=== PATIENT | female | born 1960 | race Caucasian/White ===

== ENCOUNTER 2018-04-18 16:29 | Outpatient (CLI) | payer MEDICARE, OTHER ==
[~2018-04-18] VITALS: Ht 165.1 cm; Wt 49.4 kg
[2018-04-18] MEDS ORDERED: NS IV 1000 ML 1,000 ML ONE (16:39)
[2018-04-18] MEDS ORDERED: NS IV 1000 ML 1,000 ML IV ONE (16:45)
[2018-04-18 17:50] VITALS: BP 113/85
== END 2018-04-18 17:50 | disposition home or self-care (01) ==
LOC: SDC 16:29
PROVIDERS: ATTEND Physician Assistant
DX: E86.9 Volume depletion, unspecified (principal)
CPT/HCPCS: 96360

== ENCOUNTER → 2018-08-08 | Outpatient (CLI) | payer MEDICARE, OTHER ==
[~2018-08-08] MED LIST: NS IV 1000 ML 1,000 ML IV ONE; NS IV 1000 ML 1,000 ML IV SCH; NS IV 1000 ML 1,000 ML ONE
--- NOTE | 2018-08-08 17:28 | Diagnostic Imaging Report ---
INDICATION: Chest pain and shortness of breath. TIME OF EXAM: 5:18 PM COMPARISON: No prior studies are available for comparison. FINDINGS: The heart size is normal. The pulmonary vascularity is unremarkable. The lungs are clear. No infiltrate, effusion or pneumothorax is detected. IMPRESSION: No acute cardiopulmonary process is detected. Dictated by: Dictated on workstation # [id number]
[2018-08-08 17:35] LABS: BASOPHILS % (AUTO) 0 % (0-10); EOSINOPHILS # (AUTO) 0.1 10^3/uL (0.0-0.3); EOSINOPHILS % (AUTO) 1 % (0-10); HEMATOCRIT 46 % (35-52); HEMOGLOBIN 15.1 G/DL (11.5-16.0); LYMPHOCYTES # (AUTO) 1.6 X 10^3 (1.0-4.0); LYMPHOCYTES % (AUTO) 19 % (12-44); MEAN CORPUSCULAR HEMOGLOBIN 28 PG (25-34); MEAN CORPUSCULAR HGB CONC 33 G/DL (32-36); MEAN CORPUSCULAR VOLUME 85 FL (80-99); MEAN PLATELET VOLUME 9.2 FL (7.4-10.4); MONOCYTES # (AUTO) 0.5 X 10^3 (0.0-1.0); MONOCYTES % (AUTO) 6 % (0-12); NEUTROPHILS # (AUTO) 6.1 X 10^3 (1.8-7.8); NEUTROPHILS % (AUTO) 73 % (42-75); PLATELET COUNT 340 10^3/uL (130-400); RED CELL DISTRIBUTION WIDTH 13.3 % (10.0-14.5); WHITE BLOOD COUNT 8.4 10^3/uL (4.3-11.0)
[2018-08-08 18:24] LABS: ALBUMIN 4.2 GM/DL (3.2-4.5); BILIRUBIN,TOTAL 0.3 MG/DL (0.1-1.0); CALCIUM 9.6 MG/DL (8.5-10.1); CREATININE SERUM 0.97 MG/DL (0.60-1.30); POTASSIUM 3.9 MMOL/L (3.6-5.0); TOTAL PROTEIN 7.4 GM/DL (6.4-8.2)
--- NOTE | 2018-08-08 21:33 | NUR ---
Infusion complete. VS 97.6 113/62, 105, 97% on room air, 18 resp 0 pain.
== END ==
LOC: 4TH 17:04 → 4THo 17:04 → 4TH 08-09 17:23
PROVIDERS: ATTEND Physician Assistant
DX: E86.0 Dehydration (principal); R11.0 Nausea; R00.0 Tachycardia, unspecified; E78.5 Hyperlipidemia, unspecified
CPT/HCPCS: 36415; 71045; 80053; 80061; 85025; 93005; 96360

== ENCOUNTER → 2018-08-13 | Outpatient (CLI) | payer MEDICARE, OTHER ==
--- NOTE | 2018-08-14 14:00 | Diagnostic Imaging Report ---
INDICATION: Routine screening. COMPARISON: 09/12/2017 and 04/27/2016. TECHNIQUE: 2D and 3D bilateral screening mammography was performed with CAD. FINDINGS: Both breasts are heterogeneously dense, limiting the sensitivity of mammography. Bilateral subpectoral breast implants are noted. The implant contours appear smooth. A biopsy clip in the upper-outer right breast is noted. Scattered benign calcifications are noted. No mass or malignant appearing microcalcifications are seen. The axillae are unremarkable. IMPRESSION: No mammographic features suspicious for malignancy are identified. ACR BI-RADS Category 2: Benign findings. Result letter will be mailed to the patient. Note: At least 10% of breast cancer is not imaged by mammography. Dictated by: Dictated on workstation # [id number]
== END ==
LOC: CARD 09:35
PROVIDERS: ATTEND Physician Assistant
DX: Z12.31 Encounter for screening mammogram for malignant neoplasm of breast (principal)
CPT/HCPCS: 77067

== ENCOUNTER → 2018-10-08 | Outpatient (CLI) | payer MEDICARE, OTHER | LOC: CARD 10:24 | PROVIDERS: ATTEND Internal Medicine Interventional Cardiology | DX: R07.89 Other chest pain (principal); R06.09 Other forms of dyspnea; E78.2 Mixed hyperlipidemia; R00.2 Palpitations | CPT/HCPCS: 93306 ==

== ENCOUNTER → 2018-10-18 | Outpatient (CLI) | payer MEDICARE, OTHER ==
--- NOTE | 2018-10-18 13:27 | Diagnostic Imaging Report ---
INDICATION: Postmenopausal screening for osteoporosis. COMPARISON: None. FINDINGS: AP Spine L1-L4: [BMD (g/cm2): 1.086] [T-Score: -0.9] [Z-Score: 0.7] [BMD Previous: na] [BMD % Change: na] LT Hip Neck: [BMD (g/cm2): 0.736] [T-Score: -2.2] [Z-Score: -0.7] LT Hip Total: [BMD (g/cm2):0.781] [T-Score:-1.8] [Z-Score: -0.6] [BMD Previous: na] [BMD % Change: na] RT Hip Neck: [BMD (g/cm2):0.762] [T-Score:-2.0] [Z-Score:-0.5] RT Hip Total: [BMD (g/cm2):0.821] [T-score:-1.5] [Z-Score:-0.3] [BMD Previous:na] [BMD % Change:na] *Indicates significant change from prior examination based on 95% confidence level. World Health Organization criteria for BMD interpretation classify patients as Normal (T-score at or above -1.0), Osteopenic (T-score between -1.0 and -2.5) or Osteoporotic (T-score at or below -2.5). LIMITATIONS AND MODIFICATION: None. FRACTURE RISK (FRAX SCORE): The ten year probability of (%): Major Osteoporotic Fracture: [8.3] Hip Fracture: [1.3] IMPRESSION: 1. Osteopenia (Low bone mass). 2. Baseline examination. 3. See below National Osteoporosis Foundation guidelines on when to potentially initiate pharmacologic therapy. Based on the National Osteoporosis Foundation Guidelines, pharmacologic treatment should be initiated in any of the following, unless clinical conditions suggest otherwise: * Any patient with prior fragility fracture of the hip or vertebrae. A spine fracture indicates 5X risk for subsequent spine fracture and 2X risk for subsequent hip fracture. * Osteoporosis (T-score <-2.5). * Postmenopausal women and men age 50 and older with low bone mass/osteopenia (T-score between -1.0 and -2.5) by DXA and 10-year major osteoporotic fracture greater than 20% or a 10-year probability of hip fracture greater than 3%. These fracture risks are supplied above in the FRAX score, if applicable. * Clinician judgment and/or patient preferences may indicate treatment for people with 10-year fracture probabilities above or below these levels. Dictated by: Dictated on workstation # [id number]
== END ==
LOC: RAD 09:52
PROVIDERS: ATTEND Physician Assistant
DX: Z13.820 Encounter for screening for osteoporosis (principal); M85.89 Other specified disorders of bone density and structure, multiple sites; Z78.0 Asymptomatic menopausal state
CPT/HCPCS: 77080

== ENCOUNTER → 2018-10-18 | Outpatient (CLI) | payer MEDICARE, OTHER ==
[~2018-10-18] MED LIST changes: +CATHETER FLUSH 10 ML SYR IV PRN; -NS IV 1000 ML 1,000 ML IV ONE; -NS IV 1000 ML 1,000 ML IV SCH; -NS IV 1000 ML 1,000 ML ONE; +REGADENOSON 0.4 MG/5 ML SYR (LEXISCAN) IV ONE
[2018-10-18 09:06] VITALS: BP 138/93
[2018-10-18 09:08] VITALS: BP 124/77
--- NOTE | 2018-10-22 16:43 | Cardiology Stress Test Report ---
Stress Test Report Type of NM Stress Test: Test Type: LEXISCAN 0.4MG/5ML Date of Procedure/Referring: Date of Procedure: Oct 18, 2018 PCP Sue Coleman MD Admitting Physician Porfirio Davis MD Indications: Palpitations Baseline Heart Rate: 94 Baseline Blood Pressure: Blood Pressure Systolic: 124 Blood Pressure Diastolic: 77 Baseline EKG: Baseline EKG: sinus rhythm Summary & Conclusion: Summary: The patient was brought to the stress lab after informed consent was taken. St ress test was performed according to the Lexiscan protocol. 0.4 mg of IV Lexiscan was given. Low-grade exercise was performed. Baseline EKG showed sinus rhythm at 94 BPM. Initial blood pressure was 138/93 mmHg. Maximum heart rate was 113 bpm and blood pressure 126/67 mmHg. Patient did not have any chest pain, arrhythmias or ST segment changes during the stress test. 8.64 mCi of Myoview were given for rest imaging and 23.6 mCi of Myoview given for stress imaging. EF 79 percent. No wall motion abnormalities. Normal myocardial perfusion imaging during rest and stressed. Conclusion: Pharmacological stress test was negative for ischemia. Normal LV function with no wall motion abnormalities. Normal myocardial perfusion imaging during rest and stress. Sue COLEMAN MD Oct 22, 2018 4:43 pm
== END ==
LOC: CARD 07:35
PROVIDERS: ATTEND Internal Medicine Interventional Cardiology
DX: E78.2 Mixed hyperlipidemia (principal); R07.89 Other chest pain; R00.2 Palpitations
CPT/HCPCS: 78452; 93017

== ENCOUNTER 2018-10-29 08:53 | Outpatient (RCR) | payer MEDICARE, OTHER ==
[2018-12-31] MEDS ORDERED: MULT-884 PO (10:41)
[2018-12-31] MEDS ORDERED: CALC-227 PO (10:41)
[2018-12-31] MEDS ORDERED: MAGN400T39 PO (10:41)
[2018-12-31] MEDS ORDERED: METO5TAB2 PO (10:56)
[2018-12-31] MEDS ORDERED: HYDR-4196 PO (10:56)
[2018-12-31] MEDS ORDERED: EZET10TA49 PO (10:56)
[2018-12-31] MEDS ORDERED: CARI350T PO (10:56)
[2018-12-31] MEDS ORDERED: TOPI50TA37 PO (10:56)
[2018-12-31] MEDS ORDERED: TIZA4TAB4 PO (10:56)
[2018-12-31] MEDS ORDERED: CLOR7.5T3 PO (10:56)
[2018-12-31] MEDS ORDERED: IMIP25TA4 PO (10:56)
[2018-12-31] MEDS ORDERED: FAMO-119 PO (10:56)
[2018-12-31] MEDS ORDERED: FLDR.1T PO (10:56)
[2018-12-31] MEDS ORDERED: BUPR300T43 PO (10:56)
[2018-12-31] MEDS ORDERED: HYOS-20 PO (10:56)
[2018-12-31] MEDS ORDERED: LORA1TAB PO (10:56)
[2018-12-31] MEDS ORDERED: SERT100T PO (10:56)
[2018-12-31] MEDS ORDERED: ONDN4T PO (10:56)
[2018-12-31] MEDS ORDERED: POTA-51 PO (10:57)
[2018-12-31] MEDS ORDERED: ATOR80TA76 PO (10:59)
[2018-12-31] MEDS ORDERED: NALO12.5 PO (10:59)
[2018-12-31] MEDS ORDERED: SENN-175 PO (10:59)
[2018-12-31] MEDS ORDERED: FENT1PAT60 TD (11:05)
[2018-12-31] MEDS ORDERED: ONDA8TAB13 PO (11:05)
[2018-12-31] MEDS ORDERED: OXYM15MI4 NS (11:05)
[2018-12-31] MEDS ORDERED: BISA-65 PO (11:05)
[2018-12-31] MEDS ORDERED: METO-370 PO (19:08)
== END 2019-01-27 | disposition home or self-care (01) ==
LOC: CARD 08:53
PROVIDERS: ATTEND Internal Medicine Interventional Cardiology
DX: R00.2 Palpitations (principal)

== ENCOUNTER → 2018-12-14 | Outpatient (CLI) | payer MEDICARE, OTHER ==
[2018-12-14 15:01] LABS: BILIRUBIN,TOTAL 0.2 MG/DL (0.1-1.0); CALCIUM 9.5 MG/DL (8.5-10.1); CREATININE SERUM 1.06 MG/DL (0.60-1.30); POTASSIUM 4.4 MMOL/L (3.6-5.0)
[2018-12-14 15:02] LABS: TOTAL PROTEIN 6.9 GM/DL (6.4-8.2)
[2018-12-14 15:04] LABS: HEMATOCRIT 42 % (35-52); HEMOGLOBIN 13.3 G/DL (11.5-16.0); MEAN CORPUSCULAR HEMOGLOBIN 28 PG (25-34); MEAN CORPUSCULAR HGB CONC 32 G/DL (32-36); MEAN CORPUSCULAR VOLUME 89 FL (80-99); WHITE BLOOD COUNT 5.2 10^3/uL (4.3-11.0)
[2018-12-14 15:05] LABS: BASOPHILS % (AUTO) 1 % (0-10); EOSINOPHILS # (AUTO) 0.2 10^3/uL (0.0-0.3); EOSINOPHILS % (AUTO) 4 % (0-10); LYMPHOCYTES # (AUTO) 1.5 X 10^3 (1.0-4.0); LYMPHOCYTES % (AUTO) 28 % (12-44); MEAN PLATELET VOLUME 9.2 FL (7.4-10.4); MONOCYTES # (AUTO) 0.4 X 10^3 (0.0-1.0); MONOCYTES % (AUTO) 7 % (0-12); NEUTROPHILS # (AUTO) 3.1 X 10^3 (1.8-7.8); NEUTROPHILS % (AUTO) 60 % (42-75); PLATELET COUNT 269 10^3/uL (130-400)
[2018-12-15 14:36] LABS: CHOLESTEROL 204 MG/DL (< 200); HDL CHOLESTEROL 48 MG/DL (40-60); TRIGLYCERIDES 121 MG/DL (<150); VLDL CHOLESTEROL 24 MG/DL (5-40)
== END ==
LOC: LAB FS 13:24
PROVIDERS: ATTEND Internal Medicine
DX: E78.2 Mixed hyperlipidemia (principal); I95.9 Hypotension, unspecified; E16.2 Hypoglycemia, unspecified; M85.88 Other specified disorders of bone density and structure, other site
CPT/HCPCS: 36415; 80053; 80061; 85025

== ENCOUNTER 2018-12-31 09:03 | Day surgery (SDC) | payer MEDICARE, OTHER ==
[~2018-12-31] VITALS: Ht 165 cm; Wt 50.4 kg
[2018-12-31] VITALS (14 sets, daily range): BP systolic 103–118; BP diastolic 77–97
[2018-12-31] MEDS ORDERED: KETAMINE HCL 100 MG/ML 5 ML VIAL IJ ONE (09:04)
[2018-12-31] MEDS ORDERED: HEParin (CATH LAB) 1,000 ML IV ONE (09:14)
[2018-12-31] MEDS ORDERED: LIDOCAINE 1% INJ 20 ML 20 ML VIAL ONE (09:14)
[2018-12-31] MEDS ORDERED: NS IV 1000 ML 1,000 ML ONE ×2 (09:14→13:57)
[2018-12-31] MEDS ORDERED: NS IV 1000 ML 1,000 ML IV SCH ×2 (09:20→14:57)
[2018-12-31] MEDS ORDERED: ISOPROTERENOL 0.2 MG/D5W 50 ML IV ONE (09:30)
[2018-12-31 10:20] LABS: HEMOGLOBIN 13.9 G/DL (11.5-16.0); MEAN PLATELET VOLUME 9.2 FL (7.4-10.4); RED CELL DISTRIBUTION WIDTH 13.1 % (10.0-14.5); WHITE BLOOD COUNT 5.4 10^3/uL (4.3-11.0)
[2018-12-31 10:36] LABS: INR 0.9 (0.8-1.4); PROTHROMBIN TIME PATIENT 12.6 SEC (12.2-14.7)
[2018-12-31] MEDS ORDERED: MAGN400T39 PO (10:41)
[2018-12-31] MEDS ORDERED: CALC-227 PO (10:41)
[2018-12-31] MEDS ORDERED: MULT-884 PO (10:41)
[2018-12-31 10:42] LABS: ALBUMIN 4.5 GM/DL (3.2-4.5); BILIRUBIN,TOTAL 0.3 MG/DL (0.1-1.0); CALCIUM 9.5 MG/DL (8.5-10.1); CREATININE SERUM 1.17 MG/DL (0.60-1.30); POTASSIUM 3.6 MMOL/L (3.6-5.0); TOTAL PROTEIN 7.7 GM/DL (6.4-8.2)
[2018-12-31] MEDS ORDERED: LORA1TAB PO (10:56)
[2018-12-31] MEDS ORDERED: TOPI50TA37 PO (10:56)
[2018-12-31] MEDS ORDERED: CLOR7.5T3 PO (10:56)
[2018-12-31] MEDS ORDERED: HYOS-20 PO (10:56)
[2018-12-31] MEDS ORDERED: FLDR.1T PO (10:56)
[2018-12-31] MEDS ORDERED: TIZA4TAB4 PO (10:56)
[2018-12-31] MEDS ORDERED: CARI350T PO (10:56)
[2018-12-31] MEDS ORDERED: ONDN4T PO (10:56)
[2018-12-31] MEDS ORDERED: BUPR300T43 PO (10:56)
[2018-12-31] MEDS ORDERED: METO5TAB2 PO (10:56)
[2018-12-31] MEDS ORDERED: IMIP25TA4 PO (10:56)
[2018-12-31] MEDS ORDERED: FAMO-119 PO (10:56)
[2018-12-31] MEDS ORDERED: EZET10TA49 PO (10:56)
[2018-12-31] MEDS ORDERED: HYDR-4196 PO (10:56)
[2018-12-31] MEDS ORDERED: SERT100T PO (10:56)
[2018-12-31] MEDS ORDERED: POTA-51 PO (10:57)
[2018-12-31] MEDS ORDERED: ATOR80TA76 PO (10:59)
[2018-12-31] MEDS ORDERED: SENN-175 PO (10:59)
[2018-12-31] MEDS ORDERED: NALO12.5 PO (10:59)
[2018-12-31] MEDS ORDERED: DEXTROSE 50% 50 ML (IMS) SYR IV ONE (11:00)
[2018-12-31] MEDS ORDERED: FENT1PAT60 TD (11:05)
[2018-12-31] MEDS ORDERED: BISA-65 PO (11:05)
[2018-12-31] MEDS ORDERED: OXYM15MI4 NS (11:05)
[2018-12-31] MEDS ORDERED: ONDA8TAB13 PO (11:05)
--- NOTE | 2018-12-31 11:18 | NUR ---
SPOKE WITH PT (SHE BROUGHT IN HER HOME MEDS) TO COMPLETE THE MED REC. FENTANYL 100MCG: PT INDICATED SHE CHANGES THE PATCH EVERY 48 HOURS, I CALLED THE PHARMACY TO VERIFY THAT WAS ON FILE AND THEY AGREED IT WAS. ALL MEDS THE PT WAS ABLE TO TELL ME HOW SHE TAKES THEM. OTC MEDS: CALCIUM W/ VIT D: 1 DAILY MAGNESIUM 400M DAILY WOMENS 1 A DAY: 1 DAILY AFRIN: 1 SPRAY EACH NOSTRIL BID BISACODYL 5M TO 2 TS BID SENNA S: 1 TO 2 TS BID
[2018-12-31] MEDS ORDERED: PROPOFOL DRIP (ICU) 100 ML IV ONE (12:16)
[2018-12-31] MEDS ORDERED: fentaNYL INJECTION 100 MCG/2 ML AMP ONE (12:17)
[2018-12-31] MEDS ORDERED: MIDAZOLAM 2 MG/2 ML (VERSED) VIAL ONE (12:17)
[2018-12-31] MEDS ORDERED: GLYCOPYRROLATE 0.2 MG/ML (ROBINUL) 2 ML VIAL ONE (12:17)
--- NOTE | 2018-12-31 14:57 | Cardiac Procedure Note-CS/ASA ---
Pre-Procedure Note Pre-Op Procedure Note H&P Reviewed The H&P was reviewed, patient examined and no changes noted. Date H&P Reviewed: Dec 31, 2018 Time H&P Reviewed: 11:00 Conscious Sedation Pre-Proced Time 11:00 ASA Score 3 For ASA 3 and 4: Consider anesthesia and medical clearance. Also, for patients with a history of failed moderate sedation consider anesthesia. Airway Lungs Heart ASA score ASA 1: a normal healthy patient ASA 2: a patient with a mild systemic disease (mid diabetes, controlled hypertension, obesity ASA 3: a patient with a severe systemic disease that limits activity (angina, COPD, prior Myocardial infarction) ASA 4: a patient with an incapacitating disease that is a constant threat to life (CHF, renal failure) ASA 5: a moribund patient not expected to survive 24 hrs. (ruptured aneurysm) ASA 6: a declared brain- patient whose organs are being harvested. For emergent operations, add the letter E after the classification Mallampati Classification Grade 1 Sedation Plan Analgesia, Amnesia, Plan communicated to team members, Discussed options with patient/fam, Discussed risks with patient/fam The patient is an appropriate candidate to undergo the planned procedure, sedation, and anesthesia. The patient immediately re-assessed prior to indication. Sue BEGUM MD Dec 31, 2018 14:57
[2018-12-31] MEDS ORDERED: PATIENT MAY USE OWN MEDS, ALL PO SCH (15:00)
--- NOTE | 2018-12-31 15:03 | Electrophysiology Procedure ---
EP Procedure DATE OF SERVICE:12/31/18 REFERRING PHYSICIAN: CARDIAC STAKEHOLDER MANAGER: Lobito Coleman MD, CHETAN, NADIAS. INDICATION: Possible narrow complex tachycardia. PREOPERATIVE DIAGNOSIS: Possible narrow complex tachycardia. POSTOPERATIVE DIAGNOSES: Noninducible tachycardia. HISTORY: This is a 58-year-old lady with frequent palpitations. Possible narrow complex tachycardia. The patient is planned for comprehensive EP study and ablation. PROCEDURE PERFORMED: 1. Comprehensive EP study with induction. 2. Fluoroscopy. 3. Drug infusion. COMPLICATION: None. ESTIMATED BLOOD LOSS: 10 mL. CONTRAST USED: None. FLUOROSCOPY TIME: 11.9 min. FLUOROSCOPY DOSE: 41 mgy. SPECIMENS: None. ANESTHESIA: Done by our anesthesia colleagues. ANTICOAGULATION: None. PROCEDURE IN DETAIL: After informed consent was taken, the patient was brought to the EP lab. Anesthesia was provided by our anesthesia colleagues. The patient was draped and prepped in the usual sterile fashion. The patient presented to the EP lab in sinus rhythm. Access was gained in the right femoral vein with a 6-Latvian and an 8-Latvian sheath. Left access in left femoral vein was gained with 5-Latvian and 6-Latvian sheath respectively. High right atrial catheter was [employer] catheter, right ventricular catheter was placed, his catheter and the CS catheter were also placed. A comprehensive EP study was done. Dual AV laura physiology was not demonstrated. Tachycardia was not induced with or without Isuprel and even during washout. Sinus tachycardia. Rapid atrial pacing also did not induce tachycardia. The patienttolerated the procedurewell and did not have any complication. The patientleft the lab in sinus rhythm. MEASUREMENTS/EP STUDY: AA interval 644 ms, AH interval 71 ms, HV interval 52 ms, ND interval 184 ms, neck and QRS duration 47 ms, QT interval 349 ms, R-R interval 651 ms, AV Wenckebach at pacing 360 ms, Retrograde Wenckebach when pacing at 480 ms, Retrograde Wenckebach when pacing at 510 ms, Atrial ERP 500/240 ms, Atrial ERP 450/240 ms, Retrograde ERP 550/380 ms, During Isuprel; Atrial ERP 400/190 ms, Atrial ERP 400/220 ms during Isuprel washout. PLAN: The patient will be observed for 4 hours and will be discharged later today with precise followup instructions. Lobito Coleman MD, FHRS, CCDS Cardiac Electrophysiology Sue COLEMAN MD Dec 31, 2018 15:03
--- NOTE | 2018-12-31 15:07 | Discharge Inst-Post CATH ---
Discharge Inst-CATH/EP Problems Reviewed?: Yes Final Diagnosis Noninducible tachycardia Post Cardiac Cath/EP D/C Inst Follow Up/Plan The patient will be discharged today to follow-up in the office in 4 weeks. <b>CARDIAC CATH/EP PROCEDURE DISCHARGE INSTRUCTIONS</b> ACTIVITY * Go Home directly and rest. * Limit activity of the leg (or wrist if it was used) for 7 days including aerobics, swimming, jogging, bicycling, etc. * Restrict stair-climbing for 7 days if possible, if not, climb up with your non-cath leg, then bring together on the same step. * Avoid lifting, pushing, pulling or excessive movement of the affected extremity for 7 days. * Customary sexual activity may be resumed after 2 days-use caution not to use a position that strains or causes pain to the affected extremity. * No driving for 24 hours. * NO SMOKING. * Avoid straining for bowel movements for 7 days. * Gentle walking on level ground is allowed. * Returning to work will depend on the type of procedure and the results. Your doctor will discuss this with you. CALL YOUR DOCTOR FOR ANY OF THE FOLLOWING: *If bleeding from the puncture site occurs- Apply gentle pressure to site with clean cloth and call your doctor or EMS. * If a knot or lump forms under the skin, increases in size, or causes pain. * If bruising appears to be worsening or moving further down your leg instead of disappearing. * Temperature above 101 F. CARE OF YOUR GROIN INCISION; * Bruising or purple discoloration of the skin near the puncture site is common. * You may shower only, no bathtub bathing for 5 days. Be careful to avoid slipping as your leg may feel stiff. * If a closure device was used on your femoral artery, please see the attached guide regarding care of the device and your leg. * Leave dressing on FOR 24 hours. CARE OF YOUR WRIST INCISION; * Bruising or purple discoloration of the skin near the puncture site is common. * You may shower. * DO NOT submerge wrist. * Leave dressing on FOR 24 hours. Sue BEGUM MD Dec 31, 2018 15:07
--- NOTE | 2018-12-31 15:10 | Cardiology Discharge Summary ---
Diagnosis/Chief Complaint Date of Admission 12/31/2018 Date of Discharge 12/31/2018 Admission Diagnosis Palpitations, Possible narrow complex tachycardia Final/Discharge Diagnosis Noninducible tachycardia Chief Complaint/HPI Chief Complaint/HPI 58-year-old with palpitations and possible narrow complex tachycardia. Discharge Summary Procedures No dual AV laura physiology. Noninducible tachycardia. Discharge Physical Examination Unremarkable. Hospital Course Was the Problem List Reviewed?: Yes Stable. Pending Labs Laboratory Tests 12/31/18 10:12: White Blood Count 5.4, Red Blood Count 4.94, Hemoglobin 13.9, Hematocrit 42, Mean Corpuscular Volume 85, Mean Corpuscular Hemoglobin 28, Mean Corpuscular Hemoglobin Concent 33, Red Cell Distribution Width 13.1, Platelet Count 278, Mean Platelet Volume 9.2, Prothrombin Time 12.6, INR Comment 0.9, Activated Partial Thromboplast Time 30, Sodium Level 143, Potassium Level 3.6, Chloride Level 111, Carbon Dioxide Level 23, Anion Gap 9, Blood Urea Nitrogen 10, Creatinine 1.17, Estimat Glomerular Filtration Rate 47, BUN/Creatinine Ratio 9, Glucose Level 69, Calcium Level 9.5, Corrected Calcium 9.1, Total Bilirubin 0.3, Aspartate Amino Transf (AST/SGOT) 27, Alanine Aminotransferase (ALT/SGPT) 27, Alkaline Phosphatase 84, Total Protein 7.7, Albumin 4.5 12/31/18 11:19: Glucometer 142 Discussion & Recommendations Discussion Discussed with the family. Follow up appt.: Dr. Coleman in 4 weeks. Dicharge Diet: Regular Diet Activity as Tolerated: Yes Home Medications Reviewed patient Home Medication Reconciliation performed by pharmacy medication reconciliations ecg technician and/or nursing. Patients Allergies have been reviewed. Discharge Home Medications: Reviewed and agree with Discharge Medication list on patient's Discharge Instruction sheet Condition at discharge Stable. Instructions to patient/family The patient will be discharged today to follow-up in the office in 4 weeks. Sue COLEMAN MD Dec 31, 2018 15:09
[2018-12-31] MEDS ORDERED: ONDANSETRON 4 MG/2 ML (SDV) Z0FRAN IVP ONE (15:30)
--- NOTE | 2018-12-31 16:19 | Anesthesia-General Post-Op ---
MAC Patient Condition Mental Status/LOC: Same as Preop Cardiovascular: Satisfactory Nausea/Vomiting: Absent Respiratory: Satisfactory Pain: Controlled Complications: Absent Post Op Complications Complications None Follow Up Care/Instructions Patient Instructions None needed. Anesthesiology Discharge Order Discharge Order Patient is doing well, no complaints, stable vital signs, no apparent adverse anesthesia problems. No complications reported per nursing. RENARD DAILEY CRNA Dec 31, 2018 16:19
[2018-12-31] MEDS ORDERED: METO-370 PO (19:08)
== END 2018-12-31 19:30 | disposition home or self-care (01) ==
LOC: CATH 09:03 → ICU 15:58 → CATH 19:30
PROVIDERS: ATTEND Internal Medicine Interventional Cardiology
DX: I47.1 Supraventricular tachycardia (principal); G43.709 Chronic migraine without aura, not intractable, without status migrainosus; E78.2 Mixed hyperlipidemia; I95.1 Orthostatic hypotension; I10 Essential (primary) hypertension; I48.91 Unspecified atrial fibrillation; Z82.49 Family history of ischemic heart disease and other diseases of the circulatory system; Z83.3 Family history of diabetes mellitus; Z88.8 Allergy status to other drugs, medicaments and biological substances; Z79.52 Long term (current) use of systemic steroids; Z79.899 Other long term (current) drug therapy; Z90.710 Acquired absence of both cervix and uterus
CPT/HCPCS: 36415; 80053; 82962; 85027; 85610; 85730; 87081; 93621; 93623

== ENCOUNTER → 2019-04-24 | Outpatient (CLI) | payer MEDICARE, OTHER ==
[~2019-04-24] MED LIST changes: +ATOR80TA76 PO; +BISA-65 PO; +BUPR300T43 PO; +CALC-227 PO; +CARI350T PO; -CATHETER FLUSH 10 ML SYR IV PRN; +CLOR7.5T3 PO; +EZET10TA49 PO; +FAMO-119 PO; +FENT1PAT60 TD; +FLDR.1T PO; +HYDR-4196 PO; +HYOS-20 PO; +IMIP25TA4 PO; +LORA1TAB PO; +MAGN400T39 PO; +METO50TA7 PO; +METO5TAB2 PO; +MULT-884 PO; +NALO12.5 PO; +ONDA8TAB13 PO; +ONDN4T PO; +OXYM15MI4 NS; +POTA-51 PO; -REGADENOSON 0.4 MG/5 ML SYR (LEXISCAN) IV ONE; +SENN-175 PO; +SERT100T PO; +TIZA4TAB4 PO; +TOPI50TA37 PO
--- NOTE | 2019-04-24 18:38 | Diagnostic Imaging Report ---
INDICATION: Knee pain. TECHNIQUE: AP and lateral views of both knees are obtained. FINDINGS: No fracture or acute bony abnormality is seen. There is mild patellofemoral joint space narrowing and spurring on both sides with mild medial joint space narrowing and osteophyte formation. The lateral compartments appear preserved. There is no lytic or blastic lesion or joint effusion. IMPRESSION: Relatively mild degenerative changes of both knees, as described above. No acute abnormality. Dictated by: Dictated on workstation # [id number]
== END ==
LOC: RAD FS 13:36
PROVIDERS: ATTEND Internal Medicine Rheumatology
DX: M17.0 Bilateral primary osteoarthritis of knee (principal)

== ENCOUNTER 2019-05-20 17:56 | Emergency (ER) | payer MEDICARE, OTHER ==
[~2019-05-20] VITALS: Ht 165 cm; Wt 85.6 kg
--- NOTE | 2019-05-20 18:07 | ED General ---
General Stated Complaint: BLOOD PRESSURE LOW,DEHYDRATED Source of Information: Patient, Family Exam Limitations: No Limitations History of Present Illness Date Seen by Provider: May 20, 2019 Time Seen by Provider: 18:07 Initial Comments 58-year-old female who is brought in with concerns for dehydration. Patient has not been eating or drinking much because she just hasn't "felt good" for a couple days. Patient is very vague and how she hasn't felt good. Patient reports that she's been having problems with her "fibromyalgia". Patient denies any fevers chills cough and shortness of breath chest pain nausea vomiting or any other systemic complaints. Allergies and Home Medications Allergies Coded Allergies: prochlorperazine (Verified Allergy, Mild, TREMORS, 04/18/18) Home Medications Atorvastatin Calcium 80 Mg Tablet, 80 MG PO DAILY, (Reported) Bisacodyl 5 Mg Tablet.dr, 5-10 MG PO BID, (Reported) Bupropion HCl 300 Mg Tab.er.24h, 300 MG PO DAILY, (Reported) Calcium Carbonate/Vitamin D3 1 Each Tablet, 1 EACH PO HS, (Reported) Carisoprodol 350 Mg Tablet, 350 MG PO TID, (Reported) Clorazepate Dipotassium 7.5 Mg Tablet, 22.5 MG PO HS, (Reported) Ezetimibe 10 Mg Tablet, 10 MG PO DAILY, (Reported) Famotidine 20 Mg Tablet, 20 MG PO BID PRN for NAUSEA/VOMITING, (Reported) Fentanyl 1 Each Patch.td72, 100 MCG TD Q48H, (Reported) Fludrocortisone Acetate 0.1 Mg Tab, 0.2 MG PO DAILY, (Reported) Hydrocodone/Acetaminophen 1 Each Tablet, 1 TAB PO Q6H PRN for PAIN-MODERATE, (Re ported) Hyoscyamine Sulfate 0.125 Mg Tablet, 0.125 MG PO HS, (Reported) Imipramine HCl 25 Mg Tablet, 25-75 MG PO HS, (Reported) Lorazepam 1 Mg Tablet, 0.5-1 MG PO Q6H PRN for ANXIETY, (Reported) Magnesium Oxide 400 Mg Tablet, 400 MG PO DAILY, (Reported) Metoclopramide HCl 5 Mg Tablet, 5 MG PO QIDACHS, (Reported) Metoprolol Succinate 50 Mg Tab.er.24h, 50 MG PO DAILY Prescribed by: ANGELA PEGUERO on 12/31/181907 Multivits,Ca,Minerals/Iron/FA 1 Each Tablet, 1 EACH PO DAILY, (Reported) Naloxegol Oxalate 12.5 Mg Tablet, 12.5 MG PO DAILY, (Reported) Ondansetron 8 Mg Tab.rapdis, 8 MG PO Q8H PRN for NAUSEA/VOMITING-1ST LINE, (Reported) Ondansetron HCl 4 Mg Tab, 4 MG PO Q8H PRN for NAUSEA/VOMITING-1ST LINE, (Reported) Oxymetazoline HCl 15 Ml Mist, 1 SPRAYS NS BID PRN for CONGESTION, (Reported) Potassium Chloride 20 Meq Tablet.er, 20 MEQ PO BID, (Reported) Sennosides/Docusate Sodium 1 Each Tablet, 1-2 EACH PO BID, (Reported) Sertraline HCl 100 Mg Tablet, 100 MG PO DAILY, (Reported) Tizanidine HCl 4 Mg Tablet, 2-4 MG PO BID, (Reported) Topiramate 50 Mg Tablet, 100 MG PO BID, (Reported) Patient Home Medication List Home Medication List Reviewed: Yes Review of Systems Review of Systems Constitutional: malaise EENTM: no symptoms reported Respiratory: no symptoms reported Cardiovascular: no symptoms reported Gastrointestinal: no symptoms reported Genitourinary: no symptoms reported Musculoskeletal: no symptoms reported Skin: no symptoms reported Psychiatric/Neurological: No Symptoms Reported Hematologic/Lymphatic: No Symptoms Reported Past Nbcihew-Tmfiws-Cyjfzm Hx Past Med/Social Hx: Reviewed Nursing Past Med/Soc Hx Patient Social History Recent Foreign Travel: No Contact w/Someone Who Travel: No Recent Hopitalizations: No Past Medical History Breast, Hysterectomy, Tonsillectomy Respiratory: No Cardiac: Yes High Cholesterol Neurological: No Genitourinary: Yes (INTERSTITIAL CYSTISIS) Gastrointestinal: Yes Hiatal Hernia, Irritable Bowel Cancer: No Blood Disorders: No Physical Exam Vital Signs Vital Signs - First Documented 05/20/19 05/20/19 18:05 19:36 Temp 36.2 Pulse 72 Resp 12 B/P (MAP) 103/72 (82) Pulse Ox 99 O2 Delivery Room Air Capillary Refill : Height, Weight, BMI Height: 5'5.00" Weight: 109lbs. 0.0oz. 49.486297kp; 18.51 BMI Method: General Appearance: No Apparent Distress, WD/WN Respiratory: Chest Non Tender, Lungs Clear Gastrointestinal: Non Tender, Soft Extremity: Normal Capillary Refill Neurologic/Psychiatric: Alert, Oriented x3, No Motor/Sensory Deficits, Depressed Affect Skin: Normal Color, Warm/Dry Progress/Results/Core Measures Suspected Sepsis SIRS Temperature: Pulse: Respiratory Rate: Laboratory Tests 05/20/19 18:19: White Blood Count 6.5 Blood Pressure / Mean: Laboratory Tests 05/20/19 18:19: Creatinine 0.92, Platelet Count 256, Total Bilirubin < 0.2 Results/Orders Lab Results Laboratory Tests Test 05/20/19 18:17 05/20/19 18:19 Range/Units Glucometer 82 70-110 MG/DL White Blood Count 6.5 4.3-11.0 10^3/uL Red Blood Count 4.39 4.35-5.85 10^6/uL Hemoglobin 12.6 11.5-16.0 G/DL Hematocrit 39 35-52 % Mean Corpuscular Volume 88 80-99 FL Mean Corpuscular Hemoglobin 29 25-34 PG Mean Corpuscular Hemoglobin Concent 33 32-36 G/DL Red Cell Distribution Width 13.1 10.0-14.5 % Platelet Count 256 130-400 10^3/uL Mean Platelet Volume 9.3 7.4-10.4 FL Sodium Level 136 135-145 MMOL/L Potassium Level 5.0 3.6-5.0 MMOL/L Chloride Level 104 98-107 MMOL/L Carbon Dioxide Level 22 21-32 MMOL/L Anion Gap 10 5-14 MMOL/L Blood Urea Nitrogen 8 7-18 MG/DL Creatinine 0.92 0.60-1.30 MG/DL Estimat Glomerular Filtration Rate > 60 BUN/Creatinine Ratio 9 Glucose Level 89 70-105 MG/DL Calcium Level 9.0 8.5-10.1 MG/DL Corrected Calcium 9.2 8.5-10.1 MG/DL Total Bilirubin < 0.2 0.1-1.0 MG/DL Aspartate Amino Transf (AST/SGOT) 33 5-34 U/L Alanine Aminotransferase (ALT/SGPT) 20 0-55 U/L Alkaline Phosphatase 91 40-136 U/L Troponin I < 0.30 <0.30 NG/ML Total Protein 6.4 6.4-8.2 GM/DL Albumin 3.7 3.2-4.5 GM/DL Micro Results Microbiology 05/20/19 Influenza Types A,B Antigen ([place]) - Final, Complete My Orders Orders - ALYCE GÓMEZ DO Cbc No Diff (05/20/19 18:12) Comprehensive Metabolic Panel (05/20/19 18:12) Ua Culture If Indicated (05/20/19 18:12) Influenza A And B Antigens (05/20/19 18:12) Ed Iv/Invasive Line Start (05/20/19 18:12) Ekg Tracing (05/20/19 18:12) Troponin I Fs (05/20/19 18:12) Ed Iv/Invasive Line Start (05/20/19 18:12) Ns Iv 1000 Ml (Sodium Chloride 0.9%) (05/20/19 18:12) Vital Signs/I&O 05/20/19 05/20/19 18:05 19:36 Temp 36.2 36.2 Pulse 72 72 Resp 12 12 B/P (MAP) 103/72 (82) 103/72 (82) Pulse Ox 99 99 O2 Delivery Room Air Capillary Refill : Progress Note : Time: 19:16 Progress Note Patient with normal labs, no acute findings on physical exam. Her blood sugar was slightly low so is a possibility she had a hypoglycemic episode that has resolved since she has some Gatorade just prior to arrival. Patient otherwise stable and will be discharged home in stable condition. Patient should follow-up with her primary care provider in the next couple days for continuation of care and recheck of symptoms. ECG Initial ECG Impression Date: May 20, 2019 Initial ECG Impression Time: 18:25 Initial ECG Rhythm: Normal Sinus Initial ECG Impression: Nonspecific Changes Comment no acute changes Departure Impression Primary Impression: General medical exam Additional Impression: Fatigue Qualified Codes: R53.83 - Other fatigue Disposition: 01 HOME, SELF-CARE Condition: Stable Departure-Patient Inst. Referrals: OSKAR PEARCE MD (PCP/Family) Primary Care Physician Patient Instructions: Dehydration, Adult (DC), HYPOGLYCEMIA Add. Discharge Instructions: The emergency department focuses on treating and ruling out life-threatening diseases. Whenever possible, a diagnosis is given. However, most patients are given an impression based on their history, physical exam, and workup during your brief time in the ER. Information about probable diagnosis and other educational material has been provided. Please take the time to read and understand this information. It is very important that you follow up with a physician as discussed during the visit today. Failure to adhere to your follow-up instructions may lead to severe disability, injury, or so please make sure to keep your appointments or obtain one as requested. Please keep in mind the emergency department is not designed to your primary care or "family doctor" and nonurgent issues are best evaluated by an outpatient physician ALYCE GÓMEZ DO May 20, 2019 18:07
[2019-05-20] MEDS ORDERED: NS IV 1000 ML 1,000 ML IV SCH (18:12)
[2019-05-20 18:32] LABS: HEMOGLOBIN 12.6 G/DL (11.5-16.0); MEAN PLATELET VOLUME 9.3 FL (7.4-10.4); RED CELL DISTRIBUTION WIDTH 13.1 % (10.0-14.5); WHITE BLOOD COUNT 6.5 10^3/uL (4.3-11.0)
[2019-05-20 18:41] LABS: CARBON DIOXIDE 22 MMOL/L (21-32); CHLORIDE 104 MMOL/L (98-107); SODIUM 136 MMOL/L (135-145)
[2019-05-20 18:42] LABS: ALANINE AMINOTRANSFERASE 20 U/L (0-55); ALBUMIN 3.7 GM/DL (3.2-4.5); ALKALINE PHOSPHATASE 91 U/L (40-136); BILIRUBIN,TOTAL < 0.2 MG/DL (0.1-1.0); BUN/CREATININE RATIO 9; CREATININE SERUM 0.92 MG/DL (0.60-1.30); GFR ESTIMATED > 60; GLUCOSE 89 MG/DL (70-105); TOTAL PROTEIN 6.4 GM/DL (6.4-8.2)
[2019-05-20 19:36] VITALS: BP 103/72
--- OUTSIDE RECORDS SUMMARY | 2019-05-29 19:03 | XMS REPORT | Continuity of Care Document ---
Author Organization Unknown Address Unknown Phone Unavailable Allergies Active Description Code Type Severity Reaction Onset Reported/Identified Relationship to Patient Clinical Status Yes prochlorperazine [id number] Drug Allergy Mild TREMORS 04/18/2018 Medications There is no data. Problems Date Dx Coded Attending Type Code Diagnosis Diagnosed By 04/18/2018 LENORE IVAN Ot E86.9 VOLUME DEPLETION, UNSPECIFIED 04/20/2018 LENORE IVAN Ot E86.9 VOLUME DEPLETION, UNSPECIFIED 08/08/2018 LENORE IVAN Ot E78.5 HYPERLIPIDEMIA, UNSPECIFIED 08/08/2018 LENORE IVAN Ot E86.0 DEHYDRATION 08/08/2018 LENORE IVAN Ot R00.0 TACHYCARDIA, UNSPECIFIED 08/08/2018 LENORE IVAN Ot R11.0 NAUSEA 08/13/2018 LENORE IVAN Ot E78.5 HYPERLIPIDEMIA, UNSPECIFIED 08/13/2018 LENORE IVAN Ot E86.0 DEHYDRATION 08/13/2018 LENORE IVAN Ot R00.0 TACHYCARDIA, UNSPECIFIED 08/13/2018 LENORE IVAN Ot R11.0 NAUSEA 08/13/2018 LENORE IVAN Ot Z12.31 ENCNTR SCREEN MAMMOGRAM FOR MALIGNANT NE 08/13/2018 LENORE IVAN Ot M81.8 OTHER OSTEOPOROSIS WITHOUT CURRENT PATHO 08/14/2018 LENORE IVAN Ot E78.5 HYPERLIPIDEMIA, UNSPECIFIED 08/14/2018 LENORE IVAN Ot E86.0 DEHYDRATION 08/14/2018 LENORE IVAN Ot R00.0 TACHYCARDIA, UNSPECIFIED 08/14/2018 LENORE IVAN Ot R11.0 NAUSEA 08/15/2018 LENORE IVAN Ot Z12.31 ENCNTR SCREEN MAMMOGRAM FOR MALIGNANT NE 08/27/2018 LENORE IVAN Ot Z12.31 ENCNTR SCREEN MAMMOGRAM FOR MALIGNANT NE 09/07/2018 LENORE IVAN Ot M81.8 OTHER OSTEOPOROSIS WITHOUT CURRENT PATHO 10/12/2018 Sue BEGUM MD Ot E78 .2 MIXED HYPERLIPIDEMIA 10/12/2018 Sue BEGUM MD Ot R00 .2 PALPITATIONS 10/12/2018 Sue BEGUM MD Ot R06.09 OTHER FORMS OF DYSPNEA 10/12/2018 Sue BEGUM MD Ot R07.89 OTHER CHEST PAIN 10/18/2018 LENORE IVAN Ot M81.0 AGE-RELATED OSTEOPOROSIS W/O CURRENT PAT 10/18/2018 LENORE IVAN Ot M81.0 AGE-RELATED OSTEOPOROSIS W/O CURRENT PAT 10/23/2018 LENORE IVAN Ot M85.89 OTH DISRD OF BONE DENSITY AND STRUCTURE, 10/23/2018 LENORE IVAN Ot Z13.820 ENCOUNTER FOR SCREENING FOR OSTEOPOROSIS 10/23/2018 LENORE IVAN Ot Z78.0 ASYMPTOMATIC MENOPAUSAL STATE 11/01/2018 Sue BEGUM MD Ot E78 .2 MIXED HYPERLIPIDEMIA 11/01/2018 Sue BEGUM MD Ot R00 .2 PALPITATIONS 11/01/2018 Sue BEGUM MD Ot R07.89 OTHER CHEST PAIN 11/01/2018 Sue BEGUM MD Ot E78 .2 MIXED HYPERLIPIDEMIA 11/01/2018 Sue BEGUM MD Ot R00 .2 PALPITATIONS 11/01/2018 Sue BEGUM MD Ot R06.09 OTHER FORMS OF DYSPNEA 11/01/2018 Sue BEGUM MD Ot R07.89 OTHER CHEST PAIN 11/09/2018 LENORE IVAN Ot M85.89 OTH DISRD OF BONE DENSITY AND STRUCTURE, 11/09/2018 LENORE IVAN Ot Z13.820 ENCOUNTER FOR SCREENING FOR OSTEOPOROSIS 11/09/2018 LENORE IVAN Ot Z78.0 ASYMPTOMATIC MENOPAUSAL STATE 12/11/2018 Sue BEGUM MD Ot E78 .2 MIXED HYPERLIPIDEMIA 12/11/2018 Sue BEGUM MD Ot M85.89 OTH DISRD OF BONE DENSITY AND STRUCTURE, 12/11/2018 Sue BEGUM MD Ot R00 .2 PALPITATIONS 12/11/2018 Sue BEGUM MD Ot R07.89 OTHER CHEST PAIN 12/11/2018 Sue BEGUM MD Ot Z13.820 ENCOUNTER FOR SCREENING FOR OSTEOPOROSIS 12/11/2018 Sue BEGUM MD Ot Z78 .0 ASYMPTOMATIC MENOPAUSAL STATE 12/20/2018 OSKAR PEARCE MD Ot E16.2 HYPOGLYCEMIA, UNSPECIFIED 12/20/2018 OSKAR PEARCE MD Ot E78.2 MIXED HYPERLIPIDEMIA 12/20/2018 OSKAR PEARCE MD Ot I95.9 HYPOTENSION, UNSPECIFIED 12/20/2018 OSKAR PEARCE MD Ot M85.8 8 OTH DISRD OF BONE DENSITY AND STRUCTURE, 12/31/2018 Sue BEGUM MD Ot E78 .2 MIXED HYPERLIPIDEMIA 12/31/2018 Sue BEGUM MD Ot G43.709 CHRONIC MIGRAINE W/O AURA, NOT INTRACTAB 12/31/2018 Sue BEGUM MD Ot I10 ESSENTIAL (PRIMARY) HYPERTENSION 12/31/2018 Sue BEGUM MD Ot I47 .1 SUPRAVENTRICULAR TACHYCARDIA 12/31/2018 Sue BEGUM MD Ot I48.91 UNSPECIFIED ATRIAL FIBRILLATION 12/31/2018 Sue BEGUM MD Ot I95 .1 ORTHOSTATIC HYPOTENSION 12/31/2018 Sue BEGUM MD Ot 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 12/31/2018 Sue BEGUM MD Ot Z79.899 OTHER REFRIGERATED CARGO CLERK (CURRENT) DRUG THERAPY 12/31/2018 Sue BEGUM MD, Ot Z82.49 FAMILY HX OF ISCHEM HEART DIS AND OTH DI 12/31/2018 Sue BEGUM MD Ot Z83 .3 FAMILY HISTORY OF DIABETES MELLITUS 12/31/2018 Sue BEGUM MD, Ot Z88 .8 ALLERGY STATUS TO OTH DRUG/MEDS/BIOL SUB 12/31/2018 Sue BEGUM MD Ot Z90.710 ACQUIRED ABSENCE OF BOTH CERVIX AND UTER 01/04/2019 Sue BEGUM MD Ot E78 .2 MIXED HYPERLIPIDEMIA 01/04/2019 Sue BEGUM MD, Ot G43.709 CHRONIC MIGRAINE W/O AURA, NOT INTRACTAB 01/04/2019 Sue BEGUM MD Ot I10 ESSENTIAL (PRIMARY) HYPERTENSION 01/04/2019 Sue BEGUM MD Ot I47 .1 SUPRAVENTRICULAR TACHYCARDIA 01/04/2019 Sue BEGUM MD Ot I48.91 UNSPECIFIED ATRIAL FIBRILLATION 01/04/2019 Sue BEGUM MD Ot I95 .1 ORTHOSTATIC HYPOTENSION 01/04/2019 Sue BEGUM MD Ot 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 01/04/2019 Sue BEGUM MD Ot Z79.899 OTHER FDC (CURRENT) DRUG THERAPY 01/04/2019 Sue BEGUM MD Ot Z82.49 FAMILY HX OF ISCHEM HEART DIS AND OTH DI 01/04/2019 Sue BEGUM MD, Ot Z83 .3 FAMILY HISTORY OF DIABETES MELLITUS 01/04/2019 Sue BEGUM MD, Ot Z88 .8 ALLERGY STATUS TO OT DRUG/MEDS/BIOL SUB 01/04/2019 Sue BEGUM MD Ot Z90.710 ACQUIRED ABSENCE OF BOTH CERVIX AND UTER 01/04/2019 OSKAR PEARCE MD Ot E16.2 HYPOGLYCEMIA, UNSPECIFIED 01/04/2019 OSKAR PEARCE MD Ot E78.2 MIXED HYPERLIPIDEMIA 01/04/2019 OSKAR PEARCE MD Ot I95.9 HYPOTENSION, UNSPECIFIED 01/04/2019 OSKAR PEARCE MD Ot M85.8 8 OTH DISRD OF BONE DENSITY AND STRUCTURE, 01/08/2019 Sue BEGUM MD Ot E78 .2 MIXED HYPERLIPIDEMIA 01/08/2019 Sue BEGUM MD, Ot G43.709 CHRONIC MIGRAINE W/O AURA, NOT INTRACTAB 01/08/2019 Sue BEGUM MD Ot I10 ESSENTIAL (PRIMARY) HYPERTENSION 01/08/2019 Sue BEGUM MD Ot I47 .1 SUPRAVENTRICULAR TACHYCARDIA 01/08/2019 Sue BEGUM MD, Ot I48.91 UNSPECIFIED ATRIAL FIBRILLATION 01/08/2019 Sue BEGUM MD, Ot I95 .1 ORTHOSTATIC HYPOTENSION 01/08/2019 Sue BEGUM MD, Ot 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 01/08/2019 Sue BEGUM MD, Ot Z79.899 OTHER REFRIGERATED CARGO CLERK (CURRENT) DRUG THERAPY 01/08/2019 Sue BEGUM MD, Ot Z82.49 FAMILY HX OF ISCHEM HEART DIS AND OTH DI 01/08/2019 Sue BEGUM MD, Ot Z83 .3 FAMILY HISTORY OF DIABETES MELLITUS 01/08/2019 Sue BEGUM MD, Ot Z88 .8 ALLERGY STATUS TO OT DRUG/MEDS/BIOL SUB 01/08/2019 Sue BEGUM MD, Ot Z90.710 ACQUIRED ABSENCE OF BOTH CERVIX AND UTER 01/27/2019 Sue BEGUM MD Ot R00 .2 PALPITATIONS 01/28/2019 Sue BEGUM MD, Ot R00 .2 PALPITATIONS 04/26/2019 JAYLIN PALACIOS MD Ot M17.0 BILATERAL PRIMARY OSTEOARTHRITIS OF KNEE 05/08/2019 AJYLIN PALACIOS MD, Ot M17.0 BILATERAL PRIMARY OSTEOARTHRITIS OF KNEE Procedures There is no data. Results Test Result Range Complete blood count (CBC) with automate d white blood cell (WBC) differential - 08/08/18 17:28 Blood leukocytes automated count (number/volume) 8.4 10*3/uL 4.3-11.0 Blood erythrocytes automated count (number/volume) 5.43 10*6/uL 4.35-5.85 Venous blood hemoglobin measurement (mass/volume) 15.1 g/dL 11.5-16.0 Blood hematocrit (volume fraction) 46 % 35-52 Automated erythrocyte mean corpuscular volume 85 [ foz_us] 80-99 Automated erythrocyte mean corpuscular h emoglobin (mass per erythrocyte) 28 pg 25-34 Automated erythrocyte mean corpuscular h emoglobin concentration measurement (mass/volume) 33 g/dL 32-36 Automated erythrocyte distribution width ratio 13. 3 % 10.0- 14.5 Automated blood platelet count (count/volume) 340 10*3/uL 130-400 Automated blood platelet mean volume measurement 9.2 [foz_us] 7.4-10.4 Automated blood neutrophils/100 leukocytes 73 % 42-75 Automated blood lymphocytes/100 leukocytes 19 % 12-44 Blood monocytes/100 leukocytes 6 % 0-12 Automated blood eosinophils/100 leukocytes 1 % 0-10 Automated blood basophils/100 leukocytes 0 % 0-10 Blood neutrophils automated count (number/volume) 6.1 10*3 1.8-7.8 Blood lymphocytes automated count (number/volume) 1.6 10*3 1.0-4.0 Blood monocytes automated count (number/volume) 0. 5 10*3 0.0-1.0 Automated eosinophil count 0.1 10*3/uL 0 .0-0.3 Automated blood basophil count (count/volume) 0.0 10*3/uL 0.0-0.1 Comprehensive metabolic panel - 08/08/18 17:28 Serum or plasma sodium measurement (moles/volume) 137 mmol/L 135-145 Serum or plasma potassium measurement (moles/volume) 3.9 mmol/L 3.6-5.0 Serum or plasma chloride measurement (moles/volume) 103 mmol/L 98-107 Carbon dioxide 20 mmol/L 21-32 Serum or plasma anion gap determination (moles/volume) 14 mmol/L 5-14 Serum or plasma urea nitrogen measurement (mass/volume ) 14 mg/dL 7-18 Serum or plasma creatinine measurement (mass/volume) 0.97 mg/dL 0.60-1.30 Serum or plasma urea nitrogen/creatinine mass ratio 14 NRG Serum or plasma creatinine measurement w ith calculation of estimated glomerular filtration rate 59 NRG Serum or plasma glucose measurement (mass/volume) 98 mg/dL 70-105 Serum or plasma calcium measurement (mass/volume) 9.6 mg/dL 8.5-10.1 Serum or plasma total bilirubin measurement (mass/volu me) 0.3 mg/dL 0.1-1.0 Serum or plasma alkaline phosphatase melvina surement (enzymatic activity/volume) 94 U/L 40-136 Serum or plasma aspartate aminotransfera se measurement (enzymatic activity/volume) 18 U/L 5-34 Serum or plasma alanine aminotransferase measurement (enzymatic activity/volume) 9 U/L 0-55 Serum or plasma protein measurement (mass/volume) 7.4 g/dL 6.4-8.2 Serum or plasma albumin measurement (mass/volume) 4.2 g/dL 3.2-4.5 CALCIUM CORRECTED 9.4 mg/dL 8.5-10.1 Lipid 1996 panel - 08/08/18 17:28 Serum or plasma triglyceride measurement (mass/volume) 184 mg/dL <150 Serum or plasma cholesterol measurement (mass/volume) 330 mg/dL < 200 Serum or plasma cholesterol in HDL measurement (mass/v olume) 54 mg/dL 40-60 Cholesterol in LDL [mass/volume] in serum or plasma by direct assay 255 mg/dL 1-129 Serum or plasma cholesterol in VLDL measurement (mass/ volume) 37 mg/dL 5-40 Comprehensive metabolic panel - 12/14/18 13:55 Serum or plasma sodium measurement (moles/volume) 142 mmol/L 135-145 Serum or plasma potassium measurement (moles/volume) 4.4 mmol/L 3.6-5.0 Serum or plasma chloride measurement (moles/volume) 106 mmol/L 98-107 Carbon dioxide 24 mmol/L 21-32 Serum or plasma anion gap determination (moles/volume) 12 mmol/L 5-14 Serum or plasma urea nitrogen measurement (mass/volume ) 9 mg/dL 7-18 Serum or plasma creatinine measurement (mass/volume) 1.06 mg/dL 0.60-1.30 Serum or plasma urea nitrogen/creatinine mass ratio 8 NRG Serum or plasma creatinine measurement w ith calculation of estimated glomerular filtration rate 53 NRG Serum or plasma glucose measurement (mass/volume) 82 mg/dL 70-105 Serum or plasma calcium measurement (mass/volume) 9.5 mg/dL 8.5-10.1 Serum or plasma total bilirubin measurement (mass/volu me) 0.2 mg/dL 0.1-1.0 Serum or plasma alkaline phosphatase melvina surement (enzymatic activity/volume) 73 U/L 40-136 Serum or plasma aspartate aminotransfera se measurement (enzymatic activity/volume) 23 U/L 5-34 Serum or plasma alanine aminotransferase measurement (enzymatic activity/volume) 17 U/L 0-55 Serum or plasma protein measurement (mass/volume) 6.9 g/dL 6.4-8.2 Serum or plasma albumin measurement (mass/volume) 4.0 g/dL 3.2-4.5 CALCIUM CORRECTED 9.5 mg/dL 8.5-10.1 Complete blood count (CBC) with automate d white blood cell (WBC) differential - 12/14/18 13:55 Blood leukocytes automated count (number/volume) 5.2 10*3/uL 4.3-11.0 Blood erythrocytes automated count (number/volume) 4.70 10*6/uL 4.35-5.85 Venous blood hemoglobin measurement (mass/volume) 13.3 g/dL 11.5-16.0 Blood hematocrit (volume fraction) 42 % 35-52 Automated erythrocyte mean corpuscular volume 89 [ foz_us] 80-99 Automated erythrocyte mean corpuscular h emoglobin (mass per erythrocyte) 28 pg 25-34 Automated erythrocyte mean corpuscular h emoglobin concentration measurement (mass/volume) 32 g/dL 32-36 Automated erythrocyte distribution width ratio 13. 0 % 10.0- 14.5 Automated blood platelet count (count/volume) 269 10*3/uL 130-400 Automated blood platelet mean volume measurement 9.2 [foz_us] 7.4-10.4 Automated blood neutrophils/100 leukocytes 60 % 42-75 Automated blood lymphocytes/100 leukocytes 28 % 12-44 Blood monocytes/100 leukocytes 7 % 0-12 Automated blood eosinophils/100 leukocytes 4 % 0-10 Automated blood basophils/100 leukocytes 1 % 0-10 Blood neutrophils automated count (number/volume) 3.1 10*3 1.8-7.8 Blood lymphocytes automated count (number/volume) 1.5 10*3 1.0-4.0 Blood monocytes automated count (number/volume) 0. 4 10*3 0.0-1.0 Automated eosinophil count 0.2 10*3/uL 0 .0-0.3 Automated blood basophil count (count/volume) 0.0 10*3/uL 0.0-0.1 Lipid 1996 panel - 12/14/18 13:55 Serum or plasma triglyceride measurement (mass/volume) 121 mg/dL <150 Serum or plasma cholesterol measurement (mass/volume) 204 mg/dL < 200 Serum or plasma cholesterol in HDL measurement (mass/v olume) 48 mg/dL 40-60 Cholesterol in LDL [mass/volume] in serum or plasma by direct assay 139 mg/dL 1-129 Serum or plasma cholesterol in VLDL measurement (mass/ volume) 24 mg/dL 5-40 Automated blood complete blood count (he mogram) panel - 12/31/18 10:12 Blood leukocytes automated count (number/volume) 5.4 10*3/uL 4.3-11.0 Blood erythrocytes automated count (number/volume) 4.94 10*6/uL 4.35-5.85 Venous blood hemoglobin measurement (mass/volume) 13.9 g/dL 11.5-16.0 Blood hematocrit (volume fraction) 42 % 35-52 Automated erythrocyte mean corpuscular volume 85 [ foz_us] 80-99 Automated erythrocyte mean corpuscular h emoglobin (mass per erythrocyte) 28 pg 25-34 Automated erythrocyte mean corpuscular h emoglobin concentration measurement (mass/volume) 33 g/dL 32-36 Automated erythrocyte distribution width ratio 13. 1 % 10.0- 14.5 Automated blood platelet count (count/volume) 278 10*3/uL 130-400 Automated blood platelet mean volume measurement 9.2 [foz_us] 7.4-10.4 PT panel in platelet poor plasma by coag ulation assay - 12/31/18 10:12 Prothrombin time (PT) in platelet poor plasma by coagu lation assay 12.6 s 12.2-14.7 INR in platelet poor plasma or blood by coagulation as say 0.9 0.8-1.4 Activated partial thromboplastin time (a PTT) in platelet poor plasma bycoagulation assay - 12/31/18 10:12 Activated partial thromboplastin time (a PTT) in platelet poor plasma bycoagulation assay 30 s 24-35 Comprehensive metabolic panel - 12/31/18 10:12 Serum or plasma sodium measurement (moles/volume) 143 mmol/L 135-145 Serum or plasma potassium measurement (moles/volume) 3.6 mmol/L 3.6-5.0 Serum or plasma chloride measurement (moles/volume) 111 mmol/L 98-107 Carbon dioxide 23 mmol/L 21-32 Serum or plasma anion gap determination (moles/volume) 9 mmol/L 5-14 Serum or plasma urea nitrogen measurement (mass/volume ) 10 mg/dL 7-18 Serum or plasma creatinine measurement (mass/volume) 1.17 mg/dL 0.60-1.30 Serum or plasma urea nitrogen/creatinine mass ratio 9 NRG Serum or plasma creatinine measurement w ith calculation of estimated glomerular filtration rate 47 NRG Serum or plasma glucose measurement (mass/volume) 69 mg/dL 70-105 Serum or plasma calcium measurement (mass/volume) 9.5 mg/dL 8.5-10.1 Serum or plasma total bilirubin measurement (mass/volu me) 0.3 mg/dL 0.1-1.0 Serum or plasma alkaline phosphatase melvina surement (enzymatic activity/volume) 84 U/L 40-136 Serum or plasma aspartate aminotransfera se measurement (enzymatic activity/volume) 27 U/L 5-34 Serum or plasma alanine aminotransferase measurement (enzymatic activity/volume) 27 U/L 0-55 Serum or plasma protein measurement (mass/volume) 7.7 g/dL 6.4-8.2 Serum or plasma albumin measurement (mass/volume) 4.5 g/dL 3.2-4.5 CALCIUM CORRECTED 9.1 mg/dL 8.5-10.1 Methicillin resistant Staphylococcus aur eus (MRSA) screening culture - 12/31/18 10:12 Methicillin resistant Staphylococcus aureus (MRSA) scr eening culture NEG NRG Capillary blood glucose measurement by g lucometer (mass/volume) - 12/31/18 11:19 Capillary blood glucose measurement by glucometer (mas s/volume) 142 mg/dL 70-110 Capillary blood glucose measurement by g lucometer (mass/volume) - 12/31/18 15:25 Capillary blood glucose measurement by glucometer (mas s/volume) 80 mg/dL 70-110 Capillary blood glucose measurement by g lucometer (mass/volume) - 05/20/19 18:17 Capillary blood glucose measurement by glucometer (mas s/volume) 82 mg/dL 70-110 Automated blood complete blood count (he mogram) panel - 05/20/19 18:19 Blood leukocytes automated count (number/volume) 6.5 10*3/uL 4.3-11.0 Blood erythrocytes automated count (number/volume) 4.39 10*6/uL 4.35-5.85 Venous blood hemoglobin measurement (mass/volume) 12.6 g/dL 11.5-16.0 Blood hematocrit (volume fraction) 39 % 35-52 Automated erythrocyte mean corpuscular volume 88 [ foz_us] 80-99 Automated erythrocyte mean corpuscular h emoglobin (mass per erythrocyte) 29 pg 25-34 Automated erythrocyte mean corpuscular h emoglobin concentration measurement (mass/volume) 33 g/dL 32-36 Automated erythrocyte distribution width ratio 13. 1 % 10.0- 14.5 Automated blood platelet count (count/volume) 256 10*3/uL 130-400 Automated blood platelet mean volume measurement 9.3 [foz_us] 7.4-10.4 Comprehensive metabolic panel - 05/20/19 18:19 Serum or plasma sodium measurement (moles/volume) 136 mmol/L 135-145 Serum or plasma potassium measurement (moles/volume) 5.0 mmol/L 3.6-5.0 Serum or plasma chloride measurement (moles/volume) 104 mmol/L 98-107 Carbon dioxide 22 mmol/L 21-32 Serum or plasma anion gap determination (moles/volume) 10 mmol/L 5-14 Serum or plasma urea nitrogen measurement (mass/volume ) 8 mg/dL 7-18 Serum or plasma creatinine measurement (mass/volume) 0.92 mg/dL 0.60-1.30 Serum or plasma urea nitrogen/creatinine mass ratio 9 NRG Serum or plasma creatinine measurement w ith calculation of estimated glomerular filtration rate > NRG Serum or plasma glucose measurement (mass/volume) 89 mg/dL 70-105 Serum or plasma calcium measurement (mass/volume) 9.0 mg/dL 8.5-10.1 Serum or plasma total bilirubin measurement (mass/volu me) < mg/dL 0.1-1.0 Serum or plasma alkaline phosphatase melvina surement (enzymatic activity/volume) 91 U/L 40-136 Serum or plasma aspartate aminotransfera se measurement (enzymatic activity/volume) 33 U/L 5-34 Serum or plasma alanine aminotransferase measurement (enzymatic activity/volume) 20 U/L 0-55 Serum or plasma protein measurement (mass/volume) 6.4 g/dL 6.4-8.2 Serum or plasma albumin measurement (mass/volume) 3.7 g/dL 3.2-4.5 CALCIUM CORRECTED 9.2 mg/dL 8.5-10.1 TROPONIN I FS - 05/20/19 18:19 TROPONIN I FS < 0.30 <0.30 Influenza virus A and B antigen detectio n - 05/20/19 18:25 FLU RESULT NEGATIVE FOR INFLUENZA A AND B ANTIGENS BY IA NRG Encounters ACCT No. Visit Date/Time Discharge Status Pt. Type Provider Facility Loc./Unit Complaint [id number] 05/20/2019 17:57:00 19:24:00 DIS Emergency GÓMEZ DO, ALYCE L [facility] ER FS BLOOD PRESSURE LOW,DEHY DRATED [id number] 04/24/2019 13:36:00 23:59:59 CLS Outpatient JAYLIN PALACIOS MD [facility] RAD FS M17.0 [id number] 01/28/2019 00:11:00 23:59:59 CLS Preadmit Sue BEGUM MD [facility] CARD PALPITATIONS [id number] 10/29/2018 08:53:00 00:01:00 DIS Outpatient Sue BEGUM MD [facility] CARD PALPITATIONS [id number] 12/31/2018 09:03:00 19:30:00 DIS Outpatient Sue BEGUM MD [facility] CATH PSVT [id number] 12/14/2018 13:24:00 23:59:59 CLS Outpatient OSKAR PEARCE MD [facility] LAB FS E78.2 [id number] 10/18/2018 09:52:00 23:59:59 CLS Outpatient LENORE IVAN [facility] RAD HIGH RISK OSTEO POROSIS [id number] 10/18/2018 07:35:00 23:59:59 CLS Outpatient Sue BEGUM MD [facility] CARD HYPERLIPIDEMIA,PALPITAT IONS [id number] 10/08/2018 10:24:00 23:59:59 CLS Outpatient Sue BEGUM MD [facility] CARD PALPITATIONS,OTHER FORM S OF DYSPNEA [id number] 08/13/2018 09:35:00 23:59:59 CLS Outpatient LENORE IVAN [facility] CARD SCREENING [id number] 08/08/2018 17:04:00 21:35:00 DIS Outpatient LENORE IVAN [facility] 4THo DEHYDRATION,DAYNE SEA [id number] 04/19/2018 11:26:00 23:59:59 CLS Preadmit LENORE IVAN [facility] RAD SCREENING [id number] 04/18/2018 16:29:00 17:50:00 DIS Outpatient LENORE IVAN [facility]
== END 2019-05-20 19:24 | disposition home or self-care (01) ==
LOC: EDUNIT# 17:56 → ER FS 17:57
DX: R53.83 Other fatigue (principal); E78.00 Pure hypercholesterolemia, unspecified; K58.9 Irritable bowel syndrome, unspecified; M79.7 Fibromyalgia; Z88.8 Allergy status to other drugs, medicaments and biological substances
CPT/HCPCS: 36415; 80053; 82962; 84484; 85027; 87804; 93005; 96360

== ENCOUNTER 2021-11-01 19:11 | Emergency (ER) | payer MEDICARE, OTHER ==
[~2021-11-01] VITALS: Ht 160 cm; Wt 46.7 kg
[~2021-11-01 19:11] MED LIST changes: -NALO12.5 PO; +NALO12.52 PO; -SENN-175 PO; +SENN1TAB76 PO; +TIZA-186 PO; -TIZA4TAB4 PO
--- NOTE | 2021-11-01 19:24 | ED Headache ---
General Chief Complaint: Head/Cervical Problems Stated Complaint: MIGRAINE Nursing Triage Note: Pt c/o headache since yesterday with n/v. Hx of migaines. Source: patient Exam Limitations: no limitations History of Present Illness Date Seen by Provider: Nov 01, 2021 Time Seen by Provider: 19:00 Initial Comments Patient is a 61 yo female with h/o fm and chronic migraine zhong who presents with intermittent typical migraine starting 4 days ago treated with sumatriptan. Patient reports persistent nausea and dull frontal headache. Reports vomiting. No fever, headache, vomiting, or abdominal pain. Timing/Duration: 1-3 hours Severity/Quality: moderate Location: other Prior Headaches/Recent Trauma: other Modifying Factors: improves with other Associated Symptoms: other Allergies and Home Medications Allergies Coded Allergies: prochlorperazine (Verified Allergy, Mild, TREMORS, 04/18/18) Patient Home Medication List Home Medication List Reviewed: Yes Atorvastatin Calcium (Atorvastatin Calcium) 80 Mg Tablet, 80 MG PO DAILY, (Reported) Entered as Reported by: JASMEET FLORES on 12/31/18 1059 Bisacodyl (Dulcolax) 5 Mg Tablet.dr, 5-10 MG PO BID, (Reported) Entered as Reported by: JASMEET FLORES on 12/31/18 1105 Bupropion HCl (Wellbutrin Xl) 300 Mg Tab.er.24h, 300 MG PO DAILY, (Reported) Entered as Reported by: JASMEET FLORES on 12/31/18 1056 Calcium Carbonate/Vitamin D3 (Calcium 250+D Tablet) 1 Each Tablet, 1 EACH PO HS, (Reported) Entered as Reported by: JASMEET FLORES on 12/31/18 1041 Carisoprodol (Soma) 350 Mg Tablet, 350 MG PO TID, (Reported) Entered as Reported by: JASMEET FLORES on 12/31/18 1056 Clorazepate Dipotassium (Clorazepate Dipotassium) 7.5 Mg Tablet, 22.5 MG PO HS, (Reported) Entered as Reported by: JASMEET FLORES on 12/31/18 1056 Ezetimibe (Ezetimibe) 10 Mg Tablet, 10 MG PO DAILY, (Reported) Entered as Reported by: JASMEET FLORES on 12/31/18 1056 Famotidine (Pepcid) 20 Mg Tablet, 20 MG PO BID PRN for NAUSEA/VOMITING, (Reported) Entered as Reported by: JASMEET FLORES on 12/31/18 1056 Fentanyl (Duragesic Patch 100MCG) 1 Each Patch.td72, 100 MCG TD Q48H, (Reported) Entered as Reported by: JASMEET FLORES on 12/31/18 1105 Fludrocortisone Acetate (Fludrocortisone Acetate) 0.1 Mg Tab, 0.2 MG PO DAILY, (Reported) Entered as Reported by: JASMEET FLORES on 12/31/18 1056 Hydrocodone/Acetaminophen (Cable 10-325 Tablet) 1 Each Tablet, 1 TAB PO Q6H PRN for PAIN-MODERATE, (Reported) Entered as Reported by: JASMEET FLORES on 12/31/18 1056 Hyoscyamine Sulfate (Hyoscyamine Sulfate) 0.125 Mg Tablet, 0.125 MG PO HS, (Reported) Entered as Reported by: JASMEET FLORES on 12/31/18 1056 Imipramine HCl (Imipramine HCl) 25 Mg Tablet, 25-75 MG PO HS, (Reported) Entered as Reported by: JASMEET FLORES on 12/31/18 1056 Lorazepam (Lorazepam) 1 Mg Tablet, 0.5-1 MG PO Q6H PRN for ANXIETY, (Reported) Entered as Reported by: JASMEET FLORES on 12/31/18 1056 Magnesium Oxide (Magnesium) 400 Mg Tablet, 400 MG PO DAILY, (Reported) Entered as Reported by: JASMEET FLORES on 12/31/18 1041 Metoclopramide HCl (Metoclopramide HCl) 5 Mg Tablet, 5 MG PO QIDACHS, (Reported) Entered as Reported by: JASMEET FLORES on 12/31/18 1056 Metoprolol Succinate (Metoprolol Succinate) 50 Mg Tab.er.24h, 50 MG PO DAILY Prescribed by: ANGELA PEGUERO on 12/31/18 190 Multivits,Ca,Minerals/Iron/FA (Women's Daily Caplet) 1 Each Tablet, 1 EACH PO DAILY, (Reported) Entered as Reported by: JASMEET FLORES on 12/31/18 1041 Naloxegol Oxalate (Movantik) 12.5 Mg Tablet, 12.5 MG PO DAILY, (Reported) Entered as Reported by: JASMEET FLORES on 12/31/18 1059 Ondansetron (Ondansetron Odt) 8 Mg Tab.rapdis, 8 MG PO Q8H PRN for NAUSEA/VOMITING-1ST LINE, (Reported) Entered as Reported by: JASMEET FLORES on 12/31/18 1105 Ondansetron HCl (Zofran) 4 Mg Tab, 4 MG PO Q8H PRN for NAUSEA/VOMITING-1ST LINE, (Reported) Entered as Reported by: JASMEET FLORES on 12/31/18 1056 Oxymetazoline HCl (Afrin) 15 Ml Mist, 1 SPRAYS NS BID PRN for CONGESTION, (Reported) Entered as Reported by: JASMEET FLORES on 12/31/18 1105 Potassium Chloride (Potassium Chloride) 20 Meq Tablet.er, 20 MEQ PO BID, (Report ed) Entered as Reported by: JASMEET FLORES on 12/31/18 1057 Sennosides/Docusate Sodium (Stool Softener-Laxative Tablet) 1 Each Tablet, 1-2 EACH PO BID, (Reported) Entered as Reported by: JASMEET FLORES on 12/31/18 1059 Sertraline HCl (Zoloft) 100 Mg Tablet, 100 MG PO DAILY, (Reported) Entered as Reported by: JASMEET FLORES on 12/31/18 1056 Tizanidine HCl (Tizanidine HCl) 4 Mg Tablet, 2-4 MG PO BID, (Reported) Entered as Reported by: JASMEET FLORES on 12/31/18 105 Topiramate (Topamax) 50 Mg Tablet, 100 MG PO BID, (Reported) Entered as Reported by: JASMEET FLORES on 12/31/18 1056 Review of Systems Review of Systems Constitutional: see HPI Eyes: See HPI Ears, Nose, Mouth, Throat: see HPI Respiratory: see HPI Cardiovascular: see HPI Gastrointestinal: see HPI Genitourinary: see HPI Musculoskeletal: see HPI Skin: see HPI Psychiatric/Neurological: See HPI All Other Systems Reviewed Negative Unless Noted: Yes Past Csagtyr-Tdtbhw-Tiaqpb Hx Patient Social History Tobacco Use?: No Use of E-Cig and/or Vaping dev: No Substance use?: No Alcohol Use?: No Pt feels they are or have been: No Immunizations Up To Date First/Initial COVID19 Vaccinat: Moderna Past Medical History Surgeries: Yes Adenoidectomy, Breast, Hysterectomy, Tonsillectomy Respiratory: No Cardiac: Yes High Cholesterol Neurological: No Genitourinary: Yes (INTERSTITIAL CYSTISIS) Gastrointestinal: Yes Hiatal Hernia, Irritable Bowel Musculoskeletal: Yes Fibromyalgia Endocrine: No (hypoglycemia) HEENT: No Cancer: No Psychosocial: Yes Depression Integumentary: No Blood Disorders: No Physical Exam Vital Signs Vital Signs - First Documented 11/01/21 11/01/21 19:13 20:14 Temp 36.2 Pulse 108 Resp 15 B/P (MAP) 146/92 (110) Pulse Ox 100 O2 Delivery Room Air Capillary Refill : Less Than 3 Seconds Height, Weight, BMI Height: 5'5.00" Weight: 109lbs. 0.0oz. [id number]; 18.00 BMI Method: General Appearance: WD/WN, no apparent distress HEENT: PERRL/EOMI, TMs normal Neck: non-tender, full range of motion Cardiovascular: regular rate, rhythm Respiratory: chest non-tender, lungs clear Gastrointestinal: non tender, soft Psychiatric: alert, oriented x 3 Motor/Sensory: no motor deficit, no sensory deficit Progress/Results/Core Measures Results/Orders My Orders Orders - HAL BACA DO Metoclopramide Injection (Reglan Injecti (11/01/21 19:30) Ketorolac Injection (Toradol Injection) (11/01/21 19:30) Diphenhydramine Injection (Benadryl Inje (11/01/21 19:30) Ns Iv 1000 Ml (Sodium Chloride 0.9%) (11/01/21 19:30) Medications Given in ED Current Medications Medications Dose Ordered Sig/Zurdo Route Start Time Stop Time Status Last Admin Dose Admin Diphenhydramine HCl 50 mg ONCE ONCE IVP 11/01/21 19:30 11/01/21 19:31 DC 11/01/21 19:37 50 MG Ketorolac Tromethamine 30 mg ONCE ONCE IVP 11/01/21 19:30 11/01/21 19:31 DC 11/01/21 19:39 30 MG Metoclopramide HCl 10 mg ONCE ONCE IVP 11/01/21 19:30 11/01/21 19:31 DC 11/01/21 19:40 10 MG Vital Signs/I&O 11/01/21 11/01/21 19:13 20:14 Temp 36.2 Pulse 108 88 Resp 15 15 B/P (MAP) 146/92 (110) 133/74 Pulse Ox 100 O2 Delivery Room Air Room Air Blood Pressure Mean: 110 Departure Communication (Admissions) Typical migraine headache. No neurologic deficits on exam. Symptoms fully resolved with migraine cocktail. Recommendations are supportive care watchful waiting and PCP/neurology follow-up. Return precautions reviewed. Patient verbalizes understanding agreement with discharge instructions prior to departure. Impression Primary Impression: Migraine Disposition: HOME, SELF-CARE Condition: Stable Departure-Patient Inst. Decision time for Depature: 20:48 Referrals: OSKAR PEARCE MD (PCP/Family) Primary Care Physician Patient Instructions: Migraines (DC) Add. Discharge Instructions: You were evaluated in the emergency department for migraine headache. Please go home and rest, continue home medications and take Zofran as needed for nausea. Follow-up with your PCP and/or neurologist for further management. Return to the ED if new or worsening symptoms. All discharge instructions reviewed with patient and/or family. Voiced understanding. Scripts Ondansetron (Ondansetron Odt) 4 Mg Tab.rapdis 4 MG PO Q6H, #10 TAB Prov: HAL BACA DO 11/01/21 HAL BACA DO Nov 01, 2021 19:24
[2021-11-01] MEDS ORDERED: METOCLOPRAMIDE INJ 10 MG/2 ML (REGLAN) IVP ONE (19:30)
[2021-11-01] MEDS ORDERED: NS IV 1000 ML 1,000 ML IV SCH (19:30)
[2021-11-01] MEDS ORDERED: diphenhydrAMINE 50 MG/ML INJ (BENADRYL) IVP ONE (19:30)
[2021-11-01] MEDS ORDERED: KETOROLAC 30 MG/ML VIAL IVP ONE (19:30)
[2021-11-01] MEDS ORDERED: ONDA4TAB11 PO (20:49)
[2021-11-01] MEDS ORDERED: fentaNYL INJ 100 MCG/2 ML AMP IVP PRN (21:00)
[2021-11-01 21:59] VITALS: BP 128/63
== END 2021-11-01 21:59 | disposition home or self-care (01) ==
LOC: EDUNIT# 19:11 → ER FS 19:12
DX: G43.109 Migraine with aura, not intractable, without status migrainosus (principal); Z79.899 Other long term (current) drug therapy

== ENCOUNTER 2021-11-09 10:19 | Emergency (ER) | payer MEDICARE, OTHER ==
[~2021-11-09 10:19] MED LIST changes: +ONDA4TAB11 PO
[2021-11-09 10:22] VITALS: BP 147/91
--- NOTE | 2021-11-09 10:31 | ED Headache ---
General Chief Complaint: Head/Cervical Problems Stated Complaint: HEADACHE History of Present Illness Date Seen by Provider: Nov 09, 2021 Time Seen by Provider: 10:30 Initial Comments 61-year-old female with PMH of fibromyalgia and migraine, interstitial cystitis, is here with complaints of intermittent migraines with aura for the past 2 weeks. Patient takes hydrocodone at home for fibromyalgia and she feels that when she took it yesterday that it triggered of rebound headache. Patient has not had anything to eat since yesterday dinnertime, and has not been able to drink anything due to severe nausea from the headache. Patient was in the ER last week for the same complaints. Patient has associated nausea and photophobia and light sensitivity. Patient is supposed to have her migraine medications adjusted by her PCP, and states that she needs to make another appointment for that. Pt states that she has been stressed over the of a close friend, her sleep has not been good, and she has not been drinking enough water. Denies neurological deficits, dizziness, falls, seizures, injuries. Allergies and Home Medications Allergies Coded Allergies: prochlorperazine (Verified Allergy, Mild, TREMORS, 04/18/18) Patient Home Medication List Home Medication List Reviewed: Yes Atorvastatin Calcium (Atorvastatin Calcium) 80 Mg Tablet, 80 MG PO DAILY, (Reported) Entered as Reported by: JASMEET FLORES on 12/31/18 1059 Bisacodyl (Dulcolax) 5 Mg Tablet.dr, 5-10 MG PO BID, (Reported) Entered as Reported by: JASMEET FLORES on 12/31/18 1105 Bupropion HCl (Wellbutrin Xl) 300 Mg Tab.er.24h, 300 MG PO DAILY, (Reported) Entered as Reported by: JASMEET FLORES on 12/31/18 1056 Calcium Carbonate/Vitamin D3 (Calcium 250+D Tablet) 1 Each Tablet, 1 EACH PO HS, (Reported) Entered as Reported by: JASMEET FLORES on 12/31/18 1041 Carisoprodol (Soma) 350 Mg Tablet, 350 MG PO TID, (Reported) Entered as Reported by: JASMEET FLORES on 12/31/18 1056 Clorazepate Dipotassium (Clorazepate Dipotassium) 7.5 Mg Tablet, 22.5 MG PO HS, (Reported) Entered as Reported by: JASMEET FLORES on 12/31/18 1056 Ezetimibe (Ezetimibe) 10 Mg Tablet, 10 MG PO DAILY, (Reported) Entered as Reported by: JASMEET FLORES on 12/31/18 1056 Famotidine (Pepcid) 20 Mg Tablet, 20 MG PO BID PRN for NAUSEA/VOMITING, (Reported) Entered as Reported by: JASMEET FLORES on 12/31/18 1056 Fentanyl (Duragesic Patch 100MCG) 1 Each Patch.td72, 100 MCG TD Q48H, (Reported) Entered as Reported by: JASMEET FLORES on 12/31/18 1105 Fludrocortisone Acetate (Fludrocortisone Acetate) 0.1 Mg Tab, 0.2 MG PO DAILY, (Reported) Entered as Reported by: JASMEET FLORES on 12/31/18 1056 Hydrocodone/Acetaminophen (Garretson 10-325 Tablet) 1 Each Tablet, 1 TAB PO Q6H PRN for PAIN-MODERATE, (Reported) Entered as Reported by: JASMEET FLORES on 12/31/18 1056 Hyoscyamine Sulfate (Hyoscyamine Sulfate) 0.125 Mg Tablet, 0.125 MG PO HS, (Reported) Entered as Reported by: JASMEET FLORES on 12/31/18 105 Imipramine HCl (Imipramine HCl) 25 Mg Tablet, 25-75 MG PO HS, (Reported) Entered as Reported by: JASMEET FLORES on 12/31/18 1056 Lorazepam (Lorazepam) 1 Mg Tablet, 0.5-1 MG PO Q6H PRN for ANXIETY, (Reported) Entered as Reported by: JASMEET FLORES on 12/31/18 105 Magnesium Oxide (Magnesium) 400 Mg Tablet, 400 MG PO DAILY, (Reported) Entered as Reported by: JASMEET FLORES on 12/31/18 1041 Metoclopramide HCl (Metoclopramide HCl) 5 Mg Tablet, 5 MG PO QIDACHS, (Reported) Entered as Reported by: JASMEET FLORES on 12/31/18 1056 Metoprolol Succinate (Metoprolol Succinate) 50 Mg Tab.er.24h, 50 MG PO DAILY Prescribed by: ANGELA PEGUERO on 12/31/18 190 Multivits,Ca,Minerals/Iron/FA (Women's Daily Caplet) 1 Each Tablet, 1 EACH PO DA MIRNA, (Reported) Entered as Reported by: JASMEET FLORES on 12/31/18 1041 Naloxegol Oxalate (Movantik) 12.5 Mg Tablet, 12.5 MG PO DAILY, (Reported) Entered as Reported by: JASMEET FLORES on 12/31/18 1059 Ondansetron (Ondansetron Odt) 8 Mg Tab.rapdis, 8 MG PO Q8H PRN for NAUSEA/VOMITING-1ST LINE, (Reported) Entered as Reported by: JASMEET FLORES on 12/31/18 1105 Ondansetron (Ondansetron Odt) 4 Mg Tab.rapdis, 4 MG PO Q6H Prescribed by: HAL BACA on 11/01/212048 Ondansetron HCl (Zofran) 4 Mg Tab, 4 MG PO Q8H PRN for NAUSEA/VOMITING-1ST LINE, (Reported) Entered as Reported by: JASMEET FLORES on 12/31/18 1056 Oxymetazoline HCl (Afrin) 15 Ml Mist, 1 SPRAYS NS BID PRN for CONGESTION, (Reported) Entered as Reported by: JASMEET FLORES on 12/31/18 1105 Potassium Chloride (Potassium Chloride) 20 Meq Tablet.er, 20 MEQ PO BID, (Reported) Entered as Reported by: JASMEET FLORES on 12/31/18 1057 Sennosides/Docusate Sodium (Stool Softener-Laxative Tablet) 1 Each Tablet, 1-2 EACH PO BID, (Reported) Entered as Reported by: JASMEET FLORES on 12/31/18 1059 Sertraline HCl (Zoloft) 100 Mg Tablet, 100 MG PO DAILY, (Reported) Entered as Reported by: JASMEET FLORES on 12/31/18 1056 Tizanidine HCl (Tizanidine HCl) 4 Mg Tablet, 2-4 MG PO BID, (Reported) Entered as Reported by: JASMEET FLORES on 12/31/18 1056 Topiramate (Topamax) 50 Mg Tablet, 100 MG PO BID, (Reported) Entered as Reported by: JASMEET FLORES on 12/31/18 1056 Review of Systems Review of Systems Constitutional: no symptoms reported Eyes: Photophobia Ears, Nose, Mouth, Throat: no symptoms reported Respiratory: no symptoms reported Cardiovascular: no symptoms reported Gastrointestinal: no symptoms reported Genitourinary: no symptoms reported Musculoskeletal: no symptoms reported Skin: no symptoms reported Psychiatric/Neurological: Anxiety, Emotional Problems, Headache Past Bmawsnh-Bpysdv-Szhbjv Hx Immunizations Up To Date First/Initial COVID19 Vaccinat: Moderna Past Medical History Surgeries: Yes Adenoidectomy, Breast, Hysterectomy, Tonsillectomy Respiratory: No Cardiac: Yes High Cholesterol Neurological: No Genitourinary: Yes (INTERSTITIAL CYSTISIS) Gastrointestinal: Yes Hiatal Hernia, Irritable Bowel Musculoskeletal: Yes Fibromyalgia Endocrine: No (hypoglycemia) HEENT: No Cancer: No Psychosocial: Yes Depression Integumentary: No Blood Disorders: No Physical Exam Vital Signs Vital Signs - First Documented 11/09/21 10:22 Temp 36.3 Pulse 138 Resp 16 B/P (MAP) 147/91 (109) Pulse Ox 100 O2 Delivery Room Air Capillary Refill : Height, Weight, BMI Height: 5'5.00" Weight: 109lbs. 0.0oz. 49.264091iw; 18.00 BMI Method: General Appearance: moderate distress HEENT: PERRL/EOMI, normal ENT inspection Neck: non-tender, full range of motion, supple, normal inspection Cardiovascular: normal peripheral pulses, tachycardia Respiratory: chest non-tender, lungs clear Gastrointestinal: non tender, soft Back: normal inspection, no vertebral tenderness Extremities: normal range of motion Psychiatric: alert, oriented x 3, other (anxious) Crainal Nerves: normal hearing, normal speech Coordination/Gait: normal gait Motor/Sensory: no motor deficit, no sensory deficit Skin: normal color Progress/Results/Core Measures Results/Orders My Orders Orders - ASHVIN BAH MD Ct Head/Cervical Spine Wo (11/09/21 10:40) Ketorolac Injection (Toradol Injection) (11/09/21 10:45) Diphenhydramine Injection (Benadryl Inje (11/09/21 10:45) Ed Iv/Invasive Line Start (11/09/21 10:43) Ns Iv 1000 Ml (Sodium Chloride 0.9%) (11/09/21 10:45) Metoclopramide Injection (Reglan Injecti (11/09/21 10:43) Lorazepam Tablet (Ativan Tablet) (11/09/21 10:43) Gabapentin Capsule/Tablet (Neurontin Cap (11/09/21 10:45) Medications Given in ED Current Medications Medications Dose Ordered Sig/Zurdo Route Start Time Stop Time Status Last Admin Dose Admin Diphenhydramine HCl 25 mg ONCE ONCE IV 11/09/21 10:45 11/09/21 10:48 DC 11/09/21 10:53 25 MG Gabapentin 100 mg ONCE ONCE PO 11/09/21 10:45 11/09/21 10:48 DC 11/09/21 10:53 100 MG Ketorolac Tromethamine 15 mg ONCE ONCE IV 11/09/21 10:45 11/09/21 10:48 DC 11/09/21 10:53 15 MG Vital Signs/I&O 11/09/21 10:22 Temp 36.3 Pulse 138 Resp 16 B/P (MAP) 147/91 (109) Pulse Ox 100 O2 Delivery Room Air Progress Progress Note : Progress Note 1. HEADACHE: - CT HEAD/ C-SPINE: - Migraine cocktail: Toradol 15mg iv/ Benadryl 25mg iv/ Reglan 10mg iv STAT - Ativan 0.5mg tab STAT & Gabapentin 100mg STAT - NS IVF bolus - Percocet one tab in ER - Pt's symptom is much improved with this, and tachycardia caused by the pain and anxiety has resolved - Pt has Zofran at home, use as needed prn nausea - Prescription for Gabapentin for 7 days, and will need to follow up with PCP for re-assessment of medications for longer term use/ prescription. -The patient was seen in the ED, and treated appropriately to presentation at a specific point in time. Patient is informed that there is a possibility that disease and illness can evolve and change in acuity rapidly or slowly after patient is discharged from the ER. Precautionary advice given to the patient for immediate return to ER if symptoms worsen or do not resolve, and to seek emergency care sooner rather than later. Pt also advised on the importance of PCP follow up and compliance with management and follow up plan with PCP and/or specialist, as this is part of the management plan. Pt verbally expressed understanding. Diagnostic Imaging Diagonstic Imaging: CT Plain Films/CT/US/NM/MRI: c-spine, head Comments [facility] [place], [place] NAME: KENA SCHMITT [facility] REC#: [id number] PT STATUS: REG ER : 1960 PHYSICIAN: ASHVIN BAH MD ADMIT DATE: 11/09/21/ER FS Draft Date of Exam:11/09/21 CT HEAD/CERVICAL SPINE WO EXAMINATION: CT head and CT cervical spine without contrast. TECHNIQUE: Multiple contiguous axial images were obtained through the brain and cervical spine without the use of intravenous contrast. Sagittal and coronal reformations through the cervical spine were then performed. All CT scans use one or more of the following dose optimizing techniques: automated exposure control, MA and/or KvP adjustment based on patient size and exam type or iterative reconstruction. HISTORY: Head and neck injury COMPARISON: None available. FINDINGS: The coles-white matter differentiation is normal. No mass effect or midline shift. The ventricles are normal in size and configuration. Basilar cisterns are patent. There are no intra- or extra-axial fluid collections. There is no intracranial hemorrhage. The orbits are normal. Paranasal sinuses are normal. Mastoid air cells are clear. No soft tissue abnormality is seen. No osseus lesions or fractures are seen. The alignment of the cervical spine is normal. No fracture is seen. Vertebral body heights are normal. The craniocervical junction is normal. There is no degenerative disease in the cervical spine. There is no spinal canal stenosis. No soft tissue abnormality is seen in the neck. Limited views of the superior thorax are normal. IMPRESSION: 1. No acute intracranial abnormality. 2. No cervical spine fracture. Dictated on workstation # [id number] Dict: 11/09/21 1122 Trans: 11/09/21 1127 [facility] [id number] Interpreted by: OSKAR PATEL MD Electronically signed by: Departure Impression Primary Impression: Migraine headache with aura Qualified Codes: G43.119 - Migraine with aura, intractable, without status migrainosus Additional Impression: Fibromyalgia Disposition: 01 HOME, SELF-CARE Condition: Improved Departure-Patient Inst. Referrals: CARLOS VERA APRN (PCP) Primary Care Physician [facility] (Family) Primary Care Physician Patient Instructions: Migraines (DC), Fibromyalgia (DC), Home Headache Remedies Add. Discharge Instructions: - Prescription for Gabapentin for 7 days, and will need to follow up with PCP for re-assessment of medications for longer term use/ prescription. - Use Zofran as needed prn nausea. Pt has this at home All discharge instructions reviewed with patient and/or family. Voiced understanding. Scripts Gabapentin (Gabapentin) 100 Mg Capsule 100 MG PO Q8H for Neuropathic pain for 7 Days, #21 CAP Prov: ASVHIN BAH MD 11/09/21 ASHVIN BAH MD Nov 09, 2021 10:31
[2021-11-09] MEDS ORDERED: METOCLOPRAMIDE INJ 10 MG/2 ML (REGLAN) IVP STA (10:43)
[2021-11-09] MEDS ORDERED: LORazepam 0.5 MG (ATIVAN) TABLET PO STA (10:43)
[2021-11-09] MEDS ORDERED: NS IV 1000 ML 1,000 ML IV SCH (10:45)
[2021-11-09] MEDS ORDERED: KETOROLAC 30 MG/ML VIAL IV ONE (10:45)
[2021-11-09] MEDS ORDERED: GABAPENTIN 100 MG (NEURONTIN) CAP PO ONE (10:45)
[2021-11-09] MEDS ORDERED: diphenhydrAMINE 50 MG/ML INJ (BENADRYL) IV ONE (10:45)
--- NOTE | 2021-11-09 11:27 | Diagnostic Imaging Report ---
EXAMINATION: CT head and CT cervical spine without contrast. TECHNIQUE: Multiple contiguous axial images were obtained through the brain and cervical spine without the use of intravenous contrast. Sagittal and coronal reformations through the cervical spine were then performed. All CT scans use one or more of the following dose optimizing techniques: automated exposure control, MA and/or KvP adjustment based on patient size and exam type or iterative reconstruction. HISTORY: Head and neck injury COMPARISON: None available. FINDINGS: The coles-white matter differentiation is normal. No mass effect or midline shift. The ventricles are normal in size and configuration. Basilar cisterns are patent. There are no intra- or extra-axial fluid collections. There is no intracranial hemorrhage. The orbits are normal. Paranasal sinuses are normal. Mastoid air cells are clear. No soft tissue abnormality is seen. No osseus lesions or fractures are seen. The alignment of the cervical spine is normal. No fracture is seen. Vertebral body heights are normal. The craniocervical junction is normal. There is no degenerative disease in the cervical spine. There is no spinal canal stenosis. No soft tissue abnormality is seen in the neck. Limited views of the superior thorax are normal. IMPRESSION: 1. No acute intracranial abnormality. 2. No cervical spine fracture. Dictated by: Dictated on workstation # [id number]
[2021-11-09] MEDS ORDERED: GABA-486 PO (11:42)
[2021-11-09] MEDS ORDERED: oxyCODONE/APAP 5/325MG (PERCOCET 5) TABLET PO ONE (11:45)
== END 2021-11-09 11:50 | disposition home or self-care (01) ==
LOC: EDUNIT# 10:19 → ER FS 10:20
DX: G43.119 Migraine with aura, intractable, without status migrainosus (principal); M79.7 Fibromyalgia; Z79.891 Long term (current) use of opiate analgesic
CPT/HCPCS: 70450; 72125

== ENCOUNTER 2021-11-16 16:37 | Emergency (ER) | payer MEDICARE, OTHER ==
[~2021-11-16] VITALS: Ht 165.1 cm; Wt 47.6 kg
[~2021-11-16 16:37] MED LIST changes: +GABA-486 PO
[2021-11-16 16:47] VITALS: BP 129/72
--- NOTE | 2021-11-16 16:56 | ED Headache ---
General Chief Complaint: Head/Cervical Problems Stated Complaint: MIGRAINE Source: patient Exam Limitations: no limitations History of Present Illness Date Seen by Provider: Nov 16, 2021 Time Seen by Provider: 16:40 Initial Comments 61-year-old female with past medical history of fibromyalgia, interstitial cystitis, irritable bowel syndrome, and migraines coming in due to a headache. It is in the front of her head, started yesterday, constant, throbbing, moderate to severe. She attributes this to having an eye exam yesterday in the light setting it off. She says it feels similar to prior headaches that she has been getting in the past several months. She has had normal neuroimaging in the past. Has follow-up with a neurologist soon that she is waiting on. She tried her hydrocodone and Soma which have not helped for the pain as of yet. Denies any fever, neck stiffness, vision changes, chest pain, shortness of breath, weakness, numbness, vomiting, diarrhea, rash, or any other concerns Allergies and Home Medications Allergies Coded Allergies: prochlorperazine (Verified Allergy, Mild, TREMORS, 04/18/18) Patient Home Medication List Home Medication List Reviewed: Yes Atorvastatin Calcium (Atorvastatin Calcium) 80 Mg Tablet, 80 MG PO DAILY, (Reported) Entered as Reported by: JASMEET FLORES on 12/31/18 1059 Bisacodyl (Dulcolax) 5 Mg Tablet.dr, 5-10 MG PO BID, (Reported) Entered as Reported by: JASMEET FLORES on 12/31/18 1105 Bupropion HCl (Wellbutrin Xl) 300 Mg Tab.er.24h, 300 MG PO DAILY, (Reported) Entered as Reported by: JASMEET FLORES on 12/31/18 1056 Calcium Carbonate/Vitamin D3 (Calcium 250+D Tablet) 1 Each Tablet, 1 EACH PO HS, (Reported) Entered as Reported by: JASMEET FLORES on 12/31/18 1041 Carisoprodol (Soma) 350 Mg Tablet, 350 MG PO TID, (Reported) Entered as Reported by: JASMEET FLORES on 12/31/18 1056 Clorazepate Dipotassium (Clorazepate Dipotassium) 7.5 Mg Tablet, 22.5 MG PO HS, (Reported) Entered as Reported by: JASMEET FLORES on 12/31/18 1056 Ezetimibe (Ezetimibe) 10 Mg Tablet, 10 MG PO DAILY, (Reported) Entered as Reported by: JASMEET FLORES on 12/31/18 1056 Famotidine (Pepcid) 20 Mg Tablet, 20 MG PO BID PRN for NAUSEA/VOMITING, (Reported) Entered as Reported by: JASMEET FLORES on 12/31/18 1056 Fentanyl (Duragesic Patch 100MCG) 1 Each Patch.td72, 100 MCG TD Q48H, (Reported) Entered as Reported by: JASMEET FLORES on 12/31/18 1105 Fludrocortisone Acetate (Fludrocortisone Acetate) 0.1 Mg Tab, 0.2 MG PO DAILY, (Reported) Entered as Reported by: JASMEET FLORES on 12/31/18 1056 Gabapentin (Gabapentin) 100 Mg Capsule, 100 MG PO Q8H Prescribed by: ASHVIN BAH MD on 11/09/21 1142 Hydrocodone/Acetaminophen ([place] 10-325 Tablet) 1 Each Tablet, 1 TAB PO Q6H PRN for PAIN-MODERATE, (Reported) Entered as Reported by: JASMEET FLORES on 12/31/18 1056 Hyoscyamine Sulfate (Hyoscyamine Sulfate) 0.125 Mg Tablet, 0.125 MG PO HS, (Reported) Entered as Reported by: JASMEET FLORES on 12/31/18 1056 Imipramine HCl (Imipramine HCl) 25 Mg Tablet, 25-75 MG PO HS, (Reported) Entered as Reported by: JASMEET FLORES on 12/31/18 1056 Lorazepam (Lorazepam) 1 Mg Tablet, 0.5-1 MG PO Q6H PRN for ANXIETY, (Reported) Entered as Reported by: JASMEET FLORES on 12/31/18 1056 Magnesium Oxide (Magnesium) 400 Mg Tablet, 400 MG PO DAILY, (Reported) Entered as Reported by: JASMEET FLORES on 12/31/18 1041 Metoclopramide HCl (Metoclopramide HCl) 5 Mg Tablet, 5 MG PO QIDACHS, (Reported) Entered as Reported by: JASMEET FLORES on 12/31/18 1056 Metoprolol Succinate (Metoprolol Succinate) 50 Mg Tab.er.24h, 50 MG PO DAILY Prescribed by: ANGELA PEGUERO on 12/31/18 190 Multivits,Ca,Minerals/Iron/FA (Women's Daily Caplet) 1 Each Tablet, 1 EACH PO DAILY, (Reported) Entered as Reported by: JASMEET FLORES on 12/31/18 1041 Naloxegol Oxalate (Movantik) 12.5 Mg Tablet, 12.5 MG PO DAILY, (Reported) Entered as Reported by: JASMEET FLORES on 12/31/18 1059 Ondansetron (Ondansetron Odt) 8 Mg Tab.rapdis, 8 MG PO Q8H PRN for NAUSEA/VOMITING-1ST LINE, (Reported) Entered as Reported by: JASMEET FLORES on 12/31/18 1105 Ondansetron (Ondansetron Odt) 4 Mg Tab.rapdis, 4 MG PO Q6H Prescribed by: HAL BACA on 11/01/212048 Ondansetron HCl (Zofran) 4 Mg Tab, 4 MG PO Q8H PRN for NAUSEA/VOMITING-1ST LINE, (Reported) Entered as Reported by: JASMEET FLORES on 12/31/18 1056 Oxymetazoline HCl (Afrin) 15 Ml Mist, 1 SPRAYS NS BID PRN for CONGESTION, (Reported) Entered as Reported by: JASMEET FLORES on 12/31/18 1105 Potassium Chloride (Potassium Chloride) 20 Meq Tablet.er, 20 MEQ PO BID, (Reported) Entered as Reported by: JASMEET FLORES on 12/31/18 1057 Sennosides/Docusate Sodium (Stool Softener-Laxative Tablet) 1 Each Tablet, 1-2 EACH PO BID, (Reported) Entered as Reported by: JASMEET FLORES on 12/31/18 1059 Sertraline HCl (Zoloft) 100 Mg Tablet, 100 MG PO DAILY, (Reported) Entered as Reported by: JASMEET FLORES on 12/31/18 1056 Tizanidine HCl (Tizanidine HCl) 4 Mg Tablet, 2-4 MG PO BID, (Reported) Entered as Reported by: JASMEET FLORES on 12/31/18 1056 Topiramate (Topamax) 50 Mg Tablet, 100 MG PO BID, (Reported) Entered as Reported by: JASMEET FLORES on 12/31/18 1056 Review of Systems Review of Systems Constitutional: No fever Eyes: Denies Blurred Vision Ears, Nose, Mouth, Throat: denies ear pain Respiratory: no symptoms reported Cardiovascular: no symptoms reported Gastrointestinal: no symptoms reported Genitourinary: no symptoms reported Musculoskeletal: no symptoms reported Skin: no symptoms reported Psychiatric/Neurological: Headache All Other Systems Reviewed Negative Unless Noted: Yes Past Sqohzse-Dodurr-Wvrggd Hx Patient Social History Substance use?: No Immunizations Up To Date First/Initial COVID19 Vaccinat: Moderna Second COVID19 Vaccination Faraz: Moderna Third COVID19 Vaccination Date: Past Medical History Surgery/Hospitalization HX: Migraines, Fibromyalgia Surgeries: Yes Adenoidectomy, Breast, Hysterectomy, Tonsillectomy Respiratory: No Cardiac: Yes High Cholesterol Neurological: No Genitourinary: Yes (INTERSTITIAL CYSTISIS) Gastrointestinal: Yes Hiatal Hernia, Irritable Bowel Musculoskeletal: Yes Fibromyalgia Endocrine: No (hypoglycemia) HEENT: No Cancer: No Psychosocial: Yes Depression Integumentary: No Blood Disorders: No Physical Exam Vital Signs Capillary Refill : Height, Weight, BMI Height: 5'5.00" Weight: 109lbs. 0.0oz. 49.776817ks; 18.00 BMI Method: General Appearance: WD/WN, no apparent distress, other (Has her mask over her eyes) HEENT: PERRL/EOMI, normal ENT inspection, pharynx normal Neck: non-tender, full range of motion, supple, normal inspection Cardiovascular: regular rate, rhythm, no edema, no murmur Respiratory: chest non-tender, lungs clear, normal breath sounds, no respiratory distress, no accessory muscle use Gastrointestinal: normal bowel sounds, non tender, soft; No distended, No guarding, No rebound Back: normal inspection Extremities: normal range of motion, non-tender, normal inspection, no pedal edema, no calf tenderness, normal capillary refill Psychiatric: alert, oriented x 3 Crainal Nerves: normal hearing, normal speech, PERRL Coordination/Gait: normal gait Motor/Sensory: no motor deficit, no sensory deficit Skin: normal color, warm/dry Lymphatic: no adenopathy Progress/Results/Core Measures Results/Orders My Orders Orders - HU HOWARD MD Metoclopramide Injection (Reglan Injecti (11/16/21 17:00) Diphenhydramine Injection (Benadryl Inje (11/16/21 17:00) Ketorolac Injection (Toradol Injection) (11/16/21 17:00) Dexamethasone Oral Soln (Ed) (Decadron I (11/16/21 16:50) Acetaminophen Tablet (Tylenol Tablet) (11/16/21 17:00) Progress Progress Note : Progress Note 61-year-old female with above history coming in due to headache. ABCs were intact and vitals were stable on presentation. Physical exam reassuring including she is afebrile, has no meningismus, normal neuro exam. This is similar to prior episodes. We will give her IM injections of medicines to try to help with her headache and then allow her to go home to try to sleep. She already has follow-up with neurology which is reassuring. I believe she is stable for discharge with outpatient follow-up. She was sent home with strict return precautions. Departure Impression Primary Impression: Headache Qualified Codes: G44.209 - Tension-type headache, unspecified, not intractable Disposition: 01 HOME, SELF-CARE Condition: Stable Departure-Patient Inst. Decision time for Depature: 17:15 Referrals: CARLOS VERA APRN (PCP) Primary Care Physician [facility] (Family) Primary Care Physician Patient Instructions: Headache, Adult ED Add. Discharge Instructions: Please continue to attempt to have follow-up with the neurologist. Drink plenty of fluids. Take Tylenol and/or ibuprofen as needed for the headache. Work/School Note: Work Release Form Date Seen in the Emergency Department: Nov 16, 2021 Return to Work: Nov 18, 2021 Restrictions: No Restrictions HU HOWARD MD Nov 16, 2021 16:56
[2021-11-16] MEDS ORDERED: METOCLOPRAMIDE INJ 10 MG/2 ML (REGLAN) IM ONE (17:00)
[2021-11-16] MEDS ORDERED: diphenhydrAMINE 50 MG/ML INJ (BENADRYL) IM ONE (17:00)
[2021-11-16] MEDS ORDERED: ACETAMINOPHEN 500 MG TAB (TYLENOL) PO ONE (17:00)
[2021-11-16] MEDS ORDERED: KETOROLAC 30 MG/ML VIAL IM ONE (17:00)
== END 2021-11-16 17:05 | disposition home or self-care (01) ==
LOC: EDUNIT# 16:37 → ER FS 16:38
DX: R51.9 Headache, unspecified (principal); Z86.69 Personal history of other diseases of the nervous system and sense organs
CPT/HCPCS: 99284

== ENCOUNTER 2021-12-09 21:42 | Emergency (ER) | payer MEDICARE, OTHER ==
[~2021-12-09] VITALS: Ht 165 cm; Wt 46.7 kg
[2021-12-09] MEDS ORDERED: diphenhydrAMINE 50 MG/ML INJ (BENADRYL) IM STA (21:54)
[2021-12-09] MEDS ORDERED: KETOROLAC 30 MG/ML VIAL IM STA (21:54)
[2021-12-09] MEDS ORDERED: METOCLOPRAMIDE INJ 10 MG/2 ML (REGLAN) IM STA (21:54)
--- NOTE | 2021-12-09 21:58 | ED Headache ---
General Chief Complaint: Head/Cervical Problems Stated Complaint: MIGRAINE Source: patient, family History of Present Illness Date Seen by Provider: Dec 09, 2021 Time Seen by Provider: 21:45 Initial Comments 61-year-old female presenting with complaints of recurrent migraine headache. She states this feels like her typical migraine headache. This episode has been lasting since Monday. She was seen through the clinic and they gave her Toradol shot which helped a little bit. She states usually she requires the "cocktail" of medicines to treat her migraines. She has been taking all of her home medicines without any improvement in her pain. She does have Zofran that is helped keep her stomach settled. She denies any recent head injury, fever, chills, neck pain, vomiting. Timing/Duration: constant (The last 4 days) Severity/Quality: severe, throbbing Location: other (Generalized) Prior Headaches/Recent Trauma: frequent headaches, chronic headaches Modifying Factors: worse with movement Associated Symptoms: No confusion; fatigue; No facial pain, No fever/chills, No flushing, No loss of consciousness, No nasal congestion, No nasal drainage, No numbness in legs/feet, No rash, No seizures, No sinus infection, No stiff neck, No vision changes, No weakness Allergies and Home Medications Allergies Coded Allergies: prochlorperazine (Verified Allergy, Mild, TREMORS, 04/18/18) Patient Home Medication List Home Medication List Reviewed: Yes Atorvastatin Calcium (Atorvastatin Calcium) 80 Mg Tablet, 80 MG PO DAILY, (Reported) Entered as Reported by: JASMEET FLORES on 12/31/18 1059 Bisacodyl (Dulcolax) 5 Mg Tablet.dr, 5-10 MG PO BID, (Reported) Entered as Reported by: JASMEET FLORES on 12/31/18 1105 Bupropion HCl (Wellbutrin Xl) 300 Mg Tab.er.24h, 300 MG PO DAILY, (Reported) Entered as Reported by: JASMEET FLORES on 12/31/18 1056 Calcium Carbonate/Vitamin D3 (Calcium 250+D Tablet) 1 Each Tablet, 1 EACH PO HS, (Reported) Entered as Reported by: JASMEET FLORES on 12/31/18 1041 Carisoprodol (Soma) 350 Mg Tablet, 350 MG PO TID, (Reported) Entered as Reported by: JASMEET FLORES on 12/31/18 1056 Clorazepate Dipotassium (Clorazepate Dipotassium) 7.5 Mg Tablet, 22.5 MG PO HS, (Reported) Entered as Reported by: JASMEET FLORES on 12/31/18 1056 Ezetimibe (Ezetimibe) 10 Mg Tablet, 10 MG PO DAILY, (Reported) Entered as Reported by: JASMEET FLORES on 12/31/18 1056 Famotidine (Pepcid) 20 Mg Tablet, 20 MG PO BID PRN for NAUSEA/VOMITING, (Reported) Entered as Reported by: JASMEET FLORES on 12/31/18 1056 Fentanyl (Duragesic Patch 100MCG) 1 Each Patch.td72, 100 MCG TD Q48H, (Reported) Entered as Reported by: JASMEET FLORES on 12/31/18 1105 Fludrocortisone Acetate (Fludrocortisone Acetate) 0.1 Mg Tab, 0.2 MG PO DAILY, (Reported) Entered as Reported by: JASMEET FLORES on 12/31/18 1056 Gabapentin (Gabapentin) 100 Mg Capsule, 100 MG PO Q8H Prescribed by: ASHVIN BAH MD on 11/09/21 1142 Hydrocodone/Acetaminophen ([place] 10-325 Tablet) 1 Each Tablet, 1 TAB PO Q6H PRN for PAIN-MODERATE, (Reported) Entered as Reported by: JASMEET FLORES on 12/31/18 1056 Hyoscyamine Sulfate (Hyoscyamine Sulfate) 0.125 Mg Tablet, 0.125 MG PO HS, (Reported) Entered as Reported by: JASMEET FLORES on 12/31/18 1056 Imipramine HCl (Imipramine HCl) 25 Mg Tablet, 25-75 MG PO HS, (Reported) Entered as Reported by: JASMEET FLORES on 12/31/18 1056 Lorazepam (Lorazepam) 1 Mg Tablet, 0.5-1 MG PO Q6H PRN for ANXIETY, (Reported) Entered as Reported by: JASMEET FLORES on 12/31/18 1056 Magnesium Oxide (Magnesium) 400 Mg Tablet, 400 MG PO DAILY, (Reported) Entered as Reported by: JASMEET FLORES on 12/31/18 1041 Metoclopramide HCl (Metoclopramide HCl) 5 Mg Tablet, 5 MG PO QIDACHS, (Reported) Entered as Reported by: JASMEET FLORES on 12/31/18 1056 Metoprolol Succinate (Metoprolol Succinate) 50 Mg Tab.er.24h, 50 MG PO DAILY Prescribed by: ANGELA PEGUERO on 12/31/181907 Multivits,Ca,Minerals/Iron/FA (Women's Daily Caplet) 1 Each Tablet, 1 EACH PO DAILY, (Reported) Entered as Reported by: JASMEET FLORES on 12/31/18 1041 Naloxegol Oxalate (Movantik) 12.5 Mg Tablet, 12.5 MG PO DAILY, (Reported) Entered as Reported by: JASMEET FLORES on 12/31/18 1059 Ondansetron (Ondansetron Odt) 8 Mg Tab.rapdis, 8 MG PO Q8H PRN for NAUSEA/VOMITING-1ST LINE, (Reported) Entered as Reported by: JASMEET FLORES on 12/31/18 1105 Ondansetron (Ondansetron Odt) 4 Mg Tab.rapdis, 4 MG PO Q6H Prescribed by: HAL BACA on 11/01/212048 Ondansetron HCl (Zofran) 4 Mg Tab, 4 MG PO Q8H PRN for NAUSEA/VOMITING-1ST LINE, (Reported) Entered as Reported by: JASMEET FLORES on 12/31/18 1056 Oxymetazoline HCl (Afrin) 15 Ml Mist, 1 SPRAYS NS BID PRN for CONGESTION, (Reported) Entered as Reported by: JASMEET FLORES on 12/31/18 1105 Potassium Chloride (Potassium Chloride) 20 Meq Tablet.er, 20 MEQ PO BID, (Reported) Entered as Reported by: JASMEET FLORES on 12/31/18 1057 Sennosides/Docusate Sodium (Stool Softener-Laxative Tablet) 1 Each Tablet, 1-2 EACH PO BID, (Reported) Entered as Reported by: JASMEET FLORES on 12/31/18 1059 Sertraline HCl (Zoloft) 100 Mg Tablet, 100 MG PO DAILY, (Reported) Entered as Reported by: JASMEET FLORES on 12/31/18 1056 Tizanidine HCl (Tizanidine HCl) 4 Mg Tablet, 2-4 MG PO BID, (Reported) Entered as Reported by: JASMEET FLORES on 12/31/18 1056 Topiramate (Topamax) 50 Mg Tablet, 100 MG PO BID, (Reported) Entered as Reported by: JASMEET FLORES on 12/31/18 1056 Review of Systems Review of Systems Constitutional: No chills, No fever Eyes: Photophobia Ears, Nose, Mouth, Throat: denies ear pain, denies ear discharge, denies nose pain, denies nose discharge, denies epistaxis Respiratory: No cough, No short of breath Cardiovascular: No chest pain Gastrointestinal: see HPI Genitourinary: no symptoms reported Musculoskeletal: no symptoms reported Skin: No rash Psychiatric/Neurological: Headache Past Ubiaolq-Appbcv-Azzrap Hx Immunizations Up To Date First/Initial COVID19 Vaccinat: Moderna Second COVID19 Vaccination Faraz: Third COVID19 Vaccination Date: Past Medical History Surgery/Hospitalization HX: Migraines, Fibromyalgia Surgeries: Yes Adenoidectomy, Breast, Hysterectomy, Tonsillectomy Respiratory: No Cardiac: Yes High Cholesterol Neurological: No Genitourinary: Yes (INTERSTITIAL CYSTISIS) Gastrointestinal: Yes Hiatal Hernia, Irritable Bowel Musculoskeletal: Yes Fibromyalgia Endocrine: No (hypoglycemia) HEENT: No Cancer: No Psychosocial: Yes Depression Integumentary: No Blood Disorders: No Physical Exam Vital Signs Vital Signs - First Documented 12/09/21 21:45 Temp 36.4 Pulse 107 Resp 17 B/P (MAP) 126/94 (105) Pulse Ox 100 O2 Delivery Room Air Capillary Refill : Height, Weight, BMI Height: 5'5.00" Weight: 109lbs. 0.0oz. 49.253517gw; 17.00 BMI Method: General Appearance: moderate distress, thin, other (Appears chronically ill) HEENT: PERRL/EOMI, normal ENT inspection, TMs normal, pharynx normal Neck: non-tender, full range of motion, supple, normal inspection Cardiovascular: normal peripheral pulses, regular rate, rhythm Respiratory: chest non-tender, lungs clear, normal breath sounds, no respiratory distress, no accessory muscle use Gastrointestinal: normal bowel sounds, non tender, soft, no pulsatile mass Psychiatric: alert, oriented x 3 Crainal Nerves: normal hearing, normal speech, PERRL Motor/Sensory: no motor deficit, no sensory deficit Skin: normal color, warm/dry Progress/Results/Core Measures Results/Orders My Orders Orders - JACKIE ACKERMAN MD Ketorolac Injection (Toradol Injection) (12/09/21 21:54) Diphenhydramine Injection (Benadryl Inje (12/09/21 21:54) Metoclopramide Injection (Reglan Injecti (12/09/21 21:54) Vital Signs/I&O 12/09/21 12/09/21 21:45 22:18 Temp 36.4 36.4 Pulse 107 107 Resp 17 17 B/P (MAP) 126/94 (105) 126/94 Pulse Ox 100 100 O2 Delivery Room Air Room Air Progress Progress Note : Progress Note With patient stating that this feels like her typical migraine headache well try treating with the cocktail of Toradol 30 mg IM, Benadryl 25 mg IM, Reglan 10 mg IM. Encouraged to rest in a cool dark room. Continue with her home medicines. Check back through the clinic for continued concerns Departure Impression Primary Impression: Migraine headache without aura Qualified Codes: G43.019 - Migraine without aura, intractable, without status migrainosus Disposition: HOME, SELF-CARE Condition: Stable Departure-Patient Inst. Decision time for Depature: 21:57 Referrals: CARLOS VERA APRN (PCP) Primary Care Physician [facility] (Family) Primary Care Physician Patient Instructions: How to Keep Track of Your Headaches, Home Headache Remedies, Migraines in Adults Add. Discharge Instructions: Rest in a cool dark room. Continue with your home medicines. Follow up with clinic for continued problems/concerns All discharge instructions reviewed with patient and/or family. Voiced understanding. JACKIE ACKERMAN MD Dec 09, 2021 21:58
[2021-12-09 22:18] VITALS: BP 126/94
== END 2021-12-09 22:18 | disposition home or self-care (01) ==
LOC: EDUNIT# 21:42 → ER FS 21:43
DX: G43.009 Migraine without aura, not intractable, without status migrainosus (principal)
CPT/HCPCS: 99284

== ENCOUNTER 2021-12-10 16:32 | Emergency (ER) | payer MEDICARE, OTHER ==
[~2021-12-10] VITALS: Ht 165.1 cm; Wt 46.7 kg
[2021-12-10 16:39] VITALS: BP 107/71
--- NOTE | 2021-12-10 16:44 | ED Headache ---
General Chief Complaint: Head/Cervical Problems Stated Complaint: MIGRIANE History of Present Illness Date Seen by Provider: Dec 10, 2021 Time Seen by Provider: 16:44 Initial Comments 61-year-old female presents with migraine. Patient has a history of migraines and rebound headaches and has numerous visits for the migraine. Patient was seen yesterday for a migraine that has been going on for couple days. She reports that the medication was given work just a little bit but about 10-15 minutes or she got home they seem to wear off. She was able to get some sleep but reports that it feels little bit worse today. Patient does report that they have an appointment with a neurologist in [place] on a 21 December for an evaluation. He also spoke with the pain specialist this week to talk about options. Patient has some photophobia, nausea no reports of vomiting fever chills or other systemic complaints. Patient recently had imaging that was negative approximately 1 month ago with no acute changes since then. Allergies and Home Medications Allergies Coded Allergies: prochlorperazine (Verified Allergy, Mild, TREMORS, 04/18/18) Patient Home Medication List Home Medication List Reviewed: Yes Atorvastatin Calcium (Atorvastatin Calcium) 80 Mg Tablet, 80 MG PO DAILY, (Repor lizandro) Entered as Reported by: JASMEET FLORES on 12/31/18 1059 Bisacodyl (Dulcolax) 5 Mg Tablet.dr, 5-10 MG PO BID, (Reported) Entered as Reported by: JASMEET FLORES on 12/31/18 1105 Bupropion HCl (Wellbutrin Xl) 300 Mg Tab.er.24h, 300 MG PO DAILY, (Reported) Entered as Reported by: JASMEET FLORES on 12/31/18 1056 Calcium Carbonate/Vitamin D3 (Calcium 250+D Tablet) 1 Each Tablet, 1 EACH PO HS, (Reported) Entered as Reported by: JASMEET FLORES on 12/31/18 1041 Carisoprodol (Soma) 350 Mg Tablet, 350 MG PO TID, (Reported) Entered as Reported by: JASMEET FLORES on 12/31/18 1056 Clorazepate Dipotassium (Clorazepate Dipotassium) 7.5 Mg Tablet, 22.5 MG PO HS, (Reported) Entered as Reported by: JASMEET FLORES on 12/31/18 1056 Ezetimibe (Ezetimibe) 10 Mg Tablet, 10 MG PO DAILY, (Reported) Entered as Reported by: JASMEET FLORES on 12/31/18 1056 Famotidine (Pepcid) 20 Mg Tablet, 20 MG PO BID PRN for NAUSEA/VOMITING, (Rep orted) Entered as Reported by: JASMEET FLORES on 12/31/18 1056 Fentanyl (Duragesic Patch 100MCG) 1 Each Patch.td72, 100 MCG TD Q48H, (Reported) Entered as Reported by: JASMEET FLORES on 12/31/18 1105 Fludrocortisone Acetate (Fludrocortisone Acetate) 0.1 Mg Tab, 0.2 MG PO DAILY, (Reported) Entered as Reported by: JASMEET FLORES on 12/31/18 1056 Gabapentin (Gabapentin) 100 Mg Capsule, 100 MG PO Q8H Prescribed by: ASHVIN BAH MD on 11/09/21 1142 Hydrocodone/Acetaminophen ([place] 10-325 Tablet) 1 Each Tablet, 1 TAB PO Q6H PRN for PAIN-MODERATE, (Reported) Entered as Reported by: JASMEET FLORES on 12/31/18 1056 Hyoscyamine Sulfate (Hyoscyamine Sulfate) 0.125 Mg Tablet, 0.125 MG PO HS, (Reported) Entered as Reported by: JASMEET FLORES on 12/31/18 1056 Imipramine HCl (Imipramine HCl) 25 Mg Tablet, 25-75 MG PO HS, (Reported) Entered as Reported by: JASMEET FLORES on 12/31/18 1056 Lorazepam (Lorazepam) 1 Mg Tablet, 0.5-1 MG PO Q6H PRN for ANXIETY, (Reported) Entered as Reported by: JASMEET FLORES on 12/31/18 1056 Magnesium Oxide (Magnesium) 400 Mg Tablet, 400 MG PO DAILY, (Reported) Entered as Reported by: JASMEET FLORES on 12/31/18 1041 Metoclopramide HCl (Metoclopramide HCl) 5 Mg Tablet, 5 MG PO QIDACHS, (Reported) Entered as Reported by: JASMEET FLORES on 12/31/18 1056 Metoprolol Succinate (Metoprolol Succinate) 50 Mg Tab.er.24h, 50 MG PO DAILY Prescribed by: ANGELA PEGUERO on 12/31/18 190 Multivits,Ca,Minerals/Iron/FA (Women's Daily Caplet) 1 Each Tablet, 1 EACH PO DAILY, (Reported) Entered as Reported by: JASMEET FLORES on 12/31/18 1041 Naloxegol Oxalate (Movantik) 12.5 Mg Tablet, 12.5 MG PO DAILY, (Reported) Entered as Reported by: JASMEET FLORES on 12/31/18 1059 Ondansetron (Ondansetron Odt) 8 Mg Tab.rapdis, 8 MG PO Q8H PRN for NAUSEA/VOMITING-1ST LINE, (Reported) Entered as Reported by: JASMEET FLORES on 12/31/18 1105 Ondansetron (Ondansetron Odt) 4 Mg Tab.rapdis, 4 MG PO Q6H Prescribed by: HAL BACA on 11/01/212048 Ondansetron HCl (Zofran) 4 Mg Tab, 4 MG PO Q8H PRN for NAUSEA/VOMITING-1ST LINE, (Reported) Entered as Reported by: JASMEET LFORES on 12/31/18 1056 Oxymetazoline HCl (Afrin) 15 Ml Mist, 1 SPRAYS NS BID PRN for CONGESTION, (Reported) Entered as Reported by: JASMEET FLORES on 12/31/18 1105 Potassium Chloride (Potassium Chloride) 20 Meq Tablet.er, 20 MEQ PO BID, (Reported) Entered as Reported by: JASMEET FLORES on 12/31/18 1057 Sennosides/Docusate Sodium (Stool Softener-Laxative Tablet) 1 Each Tablet, 1-2 EACH PO BID, (Reported) Entered as Reported by: JASMEET FLORES on 12/31/18 1059 Sertraline HCl (Zoloft) 100 Mg Tablet, 100 MG PO DAILY, (Reported) Entered as Reported by: JASMEET FLORES on 12/31/18 1056 Tizanidine HCl (Tizanidine HCl) 4 Mg Tablet, 2-4 MG PO BID, (Reported) Entered as Reported by: JASMEET FLORES on 12/31/18 1056 Topiramate (Topamax) 50 Mg Tablet, 100 MG PO BID, (Reported) Entered as Reported by: JASMEET FLORES on 12/31/18 1056 Review of Systems Review of Systems Constitutional: see HPI; No chills, No fever Eyes: Photophobia Ears, Nose, Mouth, Throat: no symptoms reported Respiratory: no symptoms reported Cardiovascular: no symptoms reported Gastrointestinal: No abdominal pain; nausea; No vomiting Genitourinary: no symptoms reported Musculoskeletal: no symptoms reported Skin: no symptoms reported Past Cdmoduf-Vlgaik-Pmyeoj Hx Immunizations Up To Date First/Initial COVID19 Vaccinat: Second COVID19 Vaccination Faraz: Third COVID19 Vaccination Date: Past Medical History Surgery/Hospitalization HX: Migraines, Fibromyalgia Surgeries: Yes Adenoidectomy, Breast, Hysterectomy, Tonsillectomy Respiratory: No Cardiac: Yes High Cholesterol Neurological: No Genitourinary: Yes (INTERSTITIAL CYSTISIS) Gastrointestinal: Yes Hiatal Hernia, Irritable Bowel Musculoskeletal: Yes Fibromyalgia Endocrine: No (hypoglycemia) HEENT: No Cancer: No Psychosocial: Yes Depression Integumentary: No Blood Disorders: No Physical Exam Vital Signs Capillary Refill : Height, Weight, BMI Height: 5'5.00" Weight: 109lbs. 0.0oz. [id number]; 17.00 BMI Method: General Appearance: mild distress HEENT: PERRL/EOMI Neck: full range of motion, supple Cardiovascular: normal peripheral pulses, regular rate, rhythm Respiratory: lungs clear, normal breath sounds Gastrointestinal: non tender, soft Psychiatric: alert, oriented x 3 Crainal Nerves: normal hearing, normal speech; No facial droop, No facial paresthesias, No facial weakness Motor/Sensory: no motor deficit, no sensory deficit Skin: normal color, warm/dry Progress/Results/Core Measures Results/Orders My Orders Orders - ALYCE GÓMEZ DO Ketorolac Injection (Toradol Injection) (12/10/21 16:50) Norflex 60 Mg Im (12/10/21 16:50) Benadryl 50 Mg Iv (12/10/21 16:50) Metoclopramide Injection (Reglan Injecti (12/10/21 16:50) Progress Progress Note : Progress Note Patient's symptoms consistent with migraine/rebound headache. Give her a cocktail of Toradol, Phenergan, Benadryl. I will also give her some Norflex to help with any tension type headache. Patient discharged home recommend she go home and sleep. Patient stable upon discharge Departure Impression Primary Impression: Recurrent headache Disposition: HOME, SELF-CARE Condition: Stable Departure-Patient Inst. Referrals: CARLOS VERA APRN (PCP) Primary Care Physician [facility] (Family) Primary Care Physician Patient Instructions: Migraines (DC), How to Keep Track of Your Headaches, Home Headache Remedies Add. Discharge Instructions: Please get plenty of rest, drink plenty of fluids Follow-up with your primary care next week if symptoms continue All discharge instructions reviewed with patient and/or family. Voiced und erstanding. ALYCE GÓMEZ DO Dec 10, 2021 16:44
[2021-12-10] MEDS ORDERED: METOCLOPRAMIDE INJ 10 MG/2 ML (REGLAN) IM STA (16:50)
[2021-12-10] MEDS ORDERED: diphenhydrAMINE 50 MG/ML INJ (BENADRYL) IV STA (16:50)
[2021-12-10] MEDS ORDERED: ORPHENADRINE 60 MG/2 ML (NORFLEX) AMP (ED ONLY) IM STA (16:50)
[2021-12-10] MEDS ORDERED: KETOROLAC 30 MG/ML VIAL IM STA (16:50)
== END 2021-12-10 17:07 | disposition home or self-care (01) ==
LOC: EDUNIT# 16:32 → ER FS 16:33
DX: R51.9 Headache, unspecified (principal); Z86.69 Personal history of other diseases of the nervous system and sense organs
CPT/HCPCS: 82947; 99284

== ENCOUNTER 2021-12-20 08:38 | Emergency (ER) | payer MEDICARE, OTHER ==
[2021-12-20] MEDS ORDERED: diphenhydrAMINE 50 MG/ML INJ (BENADRYL) IM STA (09:00)
[2021-12-20] MEDS ORDERED: KETOROLAC 60 MG/2 ML VIAL IM STA (09:00)
[2021-12-20] MEDS ORDERED: METOCLOPRAMIDE INJ 10 MG/2 ML (REGLAN) IVP STA (09:00)
[2021-12-20] MEDS ORDERED: METOCLOPRAMIDE INJ 10 MG/2 ML (REGLAN) IM STA (09:04)
--- NOTE | 2021-12-20 09:23 | ED Headache ---
General Chief Complaint: Head/Cervical Problems Stated Complaint: HEADACHE Nursing Triage Note: Patient presents to the ED with c/o migraine x3 days. Reports nausea, sinus pressure, and light sensitivity with migraine. Has take home migraine medications without relief. Source: patient History of Present Illness Date Seen by Provider: Dec 20, 2021 Time Seen by Provider: 08:50 Initial Comments 61-year-old female presenting with complaints of recurrent headache, nausea, sinus pressure, light sensitivity. She has had her symptoms for the last 3 days. She reports that she is taking her home migraine medicines without any improvement. She has concerns for possible sinus infection to since she is having some sinus pressure. She is scheduled to see a pain management doctor tomorrow. She has chronic recurrent migraine headaches that are difficult to treat. Severity/Quality: severe, throbbing Prior Headaches/Recent Trauma: frequent headaches, chronic headaches Modifying Factors: worse with exposure to light Associated Symptoms: No confusion; fatigue; No facial pain, No fever/chills, No flushing, No loss of consciousness, No nausea/vomiting; nasal congestion; No nasal drainage, No numbness in legs/feet, No rash, No seizures; sinus infection; No stiff neck, No vision changes, No weakness Allergies and Home Medications Allergies Coded Allergies: prochlorperazine (Verified Allergy, Mild, TREMORS, 04/18/18) Patient Home Medication List Home Medication List Reviewed: Yes Atorvastatin Calcium (Atorvastatin Calcium) 80 Mg Tablet, 80 MG PO DAILY, (Reported) Entered as Reported by: JASMEET FLORES on 12/31/18 1059 Bisacodyl (Dulcolax) 5 Mg Tablet.dr, 5-10 MG PO BID, (Reported) Entered as Reported by: JASMEET FLORES on 12/31/18 1105 Bupropion HCl (Wellbutrin Xl) 300 Mg Tab.er.24h, 300 MG PO DAILY, (Reported) Entered as Reported by: JASMEET FLORES on 12/31/18 1056 Calcium Carbonate/Vitamin D3 (Calcium 250+D Tablet) 1 Each Tablet, 1 EACH PO HS, (Reported) Entered as Reported by: JASMEET FLORES on 12/31/18 1041 Carisoprodol (Soma) 350 Mg Tablet, 350 MG PO TID, (Reported) Entered as Reported by: JASMEET FLORES on 12/31/18 1056 Clorazepate Dipotassium (Clorazepate Dipotassium) 7.5 Mg Tablet, 22.5 MG PO HS, (Reported) Entered as Reported by: JASMEET FLORES on 12/31/18 1056 Ezetimibe (Ezetimibe) 10 Mg Tablet, 10 MG PO DAILY, (Reported) Entered as Reported by: JASMEET FLORES on 12/31/18 1056 Famotidine (Pepcid) 20 Mg Tablet, 20 MG PO BID PRN for NAUSEA/VOMITING, (Reported) Entered as Reported by: JASMEET FLORES on 12/31/18 1056 Fentanyl (Duragesic Patch 100MCG) 1 Each Patch.td72, 100 MCG TD Q48H, (Reported) Entered as Reported by: JASMEET FLORES on 12/31/18 1105 Fludrocortisone Acetate (Fludrocortisone Acetate) 0.1 Mg Tab, 0.2 MG PO DAILY, (Reported) Entered as Reported by: JASMEET FLORES on 12/31/18 1056 Gabapentin (Gabapentin) 100 Mg Capsule, 100 MG PO Q8H Prescribed by: ASHVIN BAH MD on 11/09/21 1142 Hydrocodone/Acetaminophen ([place] 10-325 Tablet) 1 Each Tablet, 1 TAB PO Q6H PRN for PAIN-MODERATE, (Reported) Entered as Reported by: JASMEET FLORES on 12/31/18 1056 Hyoscyamine Sulfate (Hyoscyamine Sulfate) 0.125 Mg Tablet, 0.125 MG PO HS, (Reported) Entered as Reported by: JASMEET FLORES on 12/31/18 1056 Imipramine HCl (Imipramine HCl) 25 Mg Tablet, 25-75 MG PO HS, (Reported) Entered as Reported by: JASMEET FLORES on 12/31/18 1056 Lorazepam (Lorazepam) 1 Mg Tablet, 0.5-1 MG PO Q6H PRN for ANXIETY, (Reported) Entered as Reported by: JASMEET FLORES on 12/31/18 1056 Magnesium Oxide (Magnesium) 400 Mg Tablet, 400 MG PO DAILY, (Reported) Entered as Reported by: JASMEET FLORES on 12/31/18 1041 Metoclopramide HCl (Metoclopramide HCl) 5 Mg Tablet, 5 MG PO QIDACHS, (Reported) Entered as Reported by: JASMEET FLORES on 12/31/18 1056 Metoprolol Succinate (Metoprolol Succinate) 50 Mg Tab.er.24h, 50 MG PO DAILY Prescribed by: ANGELA PEGUERO on 12/31/18 190 Multivits,Ca,Minerals/Iron/FA (Women's Daily Caplet) 1 Each Tablet, 1 EACH PO DAILY, (Reported) Entered as Reported by: JASMEET FLORES on 12/31/18 1041 Naloxegol Oxalate (Movantik) 12.5 Mg Tablet, 12.5 MG PO DAILY, (Reported) Entered as Reported by: JASMEET FLORES on 12/31/18 1059 Ondansetron (Ondansetron Odt) 8 Mg Tab.rapdis, 8 MG PO Q8H PRN for NAUSEA/VOMITING-1ST LINE, (Reported) Entered as Reported by: JASMEET FLORES on 12/31/18 1105 Ondansetron (Ondansetron Odt) 4 Mg Tab.rapdis, 4 MG PO Q6H Prescribed by: HAL BACA on 11/01/212048 Ondansetron HCl (Zofran) 4 Mg Tab, 4 MG PO Q8H PRN for NAUSEA/VOMITING-1ST LINE, (Reported) Entered as Reported by: JASMEET FLORES on 12/31/18 1056 Oxymetazoline HCl (Afrin) 15 Ml Mist, 1 SPRAYS NS BID PRN for CONGESTION, (Reported) Entered as Reported by: JASMEET FLORES on 12/31/18 1105 Potassium Chloride (Potassium Chloride) 20 Meq Tablet.er, 20 MEQ PO BID, (Reported) Entered as Reported by: JASMEET FLORES on 12/31/18 1057 Sennosides/Docusate Sodium (Stool Softener-Laxative Tablet) 1 Each Tablet, 1-2 EACH PO BID, (Reported) Entered as Reported by: JASMEET FLORES on 12/31/18 1059 Sertraline HCl (Zoloft) 100 Mg Tablet, 100 MG PO DAILY, (Reported) Entered as Reported by: JASMEET FLORES on 12/31/18 1056 Tizanidine HCl (Tizanidine HCl) 4 Mg Tablet, 2-4 MG PO BID, (Reported) Entered as Reported by: JASMEET FLORES on 12/31/18 1056 Topiramate (Topamax) 50 Mg Tablet, 100 MG PO BID, (Reported) Entered as Reported by: JASMEET FLORES on 12/31/18 1056 Review of Systems Review of Systems Constitutional: No chills, No fever Eyes: Photophobia Ears, Nose, Mouth, Throat: denies ear pain, denies ear discharge, denies nose pain, denies epistaxis Respiratory: No cough, No short of breath Cardiovascular: No chest pain Gastrointestinal: nausea, vomiting Genitourinary: No dysuria Musculoskeletal: no symptoms reported Skin: No rash Psychiatric/Neurological: See HPI Past Lzelfym-Vplpqw-Wxmmjb Hx Patient Social History Tobacco Use?: No Use of E-Cig and/or Vaping dev: No Substance use?: No Alcohol Use?: No Pt feels they are or have been: No Immunizations Up To Date First/Initial COVID19 Vaccinat: Moderna Second COVID19 Vaccination Faraz: Third COVID19 Vaccination Date: Past Medical History Surgery/Hospitalization HX: Migraines, Fibromyalgia Surgeries: Yes Adenoidectomy, Breast, Hysterectomy, Tonsillectomy Respiratory: No Cardiac: Yes High Cholesterol Neurological: No Genitourinary: Yes (INTERSTITIAL CYSTISIS) Gastrointestinal: Yes Hiatal Hernia, Irritable Bowel Musculoskeletal: Yes Fibromyalgia Endocrine: No (hypoglycemia) HEENT: No Cancer: No Psychosocial: Yes Depression Integumentary: No Blood Disorders: No Physical Exam Vital Signs Vital Signs - First Documented 12/20/21 08:43 Temp 35.7 Pulse 118 Resp 16 B/P (MAP) 121/84 (96) Pulse Ox 99 O2 Delivery Room Air Capillary Refill : Less Than 3 Seconds Height, Weight, BMI Height: 5'5.00" Weight: 109lbs. 0.0oz. [id number]; 17.00 BMI Method: General Appearance: other (appears chronically ill) HEENT: PERRL/EOMI, pharynx normal Neck: non-tender, full range of motion, supple, normal inspection Cardiovascular: normal peripheral pulses, regular rate, rhythm Respiratory: chest non-tender, lungs clear, normal breath sounds Gastrointestinal: normal bowel sounds, non tender, soft, no pulsatile mass Extremities: normal range of motion, non-tender, normal capillary refill Psychiatric: alert, oriented x 3 Crainal Nerves: normal hearing, normal speech, PERRL Motor/Sensory: no motor deficit, no sensory deficit Skin: normal color, warm/dry; No rash Progress/Results/Core Measures Results/Orders My Orders Orders - JACKIE ACKERMAN MD Ct Head/Sinuses Wo (12/20/21 08:59) Ketorolac Injection (Toradol Injection) (12/20/21 09:00) Diphenhydramine Injection (Benadryl Inje (12/20/21 09:00) Dexamethasone Injection (Decadron Inje (12/20/21 09:00) Metoclopramide Injection (Reglan Injecti (12/20/21 09:04) Vital Signs/I&O 12/20/21 12/20/21 08:43 09:52 Temp 35.7 35.7 Pulse 118 105 Resp 16 16 B/P (MAP) 121/84 (96) 123/79 Pulse Ox 99 99 O2 Delivery Room Air Room Air Blood Pressure Mean: 96 Progress Progress Note #1: Progress Note Since she reports that this feels similar to her regular chronic migraine headache and has not responded to home medicines will try a dose of Toradol 60 mg IM, Benadryl 50 mg IM, Reglan 10 mg IM. We will add on a dose of dexametha sone 10 mg IM x1 to hopefully help with her complaint of sinus pressure and maybe prevent rebound headache. CT scan of the head and sinuses to look for any acute abnormality to account for her chronic recurrent migraines and sinus pressure. Progress Note #2: Progress Note CT scan of the head and sinuses does not indicate any acute sinusitis. The CT head was also without acute abnormality. Will reassure patient and spouse and encouraged them to follow-up with neurology for chronic migraine headaches. Pt does report her pressure and headache was easing up at the time of discharge Diagnostic Imaging Diagonstic Imaging: CT Plain Films/CT/US/NM/MRI: head (And sinuses) Comments [facility]. [place], [place] NAME: [facility] REC#: [id number] PT STATUS: REG ER : 1960 PHYSICIAN: JACKIE ACKERMAN MD ADMIT DATE: 12/20/21/ER FS Draft Date of Exam:12/20/21 CT HEAD/SINUSES WO CLINICAL INDICATION: Patient with migraines and sinus pressure x 3 days. EXAM: Axial CT scan of the brain and maxillofacial structures performed without IV contrast. Sagittal and coronal reformatted images were created. COMPARISON: CT scan of the head and cervical spine dated 11/09/2021. FINDINGS: HEAD CT: There is no evidence of acute cerebral infarct, intracranial hemorrhage, or gross mass effect. The brain parenchymal volume appears appropriate for patient's age. There is normal coles-white matter distinction. There is no significant midline shift or herniation. There is no evidence of hydrocephalus. The basal cisterns are unremarkable. MAXILLOFACIAL STRUCTURES: The skull, extracranial soft tissue, and orbits are unremarkable. The paranasal sinuses are unremarkable. The nasal septum is midline. Temporal bones show no significant abnormality. Torus palatinus is noted. IMPRESSION: 1: Unremarkable CT scan of the head and maxillofacial structures. 2: Torus palatinus is noted. Dictated on workstation # [id number] Dict: 12/20/21927 Trans: 12/20/2138 [id number] Interpreted by: CIRILO GAO MD Electronically signed by: Reviewed: Reviewed by Me Departure Impression Primary Impression: Chronic migraine without aura, intractable, without status migrainosus Disposition: 01 HOME, SELF-CARE Condition: Stable Departure-Patient Inst. Decision time for Depature: 09:50 Referrals: CARLOS VERA APRN (PCP) Primary Care Physician [facility] (Family) Primary Care Physician Patient Instructions: Home Headache Remedies, Migraines in Adults Add. Discharge Instructions: Rest in a cool dark room. Follow up with Neurologist or Migraine Specialist about your chronic, recurrent Migraine headaches. All discharge instructions reviewed with patient and/or family. Voiced understanding. JACKIE ACKERMAN MD Dec 20, 2021 09:23
--- NOTE | 2021-12-20 09:38 | Diagnostic Imaging Report ---
CLINICAL INDICATION: Patient with migraines and sinus pressure x 3 days. EXAM: Axial CT scan of the brain and maxillofacial structures performed without IV contrast. Sagittal and coronal reformatted images were created. COMPARISON: CT scan of the head and cervical spine dated 11/09/2021. FINDINGS: HEAD CT: There is no evidence of acute cerebral infarct, intracranial hemorrhage, or gross mass effect. The brain parenchymal volume appears appropriate for patient's age. There is normal coles-white matter distinction. There is no significant midline shift or herniation. There is no evidence of hydrocephalus. The basal cisterns are unremarkable. MAXILLOFACIAL STRUCTURES: The skull, extracranial soft tissue, and orbits are unremarkable. The paranasal sinuses are unremarkable. The nasal septum is midline. Temporal bones show no significant abnormality. Torus palatinus is noted. IMPRESSION: 1: Unremarkable CT scan of the head and maxillofacial structures. 2: Torus palatinus is noted. Dictated by: Dictated on workstation # [id number]
[2021-12-20 09:52] VITALS: BP 123/79
== END 2021-12-20 09:52 | disposition home or self-care (01) ==
LOC: EDUNIT# 08:38 → ER FS 08:39
DX: G43.719 Chronic migraine without aura, intractable, without status migrainosus (principal)
CPT/HCPCS: 70450; 70486

== ENCOUNTER 2021-12-29 11:11 | Emergency (ER) | payer MEDICARE, OTHER ==
[~2021-12-29] VITALS: Ht 165 cm; Wt 45.5 kg
[2021-12-29] MEDS ORDERED: METOCLOPRAMIDE INJ 10 MG/2 ML (REGLAN) IM STA (11:24)
[2021-12-29] MEDS ORDERED: diphenhydrAMINE 50 MG/ML INJ (BENADRYL) IM STA (11:24)
[2021-12-29] MEDS ORDERED: KETOROLAC 60 MG/2 ML VIAL IM STA (11:24)
--- NOTE | 2021-12-29 12:06 | ED Headache ---
General Stated Complaint: HEADACHE Source: patient, spouse History of Present Illness Date Seen by Provider: Dec 29, 2021 Time Seen by Provider: 11:58 Initial Comments 61-year-old female presenting with complaints of recurrent migraine headache. She states this feels like her typical migraine headaches but is not responding to her home medication. This episode started 2 days ago. She has taken her home medicines without improvement. She has light sensitivity and sound sensitivity. The headache is more frontal in location. She denies any recent head trauma, fever, chills, neck pain. She presents requesting "cocktail of katharina ts" to help with her migraine. Timing/Duration: constant (Over the last 2 days) Severity/Quality: severe, constant Location: frontal Prior Headaches/Recent Trauma: frequent headaches, chronic headaches Modifying Factors: worse with exposure to light Associated Symptoms: No confusion; fatigue; No facial pain, No fever/chills, No flushing, No loss of consciousness; nausea/vomiting; No nasal congestion, No nasal drainage, No numbness in legs/feet, No seizures, No sinus infection, No stiff neck, No vision changes, No weakness Allergies and Home Medications Allergies Coded Allergies: prochlorperazine (Verified Allergy, Mild, TREMORS, 04/18/18) Patient Home Medication List Home Medication List Reviewed: Yes Atorvastatin Calcium (Atorvastatin Calcium) 80 Mg Tablet, 80 MG PO DAILY, (Reported) Entered as Reported by: JASMEET FLORES on 12/31/18 1059 Bisacodyl (Dulcolax) 5 Mg Tablet.dr, 5-10 MG PO BID, (Reported) Entered as Reported by: JASMEET FLORES on 12/31/18 1105 Bupropion HCl (Wellbutrin Xl) 300 Mg Tab.er.24h, 300 MG PO DAILY, (Reported) Entered as Reported by: JASMEET FLORES on 12/31/18 1056 Calcium Carbonate/Vitamin D3 (Calcium 250+D Tablet) 1 Each Tablet, 1 EACH PO HS, (Reported) Entered as Reported by: JASMEET FLORES on 12/31/18 1041 Carisoprodol (Soma) 350 Mg Tablet, 350 MG PO TID, (Reported) Entered as Reported by: JASMEET FLOERS on 12/31/18 1056 Clorazepate Dipotassium (Clorazepate Dipotassium) 7.5 Mg Tablet, 22.5 MG PO HS, (Reported) Entered as Reported by: JASMEET FLORES on 12/31/18 1056 Ezetimibe (Ezetimibe) 10 Mg Tablet, 10 MG PO DAILY, (Reported) Entered as Reported by: JASMEET FLORES on 12/31/18 1056 Famotidine (Pepcid) 20 Mg Tablet, 20 MG PO BID PRN for NAUSEA/VOMITING, (Reported) Entered as Reported by: JASMEET FLORES on 12/31/18 1056 Fentanyl (Duragesic Patch 100MCG) 1 Each Patch.td72, 100 MCG TD Q48H, (Reported) Entered as Reported by: JASMEET FLORES on 12/31/18 1105 Fludrocortisone Acetate (Fludrocortisone Acetate) 0.1 Mg Tab, 0.2 MG PO DAILY, (Reported) Entered as Reported by: JASMEET FLORES on 12/31/18 1056 Gabapentin (Gabapentin) 100 Mg Capsule, 100 MG PO Q8H Prescribed by: ASHVIN BAH MD on 11/09/21 1142 Hydrocodone/Acetaminophen ([place] 10-325 Tablet) 1 Each Tablet, 1 TAB PO Q6H PRN for PAIN-MODERATE, (Reported) Entered as Reported by: JASMEET FLORES on 12/31/18 1056 Hyoscyamine Sulfate (Hyoscyamine Sulfate) 0.125 Mg Tablet, 0.125 MG PO HS, (Reported) Entered as Reported by: JASMEET FLORES on 12/31/18 1056 Imipramine HCl (Imipramine HCl) 25 Mg Tablet, 25-75 MG PO HS, (Reported) Entered as Reported by: JASMEET FLORES on 12/31/18 105 Lorazepam (Lorazepam) 1 Mg Tablet, 0.5-1 MG PO Q6H PRN for ANXIETY, (Reported) Entered as Reported by: JASMEET FLORES on 12/31/18 1056 Magnesium Oxide (Magnesium) 400 Mg Tablet, 400 MG PO DAILY, (Reported) Entered as Reported by: JASMEET FLORES on 12/31/18 1041 Metoclopramide HCl (Metoclopramide HCl) 5 Mg Tablet, 5 MG PO QIDACHS, (Reported) Entered as Reported by: JASMEET FLORES on 12/31/18 1056 Metoprolol Succinate (Metoprolol Succinate) 50 Mg Tab.er.24h, 50 MG PO DAILY Prescribed by: ANGELA PEGUERO on 12/31/18 190 Multivits,Ca,Minerals/Iron/FA (Women's Daily Caplet) 1 Each Tablet, 1 EACH PO DAILY, (Reported) Entered as Reported by: JASMEET FLORES on 12/31/18 1041 Naloxegol Oxalate (Movantik) 12.5 Mg Tablet, 12.5 MG PO DAILY, (Reported) Entered as Reported by: JASMEET FLORES on 12/31/18 1059 Ondansetron (Ondansetron Odt) 8 Mg Tab.rapdis, 8 MG PO Q8H PRN for NAUSEA/VOMITING-1ST LINE, (Reported) Entered as Reported by: JASMEET FLORES on 12/31/18 1105 Ondansetron (Ondansetron Odt) 4 Mg Tab.rapdis, 4 MG PO Q6H Prescribed by: HAL BACA on 11/01/212048 Ondansetron HCl (Zofran) 4 Mg Tab, 4 MG PO Q8H PRN for NAUSEA/VOMITING-1ST LINE, (Reported) Entered as Reported by: JASMEET FLORES on 12/31/18 1056 Oxymetazoline HCl (Afrin) 15 Ml Mist, 1 SPRAYS NS BID PRN for CONGESTION, (Reported) Entered as Reported by: JASMEET FLORES on 12/31/18 1105 Potassium Chloride (Potassium Chloride) 20 Meq Tablet.er, 20 MEQ PO BID, (Reported) Entered as Reported by: JASMEET FLORES on 12/31/18 1057 Sennosides/Docusate Sodium (Stool Softener-Laxative Tablet) 1 Each Tablet, 1-2 EACH PO BID, (Reported) Entered as Reported by: JASMEET FLORES on 12/31/18 1059 Sertraline HCl (Zoloft) 100 Mg Tablet, 100 MG PO DAILY, (Reported) Entered as Reported by: JASMEET FLORES on 12/31/18 1056 Tizanidine HCl (Tizanidine HCl) 4 Mg Tablet, 2-4 MG PO BID, (Reported) Entered as Reported by: JASMEET FLORES on 12/31/18 1056 Topiramate (Topamax) 50 Mg Tablet, 100 MG PO BID, (Reported) Entered as Reported by: JASMEET FLORES on 12/31/18 1056 Review of Systems Review of Systems Constitutional: No chills, No fever Eyes: Photophobia Ears, Nose, Mouth, Throat: denies ear pain, denies ear discharge, denies nose pain, denies nose discharge Respiratory: no symptoms reported Cardiovascular: no symptoms reported Gastrointestinal: see HPI Genitourinary: no symptoms reported Musculoskeletal: no symptoms reported Skin: No rash Psychiatric/Neurological: See HPI Past Hqmhazi-Kblreu-Pidfwz Hx Immunizations Up To Date First/Initial COVID19 Vaccinat: Moderna Second COVID19 Vaccination Faraz: Moderna Third COVID19 Vaccination Date: Past Medical History Surgery/Hospitalization HX: Migraines, Fibromyalgia Surgeries: Yes Adenoidectomy, Breast, Hysterectomy, Tonsillectomy Respiratory: No Cardiac: Yes High Cholesterol Neurological: No Genitourinary: Yes (INTERSTITIAL CYSTISIS) Gastrointestinal: Yes Hiatal Hernia, Irritable Bowel Musculoskeletal: Yes Fibromyalgia Endocrine: No (hypoglycemia) HEENT: No Cancer: No Psychosocial: Yes Depression Integumentary: No Blood Disorders: No Physical Exam Vital Signs Vital Signs - First Documented 12/29/21 11:12 Temp 36.7 Pulse 114 Resp 16 B/P (MAP) 110/72 (85) Pulse Ox 100 O2 Delivery Room Air Capillary Refill : Height, Weight, BMI Height: 5'5.00" Weight: 109lbs. 0.0oz. 49.977255mo; 17.00 BMI Method: General Appearance: WD/WN, no apparent distress HEENT: PERRL/EOMI, pharynx normal Neck: non-tender, full range of motion, supple, normal inspection Cardiovascular: normal peripheral pulses, regular rate, rhythm Respiratory: chest non-tender, lungs clear, normal breath sounds Psychiatric: alert, oriented x 3 Crainal Nerves: normal hearing, normal speech, PERRL Motor/Sensory: no motor deficit, no sensory deficit Skin: warm/dry; No rash Progress/Results/Core Measures Results/Orders My Orders Orders - JACKIE CAKERMAN MD Ketorolac Injection (Toradol Injection) (12/29/21 11:24) Diphenhydramine Injection (Benadryl Inje (12/29/21 11:24) Metoclopramide Injection (Reglan Injecti (12/29/21 11:24) Dexamethasone Injection (Decadron Inje (12/29/21 11:24) Ns Iv 1000 Ml (Sodium Chloride 0.9%) (12/29/21 12:59) Vital Signs/I&O 12/29/21 12/29/21 11:12 13:00 Temp 36.7 36.7 Pulse 114 73 Resp 16 18 B/P (MAP) 110/72 (85) 110/72 Pulse Ox 100 98 O2 Delivery Room Air Room Air Progress Progress Note : Progress Note Reassured patient that her exam and vitals appeared stable. Given medications that had helped with her previous ER visit. She was given Toradol 60 mg IM, Benadryl 50 mg IM, Reglan 10 mg IM, dexamethasone 10 mg IM. Patient was starting to have improvement in her symptoms prior to discharge. Counseled to follow-up with neurology and/or primary care about her chronic recurrent migrain e headaches Departure Impression Primary Impression: Chronic migraine without aura, intractable, without status migrainosus Disposition: 01 HOME, SELF-CARE Condition: Stable Departure-Patient Inst. Decision time for Depature: 12:49 Referrals: CARLOS VERA APRN (PCP) Primary Care Physician [facility] (Family) Primary Care Physician Patient Instructions: Migraines in Adults Add. Discharge Instructions: Continue on your regular medications. Follow-up with your primary care and/or neurology for migraine treatment JACKIE ACKERMAN MD Dec 29, 2021 12:06
[2021-12-29] MEDS ORDERED: NS IV 1000 ML 1,000 ML IV STA (12:59)
[2021-12-29 13:00] VITALS: BP 110/72
== END 2021-12-29 13:02 | disposition home or self-care (01) ==
LOC: EDUNIT# 11:11 → ER FS 11:13
DX: G43.719 Chronic migraine without aura, intractable, without status migrainosus (principal)
CPT/HCPCS: 99284

== ENCOUNTER 2022-02-07 17:06 | Emergency (ER) | payer MEDICARE, OTHER ==
[~2022-02-07] VITALS: Ht 165.1 cm; Wt 45.4 kg
[2022-02-07] MEDS ORDERED: METOCLOPRAMIDE INJ 10 MG/2 ML (REGLAN) IM STA (17:14)
[2022-02-07] MEDS ORDERED: KETOROLAC 60 MG/2 ML VIAL IM STA (17:14)
[2022-02-07] MEDS ORDERED: diphenhydrAMINE 50 MG/ML INJ (BENADRYL) IM STA (17:14)
--- NOTE | 2022-02-07 17:21 | ED Headache ---
General Stated Complaint: HEADACHE Source: patient, spouse Exam Limitations: clinical condition History of Present Illness Date Seen by Provider: Feb 07, 2022 Time Seen by Provider: 17:12 Initial Comments 61-year-old female presenting with complaints of headache that feels like her typical migraine headache. This is been present for almost a week now. She has gone to the chiropractor for adjustments of her neck which is helped some. However she continues to have headache not responding to her home medications. She felt like today was her breaking point where she not been resting at home and was continuing to have symptoms despite the medications. Previously through the clinic and nurse practitioner Asher she had not received Norflex 60 mg with Toradol 60 mg with Benadryl 50 mg with Phenergan 25 mg all IM. She states that the clinic states that they no longer can do IM shots like that and she has come to the emergency department. When she was seen previously on December 29 she had received a similar cocktail of Toradol with Benadryl and Reglan and dexamethasone. Timing/Duration: 1 week, constant Severity/Quality: severe, throbbing Location: global Prior Headaches/Recent Trauma: frequent headaches, chronic headaches Modifying Factors: worse with exposure to light Associated Symptoms: No confusion; fatigue; No facial pain, No fever/chills, No flushing, No loss of consciousness; nausea/vomiting; No nasal congestion, No nasal drainage, No numbness in legs/feet, No rash, No seizures, No sinus infection; stiff neck (muscle stiffness and seeing chiropractor for chronic issues with neck); No vision changes, No weakness Allergies and Home Medications Allergies Coded Allergies: prochlorperazine (Verified Allergy, Mild, TREMORS, 04/18/18) Patient Home Medication List Home Medication List Reviewed: Yes Atorvastatin Calcium (Atorvastatin Calcium) 80 Mg Tablet, 80 MG PO DAILY, (Reported) Entered as Reported by: JASMEET FLORES on 12/31/18 1059 Bisacodyl (Dulcolax) 5 Mg Tablet.dr, 5-10 MG PO BID, (Reported) Entered as Reported by: JASMEET FLORES on 12/31/18 1105 Bupropion HCl (Wellbutrin Xl) 300 Mg Tab.er.24h, 300 MG PO DAILY, (Reported) Entered as Reported by: JASMEET FLORES on 12/31/18 1056 Calcium Carbonate/Vitamin D3 (Calcium 250+D Tablet) 1 Each Tablet, 1 EACH PO HS, (Reported) Entered as Reported by: JASMEET FLORES on 12/31/18 1041 Carisoprodol (Soma) 350 Mg Tablet, 350 MG PO TID, (Reported) Entered as Reported by: JASMEET FLORES on 12/31/18 1056 Clorazepate Dipotassium (Clorazepate Dipotassium) 7.5 Mg Tablet, 22.5 MG PO HS, (Reported) Entered as Reported by: JASMEET FLORES on 12/31/18 1056 Ezetimibe (Ezetimibe) 10 Mg Tablet, 10 MG PO DAILY, (Reported) Entered as Reported by: JASMEET FLORES on 12/31/18 1056 Famotidine (Pepcid) 20 Mg Tablet, 20 MG PO BID PRN for NAUSEA/VOMITING, (Reported) Entered as Reported by: JASMEET FLORES on 12/31/18 1056 Fentanyl (Duragesic Patch 100MCG) 1 Each Patch.td72, 100 MCG TD Q48H, (Reported) Entered as Reported by: JASMEET FLORES on 12/31/18 1105 Fludrocortisone Acetate (Fludrocortisone Acetate) 0.1 Mg Tab, 0.2 MG PO DAILY, (Reported) Entered as Reported by: JASMEET FLORES on 12/31/18 1056 Gabapentin (Gabapentin) 100 Mg Capsule, 100 MG PO Q8H Prescribed by: ASHVIN BAH MD on 11/09/21 1142 Hydrocodone/Acetaminophen ([place] 10-325 Tablet) 1 Each Tablet, 1 TAB PO Q6H PRN for PAIN-MODERATE, (Reported) Entered as Reported by: JAMSEET FLORES on 12/31/18 1056 Hyoscyamine Sulfate (Hyoscyamine Sulfate) 0.125 Mg Tablet, 0.125 MG PO HS, (Reported) Entered as Reported by: JASMEET FLORES on 12/31/18 1056 Imipramine HCl (Imipramine HCl) 25 Mg Tablet, 25-75 MG PO HS, (Reported) Entered as Reported by: JASMEET FLORES on 12/31/18 1056 Lorazepam (Lorazepam) 1 Mg Tablet, 0.5-1 MG PO Q6H PRN for ANXIETY, (Reported) Entered as Reported by: JASMEET FLORES on 12/31/18 1056 Magnesium Oxide (Magnesium) 400 Mg Tablet, 400 MG PO DAILY, (Reported) Entered as Reported by: JASMEET FLORES on 12/31/18 1041 Metoclopramide HCl (Metoclopramide HCl) 5 Mg Tablet, 5 MG PO QIDACHS, (Reported) Entered as Reported by: JASMEET FLORES on 12/31/18 1056 Metoprolol Succinate (Metoprolol Succinate) 50 Mg Tab.er.24h, 50 MG PO DAILY Prescribed by: ANGELA PEGUERO on 12/31/18 190 Multivits,Ca,Minerals/Iron/FA (Women's Daily Caplet) 1 Each Tablet, 1 EACH PO DAILY, (Reported) Entered as Reported by: JASMEET FLORES on 12/31/18 1041 Naloxegol Oxalate (Movantik) 12.5 Mg Tablet, 12.5 MG PO DAILY, (Reported) Entered as Reported by: JASMEET FLORES on 12/31/18 1059 Ondansetron (Ondansetron Odt) 8 Mg Tab.rapdis, 8 MG PO Q8H PRN for NAUSEA/VOMITING-1ST LINE, (Reported) Entered as Reported by: JASMEET FLORES on 12/31/18 1105 Ondansetron (Ondansetron Odt) 4 Mg Tab.rapdis, 4 MG PO Q6H Prescribed by: HAL BACA on 11/01/212048 Ondansetron HCl (Zofran) 4 Mg Tab, 4 MG PO Q8H PRN for NAUSEA/VOMITING-1ST LINE, (Reported) Entered as Reported by: JASMEET FLORES on 12/31/18 1056 Oxymetazoline HCl (Afrin) 15 Ml Mist, 1 SPRAYS NS BID PRN for CONGESTION, (Reported) Entered as Reported by: JASMEET FLORES on 12/31/18 1105 Potassium Chloride (Potassium Chloride) 20 Meq Tablet.er, 20 MEQ PO BID, (Reported) Entered as Reported by: JASMEET FLORES on 12/31/18 1057 Sennosides/Docusate Sodium (Stool Softener-Laxative Tablet) 1 Each Tablet, 1-2 EACH PO BID, (Reported) Entered as Reported by: JASMEET FLORES on 12/31/18 1059 Sertraline HCl (Zoloft) 100 Mg Tablet, 100 MG PO DAILY, (Reported) Entered as Reported by: JASMEET FLORSE on 12/31/18 1056 Tizanidine HCl (Tizanidine HCl) 4 Mg Tablet, 2-4 MG PO BID, (Reported) Entered as Reported by: JASMEET FLORES on 12/31/18 1056 Topiramate (Topamax) 50 Mg Tablet, 100 MG PO BID, (Reported) Entered as Reported by: JASMEET FLORES on 12/31/18 1056 Review of Systems Review of Systems Constitutional: No chills, No diaphoresis, No dizziness, No fever Eyes: Denies Blindness, Denies Blurred Vision; Photophobia Ears, Nose, Mouth, Throat: denies ear pain, denies ear discharge, denies nose pain, denies nose discharge, denies epistaxis Respiratory: No cough, No short of breath Cardiovascular: No chest pain Gastrointestinal: nausea; No vomiting Genitourinary: No dysuria Musculoskeletal: neck pain Skin: No rash Psychiatric/Neurological: See HPI, Anxiety, Headache Past Bjkwkmd-Yotqni-Btidii Hx Immunizations Up To Date First/Initial COVID19 Vaccinat: Second COVID19 Vaccination Faraz: Third COVID19 Vaccination Date: Past Medical History Surgery/Hospitalization HX: Migraines, Fibromyalgia Surgeries: Yes Adenoidectomy, Breast, Hysterectomy, Tonsillectomy Respiratory: No Cardiac: Yes High Cholesterol Neurological: No Genitourinary: Yes (INTERSTITIAL CYSTISIS) Gastrointestinal: Yes Hiatal Hernia, Irritable Bowel Musculoskeletal: Yes Fibromyalgia Endocrine: No (hypoglycemia) HEENT: No Cancer: No Psychosocial: Yes Depression Integumentary: No Blood Disorders: No Physical Exam Vital Signs Capillary Refill : Height, Weight, BMI Height: 5'5.00" Weight: 109lbs. 0.0oz. 49.613204kw; 16.00 BMI Method: General Appearance: other (chronically ill appearing) HEENT: PERRL/EOMI, pharynx normal Neck: full range of motion, supple, normal inspection, tender lateral (muscles in neck are tight and stiff) Cardiovascular: normal peripheral pulses, regular rate, rhythm Respiratory: chest non-tender, lungs clear, normal breath sounds Gastrointestinal: normal bowel sounds, soft, no pulsatile mass Extremities: normal range of motion, non-tender, normal capillary refill Psychiatric: alert, oriented x 3 Crainal Nerves: normal hearing, normal speech, PERRL Coordination/Gait: normal gait Motor/Sensory: no motor deficit, no sensory deficit Skin: normal color, warm/dry Progress/Results/Core Measures Results/Orders My Orders Orders - JACKIE ACKERMAN MD Ketorolac Injection (Toradol Injection) (02/07/22 17:14) Dexamethasone Injection (Decadron Inje (02/07/22 17:14) Diphenhydramine Injection (Benadryl Inje (02/07/22 17:14) Orphenadrine Inj (Ed Only) (Norflex Inje (02/07/22 17:37) Promethazine Injection (Phenergan Injec (02/07/22 17:37) Progress Progress Note : Progress Note Since her migraine feels similar to prior migraine headaches and has had no acute trauma, fever, different or new symptoms will order medications as before and will substitute Phenergan for the Reglan and add in the Norflex as a muscle relaxer. Otherwise the migraine cocktail she was getting from the clinic is the same as what she had been getting from the emergency department. Encouraged to go home and rest in a cool dark room. Continue with home medications. Check back through the clinic for continued concerns. Continue to work with her chiropractor for the neck stiffness. Departure Impression Primary Impression: Chronic migraine without aura, intractable, without status migrainosus Disposition: 01 HOME, SELF-CARE Condition: Stable Departure-Patient Inst. Decision time for Depature: 17:44 Referrals: CARLOS VERA APRN (PCP) Primary Care Physician [facility] (Family) Primary Care Physician Patient Instructions: Chronic Neck Pain (DC), Migraines in Adults Add. Discharge Instructions: Rest in a cool dark room Continue your regular medicines at home Follow up with clinic and chiropractor for continued concerns JACKIE ACKERMAN MD Feb 07, 2022 17:21
[2022-02-07] MEDS ORDERED: ORPHENADRINE 60 MG/2 ML (NORFLEX) AMP (ED ONLY) IM STA (17:37)
[2022-02-07] MEDS ORDERED: PROMETHAZINE INJ 25 MG/ML (PHENERGAN) AMP IM STA (17:37)
[2022-02-07 17:58] VITALS: BP 109/67
== END 2022-02-07 17:58 | disposition home or self-care (01) ==
LOC: EDUNIT# 17:06 → ER FS 17:07
DX: G43.719 Chronic migraine without aura, intractable, without status migrainosus (principal)
CPT/HCPCS: 99284

== ENCOUNTER 2022-02-24 17:41 | Emergency (ER) | payer MEDICARE, OTHER ==
--- NOTE | 2022-02-24 17:55 | ED Neck-Back Pain/Injury ---
General Chief Complaint: Head/Cervical Problems Stated Complaint: MIGRAINE/LOW BLOOD SUGAR History of Present Illness Date Seen by Provider: Feb 24, 2022 Time Seen by Provider: 17:46 Initial Comments 61-year-old female with DM/fibromyalgia/migraine/chronic fatigue syndrome, is here with complaints of a migraine headache which began yesterday. Patient has multiple pain medications at home and she has tried all of them, which include hydrocodone, fentanyl patch, Excedrin, etc. patient states that she had an aura of flashing lights and then the migraine hit, with it mainly being in the frontal area. It is associated with photophobia, nausea and vomiting. Patient has not been able to eat or drink anything all day due to the nausea, which has triggered her blood sugar to be low. Patient checked her blood sugar at home and it was not readable so she has come to the ER to make sure her blood sugar is not dropping too low. Patient is given 4 glucose tablets and her blood sugar is 99 in the ER. Denies blurry vision, fever, URI symptoms, dizziness, neck stiffness. Allergies and Home Medications Allergies Coded Allergies: prochlorperazine (Verified Allergy, Mild, TREMORS, 04/18/18) Patient Home Medication List Home Medication List Reviewed: Yes Atorvastatin Calcium (Atorvastatin Calcium) 80 Mg Tablet, 80 MG PO DAILY, (Reported) Entered as Reported by: JASMEET FLOERS on 12/31/18 1059 Bisacodyl (Dulcolax) 5 Mg Tablet.dr, 5-10 MG PO BID, (Reported) Entered as Reported by: JASMEET FLORES on 12/31/18 1105 Bupropion HCl (Wellbutrin Xl) 300 Mg Tab.er.24h, 300 MG PO DAILY, (Reported) Entered as Reported by: JASMEET FLORES on 12/31/18 1056 Calcium Carbonate/Vitamin D3 (Calcium 250+D Tablet) 1 Each Tablet, 1 EACH PO HS, (Reported) Entered as Reported by: JASMEET FLORES on 12/31/18 1041 Carisoprodol (Soma) 350 Mg Tablet, 350 MG PO TID, (Reported) Entered as Reported by: JASMEET FLORES on 12/31/18 1056 Clorazepate Dipotassium (Clorazepate Dipotassium) 7.5 Mg Tablet, 22.5 MG PO HS, (Reported) Entered as Reported by: JASMEET FLORES on 12/31/18 1056 Ezetimibe (Ezetimibe) 10 Mg Tablet, 10 MG PO DAILY, (Reported) Entered as Reported by: JASMEET FLORES on 12/31/18 1056 Famotidine (Pepcid) 20 Mg Tablet, 20 MG PO BID PRN for NAUSEA/VOMITING, (Reported) Entered as Reported by: JASMEET FLORES on 12/31/18 1056 Fentanyl (Duragesic Patch 100MCG) 1 Each Patch.td72, 100 MCG TD Q48H, (Reported) Entered as Reported by: JASMEET FLORES on 12/31/18 1105 Fludrocortisone Acetate (Fludrocortisone Acetate) 0.1 Mg Tab, 0.2 MG PO DAILY, (Reported) Entered as Reported by: JASMEET FLORES on 12/31/18 1056 Gabapentin (Gabapentin) 100 Mg Capsule, 100 MG PO Q8H Prescribed by: ASHVIN BAH MD on 11/09/21 1142 Hydrocodone/Acetaminophen ([place] 10-325 Tablet) 1 Each Tablet, 1 TAB PO Q6H PRN for PAIN-MODERATE, (Reported) Entered as Reported by: JASMEET FLORES on 12/31/18 1056 Hyoscyamine Sulfate (Hyoscyamine Sulfate) 0.125 Mg Tablet, 0.125 MG PO HS, (Reported) Entered as Reported by: JASMEET FLORES on 12/31/18 1056 Imipramine HCl (Imipramine HCl) 25 Mg Tablet, 25-75 MG PO HS, (Reported) Entered as Reported by: JASMEET FLORES on 12/31/18 1056 Lorazepam (Lorazepam) 1 Mg Tablet, 0.5-1 MG PO Q6H PRN for ANXIETY, (Reported) Entered as Reported by: JASMEET FLORES on 12/31/18 1056 Magnesium Oxide (Magnesium) 400 Mg Tablet, 400 MG PO DAILY, (Reported) Entered as Reported by: JASMEET FLORES on 12/31/18 1041 Metoclopramide HCl (Metoclopramide HCl) 5 Mg Tablet, 5 MG PO QIDACHS, (Reported) Entered as Reported by: JASMEET FLORES on 12/31/18 1056 Metoprolol Succinate (Metoprolol Succinate) 50 Mg Tab.er.24h, 50 MG PO DAILY Prescribed by: ANGELA PEGUERO on 12/31/18 190 Multivits,Ca,Minerals/Iron/FA (Women's Daily Caplet) 1 Each Tablet, 1 EACH PO DAILY, (Reported) Entered as Reported by: JASMEET FLORES on 12/31/18 1041 Naloxegol Oxalate (Movantik) 12.5 Mg Tablet, 12.5 MG PO DAILY, (Reported) Entered as Reported by: JASMEET FLORES on 12/31/18 1059 Ondansetron (Ondansetron Odt) 8 Mg Tab.rapdis, 8 MG PO Q8H PRN for NAUSEA/VOMITING-1ST LINE, (Reported) Entered as Reported by: JASMEET FLORES on 12/31/18 1105 Ondansetron (Ondansetron Odt) 4 Mg Tab.rapdis, 4 MG PO Q6H Prescribed by: HAL BACA on 11/01/212048 Ondansetron HCl (Zofran) 4 Mg Tab, 4 MG PO Q8H PRN for NAUSEA/VOMITING-1ST LINE, (Reported) Entered as Reported by: JASMEET FLORES on 12/31/18 1056 Oxymetazoline HCl (Afrin) 15 Ml Mist, 1 SPRAYS NS BID PRN for CONGESTION, (Reported) Entered as Reported by: JASMEET FLORES on 12/31/18 1105 Potassium Chloride (Potassium Chloride) 20 Meq Tablet.er, 20 MEQ PO BID, (Reported) Entered as Reported by: JASMEET FLORES on 12/31/18 1057 Sennosides/Docusate Sodium (Stool Softener-Laxative Tablet) 1 Each Tablet, 1-2 EACH PO BID, (Reported) Entered as Reported by: JASMEET FLORES on 12/31/18 1059 Sertraline HCl (Zoloft) 100 Mg Tablet, 100 MG PO DAILY, (Reported) Entered as Reported by: JASMEET FLORES on 12/31/18 1056 Tizanidine HCl (Tizanidine HCl) 4 Mg Tablet, 2-4 MG PO BID, (Reported) Entered as Reported by: JASMEET FLORES on 12/31/18 1056 Topiramate (Topamax) 50 Mg Tablet, 100 MG PO BID, (Reported) Entered as Reported by: JASMEET FLORES on 12/31/18 1056 Review of Systems Constitutional: no symptoms reported EENTM: no symptoms reported Respiratory: no symptoms reported Cardiovascular: no symptoms reported Gastrointestinal: no symptoms reported Genitourinary: no symptoms reported Musculoskeletal: no symptoms reported Skin: no symptoms reported Psychiatric/Neurological: Headache Past B[place]-Txvftg-Beojbq Hx Immunizations Up To Date First/Initial COVID19 Vaccinat: Moderna Second COVID19 Vaccination Faraz: Moderna Third COVID19 Vaccination Date: Past Medical History Surgery/Hospitalization HX: Migraines, Fibromyalgia Surgeries: Yes Adenoidectomy, Breast, Hysterectomy, Tonsillectomy Respiratory: No Cardiac: Yes High Cholesterol Neurological: No Genitourinary: Yes (INTERSTITIAL CYSTISIS) Gastrointestinal: Yes Hiatal Hernia, Irritable Bowel Musculoskeletal: Yes Fibromyalgia Endocrine: No (hypoglycemia) HEENT: No Cancer: No Psychosocial: Yes Depression Integumentary: No Blood Disorders: No Physical Exam Vital Signs Vital Signs - First Documented 02/24/22 17:45 Temp 36.5 Pulse 95 Resp 16 B/P (MAP) 114/68 (83) Pulse Ox 99 O2 Delivery Room Air Capillary Refill : Height, Weight, BMI Height: 5'5.00" Weight: 109lbs. 0.0oz. [id number]; 16.00 BMI Method: General Appearance: Anxious, Mild Distress HEENT: PERRL/EOMI Neck: Full Range of Motion, Normal Inspection, Non Tender, Supple Cardiovascular: Regular Rate, Rhythm Respiratory: Chest Non Tender, Lungs Clear Back: Normal Inspection, No Vertebral Tenderness Extremity: Normal Range of Motion Neurologic/Psychiatric: Alert, Oriented x3, No Motor/Sensory Deficits, Normal Mood/Affect, [employer] consultant II-XII Norm as Tested Skin: Normal Color Progress/Results/Core Measures Results/Orders Lab Results Laboratory Tests Test 02/24/22 17:53 Range/Units Glucometer 92 70-110 MG/DL My Orders Orders - ASHVIN BAH MD Ed Iv/Invasive Line Start (02/24/22 18:12) Ns Iv 1000 Ml (Sodium Chloride 0.9%) (02/24/22 18:15) Ketorolac Injection (Toradol Injection) (02/24/22 18:15) Metoclopramide Injection (Reglan Injecti (02/24/22 18:15) Diphenhydramine Injection (Benadryl Inje (02/24/22 18:15) Medications Given in ED Current Medications Medications Dose Ordered Sig/Zurdo Route Start Time Stop Time Status Last Admin Dose Admin Diphenhydramine HCl 25 mg ONCE ONCE IVP 02/24/22 18:15 02/24/22 18:16 DC 02/24/22 18:21 25 MG Ketorolac Tromethamine 15 mg ONCE ONCE IVP 02/24/22 18:15 02/24/22 18:16 DC 02/24/22 18:22 15 MG Metoclopramide HCl 10 mg ONCE ONCE IVP 02/24/22 18:15 02/24/22 18:16 DC 02/24/22 18:21 10 MG Vital Signs/I&O 02/24/22 02/24/22 17:45 19:09 Temp 36.5 Pulse 95 88 Resp 16 16 B/P (MAP) 114/68 (83) 92/55 Pulse Ox 99 99 O2 Delivery Room Air Room Air Progress Progress Note : Progress Note 1. MIGRAINE HEADACHE: - Toradol iv/ Reglan iv/ Benadryl iv/ NS IVF bolus STAT - Pt's symptoms improved and resolved with medication and fluids - No red flags - [place] screening negative for SAH 2. HYPOGLYCEMIA: - 4 glucose tablets given - Blood sugar is 99 in ER - Advised mini meals - Follow up with PCP in 3 to 7 days -The patient was seen in the ED, and treated appropriately to presentation at a specific point in time. Patient is informed that there is a possibility that dis ease and illness can evolve and change in acuity rapidly or slowly after patient is discharged from the ER. Precautionary advice given to the patient for immediate return to ER if symptoms worsen or do not resolve, and to seek emergency care sooner rather than later. Pt also advised on the importance of PCP follow up and compliance with management and follow up plan with PCP and/or specialist, as this is part of the management plan. Pt verbally expressed understanding. Departure Impression Primary Impression: Migraine Qualified Codes: G43.119 - Migraine with aura, intractable, without status migrainosus Additional Impression: Hypoglycemia Disposition: 01 HOME, SELF-CARE Condition: Improved Departure-Patient Inst. Referrals: CARLOS VERA APRN (PCP) Primary Care Physician [facility] (Family) Primary Care Physician Patient Instructions: Migraines (DC), Home Headache Remedies, How to Keep Track of Your Headaches, Low Blood Sugar, Adult ED Add. Discharge Instructions: - Follow up with PCP in 3 to 7 days -Advised many meals and adequate hydration, good sleep habits -Follow-up with neurology and make appointment -Return to ER if symptoms worsen All discharge instructions reviewed with patient and/or family. Voiced understanding. ASHVIN BAH MD Feb 24, 2022 17:55
[2022-02-24] MEDS ORDERED: diphenhydrAMINE 50 MG/ML INJ (BENADRYL) IVP ONE (18:15)
[2022-02-24] MEDS ORDERED: METOCLOPRAMIDE INJ 10 MG/2 ML (REGLAN) IVP ONE (18:15)
[2022-02-24] MEDS ORDERED: NS IV 1000 ML 1,000 ML IV SCH (18:15)
[2022-02-24] MEDS ORDERED: KETOROLAC 15 MG/ML VIAL IVP ONE (18:15)
[2022-02-24 19:09] VITALS: BP 92/55
== END 2022-02-24 19:23 | disposition home or self-care (01) ==
LOC: EDUNIT# 17:41 → ER FS 17:43
DX: G43.909 Migraine, unspecified, not intractable, without status migrainosus (principal); E11.649 Type 2 diabetes mellitus with hypoglycemia without coma
CPT/HCPCS: 82947

== ENCOUNTER 2022-03-18 18:10 | Emergency (ER) | payer MEDICARE, OTHER ==
[2022-03-18] MEDS ORDERED: diphenhydrAMINE 50 MG/ML INJ (BENADRYL) IM ONE (18:15)
[2022-03-18] MEDS ORDERED: KETOROLAC 15 MG/ML VIAL IM ONE (18:15)
[2022-03-18] MEDS ORDERED: METOCLOPRAMIDE INJ 10 MG/2 ML (REGLAN) IM ONE (18:15)
[2022-03-18 18:23] VITALS: BP 101/70
--- NOTE | 2022-03-18 18:23 | ED Headache ---
General Chief Complaint: Head/Cervical Problems Stated Complaint: MIGRAINE Source: patient Exam Limitations: no limitations History of Present Illness Date Seen by Provider: Mar 18, 2022 Time Seen by Provider: 18:11 Initial Comments 61yoF with PMH of DM, fibromyalgia, migraines, chronic fatigue coming in due to to what she states is a migraine headache. Started on Monday, from top of her head onto the back of her head. Severity moderate to severe, throbbing, and she is tried her home medications for headaches which have not been helpful. Last took any medicine last night. [employer] is trying to refer her to a neurologist for the headaches. Denies any fever, neck stiffness, vision changes, weakness, numbness, or any other concerns. She states this feels like her typical migraines which she gets very often. Denies any trauma. Allergies and Home Medications Allergies Coded Allergies: prochlorperazine (Verified Allergy, Mild, TREMORS, 04/18/18) Patient Home Medication List Home Medication List Reviewed: Yes Atorvastatin Calcium (Atorvastatin Calcium) 80 Mg Tablet, 80 MG PO DAILY, (Reported) Entered as Reported by: JASMEET FLORES on 12/31/18 1059 Bisacodyl (Dulcolax) 5 Mg Tablet.dr, 5-10 MG PO BID, (Reported) Entered as Reported by: JASMEET FLORES on 12/31/18 1105 Bupropion HCl (Wellbutrin Xl) 300 Mg Tab.er.24h, 300 MG PO DAILY, (Reported) Entered as Reported by: JASMEET FLORES on 12/31/18 1056 Calcium Carbonate/Vitamin D3 (Calcium 250+D Tablet) 1 Each Tablet, 1 EACH PO HS, (Reported) Entered as Reported by: JASMEET FLORES on 12/31/18 1041 Carisoprodol (Soma) 350 Mg Tablet, 350 MG PO TID, (Reported) Entered as Reported by: JASMEET FLORES on 12/31/18 1056 Clorazepate Dipotassium (Clorazepate Dipotassium) 7.5 Mg Tablet, 22.5 MG PO HS, (Reported) Entered as Reported by: JASMEET FLORES on 12/31/18 1056 Ezetimibe (Ezetimibe) 10 Mg Tablet, 10 MG PO DAILY, (Reported) Entered as Reported by: JASMEET FLORES on 12/31/18 1056 Famotidine (Pepcid) 20 Mg Tablet, 20 MG PO BID PRN for NAUSEA/VOMITING, (Reported) Entered as Reported by: JASMEET FLORES on 12/31/18 1056 Fentanyl (Duragesic Patch 100MCG) 1 Each Patch.td72, 100 MCG TD Q48H, (Reported) Entered as Reported by: JASMEET FLORES on 12/31/18 1105 Fludrocortisone Acetate (Fludrocortisone Acetate) 0.1 Mg Tab, 0.2 MG PO DAILY, (Reported) Entered as Reported by: JASMEET FLORES on 12/31/18 1056 Gabapentin (Gabapentin) 100 Mg Capsule, 100 MG PO Q8H Prescribed by: ASHVIN BAH MD on 11/09/21 1142 Hydrocodone/Acetaminophen ([place] 10-325 Tablet) 1 Each Tablet, 1 TAB PO Q6H PRN for PAIN-MODERATE, (Reported) Entered as Reported by: JASMEET FLORES on 12/31/18 1056 Hyoscyamine Sulfate (Hyoscyamine Sulfate) 0.125 Mg Tablet, 0.125 MG PO HS, (Reported) Entered as Reported by: JASMEET FLORES on 12/31/18 1056 Imipramine HCl (Imipramine HCl) 25 Mg Tablet, 25-75 MG PO HS, (Reported) Entered as Reported by: JASMEET FLORES on 12/31/18 1056 Lorazepam (Lorazepam) 1 Mg Tablet, 0.5-1 MG PO Q6H PRN for ANXIETY, (Reported) Entered as Reported by: JASMEET FLORES on 12/31/18 1056 Magnesium Oxide (Magnesium) 400 Mg Tablet, 400 MG PO DAILY, (Reported) Entered as Reported by: JASMEET FLORES on 12/31/18 1041 Metoclopramide HCl (Metoclopramide HCl) 5 Mg Tablet, 5 MG PO QIDACHS, (Reported) Entered as Reported by: JASMEET FLORES on 12/31/18 1056 Metoprolol Succinate (Metoprolol Succinate) 50 Mg Tab.er.24h, 50 MG PO DAILY Prescribed by: ANGELA PEGUERO on 12/31/18 190 Multivits,Ca,Minerals/Iron/FA (Women's Daily Caplet) 1 Each Tablet, 1 EACH PO DAILY, (Reported) Entered as Reported by: JASMEET FLORES on 12/31/18 1041 Naloxegol Oxalate (Movantik) 12.5 Mg Tablet, 12.5 MG PO DAILY, (Reported) Entered as Reported by: JASMEET FLORES on 12/31/18 1059 Ondansetron (Ondansetron Odt) 8 Mg Tab.rapdis, 8 MG PO Q8H PRN for NAUSEA/VOMITING-1ST LINE, (Reported) Entered as Reported by: JASMEET FLORES on 12/31/18 1105 Ondansetron (Ondansetron Odt) 4 Mg Tab.rapdis, 4 MG PO Q6H Prescribed by: HAL BACA on 11/01/212048 Ondansetron HCl (Zofran) 4 Mg Tab, 4 MG PO Q8H PRN for NAUSEA/VOMITING-1ST LINE, (Reported) Entered as Reported by: JASMEET FLORES on 12/31/18 1056 Oxymetazoline HCl (Afrin) 15 Ml Mist, 1 SPRAYS NS BID PRN for CONGESTION, (Reported) Entered as Reported by: JASMEET FLORES on 12/31/18 1105 Potassium Chloride (Potassium Chloride) 20 Meq Tablet.er, 20 MEQ PO BID, (Reported) Entered as Reported by: JASMEET FLORES on 12/31/18 1057 Sennosides/Docusate Sodium (Stool Softener-Laxative Tablet) 1 Each Tablet, 1-2 EACH PO BID, (Reported) Entered as Reported by: JASMEET FLORES on 12/31/18 1059 Sertraline HCl (Zoloft) 100 Mg Tablet, 100 MG PO DAILY, (Reported) Entered as Reported by: JASMEET FLORES on 12/31/18 1056 Tizanidine HCl (Tizanidine HCl) 4 Mg Tablet, 2-4 MG PO BID, (Reported) Entered as Reported by: JASMEET FLORES on 12/31/18 1056 Topiramate (Topamax) 50 Mg Tablet, 100 MG PO BID, (Reported) Entered as Reported by: JASMEET FLORES on 12/31/18 1056 Review of Systems Review of Systems Constitutional: No fever Eyes: No Symptoms Reported Ears, Nose, Mouth, Throat: no symptoms reported Respiratory: no symptoms reported Cardiovascular: no symptoms reported Gastrointestinal: no symptoms reported Genitourinary: no symptoms reported Musculoskeletal: no symptoms reported Skin: no symptoms reported Psychiatric/Neurological: See HPI All Other Systems Reviewed Negative Unless Noted: Yes Past Cwjtukj-Twdduu-Ulfcrf Hx Patient Social History Tobacco Use?: No Immunizations Up To Date First/Initial COVID19 Vaccinat: Moderna Second COVID19 Vaccination Faraz: Moderna Third COVID19 Vaccination Date: Past Medical History Surgery/Hospitalization HX: Migraines, Fibromyalgia Surgeries: Yes Adenoidectomy, Breast, Hysterectomy, Tonsillectomy Respiratory: No Cardiac: Yes High Cholesterol Neurological: No Genitourinary: Yes (INTERSTITIAL CYSTISIS) Gastrointestinal: Yes Hiatal Hernia, Irritable Bowel Musculoskeletal: Yes Fibromyalgia Endocrine: No (hypoglycemia) HEENT: No Cancer: No Psychosocial: Yes Depression Integumentary: No Blood Disorders: No Physical Exam Vital Signs Capillary Refill : Height, Weight, BMI Height: 5'5.00" Weight: 109lbs. 0.0oz. [id number]; 16.00 BMI Method: General Appearance: WD/WN, no apparent distress HEENT: PERRL/EOMI, normal ENT inspection, pharynx normal Neck: non-tender, full range of motion, supple, normal inspection Cardiovascular: regular rate, rhythm, no edema, no murmur Respiratory: chest non-tender, lungs clear, normal breath sounds, no respiratory distress, no accessory muscle use Gastrointestinal: normal bowel sounds, non tender, soft; No distended, No guarding, No rebound Back: normal inspection, no CVA tenderness Extremities: normal range of motion, non-tender, normal inspection, no pedal edema, no calf tenderness, normal capillary refill Psychiatric: alert, oriented x 3 Crainal Nerves: normal hearing, normal speech, PERRL Coordination/Gait: normal finger to nose, normal gait Motor/Sensory: no motor deficit, no sensory deficit, no pronator drift Skin: normal color, warm/dry Lymphatic: no adenopathy Progress/Results/Core Measures Results/Orders My Orders Orders - HU HOWARD MD Metoclopramide Injection (Reglan Injecti (03/18/22 18:15) Diphenhydramine Injection (Benadryl Inje (03/18/22 18:15) Ketorolac Injection (Toradol Injection) (03/18/22 18:15) Progress Progress Note : Progress Note 61-year-old female above history coming in for what she states is her typical migraine. ABCs were intact, vital stable, neuro exam normal on exam. Patient is well-appearing. Given some IM shots which she typically would receive for her headache. Discharged home in stable condition with strict return precautions. Departure Impression Primary Impression: Migraine Qualified Codes: G43.011 - Migraine without aura, intractable, with status migrainosus Disposition: HOME, SELF-CARE Condition: Stable Departure-Patient Inst. Decision time for Depature: 18:23 Referrals: CARLOS VERA APRN (PCP) Primary Care Physician [facility] (Family) Primary Care Physician Patient Instructions: Migraines (DC) Add. Discharge Instructions: Please follow-up with your nurse sane and be sure to get that referral to the neurologist. Drink plenty of fluids and continue to take Tylenol or ibuprofen as needed for the headaches. Work/School Note: Work Release Form Date Seen in the Emergency Department: Mar 18, 2022 Return to Work: Mar 20, 2022 Restrictions: No Restrictions HU HOWARD MD Mar 18, 2022 18:23
== END 2022-03-18 18:30 | disposition home or self-care (01) ==
LOC: EDUNIT# 18:10 → ER FS 18:11
DX: G43.909 Migraine, unspecified, not intractable, without status migrainosus (principal)
CPT/HCPCS: 99284

== ENCOUNTER 2022-03-20 00:43 | Emergency (ER) | payer MEDICARE, OTHER ==
[2022-03-20] MEDS ORDERED: ORPHENADRINE 60 MG/2 ML (NORFLEX) AMP (ED ONLY) IM STA (01:00)
[2022-03-20] MEDS ORDERED: PROMETHAZINE INJ 25 MG/ML (PHENERGAN) AMP IM STA (01:00)
[2022-03-20] MEDS ORDERED: diphenhydrAMINE 50 MG/ML INJ (BENADRYL) IM STA (01:00)
[2022-03-20] MEDS ORDERED: KETOROLAC 60 MG/2 ML VIAL IM STA (01:00)
--- NOTE | 2022-03-20 01:08 | ED Headache ---
General Chief Complaint: Head/Cervical Problems Stated Complaint: HEADACHE Source: patient, spouse Exam Limitations: no limitations History of Present Illness Date Seen by Provider: Mar 20, 2022 Time Seen by Provider: 00:46 Initial Comments 61 yo female presenting with complaint of recurrent migraine headache since Monday. She was here in the ED last night for same complaint and given Toradol, Reglan and Benadryl IM. Patient reports it did not help her headache and she was not able to rest. She feels this is like her typical migraine headache and has no new symptoms. No new fall, head injury, fever, chills, nausea, vomiting, sinus drainage, vision change, numbness or weakness in extremities. She does have photosensitivity. She has tried all her home medicines without any significant relief of her migraine headache symptoms. Timing/Duration: 1 week, waxing and waning Severity/Quality: severe, constant Location: global Prior Headaches/Recent Trauma: frequent headaches, chronic headaches Modifying Factors: worse with exposure to light Associated Symptoms: No confusion; fatigue; No facial pain, No fever/chills, No flushing, No loss of consciousness, No nausea/vomiting, No nasal congestion, No nasal drainage, No numbness in legs/feet, No rash, No seizures, No sinus infection, No stiff neck, No vision changes, No weakness Allergies and Home Medications Allergies Coded Allergies: prochlorperazine (Verified Allergy, Mild, TREMORS, 04/18/18) Patient Home Medication List Home Medication List Reviewed: Yes Atorvastatin Calcium (Atorvastatin Calcium) 80 Mg Tablet, 80 MG PO DAILY, (Reported) Entered as Reported by: JASMEET FLORES on 12/31/18 1059 Bisacodyl (Dulcolax) 5 Mg Tablet.dr, 5-10 MG PO BID, (Reported) Entered as Reported by: JASMEET FLORES on 12/31/18 1105 Bupropion HCl (Wellbutrin Xl) 300 Mg Tab.er.24h, 300 MG PO DAILY, (Reported) Entered as Reported by: JASMEET FLORES on 12/31/18 1056 Calcium Carbonate/Vitamin D3 (Calcium 250+D Tablet) 1 Each Tablet, 1 EACH PO HS, (Reported) Entered as Reported by: JASMEET FLORES on 12/31/18 1041 Carisoprodol (Soma) 350 Mg Tablet, 350 MG PO TID, (Reported) Entered as Reported by: JASMEET FLORES on 12/31/18 1056 Clorazepate Dipotassium (Clorazepate Dipotassium) 7.5 Mg Tablet, 22.5 MG PO HS, (Reported) Entered as Reported by: JASMEET FLORES on 12/31/18 1056 Ezetimibe (Ezetimibe) 10 Mg Tablet, 10 MG PO DAILY, (Reported) Entered as Reported by: JASMEET FLORES on 12/31/18 1056 Famotidine (Pepcid) 20 Mg Tablet, 20 MG PO BID PRN for NAUSEA/VOMITING, (Reported) Entered as Reported by: JASMEET FLORES on 12/31/18 105 Fentanyl (Duragesic Patch 100MCG) 1 Each Patch.td72, 100 MCG TD Q48H, (Reported) Entered as Reported by: JASMEET FLORES on 12/31/18 1105 Fludrocortisone Acetate (Fludrocortisone Acetate) 0.1 Mg Tab, 0.2 MG PO DAILY, (Reported) Entered as Reported by: JASMEET FLORES on 12/31/18 105 Gabapentin (Gabapentin) 100 Mg Capsule, 100 MG PO Q8H Prescribed by: ASHVIN BAH MD on 11/09/21 1142 Hydrocodone/Acetaminophen ([place] 10-325 Tablet) 1 Each Tablet, 1 TAB PO Q6H PRN for PAIN-MODERATE, (Reported) Entered as Reported by: JASMEET FLORES on 12/31/18 1056 Hyoscyamine Sulfate (Hyoscyamine Sulfate) 0.125 Mg Tablet, 0.125 MG PO HS, (Reported) Entered as Reported by: JASMEET FLORES on 12/31/18 1056 Imipramine HCl (Imipramine HCl) 25 Mg Tablet, 25-75 MG PO HS, (Reported) Entered as Reported by: JASMEET FLORES on 12/31/18 1056 Lorazepam (Lorazepam) 1 Mg Tablet, 0.5-1 MG PO Q6H PRN for ANXIETY, (Reported) Entered as Reported by: JASMEET FLORES on 12/31/18 1056 Magnesium Oxide (Magnesium) 400 Mg Tablet, 400 MG PO DAILY, (Reported) Entered as Reported by: JASMEET FLORES on 12/31/18 1041 Metoclopramide HCl (Metoclopramide HCl) 5 Mg Tablet, 5 MG PO QIDACHS, (Reported) Entered as Reported by: JASMEET FLORES on 12/31/18 1056 Metoprolol Succinate (Metoprolol Succinate) 50 Mg Tab.er.24h, 50 MG PO DAILY Prescribed by: ANGELA PEGUERO on 12/31/18 190 Multivits,Ca,Minerals/Iron/FA (Women's Daily Caplet) 1 Each Tablet, 1 EACH PO DAILY, (Reported) Entered as Reported by: JASMEET FLORES on 12/31/18 1041 Naloxegol Oxalate (Movantik) 12.5 Mg Tablet, 12.5 MG PO DAILY, (Reported) Entered as Reported by: JASMEET FLORES on 12/31/18 1059 Ondansetron (Ondansetron Odt) 8 Mg Tab.rapdis, 8 MG PO Q8H PRN for NAUSEA/VOMITING-1ST LINE, (Reported) Entered as Reported by: JASMEET FLORES on 12/31/18 1105 Ondansetron (Ondansetron Odt) 4 Mg Tab.rapdis, 4 MG PO Q6H Prescribed by: HAL BACA on 11/01/212048 Ondansetron HCl (Zofran) 4 Mg Tab, 4 MG PO Q8H PRN for NAUSEA/VOMITING-1ST LINE, (Reported) Entered as Reported by: JASMEET FLORES on 12/31/18 1056 Oxymetazoline HCl (Afrin) 15 Ml Mist, 1 SPRAYS NS BID PRN for CONGESTION, (R eported) Entered as Reported by: JASMEET FLORES on 12/31/18 1105 Potassium Chloride (Potassium Chloride) 20 Meq Tablet.er, 20 MEQ PO BID, (Reported) Entered as Reported by: JASMEET FLORES on 12/31/18 1057 Sennosides/Docusate Sodium (Stool Softener-Laxative Tablet) 1 Each Tablet, 1-2 EACH PO BID, (Reported) Entered as Reported by: JASMEET FLORES on 12/31/18 1059 Sertraline HCl (Zoloft) 100 Mg Tablet, 100 MG PO DAILY, (Reported) Entered as Reported by: JASMEET FLORES on 12/31/18 1056 Tizanidine HCl (Tizanidine HCl) 4 Mg Tablet, 2-4 MG PO BID, (Reported) Entered as Reported by: JASMEET FLORES on 12/31/18 1056 Topiramate (Topamax) 50 Mg Tablet, 100 MG PO BID, (Reported) Entered as Reported by: JASMEET FLORES on 12/31/18 1056 Review of Systems Review of Systems Constitutional: No chills, No dizziness, No fever Eyes: Photophobia; Denies Vision Changes Ears, Nose, Mouth, Throat: denies ear pain, denies ear discharge, denies nose pain, denies nose discharge, denies epistaxis Respiratory: No cough, No short of breath Cardiovascular: No chest pain Gastrointestinal: No nausea, No vomiting Genitourinary: No dysuria Musculoskeletal: no symptoms reported Skin: No rash Psychiatric/Neurological: See HPI Past Sdgoazi-Feeprg-Etjboc Hx Patient Social History Tobacco Use?: No Use of E-Cig and/or Vaping dev: No Substance use?: No Alcohol Use?: No Immunizations Up To Date First/Initial COVID19 Vaccinat: Moderna Second COVID19 Vaccination Faraz: Moderna Third COVID19 Vaccination Date: Past Medical History Surgery/Hospitalization HX: Migraines, Fibromyalgia Surgeries: Yes Adenoidectomy, Breast, Hysterectomy, Tonsillectomy Respiratory: No Cardiac: Yes High Cholesterol Neurological: No Genitourinary: Yes (INTERSTITIAL CYSTISIS) Gastrointestinal: Yes Hiatal Hernia, Irritable Bowel Musculoskeletal: Yes Fibromyalgia Endocrine: No (hypoglycemia) HEENT: No Cancer: No Psychosocial: Yes Depression Integumentary: No Blood Disorders: No Physical Exam Vital Signs Vital Signs - First Documented 03/20/22 00:48 Temp 36.2 Pulse 102 Resp 18 B/P (MAP) 105/74 (84) Pulse Ox 100 O2 Delivery Room Air Capillary Refill : Height, Weight, BMI Height: 5'5.00" Weight: 109lbs. 0.0oz. [id number]; 16.00 BMI Method: General Appearance: no apparent distress, thin HEENT: PERRL/EOMI, pharynx normal Neck: non-tender, full range of motion, supple, normal inspection Cardiovascular: normal peripheral pulses, regular rate, rhythm Respiratory: chest non-tender, lungs clear, normal breath sounds Psychiatric: alert, oriented x 3 Crainal Nerves: normal speech, PERRL Coordination/Gait: normal gait Motor/Sensory: no motor deficit, no sensory deficit Skin: normal color, warm/dry Progress/Results/Core Measures Results/Orders My Orders Orders - JACKIE ACKERMAN MD Ketorolac Injection (Toradol Injection) (03/20/22 01:00) Diphenhydramine Injection (Benadryl Inje (03/20/22 01:00) Orphenadrine Inj (Ed Only) (Norflex Inje (03/20/22 01:00) Promethazine Injection (Phenergan Injec (03/20/22 01:00) Dexamethasone Injection (Decadron Inje (03/20/22 01:00) Vital Signs/I&O 03/20/22 00:48 Temp 36.2 Pulse 102 Resp 18 B/P (MAP) 105/74 (84) Pulse Ox 100 O2 Delivery Room Air Progress Progress Note : Progress Note She used to get shots from [facility] for her migraine headaches but this fall she reports they told her they could no longer give the shots to her. She was getting Toradol 60 mg IM, Norflex 60 mg IM, Benadryl 50 mg IM, Phenergan 25 mg IM from the clinic. She has had similar cocktail of medicines in the ED with addition at times of Dexamethasone as a steroid to try and help prevent rebound headache. As she feels this is like her typical migraine headache and no new infectious or neurologic symptoms will Treat with Im shots of Toradol 60 mg, Norflex 60 mg, Benadryl 50 mg, Phenergan 25 mg, Dexamethasone 10 mg. Encouraged to go home and rest in cool dark room and continue using her home medicines as prescribed. Keep follow up with Neurology through [place] as set up by pcp Departure Impression Primary Impression: Chronic migraine without aura, intractable, without status migrainosus Disposition: HOME, SELF-CARE Condition: Stable Departure-Patient Inst. Decision time for Depature: 01:07 Referrals: CARLOS VERA APRN (PCP) Primary Care Physician [facility] (Family) Primary Care Physician Patient Instructions: Migraines (DC) Add. Discharge Instructions: Rest in a cool dark room. Continue taking your regular medicines as prescribed All discharge instructions reviewed with patient and/or family. Voiced understanding. JACKIE ACKERMAN MD Mar 20, 2022 01:08
[2022-03-20 01:30] VITALS: BP 105/74
== END 2022-03-20 01:30 | disposition home or self-care (01) ==
LOC: EDUNIT# 00:43 → ER FS 00:46
DX: G43.719 Chronic migraine without aura, intractable, without status migrainosus (principal)
CPT/HCPCS: 99284

== ENCOUNTER 2022-04-25 19:59 | Emergency (ER) | payer MEDICARE, OTHER ==
--- NOTE | 2022-04-25 20:14 | ED Headache ---
General Chief Complaint: Head/Cervical Problems Stated Complaint: MIGRAINE History of Present Illness Date Seen by Provider: Apr 25, 2022 Time Seen by Provider: 20:09 Initial Comments 62-year-old female presents with recurrent headache/migraine. Is been going on for couple days. She has some photophobia. She is tried her home meds without relief. They report that they were trying to get seen by headache specialist and as they were going to appointment they called to verify and found out that it was actually a lower digital content specialist and not a headache specialist that their consultation got set up with. Their physician is now trying to find a different headache specialist. Patient is nauseated and is symptoms are typical of what she has been experienced over the last couple months. Allergies and Home Medications Allergies Coded Allergies: prochlorperazine (Verified Allergy, Mild, TREMORS, 04/18/18) Patient Home Medication List Home Medication List Reviewed: Yes Atorvastatin Calcium (Atorvastatin Calcium) 80 Mg Tablet, 80 MG PO DAILY, (Reported) Entered as Reported by: JASMEET FLORES on 12/31/18 1059 Bisacodyl (Dulcolax) 5 Mg Tablet.dr, 5-10 MG PO BID, (Reported) Entered as Reported by: JASMEET FLORES on 12/31/18 1105 Bupropion HCl (Wellbutrin Xl) 300 Mg Tab.er.24h, 300 MG PO DAILY, (Reported) Entered as Reported by: JASMEET FLORES on 12/31/18 1056 Calcium Carbonate/Vitamin D3 (Calcium 250+D Tablet) 1 Each Tablet, 1 EACH PO HS, (Reported) Entered as Reported by: JASMEET FLORES on 12/31/18 1041 Carisoprodol (Soma) 350 Mg Tablet, 350 MG PO TID, (Reported) Entered as Reported by: JASMEET FLORES on 12/31/18 1056 Clorazepate Dipotassium (Clorazepate Dipotassium) 7.5 Mg Tablet, 22.5 MG PO HS, (Reported) Entered as Reported by: JASMEET FLORES on 12/31/18 1056 Ezetimibe (Ezetimibe) 10 Mg Tablet, 10 MG PO DAILY, (Reported) Entered as Reported by: JASMEET FLORES on 12/31/18 1056 Famotidine (Pepcid) 20 Mg Tablet, 20 MG PO BID PRN for NAUSEA/VOMITING, (Reported) Entered as Reported by: JASMEET FLORES on 12/31/18 1056 Fentanyl (Duragesic Patch 100MCG) 1 Each Patch.td72, 100 MCG TD Q48H, (Reported) Entered as Reported by: JASMEET FLORES on 12/31/18 1105 Fludrocortisone Acetate (Fludrocortisone Acetate) 0.1 Mg Tab, 0.2 MG PO DAILY, (Reported) Entered as Reported by: JASMEET FLORES on 12/31/18 1056 Gabapentin (Gabapentin) 100 Mg Capsule, 100 MG PO Q8H Prescribed by: ASHVIN BAH MD on 11/09/21 1142 Hydrocodone/Acetaminophen ([place] 10-325 Tablet) 1 Each Tablet, 1 TAB PO Q6H PRN for PAIN-MODERATE, (Reported) Entered as Reported by: JASMEET FLORES on 12/31/18 1056 Hyoscyamine Sulfate (Hyoscyamine Sulfate) 0.125 Mg Tablet, 0.125 MG PO HS, (Reported) Entered as Reported by: JASMEET FLORES on 12/31/18 1056 Imipramine HCl (Imipramine HCl) 25 Mg Tablet, 25-75 MG PO HS, (Reported) Entered as Reported by: JASMEET FLORES on 12/31/18 1056 Lorazepam (Lorazepam) 1 Mg Tablet, 0.5-1 MG PO Q6H PRN for ANXIETY, (Reported) Entered as Reported by: JASMEET FLORES on 12/31/18 1056 Magnesium Oxide (Magnesium) 400 Mg Tablet, 400 MG PO DAILY, (Reported) Entered as Reported by: JASMEET FLORES on 12/31/18 1041 Metoclopramide HCl (Metoclopramide HCl) 5 Mg Tablet, 5 MG PO QIDACHS, (Reported) Entered as Reported by: JASMEET FLORES on 12/31/18 1056 Metoprolol Succinate (Metoprolol Succinate) 50 Mg Tab.er.24h, 50 MG PO DAILY Prescribed by: ANGELA PEGUERO on 12/31/18 1908 Multivits,Ca,Minerals/Iron/FA (Women's Daily Caplet) 1 Each Tablet, 1 EACH PO DAILY, (Reported) Entered as Reported by: JASMEET FLORES on 12/31/18 1041 Naloxegol Oxalate (Movantik) 12.5 Mg Tablet, 12.5 MG PO DAILY, (Reported) Entered as Reported by: JASMEET FLORES on 12/31/18 1059 Ondansetron (Ondansetron Odt) 8 Mg Tab.rapdis, 8 MG PO Q8H PRN for NAUSEA/VOMITING-1ST LINE, (Reported) Entered as Reported by: JASMEET FLORES on 12/31/18 1105 Ondansetron (Ondansetron Odt) 4 Mg Tab.rapdis, 4 MG PO Q6H Prescribed by: HAL BACA on 11/01/212048 Ondansetron HCl (Zofran) 4 Mg Tab, 4 MG PO Q8H PRN for NAUSEA/VOMITING-1ST LINE, (Reported) Entered as Reported by: JASMEET FLORES on 12/31/18 1056 Oxymetazoline HCl (Afrin) 15 Ml Mist, 1 SPRAYS NS BID PRN for CONGESTION, (Reported) Entered as Reported by: JASMEET FLORES on 12/31/18 1105 Potassium Chloride (Potassium Chloride) 20 Meq Tablet.er, 20 MEQ PO BID, (Reported) Entered as Reported by: JASMEET FLORES on 12/31/18 1057 Sennosides/Docusate Sodium (Stool Softener-Laxative Tablet) 1 Each Tablet, 1-2 EACH PO BID, (Reported) Entered as Reported by: JASMEET FLORES on 12/31/18 1059 Sertraline HCl (Zoloft) 100 Mg Tablet, 100 MG PO DAILY, (Reported) Entered as Reported by: JASMEET FLORES on 12/31/18 1056 Tizanidine HCl (Tizanidine HCl) 4 Mg Tablet, 2-4 MG PO BID, (Reported) Entered as Reported by: JASMEET FLORES on 12/31/18 1056 Topiramate (Topamax) 50 Mg Tablet, 100 MG PO BID, (Reported) Entered as Reported by: JASMEET FLORES on 12/31/18 105 Review of Systems Review of Systems Constitutional: No chills, No fever Eyes: Photophobia Respiratory: No cough, No short of breath Cardiovascular: No chest pain, No palpitations Gastrointestinal: No abdominal pain; nausea Musculoskeletal: no symptoms reported Skin: no symptoms reported Psychiatric/Neurological: Headache Past Zrqfekx-Nevomr-Ewbzwe Hx Immunizations Up To Date First/Initial COVID19 Vaccinat: Date? Second COVID19 Vaccination Faraz: Date? Third COVID19 Vaccination Date: Moderna Past Medical History Surgery/Hospitalization HX: Migraines, Fibromyalgia Surgeries: Yes Adenoidectomy, Breast, Hysterectomy, Tonsillectomy Respiratory: No Cardiac: Yes High Cholesterol Neurological: No Genitourinary: Yes (INTERSTITIAL CYSTISIS) Gastrointestinal: Yes Hiatal Hernia, Irritable Bowel Musculoskeletal: Yes Fibromyalgia Endocrine: No (hypoglycemia) HEENT: No Cancer: No Psychosocial: Yes Depression Integumentary: No Blood Disorders: No Physical Exam Vital Signs Vital Signs - First Documented 04/25/22 20:05 Temp 36.7 Pulse 103 Resp 18 B/P (MAP) 108/92 (97) Pulse Ox 100 O2 Delivery Room Air Capillary Refill : Height, Weight, BMI Height: 5'5.00" Weight: 109lbs. 0.0oz. [id number]; 16.00 BMI Method: General Appearance: mild distress HEENT: photophobia Neck: full range of motion, supple Cardiovascular: normal peripheral pulses, regular rate, rhythm Respiratory: normal breath sounds Gastrointestinal: non tender, soft Psychiatric: alert, oriented x 3 Crainal Nerves: normal hearing, normal speech Motor/Sensory: no motor deficit, no sensory deficit Skin: normal color, warm/dry Progress/Results/Core Measures Results/Orders My Orders Orders - ALYCE GÓMEZ DO Ketorolac Injection (Toradol Injection) (04/25/22 20:15) Orphenadrine Inj (Ed Only) (Norflex Inje (04/25/22 20:15) Metoclopramide Injection (Reglan Injecti (04/25/22 20:15) Diphenhydramine Injection (Benadryl Inje (04/25/22 20:15) Vital Signs/I&O 04/25/22 04/25/22 20:05 20:30 Temp 36.7 36.7 Pulse 103 103 Resp 18 18 B/P (MAP) 108/92 (97) 108/92 Pulse Ox 100 100 O2 Delivery Room Air Room Air Progress Progress Note : Progress Note I reviewed patient's previous notes. This is typical of her headaches. Patient is to be given Toradol, Reglan, Norflex and Benadryl. 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 Patient stable and discharged home Departure Impression Primary Impression: Chronic migraine without aura, intractable, without status migrainosus Disposition: 01 HOME, SELF-CARE Condition: Stable Departure-Patient Inst. Referrals: CARLOS VERA APRN (PCP) Primary Care Physician [facility] (Family) Primary Care Physician Patient Instructions: Headache, Child (DC), Migraines (DC), Tension Headache (DC) Add. Discharge Instructions: Please get plenty of rest, please start a headache journal to see if we can help you determine what your triggers are causing your headaches. Follow-up with your primary care provider to continue outpatient manage All discharge instructions reviewed with patient and/or family. Voiced understanding. ALYCE GÓMEZ DO Apr 25, 2022 20:14
[2022-04-25] MEDS ORDERED: ORPHENADRINE 60 MG/2 ML (NORFLEX) AMP (ED ONLY) IM STA (20:15)
[2022-04-25] MEDS ORDERED: diphenhydrAMINE 50 MG/ML INJ (BENADRYL) IM STA (20:15)
[2022-04-25] MEDS ORDERED: METOCLOPRAMIDE INJ 10 MG/2 ML (REGLAN) IM STA (20:15)
[2022-04-25] MEDS ORDERED: KETOROLAC 30 MG/ML VIAL IM STA (20:15)
[2022-04-25 20:30] VITALS: BP 108/92
== END 2022-04-25 20:30 | disposition home or self-care (01) ==
LOC: EDUNIT# 19:59 → ER FS 20:01
DX: G43.719 Chronic migraine without aura, intractable, without status migrainosus (principal); Z28.310 Unvaccinated for COVID-19
CPT/HCPCS: 99284

== ENCOUNTER 2022-04-27 16:03 | Emergency (ER) | payer MEDICARE, OTHER ==
[2022-04-27] MEDS ORDERED: METOCLOPRAMIDE INJ 10 MG/2 ML (REGLAN) IM ONE (16:15)
[2022-04-27] MEDS ORDERED: diphenhydrAMINE 50 MG/ML INJ (BENADRYL) IM ONE (16:15)
[2022-04-27] MEDS ORDERED: ORPHENADRINE 60 MG/2 ML (NORFLEX) AMP (ED ONLY) IM ONE (16:15)
[2022-04-27] MEDS ORDERED: KETOROLAC 30 MG/ML VIAL IM ONE (16:15)
[2022-04-27] MEDS ORDERED: PROMETHAZINE INJ 25 MG/ML (PHENERGAN) AMP IVP ONE (16:30)
[2022-04-27] MEDS ORDERED: KETOROLAC 30 MG/ML VIAL IVP ONE (16:30)
[2022-04-27] MEDS ORDERED: LACTATED RINGERS 1,000 ML IV ONE (16:30)
[2022-04-27] MEDS ORDERED: diphenhydrAMINE 50 MG/ML INJ (BENADRYL) IVP ONE (16:30)
[2022-04-27] MEDS ORDERED: ORPHENADRINE 60 MG/2 ML (NORFLEX) AMP (ED ONLY) IV ONE (16:30)
--- NOTE | 2022-04-27 17:27 | ED Headache ---
General Chief Complaint: Head/Cervical Problems Stated Complaint: MIGRAINE, NAUSEA Nursing Triage Note: PT EPORTS A MIGRAINE SINCE MONDAY. MONDAY SHE CAME AND REPORTS SHE DID NOT GET THE RIGHT SHOTS AND IT DID NOT TAKE HER HEADACHE AWAY. Source: patient Exam Limitations: no limitations History of Present Illness Date Seen by Provider: Apr 27, 2022 Time Seen by Provider: 16:10 Initial Comments This 61-year-old woman with history of recurrent migraines presents to the emergency room with typical migraine syndrome which includes headache, light sensitivity, decreased balance. She has a pending referral to a neurologist. She states today's headache is similar to her typical migraines. It has been present for several days. She was in the emergency room a few days ago and received treatment but states this treatment was not her usual and was not effective. She states the migraine cocktail that is most effective for her includes dexamethasone, Phenergan, Norflex, Benadryl, and Toradol. Chart from prior visits was reviewed. Allergies and Home Medications Allergies Coded Allergies: prochlorperazine (Verified Allergy, Mild, TREMORS, 04/18/18) Patient Home Medication List Home Medication List Reviewed: Yes Atorvastatin Calcium (Atorvastatin Calcium) 80 Mg Tablet, 80 MG PO DAILY, (Reported) Entered as Reported by: JASMEET FLORES on 12/31/18 1059 Bisacodyl (Dulcolax) 5 Mg Tablet.dr, 5-10 MG PO BID, (Reported) Entered as Reported by: JASMEET FLORES on 12/31/18 1105 Bupropion HCl (Wellbutrin Xl) 300 Mg Tab.er.24h, 300 MG PO DAILY, (Reported) Entered as Reported by: JASMEET FLORES on 12/31/18 1056 Calcium Carbonate/Vitamin D3 (Calcium 250+D Tablet) 1 Each Tablet, 1 EACH PO HS, (Reported) Entered as Reported by: JASMEET FLORES on 12/31/18 1041 Carisoprodol (Soma) 350 Mg Tablet, 350 MG PO TID, (Reported) Entered as Reported by: JASMEET FLORES on 12/31/18 1056 Clorazepate Dipotassium (Clorazepate Dipotassium) 7.5 Mg Tablet, 22.5 MG PO HS, (Reported) Entered as Reported by: JASMEET FLORES on 12/31/18 1056 Ezetimibe (Ezetimibe) 10 Mg Tablet, 10 MG PO DAILY, (Reported) Entered as Reported by: JASMEET FLORES on 12/31/18 1056 Famotidine (Pepcid) 20 Mg Tablet, 20 MG PO BID PRN for NAUSEA/VOMITING, (Reported) Entered as Reported by: JASMEET FLORES on 12/31/18 1056 Fentanyl (Duragesic Patch 100MCG) 1 Each Patch.td72, 100 MCG TD Q48H, (Reported) Entered as Reported by: JASMEET FLORES on 12/31/18 1105 Fludrocortisone Acetate (Fludrocortisone Acetate) 0.1 Mg Tab, 0.2 MG PO DAILY, (Reported) Entered as Reported by: JASMEET FLORES on 12/31/18 1056 Gabapentin (Gabapentin) 100 Mg Capsule, 100 MG PO Q8H Prescribed by: ASHVIN BAH MD on 11/09/21 1142 Hydrocodone/Acetaminophen ([place] 10-325 Tablet) 1 Each Tablet, 1 TAB PO Q6H PRN for PAIN-MODERATE, (Reported) Entered as Reported by: JASMEET FLORES on 12/31/18 1056 Hyoscyamine Sulfate (Hyoscyamine Sulfate) 0.125 Mg Tablet, 0.125 MG PO HS, (Reported) Entered as Reported by: JASMEET FLORES on 12/31/18 1056 Imipramine HCl (Imipramine HCl) 25 Mg Tablet, 25-75 MG PO HS, (Reported) Entered as Reported by: JASMEET FLORES on 12/31/18 1056 Lorazepam (Lorazepam) 1 Mg Tablet, 0.5-1 MG PO Q6H PRN for ANXIETY, (Reported) Entered as Reported by: JASMEET FLORES on 12/31/18 1056 Magnesium Oxide (Magnesium) 400 Mg Tablet, 400 MG PO DAILY, (Reported) Entered as Reported by: JASMEET FLORES on 12/31/18 1041 Metoclopramide HCl (Metoclopramide HCl) 5 Mg Tablet, 5 MG PO QIDACHS, (Reported) Entered as Reported by: JASMEET FLORES on 12/31/18 1056 Metoprolol Succinate (Metoprolol Succinate) 50 Mg Tab.er.24h, 50 MG PO DAILY Prescribed by: ANGELA PEGUERO on 12/31/18 190 Multivits,Ca,Minerals/Iron/FA (Women's Daily Caplet) 1 Each Tablet, 1 EACH PO DAILY, (Reported) Entered as Reported by: JASMEET FLORES on 12/31/18 1041 Naloxegol Oxalate (Movantik) 12.5 Mg Tablet, 12.5 MG PO DAILY, (Reported) Entered as Reported by: JASMEET FLORES on 12/31/18 1059 Ondansetron (Ondansetron Odt) 8 Mg Tab.rapdis, 8 MG PO Q8H PRN for NAUSEA/VOMITING-1ST LINE, (Reported) Entered as Reported by: JASMEET FLORES on 12/31/18 1105 Ondansetron (Ondansetron Odt) 4 Mg Tab.rapdis, 4 MG PO Q6H Prescribed by: HAL BACA on 11/01/212048 Ondansetron HCl (Zofran) 4 Mg Tab, 4 MG PO Q8H PRN for NAUSEA/VOMITING-1ST LINE, (Reported) Entered as Reported by: JASMEET FLORES on 12/31/18 1056 Oxymetazoline HCl (Afrin) 15 Ml Mist, 1 SPRAYS NS BID PRN for CONGESTION, (Reported) Entered as Reported by: JASMEET FLORES on 12/31/18 1105 Potassium Chloride (Potassium Chloride) 20 Meq Tablet.er, 20 MEQ PO BID, (Reported) Entered as Reported by: JASMEET FLORES on 12/31/18 1057 Sennosides/Docusate Sodium (Stool Softener-Laxative Tablet) 1 Each Tablet, 1-2 EACH PO BID, (Reported) Entered as Reported by: JASMEET FLORES on 12/31/18 1059 Sertraline HCl (Zoloft) 100 Mg Tablet, 100 MG PO DAILY, (Reported) Entered as Reported by: JASMEET FLORES on 12/31/18 1056 Tizanidine HCl (Tizanidine HCl) 4 Mg Tablet, 2-4 MG PO BID, (Reported) Entered as Reported by: JASMEET FLORES on 12/31/18 1056 Topiramate (Topamax) 50 Mg Tablet, 100 MG PO BID, (Reported) Entered as Reported by: JASMEET FLORES on 12/31/18 1056 Review of Systems Review of Systems Constitutional: no symptoms reported Eyes: See HPI Ears, Nose, Mouth, Throat: no symptoms reported Respiratory: no symptoms reported Cardiovascular: no symptoms reported Gastrointestinal: no symptoms reported Genitourinary: no symptoms reported : No Musculoskeletal: no symptoms reported Skin: no symptoms reported Psychiatric/Neurological: See HPI Past Jwvjokx-Iticit-Wpxqpj Hx Patient Social History Tobacco Use?: No Use of E-Cig and/or Vaping dev: No Substance use?: No Alcohol Use?: No Pt feels they are or have been: No Immunizations Up To Date First/Initial COVID19 Vaccinat: Date? Second COVID19 Vaccination Faraz: Date? Third COVID19 Vaccination Date: Date? Past Medical History Surgery/Hospitalization HX: Migraines, Fibromyalgia Surgeries: Yes Adenoidectomy, Breast, Hysterectomy, Tonsillectomy Respiratory: No Cardiac: Yes High Cholesterol Neurological: No Genitourinary: Yes (INTERSTITIAL CYSTISIS) Gastrointestinal: Yes Hiatal Hernia, Irritable Bowel Musculoskeletal: Yes Fibromyalgia Endocrine: No (hypoglycemia) HEENT: No Cancer: No Psychosocial: Yes Depression Integumentary: No Blood Disorders: No Physical Exam Vital Signs Vital Signs - First Documented 04/27/22 16:07 Temp 36.0 Pulse 93 Resp 18 B/P (MAP) 112/80 (91) Pulse Ox 99 O2 Delivery Room Air Capillary Refill : Less Than 3 Seconds Height, Weight, BMI Height: 5'5.00" Weight: 109lbs. 0.0oz. 49.996147dv; 16.00 BMI Method: General Appearance: WD/WN, no apparent distress, thin HEENT: PERRL/EOMI, normal ENT inspection, other (Oropharynx dry) Neck: normal inspection Cardiovascular: regular rate, rhythm, no edema, no murmur Respiratory: lungs clear, normal breath sounds, no respiratory distress Gastrointestinal: normal bowel sounds, non tender, soft Extremities: normal inspection, no pedal edema Cra[place] Nerves: normal hearing, normal speech, PERRL Motor/Sensory: no motor deficit Skin: normal color, warm/dry Progress/Results/Core Measures Results/Orders My Orders Orders - GAYATRI MARTIN MD Ed Iv/Invasive Line Start (04/27/22 16:24) Lactated Ringers (Lr 1000 Ml Iv Solution (04/27/22 16:30) Dexamethasone Injection (Decadron Inje (04/27/22 16:30) Promethazine Injection (Phenergan Injec (04/27/22 16:30) Orphenadrine Inj (Ed Only) (Norflex Inje (04/27/22 16:30) Diphenhydramine Injection (Benadryl Inje (04/27/22 16:30) Ketorolac Injection (Toradol Injection) (04/27/22 16:30) Medications Given in ED Vital Signs/I&O 04/27/22 04/27/22 16:07 17:29 Temp 36.0 36.0 Pulse 93 93 Resp 18 18 B/P (MAP) 112/80 (91) 112/80 Pulse Ox 99 99 O2 Delivery Room Air Room Air 04/28/22 00:00 Intake Total 1000 ml Balance 1000 ml Blood Pressure Mean: 91 Progress Progress Note : Progress Note Patient was given IV therapy with IV fluids and the migraine cocktail as outlined above. She had satisfactory improvement in her symptoms and was discharged home. Departure Impression Primary Impression: Migraine Qualified Codes: G43.909 - Migraine, unspecified, not intractable, without status migrainosus Disposition: 01 HOME, SELF-CARE Condition: Improved Departure-Patient Inst. Decision time for Depature: 17:26 Referrals: CARLOS VERA APRN (PCP) Primary Care Physician [facility] (Family) Primary Care Physician Patient Instructions: Migraines in Adults Add. Discharge Instructions: Return home and rest in a quiet, calm environment for the remainder of the evening. Follow-up with your primary care provider and/or neurologist regarding further migraine prevention and treatment. Consider further testing for triggers such as allergies, vitamin D deficiency, thyroid labs, etc. If headache returns, you may try taking ibuprofen up to 400 mg and Tylenol (acetaminophen) up to 650 mg every 6 hours as needed. Return to care if you have worsening symptoms despite following these instructions. All discharge instructions reviewed with patient and/or family. Voiced understanding. Copy Copies To 1: [facility]/GAYATRI ALEJANDRO MD Apr 27, 2022 17:27
[2022-04-27 17:29] VITALS: BP 112/80
== END 2022-04-27 17:30 | disposition home or self-care (01) ==
LOC: EDUNIT# 16:03 → ER FS 16:07
DX: G43.909 Migraine, unspecified, not intractable, without status migrainosus (principal)
CPT/HCPCS: 99281

== ENCOUNTER 2022-09-04 16:59 | Observation (INO) | payer MEDICARE, OTHER ==
[~2022-09-04] VITALS: Ht 165.1 cm; Wt 47.1 kg
[~2022-09-04 16:59] MED LIST changes: +SENN-271 PO; -SENN1TAB76 PO
[2022-09-04 17:25] LABS: BASOPHILS % (AUTO) 1 % (0-10); EOSINOPHILS # (AUTO) 0.3 10^3/uL (0.0-0.3); EOSINOPHILS % (AUTO) 5 % (0-10); HEMATOCRIT 36 % (35-52); LYMPHOCYTES # (AUTO) 0.9 10^3/uL (1.0-4.0); LYMPHOCYTES % (AUTO) 17 % (12-44); MEAN CORPUSCULAR HEMOGLOBIN 29 pg (25-34); MEAN CORPUSCULAR HGB CONC 34 g/dL (32-36); MEAN CORPUSCULAR VOLUME 85 fL (80-99); MEAN PLATELET VOLUME 8.8 fL (9.0-12.2); MONOCYTES # (AUTO) 0.4 10^3/uL (0.0-1.0); MONOCYTES % (AUTO) 7 % (0-12); NEUTROPHILS % (AUTO) 70 % (42-75); PLATELET COUNT 383 10^3/uL (130-400); WHITE BLOOD COUNT 5.6 10^3/uL (4.3-11.0)
[2022-09-04] MEDS ORDERED: NS IV 500 ML 500 ML IV STA (17:25)
--- NOTE | 2022-09-04 17:25 | ED General ---
General Chief Complaint: Altered Mental Status Stated Complaint: AMS; GEN WEAKNESS Source of Information: Patient, Family () Exam Limitations: No Limitations History of Present Illness Date Seen by Provider: September 04, 2022 Time Seen by Provider: 17:17 Initial Comments 61-year-old female presents with her for altered mentation. He states she was normal when she woke up this morning at 8 AM. He left to go run some errands. He came back at noon and she was acting strangely, speaking gibberish. He states that she has not eaten or drank anything today either. Symptoms prog ressed so he brought her to the emergency department. History of severe fibromyalgia migraine headaches, depression. No documented fevers or chills. He thought she might be hypoglycemic but her sugar was 72. All other systems reviewed and negative except documented per HPI. Voice recognition software was used to help create this chart Allergies and Home Medications Allergies Coded Allergies: prochlorperazine (Verified Allergy, Mild, TREMORS, 04/18/18) Patient Home Medication List Home Medication List Reviewed: Yes Atorvastatin Calcium (Atorvastatin Calcium) 80 Mg Tablet, 80 MG PO DAILY, (Reported) Entered as Reported by: JASMEET FLORES on 12/31/18 1059 Bisacodyl (Dulcolax) 5 Mg Tablet.dr, 5-10 MG PO BID, (Reported) Entered as Reported by: JASMEET FLORES on 12/31/18 1105 Bupropion HCl (Wellbutrin Xl) 300 Mg Tab.er.24h, 300 MG PO DAILY, (Reported) Entered as Reported by: JASMEET FLORES on 12/31/18 1056 Calcium Carbonate/Vitamin D3 (Calcium 250+D Tablet) 1 Each Tablet, 1 EACH PO HS, (Reported) Entered as Reported by: JASMEET FLORES on 12/31/18 1041 Carisoprodol (Soma) 350 Mg Tablet, 350 MG PO TID, (Reported) Entered as Reported by: JASMEET FLORES on 12/31/18 1056 Clorazepate Dipotassium (Clorazepate Dipotassium) 7.5 Mg Tablet, 22.5 MG PO HS, (Reported) Entered as Reported by: JASMEET FLORES on 12/31/18 1056 Ezetimibe (Ezetimibe) 10 Mg Tablet, 10 MG PO DAILY, (Reported) Entered as Reported by: JASMEET FLORES on 12/31/18 1056 Famotidine (Pepcid) 20 Mg Tablet, 20 MG PO BID PRN for NAUSEA/VOMITING, (Reported) Entered as Reported by: JASMEET FLORES on 12/31/18 1056 Fentanyl (Duragesic Patch 100MCG) 1 Each Patch.td72, 100 MCG TD Q48H, (Reported) Entered as Reported by: JASMEET FLORES on 12/31/18 1105 Fludrocortisone Acetate (Fludrocortisone Acetate) 0.1 Mg Tab, 0.2 MG PO DAILY, (Reported) Entered as Reported by: JASMEET FLORES on 12/31/18 1056 Gabapentin (Gabapentin) 100 Mg Capsule, 100 MG PO Q8H Prescribed by: ASHVIN BAH MD on 11/09/21 1142 Hydrocodone/Acetaminophen ([place] 10-325 Tablet) 1 Each Tablet, 1 TAB PO Q6H PRN for PAIN-MODERATE, (Reported) Entered as Reported by: JASMEET FLORES on 12/31/18 1056 Hyoscyamine Sulfate (Hyoscyamine Sulfate) 0.125 Mg Tablet, 0.125 MG PO HS, (Reported) Entered as Reported by: JASMEET FLORES on 12/31/18 1056 Imipramine HCl (Imipramine HCl) 25 Mg Tablet, 25-75 MG PO HS, (Reported) Entered as Reported by: JASMEET FLORES on 12/31/18 1056 Lorazepam (Lorazepam) 1 Mg Tablet, 0.5-1 MG PO Q6H PRN for ANXIETY, (Reported) Entered as Reported by: JASMEET FLORES on 12/31/18 1056 Magnesium Oxide (Magnesium) 400 Mg Tablet, 400 MG PO DAILY, (Reported) Entered as Reported by: JASMEET FLORES on 12/31/18 1041 Metoclopramide HCl (Metoclopramide HCl) 5 Mg Tablet, 5 MG PO QIDACHS, (Reported) Entered as Reported by: JASMEET FLORES on 12/31/18 1056 Metoprolol Succinate (Metoprolol Succinate) 50 Mg Tab.er.24h, 50 MG PO DAILY Prescribed by: ANGELA PEGUERO on 12/31/18 190 Multivits,Ca,Minerals/Iron/FA (Women's Daily Caplet) 1 Each Tablet, 1 EACH PO DAILY, (Reported) Entered as Reported by: JASMEET FLORES on 12/31/18 1041 Naloxegol Oxalate (Movantik) 12.5 Mg Tablet, 12.5 MG PO DAILY, (Reported) Entered as Reported by: JASMEET FLORES on 12/31/18 1059 Ondansetron (Ondansetron Odt) 8 Mg Tab.rapdis, 8 MG PO Q8H PRN for NAUSEA/VOMITING-1ST LINE, (Reported) Entered as Reported by: JASMEET FLORES on 12/31/18 1105 Ondansetron (Ondansetron Odt) 4 Mg Tab.rapdis, 4 MG PO Q6H Prescribed by: HAL BACA on 11/01/212048 Ondansetron HCl (Zofran) 4 Mg Tab, 4 MG PO Q8H PRN for NAUSEA/VOMITING-1ST LINE, (Reported) Entered as Reported by: JASMEET FLORES on 12/31/18 1056 Oxymetazoline HCl (Afrin) 15 Ml Mist, 1 SPRAYS NS BID PRN for CONGESTION, (Reported) Entered as Reported by: JASMEET FLORES on 12/31/18 1105 Potassium Chloride (Potassium Chloride) 20 Meq Tablet.er, 20 MEQ PO BID, (Reported) Entered as Reported by: JASMEET FLORES on 12/31/18 1057 Sennosides/Docusate Sodium (Stool Softener-Laxative Tablet) 1 Each Tablet, 1-2 EACH PO BID, (Reported) Entered as Reported by: JASMEET FLORES on 12/31/18 1059 Sertraline HCl (Zoloft) 100 Mg Tablet, 100 MG PO DAILY, (Reported) Entered as Reported by: JASMEET FLORES on 12/31/18 1056 Tizanidine HCl (Tizanidine HCl) 4 Mg Tablet, 2-4 MG PO BID, (Reported) Entered as Reported by: JASMEET FLORES on 12/31/18 1056 Topiramate (Topamax) 50 Mg Tablet, 100 MG PO BID, (Reported) Entered as Reported by: JASMEET FLORES on 12/31/18 1056 Review of Systems Review of Systems Constitutional: see HPI Past Kfeadqy-Flcgjx-Gdvkdf Hx Patient Social History Tobacco Use?: No Use of E-Cig and/or Vaping dev: No Substance use?: No Alcohol Use?: No Immunizations Up To Date First/Initial COVID19 Vaccinat: Date? Second COVID19 Vaccination Faraz: Date? Third COVID19 Vaccination Date: Date? Past Medical History Surgery/Hospitalization HX: Migraines, Fibromyalgia Surgeries: Yes Adenoidectomy, Breast, Hysterectomy, Tonsillectomy Respiratory: No Cardiac: Yes High Cholesterol Neurological: No Genitourinary: Yes (INTERSTITIAL CYSTISIS) Gastrointestinal: Yes Hiatal Hernia, Irritable Bowel Musculoskeletal: Yes Fibromyalgia Endocrine: No (hypoglycemia) HEENT: No Cancer: No Psychosocial: Yes Depression Integumentary: No Blood Disorders: No Physical Exam Vital Signs Vital Signs - First Documented 09/04/22 17:05 Temp 37.5 Pulse 116 Resp 18 B/P (MAP) 134/86 (102) Pulse Ox 98 O2 Delivery Room Air Capillary Refill : Height, Weight, BMI Height: 5'5.00" Weight: 109lbs. 0.0oz. 49.578106qn; 16.00 BMI Method: General Appearance: No Apparent Distress, WD/WN, Other (febrile) Eyes: Bilateral Eye Normal Inspection, Bilateral Eye PERRL, Bilateral Eye EOMI HEENT: PERRL/EOMI, TMs Normal, Normal ENT Inspection, Pharynx Normal Neck: Full Range of Motion, Non Tender, Supple Respiratory: Chest Non Tender, Lungs Clear, Normal Breath Sounds, No Accessory Muscle Use, No Respiratory Distress Cardiovascular: Normal Peripheral Pulses, Tachycardia Gastrointestinal: Normal Bowel Sounds, No Organomegaly, No Pulsatile Mass, Non Tender, Soft Back: Normal Inspection, No CVA Tenderness, No Vertebral Tenderness Extremity: Normal Capillary Refill, Normal Inspection, Normal Range of Motion, Non Tender Neurologic/Psychiatric: Alert, No Motor/Sensory Deficits, Normal Mood/Affect, dock attendant II-XII Norm as Tested, Other (oriented to person, place, frequently has tangential thoughts and speaks nonsensically.) Skin: Normal Color, Warm/Dry Focused Exam Lactate Level 09/04/22 17:10: Lactic Acid Level 1.06 Lactic Acid Level Laboratory Tests Test 09/04/22 17:10 Lactic Acid Level 1.06 MMOL/L (0.50-2.00) Progress/Results/Core Measures Suspected Sepsis SIRS Temperature: Pulse: Respiratory Rate: Laboratory Tests 09/04/22 17:10: White Blood Count 5.6 Blood Pressure / Mean: 09/04/22 17:10: Lactic Acid Level 1.06 Laboratory Tests 09/04/22 17:10: Creatinine 0.68, Platelet Count 383, Total Bilirubin 0.3 Results/Orders Lab Results Laboratory Tests Test 09/04/22 17:10 09/04/22 17:58 09/04/22 18:25 Range/Units White Blood Count 5.6 4.3-11.0 10^3/uL Red Blood Count 4.19 3.80-5.11 10^6/uL Hemoglobin 12.0 11.5-16.0 g/dL Hematocrit 36 35-52 % Mean Corpuscular Volume 85 80-99 fL Mean Corpuscular Hemoglobin 29 25-34 pg Mean Corpuscular Hemoglobin Concent 34 32-36 g/dL Red Cell Distribution Width 13.0 10.0-14.5 % Platelet Count 383 130-400 10^3/uL Mean Platelet Volume 8.8 L 9.0-12.2 fL Immature Granulocyte % (Auto) 0 % Neutrophils (%) (Auto) 70 42-75 % Lymphocytes (%) (Auto) 17 12-44 % Monocytes (%) (Auto) 7 0-12 % Eosinophils (%) (Auto) 5 0-10 % Basophils (%) (Auto) 1 0-10 % Neutrophils # (Auto) 4.0 1.8-7.8 10^3/uL Lymphocytes # (Auto) 0.9 L 1.0-4.0 10^3/uL Monocytes # (Auto) 0.4 0.0-1.0 10^3/uL Eosinophils # (Auto) 0.3 0.0-0.3 10^3/uL Basophils # (Auto) 0.0 0.0-0.1 10^3/uL Immature Granulocyte # (Auto) 0.0 0.0-0.1 10^3/uL Sodium Level 135 135-145 MMOL/L Potassium Level 3.0 L 3.6-5.0 MMOL/L Chloride Level 102 98-107 MMOL/L Carbon Dioxide Level 20 L 21-32 MMOL/L Anion Gap 13 5-14 MMOL/L Blood Urea Nitrogen 5 L 7-18 MG/DL Creatinine 0.68 0.60-1.30 MG/DL Estimat Glomerular Filtration Rate 98 BUN/Creatinine Ratio 7 Glucose Level 73 70-105 MG/DL Lactic Acid Level 1.06 0.50-2.00 MMOL/L Calcium Level 8.6 8.5-10.1 MG/DL Corrected Calcium 9.0 8.5-10.1 MG/DL Total Bilirubin 0.3 0.1-1.0 MG/DL Aspartate Amino Transf (AST/SGOT) 56 H 5-34 U/L Alanine Aminotransferase (ALT/SGPT) 31 0-55 U/L Alkaline Phosphatase 118 40-136 U/L Total Protein 6.3 L 6.4-8.2 GM/DL Albumin 3.5 3.2-4.5 GM/DL SARS-CoV-2 RNA (RT-PCR) Not Detected Not Detecte Urine Color YELLOW Urine Clarity SLIGHTLY CLOUDY Urine pH 7.5 5-9 Urine Specific [place] 1.010 L 1.016-1.022 Urine Protein NEGATIVE NEGATIVE Urine Glucose (UA) NEGATIVE NEGATIVE Urine Ketones TRACE H NEGATIVE Urine Nitrite NEGATIVE NEGATIVE Urine Bilirubin NEGATIVE NEGATIVE Urine Urobilinogen 1.0 < = 1.0 MG/DL Urine Leukocyte Esterase NEGATIVE NEGATIVE Urine RBC (Auto) NEGATIVE NEGATIVE Urine RBC 2-5 H /HPF Urine WBC NONE /HPF Urine Squamous Epithelial Cells 10-25 H /HPF Urine Crystals NONE /LPF Urine Bacteria LARGE H /HPF Urine Casts NONE /LPF Urine Mucus NEGATIVE /LPF Urine Yeast MODERATE H /HPF Urine Culture Indicated NO Urine Opiates Screen POSITIVE H NEGATIVE Urine Oxycodone Screen NEGATIVE NEGATIVE Urine Methadone Screen NEGATIVE NEGATIVE Urine Propoxyphene Screen NEGATIVE NEGATIVE Urine Barbiturates Screen NEGATIVE NEGATIVE Ur Tricyclic Antidepressants Screen POSITIVE H NEGATIVE Urine Phencyclidine Screen NEGATIVE NEGATIVE Urine Amphetamines Screen NEGATIVE NEGATIVE Urine Methamphetamines Screen NEGATIVE NEGATIVE Urine Benzodiazepines Screen POSITIVE H NEGATIVE Urine Cocaine Screen NEGATIVE NEGATIVE Urine Cannabinoids Screen NEGATIVE NEGATIVE My Orders Orders - DARRIUS MCCARTY DO Cbc With Automated Diff (09/04/22 17:21) Comprehensive Metabolic Panel (09/04/22 17:21) Blood Culture (09/04/22 17:21) Urinalysis (09/04/22 17:21) Urine Culture (09/04/22 17:21) Chest 1 View Ap/Pa Only (09/04/22 17:21) Ed Iv/Invasive Line Start (09/04/22 17:21) Vital Signs Adult Sepsis Patie Q15M (09/04/22 17:21) Lactic Acid Analyzer (09/04/22 17:21) Covid 19 Inhouse Test (09/04/22 17:21) Ct Head Wo (09/04/22 17:21) Ns Iv 500 Ml (Sodium Chloride 0.9%) (09/04/22 17:25) Drug Screen Stat (Urine) (09/04/22 18:44) Ed Admission (Communication) (09/04/22 18:45) Vital Signs/I&O 09/04/22 17:05 Temp 37.5 Pulse 116 Resp 18 B/P (MAP) 134/86 (102) Pulse Ox 98 O2 Delivery Room Air Capillary Refill : Departure Communication (Admissions) Patient continues to be altered but she is slightly more clear than when she got here. CT scan is negative. She is afebrile with no leukocytosis. Heart rate improved with IV fluids. I think her symptoms are likely related to polypharmacy and narcotic use. I advised they take off the fentanyl patch that she currently has on and they declined as her states they tried to decrease her to 75 mcg and she had severe withdrawal symptoms and pain. They are unwilling to remove it at this time patient's urine has some bacteria but no white blood cells, no leuk esterase or nitrites and has significant amounts of squamous cells. I do not really think this is an infection at this time. Chest x-ray is clear. I spoke with Dr. Schneider at 1700. She accepts the patient in transfer. Impression Primary Impression: Altered mental status Qualified Codes: R41.82 - Altered mental status, unspecified Disposition: 30 STILL A PATIENT Condition: Stable Admissions Decision to Admit Reason: Admit from ER (General) Departure-Patient Inst. Referrals: JANELLE PETERSON APRN (PCP) Primary Care Physician [facility] (Family) Primary Care Physician DARRIUS MCCARTY DO September 04, 2022 17:25
[2022-09-04 17:41] LABS: ALBUMIN 3.5 GM/DL (3.2-4.5); BILIRUBIN,TOTAL 0.3 MG/DL (0.1-1.0); CALCIUM 8.6 MG/DL (8.5-10.1); CREATININE SERUM 0.68 MG/DL (0.60-1.30); TOTAL PROTEIN 6.3 GM/DL (6.4-8.2)
--- NOTE | 2022-09-04 18:17 | Diagnostic Imaging Report ---
PROCEDURE: CT head without contrast. TECHNIQUE: Multiple contiguous axial images were obtained through the brain without the use of intravenous contrast. Auto Exposure Controls were utilized during the CT exam to meet ALARA standards for radiation dose reduction. INDICATION: Altered mental status and fever. COMPARISON: 12/20/2021. FINDINGS: CT HEAD: CT images of the head were obtained. Ventricles and sulci are within normal limits for size. There is no intracranial hemorrhage identified. There is no abnormal mass effect or shift of midline structures. IMPRESSION: Unremarkable CT of the head. Dictated by: Dictated on workstation # [id number]
[2022-09-04 18:29] LABS: BILIRUBIN,URINE NEGATIVE (NEGATIVE); COLOR,URINE YELLOW; GLUCOSE, URINE (UA) NEGATIVE (NEGATIVE); KETONES,URINE TRACE (NEGATIVE); LEUKOCYTE ESTERASE ,URINE NEGATIVE (NEGATIVE); NITRITE,URINE NEGATIVE (NEGATIVE); PH,URINE 7.5 (5-9); PROTEIN,URINE NEGATIVE (NEGATIVE)
[2022-09-04 18:31] LABS: BACTERIA,URINE LARGE /HPF; CLARITY,URINE SLIGHTLY CLOUDY
[2022-09-04 18:32] LABS: YEAST,URINE MODERATE /HPF
--- NOTE | 2022-09-04 18:42 | Diagnostic Imaging Report ---
INDICATION: Altered mental status and fever. EXAMINATION: AP upright view of the chest was obtained. COMPARISON: Study of 08/08/2018. FINDINGS: Heart size and pulmonary vascularity are within normal limits and the lungs are clear, bilaterally. IMPRESSION: Unremarkable chest. Dictated by: Dictated on workstation # [id number]
[2022-09-04 18:59] LABS: OPIATE SCREEN URINE POSITIVE (NEGATIVE)
[2022-09-04 19:00] LABS: AMPHETAMINE SCREEN, URINE NEGATIVE (NEGATIVE); BARBITURATE SCREEN URINE NEGATIVE (NEGATIVE); BENZODIAZEPINES SCREEN URINE POSITIVE (NEGATIVE); CANNABINOID SCREEN, URINE NEGATIVE (NEGATIVE); COCAINE SCREEN URINE NEGATIVE (NEGATIVE); METHADONE STAT NEGATIVE (NEGATIVE); OXYCODONE STAT NEGATIVE (NEGATIVE); PROPOXYPHENE STAT NEGATIVE (NEGATIVE); TRICYCLIC ANTIDEPRESSANTS SCRE POSITIVE (NEGATIVE)
[2022-09-04] MEDS ORDERED: diphenhydrAMINE 25 MG TAB (BENADRYL) PO PRN (19:45)
[2022-09-04] MEDS ORDERED: ANTACID SUSP 30 ML UDC (MYLANTA) PO PRN (19:45)
[2022-09-04] MEDS ORDERED: MELATONIN 3 MG TABLET PO PRN (19:45)
[2022-09-04] MEDS ORDERED: LORazepam 0.5 MG (ATIVAN) TABLET PO PRN (19:45)
[2022-09-04] MEDS ORDERED: ONDANSETRON 4 MG (ZOFRAN) ORAL DISSOLVE TAB PO PRN (19:45)
[2022-09-04] MEDS ORDERED: ACETAMINOPHEN 325 MG TABLET PO PRN (19:45)
[2022-09-04] MEDS ORDERED: BISACODYL 10 MG SUPP (DULCOLAX) PR PRN (19:45)
[2022-09-04] MEDS ORDERED: diphenhydrAMINE 50 MG/ML INJ (BENADRYL) IVP PRN (19:45)
[2022-09-04] MEDS ORDERED: LORazepam INJ 2 MG/ML (ATIVAN) VIAL IVP PRN (19:45)
[2022-09-04] MEDS ORDERED: polyethylene glycoL POWDER 17 GM (MIRALAX) PACK PO PRN (19:45)
[2022-09-04] MEDS ORDERED: ONDANSETRON 4 MG/2 ML (SDV) Z0FRAN IV PRN (19:45)
[2022-09-04] MEDS ORDERED: HYDROmorphone 2 MG/ML VIAL (DILAUDID) IV PRN (19:45)
[2022-09-04 20:40] VITALS: BP 117/79
[2022-09-04] MEDS ORDERED: NS IV 1000 ML 1,000 ML ONE (20:48)
[2022-09-04] MEDS: NS IV 1000 ML 1,000 ML IV SCH (20:50)
[2022-09-04 21:03] VITALS: BP 117/79
[2022-09-04] MEDS ORDERED: OMEP40CA6 PO (21:49)
[2022-09-04] MEDS ORDERED: LINA72CA PO (21:49)
[2022-09-04] MEDS ORDERED: ESTR10TA9 PO (21:55)
[2022-09-04] MEDS: DOCUSATE SODIUM 100 MG (COLACE) CAP PO SCH (22:27)
[2022-09-04] MEDS: KCL 10 MEQ TAB (MICRO K) PO SCH (22:27)
[2022-09-04 23:00] VITALS: BP 134/86
[2022-09-04 23:11] VITALS: BP 111/64
[2022-09-05 03:27] VITALS: BP 111/70
[2022-09-05 05:30] LABS: BASOPHILS % (AUTO) 1 % (0-10); EOSINOPHILS # (AUTO) 0.2 10^3/uL (0.0-0.3); EOSINOPHILS % (AUTO) 4 % (0-10); HEMATOCRIT 30 % (35-52); LYMPHOCYTES # (AUTO) 1.4 10^3/uL (1.0-4.0); LYMPHOCYTES % (AUTO) 31 % (12-44); MEAN CORPUSCULAR HEMOGLOBIN 29 pg (25-34); MEAN CORPUSCULAR HGB CONC 34 g/dL (32-36); MEAN CORPUSCULAR VOLUME 86 fL (80-99); MONOCYTES # (AUTO) 0.5 10^3/uL (0.0-1.0); MONOCYTES % (AUTO) 11 % (0-12); NEUTROPHILS # (AUTO) 2.5 10^3/uL (1.8-7.8); NEUTROPHILS % (AUTO) 54 % (42-75); PLATELET COUNT 321 10^3/uL (130-400); WHITE BLOOD COUNT 4.7 10^3/uL (4.3-11.0)
[2022-09-05 05:46] LABS: ALBUMIN 2.8 GM/DL (3.2-4.5); POTASSIUM 3.1 MMOL/L (3.6-5.0)
[2022-09-05 05:48] LABS: CALCIUM 8.1 MG/DL (8.5-10.1)
[2022-09-05 05:49] LABS: TOTAL PROTEIN 5.2 GM/DL (6.4-8.2)
[2022-09-05 05:51] LABS: BILIRUBIN,TOTAL 0.2 MG/DL (0.1-1.0)
[2022-09-05 05:52] LABS: CREATININE SERUM 0.64 MG/DL (0.60-1.30)
--- NOTE | 2022-09-05 06:02 | History & Physical ---
History of Present Illness HPI/Chief Complaint Chief complaint: Altered mental status with severe weakness HPI: This is a 61-year-old white female clinic patient of [facility] in rheumatology in [place] who has a past medical history of severe and debilitating fibromy algia requiring fentanyl patch of 100 mcg. She is on a multitude of medication including benzodiazepines and other anxiolytics along with muscle relaxants and continues to decline at home. She was very confused and the only abnormality the ER doctor evaluated her to have was hypokalemia but could not go home. She is much improved from encephalopathy status but potassium remains low at 3.1 so we will give IV supplementation and magnesium supplementation. We will restart all of her home medication. Her and daughter and son-in-law are at the bedside. Inpatient rehab candidate assessed. Source: patient, family Exam Limitations: clinical condition Date Seen 09/05/22 Time Seen by a Provider: 11:00 Attending Physician Dulce Hayes Aprn PCP Admitting Physician: Lexii Rico DO Attending Physician: Lexii Rico DO Referring Physician Date of Admission September 04, 2022 at 20:40 Home Medications & Allergies Home Medications Reviewed patient Home Medication Reconciliation performed by pharmacy medication reconciliations master sonar technician and/or nursing. Patients Allergies have been reviewed. Allergies Allergies Coded Allergies prochlorperazine (Verified Allergy, Mild, TREMORS, 04/18/18) Past Nuhtddv-Dddvre-Csotgc Hx Past Med/Social Hx: Reviewed Nursing Past Med/Soc Hx, Reviewed and Corrections made Patient Social History Marrital Status: Employed/Student: retired Alcohol Use: Denies Use Smoking Status: Never a Smoker 2nd Hand Smoke Exposure: No Recent Foreign Travel: No Contact w/other who traveled: No Recent Hopitalizations: No Recent Infectious Disease Expo: No Past Medical History Surgeries: Adenoidectomy, Breast, Hysterectomy, Tonsillectomy Cardiac: High Cholesterol Gastrointestinal: Hiatal Hernia, Irritable Bowel Musculoskeletal: Fibromyalgia Psychosocial: Depression History of Blood Disorders: No Review of Systems Constitutional: see HPI, dizziness, malaise, weakness EENTM: no symptoms reported Respiratory: no symptoms reported Cardiovascular: no symptoms reported Gastrointestinal: nausea Genitourinary: no symptoms reported Musculoskeletal: back pain, joint pain Skin: no symptoms reported Psychiatric/Neurological: Depressed All Other Systems Reviewed Negative Unless Noted: Yes Physical Exam Physical Exam Vital Signs Vital Signs - First Documented 09/04/22 09/04/22 17:05 23:00 Temp 37.5 Pulse 116 Resp 18 B/P (MAP) 134/86 (102) Pulse Ox 98 O2 Delivery Room Air FiO2 21 Capillary Refill : Less Than 3 Seconds Height, Weight, BMI Height: 5'5.00" Weight: 109lbs. 0.0oz. [id number]; 17.27 BMI Method: General Appearance: No Apparent Distress, WD/WN, Chronically ill, Other (febrile) Eyes: Bilateral Eye Normal Inspection, Bilateral Eye PERRL, Bilateral Eye EOMI HEENT: PERRL/EOMI, Normal ENT Inspection, Pharynx Normal Neck: Full Range of Motion, Non Tender, Supple Respiratory: Chest Non Tender, Lungs Clear, Normal Breath Sounds, No Accessory Muscle Use, No Respiratory Distress Cardiovascular: Normal Peripheral Pulses, Tachycardia Gastrointestinal: Normal Bowel Sounds, No Organomegaly, No Pulsatile Mass, Non Tender, Soft Back: Normal Inspection, No CVA Tenderness, No Vertebral Tenderness Extremity: Normal Capillary Refill, Normal Inspection, Normal Range of Motion, Non Tender Neurologic/Psychiatric: Alert, No Motor/Sensory Deficits, Normal Mood/Affect, landscape painter II-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 Assessment/Plan Admission Diagnosis Assessment: Encephalopathy Severe hypokalemia Severe fibromyalgia dependent on fentanyl anxiolytics and muscle relaxants Severe weakness with fall risk Hypercholesterolemia Plan: Home meds PT and OT Inpatient rehab Monitor confusion Replace potassium Admission Status: Observation LEXII RICO DO September 05, 2022 06:02
[2022-09-05] MEDS: NS IV 1000 ML 1,000 ML IV SCH ×2 (07:40→21:21)
[2022-09-05] MEDS: KCL 10 MEQ TAB (MICRO K) PO SCH ×3 (07:41→17:08)
[2022-09-05] MEDS: ENOXAPARIN INJECTION 30 MG/0.3 ML SYR SC SCH (07:41)
[2022-09-05] MEDS: DOCUSATE SODIUM 100 MG (COLACE) CAP PO SCH ×2 (07:41→21:21)
[2022-09-05 08:20] VITALS: BP 118/75
--- NOTE | 2022-09-05 10:00 | Occ Therapy Progress Note ---
Therapy Progress Note OT order received, chart reviewed. Pt. came transferred last night from [facility] due to altered mental state. Family at bedside and states that pt. is still very confused. They state that a diagnosis is still being sought. At this time, they would like for pt. to be able to rest. Request that therapy not see her this date. They request this for both OT and PT. Will attempt back in a.m. [id number] 1, visit x 5minutes Hold therapy this date. GWEN GAMEZ OT September 05, 2022 10:00
[2022-09-05] MEDS ORDERED: FAMOTIDINE 20 MG (PEPCID) TABLET PO PRN (11:30)
[2022-09-05] MEDS ORDERED: LORazepam 1 MG (ATIVAN) TAB PO PRN (11:30)
[2022-09-05] MEDS ORDERED: MAGNESIUM 1 GM/100 ML IVPB 100 ML IV ONE (11:30)
[2022-09-05] MEDS: POTASSIUM CL 10MEQ/50ML IVPB 50 ML IV SCH ×6 (11:56→17:08)
[2022-09-05] MEDS ORDERED: ONDANSETRON 4 MG (ZOFRAN) ORAL DISSOLVE TAB PO PRN (12:00)
--- NOTE | 2022-09-05 12:02 | Physical Therapy Evaluation ---
PT Evaluation-General Medical Diagnosis Admission Date September 04, 2022 at 20:40 Medical Diagnosis: AMS Onset Date: September 04, 2022 Therapy Diagnosis Therapy Diagnosis: Gait deficit, Strength deficit Height/Weight Height (Feet): 5 Height (Inches): 5.00 Weight (Pounds): 109 Weight (Ounces): 0.0 Precautions Precautions/Isolations: Fall Prevention, Standard Precautions Weight Bear Status Right Lower Extremity: Right Weight Bearing/Tolerated Left Lower Extremity: Left Weight Bearing/Tolerated Referral Physician: Dr. Rico Reason for Referral: Evaluation/Treatment Medical History Reviewed History: Yes Social History Home: [facility] Current Living Status: Spouse Entry Into Home: Stairs With Railing PT Steps Into Home: 5 PT Steps Inside Home: 15 Prior Prior Level of Function SCALE: Activities may be completed with or without assistive devices. 7-Mkssxbzsij-vkluuov completes the activity by him/herself with no assistance from a helper. 5-Set-up or Clean-up Assistance-helper sets up or cleans up; patient completes activity. [place] assists only prior to or following the activity. 4-Supervision or Touching Assistance-helper provides verbal cues and/or touching/steadying and/or contact guard assistance as patient completes activity. Assistance may be provided throughout the activity or intermittently. 3-Partial/Moderate Assistance-helper does LESS THAN HALF the effort. [place] lifts, holds or supports trunk or limbs, but provides less than half the effort. 2-Substantial/Maximal Assistance-helper does MORE THAN HALF the effort. [place] lifts or holds trunk or limbs and provides more than half the effort. 5-Lpxtabiuj-qtpfyo does ALL the effort. Patient does none of the effort to complete the activity. Or, the assistance of 2 or more helpers is required for the patient to complete the activity. If activity was not attempted, code reason: 7-Patient Refused. 9-Not Applicable-not attempted and the patient did not perform the activity before the current illness, exacerbation or injury. 10-Not Attempted due to Environmental Limitations-(lack of equipment, weather restraints, etc.). 88-Not Attempted due to Medical Conditions or Safety Concerns. Bed Mobility: 6 Transfers (B,C,W/C): 6 Gait: 6 Stairs: 3 Indoor Mobility (Ambulation): Independent Stairs: Needed Some Help Prior Devices Use: None Has a 4WW at home they just purchased, however patient has not used yet. PT Evaluation-Current Subjective Patient lying supine in bed, family and physician in the room upon PT arrival, agreeable to treatment. Patient rates pain at 4/10 currently in back, bilateral flank, bilateral wrists. Objective Patient Orientation: Person Attachments: Torres Catheter, IV ROM/Strength ROM Lower Extremities WFLs BLEs all planes Strength Lower Extremities 3-/5 BLEs all planes Sensory Vision: Functional Hearing: Functional Sensation Right Lower Extremit: Intact Sensation Left Lower Extremity: Intact Transfers Roll Left to Right (QC): 3 Sit to Lying (QC): 3 Lying to Sitting/Side of Bed(Q: 3 Sit to Stand (QC): 2 Chair/Uyg-di-Jgxas Xfer(QC): 2 Gait Does the Patient Walk?: No and Walking Goal IS indicated Mode of Locomotion: Walk Anticipated Mode of Locomotion: Walk Gait Assistive Device: None Balance Sitting Static: Fair Sitting Dynamic: Fair Standing Static: Poor Standing Dynamic: Poor Assessment/Needs Patient required mod A for all bed mobility and max A for all transfers. Patient retropulsive in sitting, increased with MMT of LEs. Patient requires mod verbal cues to perform activities. Patient performs sit to stand and bed to chair with max A. Did not use FWW due to patient report of bilateral wrist pain, however will attempt FWW use in future sessions. Patient in chair post treatment with all needs met, nursing notified, call light in hand, family in the room and chair alarm activated. Rehab Potential: Fair Equipment Needs FWW PT Correction Goals Correction Goals PT Learning And Development Assistant Goals Time Frame: Oct 01, 2022 Roll Left & Right (QC): 6 Sit to Lying (QC): 6 Lying-Sitting on Side/Bed(QC): 6 Sit to Stand (QC): 4 Chair/Ufy-dx-Qrphh Xfer(QC): 4 Toilet Transfer (QC): 4 Car Transfer (QC): 4 Does the Patient Walk: Yes Walk 10 feet (QC): 4 Walk 50ft with 2 Turns (QC): 3 Walk 150 ft (QC): 3 1 Step (curb) (QC): 3 4 Steps (QC): 3 12 Steps (QC): 3 PT Plan Problem List Problem List: Activity Tolerance, Functional Strength, Safety, Balance, Gait, Transfer, Bed Mobility, ROM Treatment/Plan Treatment Plan: Continue Plan of Care Treatment Plan: Bed Mobility, Education, Functional Activity Marcelino, Functional Strength, Group Therapy, Gait, Safety, Therapeutic Exercise, Transfers Treatment Duration: Oct 07, 2022 Frequency: 6 times per week Estimated Hrs Per Day: .25 hour per day Patient and/or Family Agrees t: Yes Safety Risks/Education Patient Education: Gait Training, Transfer Techniques Teaching Recipient: Patient, Family Teaching Methods: Demonstration, Discussion Response to Teaching: Verbalize Understanding, Return Demonstration Discharge Recommendations Target Placement Post acute placement recommended. Time Time In: 1126 Time Out: 1151 DATE: September 05, 2022 Total Billed Treatment Time: 25 Total Billed Treatment Visit, CLEMENTINE NEWELL JOHN A PT September 05, 2022 12:02
[2022-09-05 12:15] VITALS: BP 109/64
[2022-09-05] MEDS ORDERED: PATCH REMOVAL TP SCH (13:00)
[2022-09-05] MEDS ORDERED: fentaNYL PATCH 100 MCG (DURAGESIC) TD SCH (13:00)
[2022-09-05 15:59] VITALS: BP 112/69
[2022-09-05 19:51] VITALS: BP 108/74
[2022-09-05] MEDS: buPROPion SR 150 MG (WELLBUTRIN SR) TAB PO SCH (20:02)
[2022-09-05] MEDS: toPIRamate 100 MG (TOPAMAX) TAB PO SCH (20:02)
[2022-09-05] MEDS ORDERED: CLORAZEPATE 7.5 MG (TRANXENE) TAB PO SCH (21:00)
[2022-09-05] MEDS ORDERED: HYOSCYAMINE 0.125 MG (LEVSIN) TAB PO SCH (21:00)
[2022-09-05] MEDS ORDERED: IMIPRAMINE 25 MG (TOFRANIL) TAB PO SCH (21:00)
[2022-09-05 23:23] VITALS: BP 111/65
[2022-09-06 03:20] VITALS: BP 101/56
[2022-09-06 05:46] LABS: BASOPHILS % (AUTO) 1 % (0-10); EOSINOPHILS # (AUTO) 0.3 10^3/uL (0.0-0.3); EOSINOPHILS % (AUTO) 4 % (0-10); HEMATOCRIT 32 % (35-52); HEMOGLOBIN 10.4 g/dL (11.5-16.0); LYMPHOCYTES # (AUTO) 1.6 10^3/uL (1.0-4.0); LYMPHOCYTES % (AUTO) 24 % (12-44); MEAN CORPUSCULAR HEMOGLOBIN 29 pg (25-34); MEAN CORPUSCULAR HGB CONC 33 g/dL (32-36); MEAN CORPUSCULAR VOLUME 88 fL (80-99); MEAN PLATELET VOLUME 9.2 fL (9.0-12.2); MONOCYTES # (AUTO) 0.5 10^3/uL (0.0-1.0); MONOCYTES % (AUTO) 8 % (0-12); NEUTROPHILS # (AUTO) 4.1 10^3/uL (1.8-7.8); NEUTROPHILS % (AUTO) 63 % (42-75); PLATELET COUNT 345 10^3/uL (130-400); WHITE BLOOD COUNT 6.4 10^3/uL (4.3-11.0)
[2022-09-06 06:19] LABS: ALBUMIN 2.9 GM/DL (3.2-4.5); BILIRUBIN,TOTAL 0.2 MG/DL (0.1-1.0); CALCIUM 8.3 MG/DL (8.5-10.1); CREATININE SERUM 0.61 MG/DL (0.60-1.30); POTASSIUM 3.4 MMOL/L (3.6-5.0); TOTAL PROTEIN 5.4 GM/DL (6.4-8.2)
[2022-09-06] MEDS ORDERED: MULTIVIT W/MINERALS TAB (THERAGRAN M) PO SCH (07:00)
[2022-09-06 07:39] VITALS: BP 95/64
[2022-09-06] MEDS: buPROPion SR 150 MG (WELLBUTRIN SR) TAB PO SCH (08:43)
[2022-09-06] MEDS: KCL 10 MEQ TAB (MICRO K) PO SCH (08:44)
[2022-09-06] MEDS: ENOXAPARIN INJECTION 30 MG/0.3 ML SYR SC SCH (08:44)
[2022-09-06] MEDS: toPIRamate 100 MG (TOPAMAX) TAB PO SCH (08:44)
[2022-09-06] MEDS: DOCUSATE SODIUM 100 MG (COLACE) CAP PO SCH (08:44)
[2022-09-06] MEDS: NS IV 1000 ML 1,000 ML IV SCH (08:55)
[2022-09-06] MEDS ORDERED: NON-FORMULARY MEDICATION 1 EA EA (Bupropion HCl (Wellbutrin Xl) 300 MG) PO SCH (09:00)
[2022-09-06] MEDS ORDERED: SERTRALINE 100 MG (ZOLOFT) TAB PO SCH (09:00)
[2022-09-06] MEDS ORDERED: PANTOPRAZOLE 40 MG (PROTONIX) TAB PO SCH (09:00)
[2022-09-06] MEDS ORDERED: NON-FORMULARY MEDICATION 1 EA EA (Linaclotide (Linzess) 72 MCG) PO SCH (09:00)
[2022-09-06] MEDS ORDERED: MAGNESIUM OXIDE (MAG-OX)400 MG TAB PO SCH (09:00)
--- NOTE | 2022-09-06 09:59 | Discharge Summary ---
Diagnosis/Chief Complaint Date of Admission September 04, 2022 at 20:40 Date of Discharge Discharge Date: September 06, 2022 Discharge Diagnosis Assessment: Encephalopathy Severe hypokalemia Severe fibromyalgia dependent on fentanyl anxiolytics and muscle relaxants Severe weakness with fall risk Hypercholesterolemia Plan: Home meds PT and OT Inpatient rehab Monitor confusion Replace potassium Discharge Summary Discharge Physical Examination Allergies: Coded Allergies: prochlorperazine (Verified Allergy, Mild, TREMORS, 04/18/18) Vitals & I&Os Vital Signs Date Time Temp Pulse Resp B/P (MAP) Pulse Ox O2 Delivery O2 Flow Rate FiO2 09/06/22 09:02 96 09/06/22 08:00 97 Room Air 09/06/22 07:39 36.5 18 95/64 (74) 09/04/22 23:00 21 General Appearance: Alert, Oriented X3, Cooperative Respiratory: Clear to Auscultation Cardiovascular: Regular Rate Psych/Mental Status: Other (Subtle delay) Hospital Course Was the Problem List Reviewed?: Yes Short hospital course after she was admitted for confusion and severe hypokalemia with weakness. Potassium replaced with good results. Confusion nearly resolved back to baseline. Severe weakness from fibromyalgia required inpatient rehab so she was transferred there. Labs (last 24 hrs) Laboratory Tests 09/04/22 17:10: White Blood Count 5.6, Red Blood Count 4.19, Hemoglobin 12.0, Hematocrit 36, Mean Corpuscular Volume 85, Mean Corpuscular Hemoglobin 29, Mean Corpuscular Hemoglobin Concent 34, Red Cell Distribution Width 13.0, Platelet Count 383, Mean Platelet Volume 8.8L, Immature Granulocyte % (Auto) 0, Neutrophils (%) (Auto) 70, Lymphocytes (%) (Auto) 17, Monocytes (%) (Auto) 7, Eosinophils (%) (Auto) 5, Basophils (%) (Auto) 1, Neutrophils # (Auto) 4.0, Lymphocytes # (Auto) 0.9L, Monocytes # (Auto) 0.4, Eosinophils # (Auto) 0.3, Basophils # (Auto) 0.0, Immature Granulocyte # (Auto) 0.0, Sodium Level 135, Potassium Level 3.0L, Chlo ride Level 102, Carbon Dioxide Level 20L, Anion Gap 13, Blood Urea Nitrogen 5L, Creatinine 0.68, Estimat Glomerular Filtration Rate 98, BUN/Creatinine Ratio 7, Glucose Level 73, Lactic Acid Level 1.06, Calcium Level 8.6, Corrected Calcium 9.0, Total Bilirubin 0.3, Aspartate Amino Transf (AST/SGOT) 56H, Alanine Aminotransferase (ALT/SGPT) 31, Alkaline Phosphatase 118, Total Protein 6.3L, Albumin 3.5 09/04/22 17:58: SARS-CoV-2 RNA (RT-PCR) Not Detected 09/04/22 18:25: Urine Color YELLOW, Urine Clarity SLIGHTLY CLOUDY, Urine pH 7.5, Urine Specific [place] 1.010L, Urine Protein NEGATIVE, Urine Glucose (UA) NEGATIVE, Urine Ketones TRACEH, Urine Nitrite NEGATIVE, Urine Bilirubin NEGATIVE, Urine Urobilinogen 1.0, Urine Leukocyte Esterase NEGATIVE, Urine RBC (Auto) NEGATIVE, Urine RBC 2-5H, Urine WBC NONE, Urine Squamous Epithelial Cells 10-25H, Urine Crystals NONE, Urine Bacteria LARGEH, Urine Casts NONE, Urine Mucus NEGATIVE, Urine Yeast MODERATEH, Urine Culture Indicated NO, Urine Opiates Screen POSITIVEH, Urine Oxycodone Screen NEGATIVE, Urine Methadone Screen NEGATIVE, Urine Propoxyphene Screen NEGATIVE, Urine Barbiturates Screen NEGATIVE, Ur Tricyclic Antidepressants Screen POSITIVEH, Urine Phencyclidine Screen NEGATIVE, Urine Amphetamines Screen NEGATIVE, Urine Methamphetamines Screen NEGATIVE, Urine Benzodiazepines Screen POSITIVEH, Urine Cocaine Screen NEGATIVE, Urine Cannabinoids Screen NEGATIVE 09/05/22 05:19: White Blood Count 4.7, Red Blood Count 3.47L, Hemoglobin 10.0L, Hematocrit 30L, Mean Corpuscular Volume 86, Mean Corpuscular Hemoglobin 29, Mean Corpuscular Hemoglobin Concent 34, Red Cell Distribution Width 13.2, Platelet Count 321, Mean Platelet Volume 9.0, Immature Granulocyte % (Auto) 0, Neutrophils (%) (Auto) 54, Lymphocytes (%) (Auto) 31, Monocytes (%) (Auto) 11, Eosinophils (%) (Auto) 4, Basophils (%) (Auto) 1, Neutrophils # (Auto) 2.5, Lymphocytes # (Auto) 1.4, Monocytes # (Auto) 0.5, Eosinophils # (Auto) 0.2, Basophils # (Auto) 0.0, Immature Granulocyte # (Auto) 0.0, Sodium Level 139, Potassium Level 3.1L, Chloride Level 111H, Carbon Dioxide Level 17L, Anion Gap 11, Blood Urea Nitrogen 5L, Creatinine 0.64, Estimat Glomerular Filtration Rate 100, BUN/Creatinine Ratio 8, Glucose Level 80, Calcium Level 8.1L, Corrected Calcium 9.1, Total Bilirubin 0.2, Aspartate Amino Transf (AST/SGOT) 59H, Alanine Aminotransferase (ALT/SGPT) 35, Alkaline Phosphatase 86, Total Protein 5.2L, Albumin 2.8L, Magnesium Level 1.7 09/06/22 05:00: White Blood Count 6.4, Red Blood Count 3.61L, Hemoglobin 10.4L, Hematocrit 32L, Mean Corpuscular Volume 88, Mean Corpuscular Hemoglobin 29, Mean Corpuscular Hemoglobin Concent 33, Red Cell Distribution Width 13.4, Platelet Count 345, Mean Platelet Volume 9.2, Immature Granulocyte % (Auto) 0, Neutrophils (%) (Auto) 63, Lymphocytes (%) (Auto) 24, Monocytes (%) (Auto) 8, Eosinophils (%) (Auto) 4, Basophils (%) (Auto) 1, Neutrophils # (Auto) 4.1, Lymphocytes # (Auto) 1.6, Monocytes # (Auto) 0.5, Eosinophils # (Auto) 0.3, Basophils # (Auto) 0.0, Immature Granulocyte # (Auto) 0.0, Sodium Level 139, Potassium Level 3.4L, Chloride Level 114H, Carbon Dioxide Level 18L, Anion Gap 7, Blood Urea Nitrogen 3L, Creatinine 0.61, Estimat Glomerular Filtration Rate 101, BUN/Creatinine Ratio 5, Glucose Level 76, Calcium Level 8.3L, Corrected Calcium 9.2, Total Bilirubin 0.2, Aspartate Amino Transf (AST/SGOT) 51H, Alanine Aminotransferase (ALT/SGPT) 30, Alkaline Phosphatase 98, Total Protein 5.4L, Albumin 2.9L Microbiology 09/04/22 Urine Culture - Final, Complete See Comments 09/04/22 Blood Culture - Preliminary, Resulted No growth Pending Labs Microbiology Date/Time Source Procedure Growth Status 09/04/22 18:25 Urine U Cath,Nos Urine Culture - Final See Comments Complete 09/04/22 17:10 Peripheral Lt Ac Blood Culture - Preliminary No growth Resulted 09/04/22 17:10 Peripheral Arm, Left Blood Culture - Preliminary No growth Resulted Laboratory Tests 09/04/22 17:10: White Blood Count 5.6, Red Blood Count 4.19, Hemoglobin 12.0, Hematocrit 36, Mean Corpuscular Volume 85, Mean Corpuscular Hemoglobin 29, Mean Corpuscular Hemoglobin Concent 34, Red Cell Distribution Width 13.0, Platelet Count 383, Mean Platelet Volume 8.8, Immature Granulocyte % (Auto) 0, Neutrophils (%) (Auto) 70, Lymphocytes (%) (Auto) 17, Monocytes (%) (Auto) 7, Eosinophils (%) (Auto) 5, Basophils (%) (Auto) 1, Neutrophils # (Auto) 4.0, Lymphocytes # (Auto) 0.9, Monocytes # (Auto) 0.4, Eosinophils # (Auto) 0.3, Basophils # (Auto) 0.0, Immature Granulocyte # (Auto) 0.0, Sodium Level 135, Potassium Level 3.0, Ch loride Level 102, Carbon Dioxide Level 20, Anion Gap 13, Blood Urea Nitrogen 5, Creatinine 0.68, Estimat Glomerular Filtration Rate 98, BUN/Creatinine Ratio 7, Glucose Level 73, Lactic Acid Level 1.06, Calcium Level 8.6, Corrected Calcium 9.0, Total Bilirubin 0.3, Aspartate Amino Transf (AST/SGOT) 56, Alanine Aminotransferase (ALT/SGPT) 31, Alkaline Phosphatase 118, Total Protein 6.3, Albumin 3.5 09/04/22 17:58: SARS-CoV-2 RNA (RT-PCR) Not Detected 09/04/22 18:25: Urine Color YELLOW, Urine Clarity SLIGHTLY CLOUDY, Urine pH 7.5, Urine Specific [place] 1.010, Urine Protein NEGATIVE, Urine Glucose (UA) NEGATIVE, Urine Ketones TRACE, Urine Nitrite NEGATIVE, Urine Bilirubin NEGATIVE, Urine Urobilinogen 1.0, Urine Leukocyte Esterase NEGATIVE, Urine RBC (Auto) NEGATIVE, Urine RBC 2-5, Urine WBC NONE, Urine Squamous Epithelial Cells 10-25, Urine Crystals NONE, Urine Bacteria LARGE, Urine Casts NONE, Urine Mucus NEGATIVE, Urine Yeast MODERATE, Urine Culture Indicated NO, Urine Opiates Screen POSITIVE, Urine Oxycodone Screen NEGATIVE, Urine Methadone Screen NEGATIVE, Urine Propoxyphene Screen NEGATIVE, Urine Barbiturates Screen NEGATIVE, Ur Tricyclic Antidepressants Screen POSITIVE, Urine Phencyclidine Screen NEGATIVE, Urine Amph etamines Screen NEGATIVE, Urine Methamphetamines Screen NEGATIVE, Urine Benzodiazepines Screen POSITIVE, Urine Cocaine Screen NEGATIVE, Urine Cannabinoids Screen NEGATIVE 09/05/22 05:19: White Blood Count 4.7, Red Blood Count 3.47, Hemoglobin 10.0, Hematocrit 30, Mean Corpuscular Volume 86, Mean Corpuscular Hemoglobin 29, Mean Corpuscular Hemoglobin Concent 34, Red Cell Distribution Width 13.2, Platelet Count 321, Mean Platelet Volume 9.0, Immature Granulocyte % (Auto) 0, Neutrophils (%) (Auto) 54, Lymphocytes (%) (Auto) 31, Monocytes (%) (Auto) 11, Eosinophils (%) (Auto) 4, Basophils (%) (Auto) 1, Neutrophils # (Auto) 2.5, Lymphocytes # (Auto) 1.4, Monocytes # (Auto) 0.5, Eosinophils # (Auto) 0.2, Basophils # (Auto) 0.0, Immature Granulocyte # (Auto) 0.0, Sodium Level 139, Potassium Level 3.1, Chloride Level 111, Carbon Dioxide Level 17, Anion Gap 11, Blood Urea Nitrogen 5, Creatinine 0.64, Estimat Glomerular Filtration Rate 100, BUN/Creatinine Ratio 8, Glucose Level 80, Calcium Level 8.1, Corrected Calcium 9.1, Total Bilirubin 0.2, Aspartate Amino Transf (AST/SGOT) 59, Alanine Aminotransferase (ALT/SGPT) 35, Alkaline Phosphatase 86, Total Protein 5.2, Albumin 2.8, Magnesium Level 1.7 09/06/22 05:00: White Blood Count 6.4, Red Blood Count 3.61, Hemoglobin 10.4, Hematocrit 32, Mean Corpuscular Volume 88, Mean Corpuscular Hemoglobin 29, Mean Corpuscular Hemoglobin Concent 33, Red Cell Distribution Width 13.4, Platelet Count 345, Mean Platelet Volume 9.2, Immature Granulocyte % (Auto) 0, Neutrophils (%) (Auto) 63, Lymphocytes (%) (Auto) 24, Monocytes (%) (Auto) 8, Eosinophils (%) (Auto) 4, Basophils (%) (Auto) 1, Neutrophils # (Auto) 4.1, Lymphocytes # (Auto) 1.6, Monocytes # (Auto) 0.5, Eosinophils # (Auto) 0.3, Basophils # (Auto) 0.0, Immature Granulocyte # (Auto) 0.0, Sodium Level 139, Potassium Level 3.4, Chloride Level 114, Carbon Dioxide Level 18, Anion Gap 7, Blood Urea Nitrogen 3, Creatinine 0.61, Estimat Glomerular Filtration Rate 101, BUN/Creatinine Ratio 5, Glucose Level 76, Calcium Level 8.3, Corrected Calcium 9.2, Total Bilirubin 0.2, Aspartate Amino Transf (AST/SGOT) 51, Alanine Aminotransferase (ALT/SGPT) 30, Alkaline Phosphatase 98, Total Protein 5.4, Albumin 2.9 Discharge Home Medications: Active Scripts Active Reported Vitamin D3 (Cholecalciferol (Vitamin D3)) 50 Mcg (2000 Unit) Capsule 50 Mcg PO DAILY Preservision Areds 2 Softgel (Vit C/E/Zn/Coppr/Lutein/Zeaxan) 250MG-90MG Capsule 2 Each PO DAILY One Tablet (Mv-Mn/Iron/FA/Herbal/Digestive) 27 Mg Iron-360 Mcg-125 Mg- 32 Mg Tablet 1 Each PO DAILY Excedrin Migraine Caplet (Aspirin/Acetaminophen/Caffeine) 250 Mg-250 Mg-65 Mg Tablet 2 Each PO Q6-8HR PRN Ativan (Lorazepam) 1 Mg Tablet 0.5-1 Mg PO Q6H PRN Estradiol Tablet (Estradiol) 0.5 Mg Tablet 0.5 Mg PO DAILY Sertraline HCl 100 Mg Tablet 100 Mg PO DAILY Topiramate 50 Mg Tablet 100 Mg PO BID TAKES 2 (50MG) TABS Hydrocodone-Acetamin 10-325 mg (Hydrocodone/Acetaminophen) 10 Mg-325 Mg Tablet 1 Ea PO QID PRN Fentanyl Patch 100 MCG (Fentanyl) 100 Mcg/Hour Patch.td72 100 Mcg TD Q48H Clorazepate Dipotassium 7.5 Mg Tablet 7.5 Mg PO HS PRN ONLY TAKES IF THE 15MG DOSE IS INEFFECTIVE Ondansetron Odt (Ondansetron) 4 Mg Tab.rapdis 4 Mg SL Q8H PRN Bupropion Xl (Bupropion HCl) 300 Mg Tab.er.24h 300 Mg PO DAILY Fluoxetine HCl 60 Mg Tablet 60 Mg PO DAILY Linzess (Linaclotide) 72 Mcg Capsule 72 Mcg PO DAILY Omeprazole 40 Mg Capsule.dr 40 Mg PO DAILY Dulcolax (Bisacodyl) 5 Mg Tablet.dr 10-15 Mg PO BID TAKES 2 TO 3 (5MG) TABS Pepcid (Famotidine) 20 Mg Tablet 20 Mg PO BID PRN Clorazepate Dipotassium 7.5 Mg Tablet 15 Mg PO HS TAKES 2 (7.5MG) TABS Imipramine HCl 25 Mg Tablet 25 Mg PO BID Instructions to patient/family Please see electronic discharge instructions given to patient. CA GOETZ DO September 06, 2022 09:59
[2022-09-06] MEDS ORDERED: HYDR-3820 PO (10:45)
[2022-09-06] MEDS ORDERED: MV-M1TAB66 PO (10:45)
[2022-09-06] MEDS ORDERED: CHOL20003 PO (10:45)
[2022-09-06] MEDS ORDERED: ONDA4TAB11 SL (10:45)
[2022-09-06] MEDS ORDERED: ESTR0.5T PO (10:45)
[2022-09-06] MEDS ORDERED: FLUO60TA PO (10:45)
[2022-09-06] MEDS ORDERED: VIT1CAPS44 PO (10:45)
[2022-09-06] MEDS ORDERED: BUPR300T98 PO (10:45)
[2022-09-06] MEDS ORDERED: LORA-405 PO (10:45)
[2022-09-06] MEDS ORDERED: ASPI1TAB23 PO (10:45)
[2022-09-06] MEDS ORDERED: FENT1PAT11 TD (10:45)
[2022-09-06] MEDS ORDERED: SERT-414 PO (10:45)
[2022-09-06] MEDS ORDERED: CLOR7.5T3 PO (10:45)
[2022-09-06] MEDS ORDERED: TOPI-241 PO (10:45)
== END 2022-09-06 09:40 ==
LOC: EDUNIT# 16:59 → ER FS 17:01 → 4TH 20:40
PROVIDERS: ADMIT Internal Medicine; ATTEND Internal Medicine
DX: G93.40 Encephalopathy, unspecified (principal); E87.6 Hypokalemia; M79.7 Fibromyalgia; E78.00 Pure hypercholesterolemia, unspecified; Z79.899 Other long term (current) drug therapy
CPT/HCPCS: 36415; 51702; 70450; 71045; 80053 ×3; 80306; 81000; 83605; 83735; 85025 ×3; 87040; 87088; 87636; 97162; 97530; 99284; G0378; 96372; 96375; 96376

== ENCOUNTER 2022-09-06 09:44 | Inpatient (IN) | payer MEDICARE, OTHER ==
[~2022-09-06] VITALS: Ht 165.1 cm; Wt 50.5 kg
[~2022-09-06 09:44] MED LIST changes: +ESTR10TA9 PO; +LINA72CA PO; +OMEP40CA6 PO; +POTA-330 PO; -POTA-51 PO
--- OUTSIDE RECORDS SUMMARY | 2022-09-06 10:40 | XMS REPORT | Clinical Summary ---
Author Author [facility] Organization [facility] Address Unknown Phone Unavailable Care Team Providers Care Stucco Laborer Name Role Phone Josie Gray DO Unavailable Unavailable Abhi Oquendo MBBS Unavailable Estela Vaz APRN PCP Source Comments Some departments are not documenting in the electronic medical record. If you d o not see the information that you expected, contact Release of Information in [facility] [employer] Information Management department at [phone] for further assistan ce in locating additional records.[facility] Allergies Comments Active Allergy Reactions Criticality Noted Date Prochlorperazine ITCHING Low 06/06/2022 Medications End Date Status Medication Sig Dispensed Refills Start Date Active atorvastatin (LIPITOR) 20 Take one 0 05/12 mg tablet tablet by 3 mouth at bedtime daily. Active buPROPion XL (WELLBUTRIN Take one 0 05/20 XL) 300 mg tablet tablet by 3 mouth daily. Active clorazepate dipotassium Take three 0 (TRANXENE) 7.5 mg tablet tablets by 3 mouth at bedtime daily. Active estradioL (ESTRACE) 0.5 Take one 0 mg tablet tablet by 3 mouth daily. Active fentaNYL (DURAGESIC) 100 APPLY 1 PATCH 0 05/07 mcg/hr patch TOPICALLY TO 3 THE SKIN EVERY OTHER DAY Active FLUoxetine (PROZAC) 40 mg Take one 0 / capsule capsule by 3 mouth daily. Active HYDROcodone/acetaminophen TAKE 1 TABLET 0 /2 (NORCO) 10/325 mg tablet BY MOUTH UP 3 TO FOUR TIMES DAILY NEEDED Active ibuprofen (MOTRIN) 600 mg TAKE 1 TABLET 0 05/12 tablet BY MOUTH 3 EVERY 8 HOURS WITH FOOD OR MILK NEEDED Active LORazepam (ATIVAN) 1 mg TAKE 1/2 TO 1 0 tablet TABLET BY 3 MOUTH EVERY 6 HOURS NEEDED FOR ANXIETY Active imipramine hcl (TOFRANIL) TAKE 1 TO 3 0 02/0 25 mg tablet TABLETS BY 3 MOUTH AT BEDTIME Active omeprazole DR (PRILOSEC) Take one 0 05/26 40 mg capsule capsule by 3 mouth daily. Active ondansetron (ZOFRAN ODT) DISSOLVE 1 0 04/22 4 mg rapid dissolve TABLET ON THE 3 tablet TONGUE EVERY 8 HOURS FOR 10 DAYS NEEDED Active topiramate (TOPAMAX) 50 Take two 0 mg tablet tablets by 3 mouth twice daily. 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 Sex Assigned at Female 06/06/2022 8:15 AM HAND METHOD LASTING MACHINE OPERATOR Gender Identity Female Sexual Orientation Not on file Obstetrics History Last Filed Vital Signs Reading Time Taken Comments Vital Sign 115/56 06/06/2022 1:12 PM HAND METHOD LASTING MACHINE OPERATOR Blood Pressure 100 06/06/2022 1:12 PM HAND METHOD LASTING MACHINE OPERATOR Pulse 36.9 C (98.4 F) 06/06/2022 1:12 PM HAND METHOD LASTING MACHINE OPERATOR Temperature - - Respiratory Rate 99% 06/06/2022 1:12 PM HAND METHOD LASTING MACHINE OPERATOR Oxygen Saturation - - Inhaled Oxygen Concentration 49.9 kg (110 lb) 06/06/2022 1:12 PM HAND METHOD LASTING MACHINE OPERATOR per pt Weight 165.1 cm (5' 5") 06/06/2022 1:12 PM HAND METHOD LASTING MACHINE OPERATOR per pt Height 18.3 06/06/2022 1:12 PM HAND METHOD LASTING MACHINE OPERATOR Body Mass Index Plan of Treatment Health Maintenance Due Date Last Done Comments MEDICARE ANNUAL WELLNESS 1960 VISIT COVID-19 VACCINE (#1) 03/29/1960 HIV SCREENING 09/27/1974 DTAP/TDAP VACCINES (1 - 09/27/1977 Tdap) HEPATITIS C SCREENING 09/27/1977 PHYSICAL (COMPREHENSIVE) 09/27/1977 EXAM CERVICAL CANCER SCREENING 09/27/1980 BREAST CANCER SCREENING 1999 COLORECTAL CANCER 09/27/2004 SCREENING SHINGLES RECOMBINANT 09/27/2009 VACCINE (1 of 2) DEPRESSION SCREENING 04/10/2022 INFLUENZA VACCINE (Season 01/08/2023 Ended) PNEUMOCOCCAL VACCINE 0-64 Aged Out No longer el igible based on patient's age to YRS complete this topic Results Not on filefrom Last 3 Months Insurance Type Payer Benefit Subscriber ID Effective Phone Address Plan / Dates Group Medicare MEDICARE MEDICARE [id number] 2016- [phone] AND Present [address] [place] [address] Medicare CIGNA CIGNA [id number] 2016-P [phone] [address] MEDICARE resent [address] [place] [id number] Care Teams Start Date End Date Stucco Laborer Relationship Specialty 06/06/22 Estela Vaz, EMERGENCY ROOM CLINICIAN PCP - General Nurse Practitioner [address] [place] [id number] 08/29/11 Josie Gray, Family Medicine Forwarding Address Unknown Retired 05/10/14 01/02/13 Abhi Oquendo MBBS Psychiatry [address] [place] [address]
[2022-09-06] MEDS ORDERED: MV-M1TAB66 PO (10:45)
[2022-09-06] MEDS ORDERED: BUPR300T98 PO (10:45)
[2022-09-06] MEDS ORDERED: ESTR0.5T PO (10:45)
[2022-09-06] MEDS ORDERED: LORA-405 PO (10:45)
[2022-09-06] MEDS ORDERED: FLUO60TA PO (10:45)
[2022-09-06] MEDS ORDERED: CHOL20003 PO (10:45)
[2022-09-06] MEDS ORDERED: FENT1PAT11 TD (10:45)
[2022-09-06] MEDS ORDERED: TOPI-241 PO (10:45)
[2022-09-06] MEDS ORDERED: SERT-414 PO (10:45)
[2022-09-06] MEDS ORDERED: ASPI1TAB23 PO (10:45)
[2022-09-06] MEDS ORDERED: VIT1CAPS44 PO (10:45)
[2022-09-06] MEDS ORDERED: CLOR7.5T3 PO (10:45)
[2022-09-06] MEDS ORDERED: ONDA4TAB11 SL (10:45)
[2022-09-06] MEDS ORDERED: HYDR-3820 PO (10:45)
--- NOTE | 2022-09-06 10:50 | PM&R Post Admission Assessment ---
PM&R Date of Visit: September 06, 2022 Time of Visit: 11:00 History of Present Illness Chief complaint: Debility from fibromyalgia with encephalopathy HPI: This is a 61-year-old female with chronic debility from fibromyalgia requiring increase use of assistive devices to ambulate including a recent four-wheel walker who presents from fourth floor after she was admitted for altered mental status confusion and severe hypokalemia. Her potassium is much improved after aggressive supplementation. Meds have been restarted. Torres catheter will be discontinued along with discontinuation of IV fluids and telemetry. Prior level of functioning was withheld for some ADLs from family graduated to using a four-wheel walker. Past Kpjuxbs-Hgvfsr-Deriux Hx Past Med/Social Hx: Reviewed Nursing Past Med/Soc Hx, Reviewed and Corrections made Patient Social History Marrital Status: Employed/Student: unemployed Alcohol Use: Denies Use Smoking Status: Never a Smoker 2nd Hand Smoke Exposure: No Recent Hopitalizations: No Past Medical History Surgeries: Adenoidectomy, Breast, Hysterectomy, Tonsillectomy Cardiac: High Cholesterol Gastrointestinal: Hiatal Hernia, Irritable Bowel Musculoskeletal: Fibromyalgia Psychosocial: Depression History of Blood Disorders: No PM&R Allergy/Meds/Data Review Allergies Coded Allergies: prochlorperazine (Verified Allergy, Mild, TREMORS, 04/18/18) Home Medications Scheduled Bisacodyl (Dulcolax), 10-15 MG PO BID, (Reported) Bupropion HCl (Bupropion Xl), 300 MG PO DAILY, (Reported) Cholecalciferol (Vitamin D3) (Vitamin D3), 50 MCG PO DAILY, (Reported) Clorazepate Dipotassium (Clorazepate Dipotassium), 15 MG PO HS, (Reported) Estradiol (Estradiol Tablet), 0.5 MG PO DAILY, (Reported) Fentanyl (Fentanyl Patch 100 MCG), 100 MCG TD Q48H, (Reported) Fluoxetine HCl (Fluoxetine HCl), 60 MG PO DAILY, (Reported) Imipramine HCl (Imipramine HCl), 25 MG PO BID, (Reported) Linaclotide (Linzess), 72 MCG PO DAILY, (Reported) Mv-Mn/Iron/FA/Herbal/Digestive ( One Tablet), 1 EACH PO DAILY, (Reported) Omeprazole (Omeprazole), 40 MG PO DAILY, (Reported) Sertraline HCl (Sertraline HCl), 100 MG PO DAILY, (Reported) Topiramate (Topiramate), 100 MG PO BID, (Reported) Vit C/E/Zn/Coppr/Lutein/Zeaxan (Preservision Areds 2 Softgel), 2 EACH PO DAILY, (Reported) Scheduled PRN Aspirin/Acetaminophen/Caffeine (Excedrin Migraine Caplet), 2 EACH PO Q6-8HR PRN for Headache, (Reported) Clorazepate Dipotassium (Clorazepate Dipotassium), 7.5 MG PO HS PRN for SLEEP, (Reported) Famotidine (Pepcid), 20 MG PO BID PRN for NAUSEA/VOMITING, (Reported) Hydrocodone/Acetaminophen (Hydrocodone-Acetamin 10-325 mg), 1 EA PO QID PRN for PAIN-MODERATE (5-7), (Reported) Lorazepam (Ativan), 0.5-1 MG PO Q6H PRN for ANXIETY, (Reported) Ondansetron (Ondansetron Odt), 4 MG SL Q8H PRN for NAUSEA/VOMITING-1ST LINE, (Reported) Discontinued Medications Atorvastatin Calcium (Atorvastatin Calcium), 80 MG PO DAILY, (Reported) Discontinued Reason: No Longer Taking Bupropion HCl (Wellbutrin Xl), 300 MG PO DAILY, (Reported) Discontinued Reason: No Longer Taking Calcium Carbonate/Vitamin D3 (Calcium 250+D Tablet), 1 EACH PO HS, (Reported) Discontinued Reason: No Longer Taking Carisoprodol (Soma), 350 MG PO TID, (Reported) Discontinued Reason: No Longer Taking Estradiol (Estradiol), 0.5 MG PO DAILY, (Reported) Discontinued Reason: No Longer Taking Ezetimibe (Ezetimibe), 10 MG PO DAILY, (Reported) Discontinued Reason: No Longer Taking Fentanyl (Duragesic Patch 100MCG), 100 MCG TD Q48H, (Reported) Discontinued Reason: No Longer Taking Fludrocortisone Acetate (Fludrocortisone Acetate), 0.2 MG PO DAILY, (Reported) Discontinued Reason: No Longer Taking Gabapentin (Gabapentin), 100 MG PO Q8H Discontinued Reason: No Longer Taking Hydrocodone/Acetaminophen ([place] 10-325 Tablet), 1 TAB PO Q6H PRN for PAIN- MODERATE, (Reported) Discontinued Reason: No Longer Taking Hyoscyamine Sulfate (Hyoscyamine Sulfate), 0.125 MG PO HS, (Reported) Discontinued Reason: No Longer Taking Lorazepam (Lorazepam), 0.5-1 MG PO Q6H PRN for ANXIETY, (Reported) Discontinued Reason: No Longer Taking Magnesium Oxide (Magnesium), 400 MG PO DAILY, (Reported) Discontinued Reason: No Longer Taking Metoclopramide HCl (Metoclopramide HCl), 5 MG PO QIDACHS, (Reported) Discontinued Reason: No Longer Taking Metoprolol Succinate (Metoprolol Succinate), 50 MG PO DAILY Discontinued Reason: No Longer Taking Multivits,Ca,Minerals/Iron/FA (Women's Daily Caplet), 1 EACH PO DAILY, (Reported) Discontinued Reason: No Longer Taking Naloxegol Oxalate (Movantik), 12.5 MG PO DAILY, (Reported) Discontinued Reason: No Longer Taking Ondansetron (Ondansetron Odt), 8 MG PO Q8H PRN for NAUSEA/VOMITING-1ST LINE, (Reported) Discontinued Reason: No Longer Taking Ondansetron (Ondansetron Odt), 4 MG PO Q6H Discontinued Reason: No Longer Taking Ondansetron HCl (Zofran), 4 MG PO Q8H PRN for NAUSEA/VOMITING-1ST LINE, (Reported) Discontinued Reason: Duplicate Order Oxymetazoline HCl (Afrin), 1 SPRAYS NS BID PRN for CONGESTION, (Reported) Discontinued Reason: No Longer Taking Potassium Chloride (Potassium Chloride), 20 MEQ PO BID, (Reported) Discontinued Reason: No Longer Taking Sennosides/Docusate Sodium (Stool Softener-Laxative Tablet), 1-2 EACH PO BID, (Reported) Discontinued Reason: No Longer Taking Sertraline HCl (Zoloft), 100 MG PO DAILY, (Reported) Discontinued Reason: No Longer Taking Tizanidine HCl (Tizanidine HCl), 2-4 MG PO BID, (Reported) Discontinued Reason: No Longer Taking Topiramate (Topamax), 100 MG PO BID, (Reported) Discontinued Reason: No Longer Taking Current Medications Current Medications Reviewed Review of Systems Constitutional: see HPI, malaise, weakness EENTM: no symptoms reported Respiratory: no symptoms reported Cardiovascular: no symptoms reported Gastrointestinal: constipation Genitourinary: no symptoms reported Musculoskeletal: back pain, joint pain, muscle pain, muscle stiffness, muscle cramps Skin: no symptoms reported Psychiatric/Neurological: Anxiety, Depressed, Weakness All Other Systems Reviewed Negative Unless Noted: Yes Physical Exam Physical Exam Vital Signs Capillary Refill : Height, Weight, BMI Height: 5'5.00" Weight: 109lbs. 0.0oz. [id number]; 17.27 BMI Method: General Appearance: No Apparent Distress, WD/WN, Chronically ill, Thin Eyes: Bilateral Eye Normal Inspection, Bilateral Eye PERRL HEENT: PERRL/EOMI, Normal ENT Inspection, Pharynx Normal Neck: Full Range of Motion, Normal Inspection, Non Tender, Supple, Carotid Bruit Respiratory: Chest Non Tender, Lungs Clear, Normal Breath Sounds, No Accessory Muscle Use, No Respiratory Distress Cardiovascular: Regular Rate, Rhythm, No Edema, No Gallop, No JVD, No Murmur, Normal Peripheral Pulses Gastrointestinal: Normal Bowel Sounds, No Organomegaly, No Pulsatile Mass, Non Tender, Soft Back: Normal Inspection, No CVA Tenderness, No Vertebral Tenderness Extremity: Normal Capillary Refill, Normal Inspection, Normal Range of Motion, Non Tender, No Calf Tenderness, No Pedal Edema Neurologic/Psychiatric: Alert, Oriented x3, director of market analysis II-XII Norm as Tested, Abnormal Gait, Depressed Affect, Motor Weakness (Generalized) Skin: Normal Color, Warm/Dry Lymphatic: No Adenopathy PM&R Medical Assessment & Plan REHAB/MEDICAL ASSESSMENT AND PLAN: REHAB IMPAIRMENT GROUP: Debility from encephalopathy and severe fibromyalgia ETIOLOGIC DIAGNOSIS: Debility from encephalopathy and severe fibromyalgia The comorbidities that impact the patients function and/or functional outcome by: Severe fibromyalgia subsequent debility and encephalopathy at the and recent hypokalemia REHAB PLAN: The patient is being admitted to our comprehensive inpatient rehabilitation [facility] and can tolerate the intensity of service consisting of at least: 180 minutes of therapy a day, 5 out of 7 days a week Rehab treatment will consist of: PT and OT will focus on regaining function with ADLs with use of assistive devices in order to recover stamina with ambulation and ADLs to return back home The patient/family has a good understanding of our discharge process and will benefit from an interdisciplinary inpatient rehabilitation program. The patient has potential to make improvement and is in need of at least two of the following multidisciplinary therapies including but not limited to physical, occupational, speech, and prosthetics and orthotics. Additionally the patient will need services from respiratory, nutritional services, wound care, psychology, etc. (Customize this to each patient). Given the patients complex condition and risk of further medical complications, rehabilitation services cannot be safely or effectively provided at a lower level of care such as a jail facility. BARRIERS TO DISCHARGE: Severe debility with confusion ESTIMATED LOS: 7 days DISPOSITION: Home with family RELEVANT CHANGES SINCE PREADMISSION SCREENING: I have compared the patients medical and functional status at the time of the preadmission screening and there are: no changes PROGNOSIS: Fair REHABILITATION GOALS: 1. PT and OT will focus on regaining function with ADLs with use of assistive devices in order to recover stamina with ambulation and ADLs to return back home All the above goals were reviewed with the patient and he/she is in agreement. By signing this document, I acknowledge that I have personally performed a full physical examination on this patient within 24 hours of admission to this inpatient rehabilitation facility and have determined the patient to be able to tolerate the above course of treatment at an intensive level for a reasonable period of time. I will be completing a detailed individualized Plan of Care for this patient by day #4 of the patients stay based upon the Preadmission Screen, the Post-Admission Evaluation, and the therapy evaluations. Admission Dx/Comorbidities: (1) Fibromyalgia Status: Acute ICD Codes: M79.7 - Fibromyalgia (2) Hypokalemia ICD Codes: E87.6 - Hypokalemia (3) Encephalopathy ICD Codes: G93.40 - Encephalopathy, unspecified Assessment/Plan Assessment and Plan Assess & Plan/Chief Complaint Assessment: Encephalopathy Severe hypokalemia Severe fibromyalgia with severe debility Depression Hypercholesterolemia Plan: Meds Aggressive PT and OT Monitor confusion Replace potassium CA GOETZ DO September 06, 2022 10:50
[2022-09-06 10:52] VITALS: BP 101/61
[2022-09-06] MEDS ORDERED: diphenhydrAMINE 25 MG TAB (BENADRYL) PO PRN (11:00)
[2022-09-06] MEDS ORDERED: guaiFENesin/CODEINE (ROBITUSSIN AC) 10ML UDC PO PRN (11:00)
[2022-09-06] MEDS ORDERED: DOCUSATE SODIUM 100 MG (COLACE) CAP PO PRN (11:00)
[2022-09-06] MEDS ORDERED: MELATONIN 3 MG TABLET PO PRN (11:00)
[2022-09-06] MEDS ORDERED: ACETAMINOPHEN 325 MG TABLET PO PRN (11:00)
[2022-09-06] MEDS ORDERED: LORazepam 1 MG (ATIVAN) TAB PO PRN (11:00)
[2022-09-06] MEDS ORDERED: FAMOTIDINE 20 MG (PEPCID) TABLET PO PRN (11:00)
[2022-09-06] MEDS ORDERED: NON-FORMULARY MEDICATION 1 EA EA (Aspirin/Acetaminophen/Caffeine (Excedrin Migraine Caplet PO PRN (11:00)
[2022-09-06] MEDS ORDERED: BISACODYL 10 MG SUPP (DULCOLAX) PR PRN (11:00)
[2022-09-06] MEDS ORDERED: LOPERAMIDE 2 MG (IMODIUM) TABLET PO PRN (11:00)
[2022-09-06] MEDS ORDERED: ONDANSETRON 4 MG (ZOFRAN) ORAL DISSOLVE TAB SL PRN (11:00)
[2022-09-06] MEDS ORDERED: CALCIUM CARBONATE 500 MG (TUMS) TAB.CHEW PO PRN (11:00)
[2022-09-06] MEDS ORDERED: CLORAZEPATE 7.5 MG (TRANXENE) TAB PO PRN (11:00)
[2022-09-06] MEDS ORDERED: ALPRAZolam 0.25 MG (XANAX) TAB PO PRN (11:00)
[2022-09-06] MEDS ORDERED: fentaNYL PATCH 100 MCG (DURAGESIC) TD SCH (11:00)
[2022-09-06] MEDS ORDERED: LACTULOSE SYRUP 10GM/15ML (ENULOSE) 30ML UDC PO PRN (11:00)
[2022-09-06] MEDS ORDERED: FLEET ENEMA ADULT 1 EA BTL PR PRN (11:00)
--- NOTE | 2022-09-06 12:47 | Occupational Therapy Eval ---
OT Evaluation-General/PLF Medical Diagnosis Admission Date September 06, 2022 at 10:03 Medical Diagnosis: encephalopathy Onset Date: September 04, 2022 Therapy Diagnosis Therapy Diagnosis: decreased ADL status, weakness Height/Weight Height (Feet): 5 Height (Inches): 5.00 Weight (Pounds): 109 Weight (Ounces): 0.0 Precautions Precautions/Isolations: Fall Prevention, Standard Precautions Referral Physician: Jacky Referral Reason: Evaluation/Treatment Medical History Additional Medical History severe and debilitating fibromyalgia, depression Current History Admitted to acute floor 09/04/22 with confusion. Transfer to ARU 09/06/22 Social History Home: [facility] Current Living Status: Spouse Entry Into Home: Stairs With Railing Steps Into Home: 5 Steps Inside Home: 15 ADL-Prior Level of Function SCALE: Activities may be completed with or without assistive devices. 4-Zsxcdudpyj-ukqrgbc completes the activity by him/herself with no assistance from a helper. 5-Set-up or Clean-up Assistance-helper sets up or cleans up; patient completes activity. [place] assists only prior to or following the activity. 4-Supervision or Touching Assistance-helper provides verbal cues and/or touching/steadying and/or contact guard assistance as patient completes activity. Assistance may be provided throughout the activity or intermittently. 3-Partial/Moderate Assistance-helper does LESS THAN HALF the effort. [place] lifts, holds or supports trunk or limbs, but provides less than half the effort. 2-Substantial/Maximal Assistance-helper does MORE THAN HALF the effort. [place] lifts or holds trunk or limbs and provides more than half the effort. 9-Arutqxiup-jkixdd does ALL the effort. Patient does none of the effort to complete the activity. Or, the assistance of 2 or more helpers is required for the patient to complete the activity. If activity was not attempted, code reason: 7-Patient Refused. 9-Not Applicable-not attempted and the patient did not perform the activity before the current illness, exacerbation or injury. 10-Not Attempted due to Environmental Limitations-(lack of equipment, weather restraints, etc.). 88-Not Attempted due to Medical Conditions or Safety Concerns. ADL PLOF Comments Pt reports having assistance with most ADLS. She is physically able to complete ADLs, but has supervision-SBA with tasks due to history of falls. She is able to toilet herself independently, but has someone ( or daughter) present with dressing and showering tasks. She has a walk in shower, SC, and GBs. She just obtained a new 4WW, but hasn't taken it out of the box yet. Self Care: Needed Some Help Functional Cognition: Independent DME/Equipment: Bath Chair, Grab Bars, Shower DME/Equipment Comments 4WW OT Current Status Subjective Pt in recliner, and daughter present. Pt agreeable to OT evaluation and tx. During conversation with pt, she indicates she doesn't feel comfortable with showering by herself due to hx of falls. Her daughter or is present for her showers at [facility]. She plans on having someone with her while she showers after discharging from ARU. Mental Status/Objective Patient Orientation: Person, Place, Time, Situation Current Glasses/Contacts: Yes (reading) Hearing Aids: No Dentures/Partials: No Hand Dominance: Right Upper Extremity ROM WFL, BUE shoulder flexion to approx 150 degrees Upper Extremity Coordination WFL Upper Extremity Sensation pt reports occasional sensation changes based on positioning, no changes in sensation reported at time of evaluation. Upper Extremity Strength grossly 3/5 ADL-Treatment Eating (QC): 6 (Per pt and family report.) Oral Hygiene (QC): 4 (CGA standing at sink) Shower/Bathe Self (QC): 4 (CGA in stand while washing/drying buttocks. Pt able to wash/dry all parts.) Upper Body Dressing (QC): 4 (SBA) Lower Body Dressing (QC): 4 (CGA) On/Off Footwear (QC): 4 (SBA) Toileting Hygiene (QC): 4 (CGA in stand.) Other Treatments Pt in recliner, pt and family provided information about PLOF and home set up. Pt participated in UE screen. Pt stood from recliner, VCs for hand placement for safety with sit to stand transfer, then she used FWW to transfer into bathroom, min A during mobility. Pt sat on SC, doffed clothes, completed shower, then donned clothes. Pt stood at sink for grooming tasks, ~4 mins total with CGA. Min A using walker to transfer back to recliner. Post tx, pt in recliner, call light in reach and all needs met. Family present. Education OT Patient Education: Correct positioning, Energy conservation, Modified ADL t echniques, Progress toward Goal/Update tx plan, Purpose of tx/functional activities, Rehab process Teaching Recipient: Patient Teaching Methods: Discussion Response to Teaching: Verbalize Understanding BIMS CAM BIMS Expression of Ideas and Wants: Without Difficulty Understanding Verbal Content: Understands Brief Interview/Mental Status: Yes IRF [place] BIMS: IRF [place] BIMS Response (Comments) Value Repitition of Three Words Three 3 Recalls Socks Yes, After Cueing (Wear) 1 Recalls Blue Yes, No Cue Required 2 Recalls Bed No, Could Not Recall 0 Year Correct 3 Month Accurate Within 5 Days 2 Day Correct 1 Total [address] No CAM Mental Status Change/Baseline: 1 Inattention: 0 Disorganized thinkin Altered level of consciousness: 0 OT Ammunition Components Inspector Goals Senior Care Goals Time Frame: Sep 23, 2022 Eating (QC): 6 Oral Hygiene (QC): 6 Toileting Hygiene (QC): 6 Shower/Bathe Self (QC): 4 (Supervision) Upper Body Dressing (QC): 5 Lower Body Dressing (QC): 5 On/Off Footwear (QC): 5 Additional Goals: 1-Demonstrate ADL Tasks, 2-Verbalize Understanding, 3- ImproveStrength/[place] 1=Demonstrate adherence to instructed precautions during ADL tasks. 2=Patient will verbalize/demonstrate understanding of assistive devices/modifications for ADL. 3=Patient will improve strength/tolerance for activity to enable patient to perform ADL's. OT Education/Plan Problem List/Assessment Assessment: Decreased Activ Tolerance, Decreased UE Strength, Impaired Funct Balance, Impaired I ADL's, Impaired Self-Care Skills Discharge Recommendations Plan/Recommendations: Continue POC Treatment Plan/Plan of Care Patient would benefit from OT for education, treatment and training to promote independence in ADL's, mobility, safety and/or upper extremity function for ADL's. Plan of Care: ADL Retraining, Functional Mobility, Group Exercise/Act as Ind, UE Funct Exercise/Act Treatment Duration: Sep 23, 2022 Frequency: At least 5 of 7 days/Wk (IRF) Estimated Hrs Per Day: 1.5 hours per day Agreement: Yes Rehab Potential: Good Time Start Time: 10:30 Stop Time: 12:00 DATE: September 06, 2022 Total Time Billed (hr/min): 90 Billed Treatment Time 1, EVM (22'), ADL 5 (68') MANI CURRIE OT September 06, 2022 12:47
--- NOTE | 2022-09-06 13:09 | Physical Therapy Evaluation ---
PT Evaluation-General Medical Diagnosis Admission Date September 06, 2022 at 10:03 Medical Diagnosis: Encephalopathy Onset Date: September 04, 2022 Therapy Diagnosis Therapy Diagnosis: Weakness, decreased functional mobility Height/Weight Height (Feet): 5 Height (Inches): 5.00 Weight (Pounds): 109 Weight (Ounces): 0.0 Precautions Precautions/Isolations: Fall Prevention, Standard Precautions Weight Bear Status Right Lower Extremity: Right Full Weight Bearing Left Lower Extremity: Left Full Weight Bearing Referral Physician: Jacky Reason for Referral: Evaluation/Treatment Medical History Additional Medical History severe and debilitating fibromyalgia, depression Current History Admitted to acute floor 09/04/22 with confusion. Transfer to ARU 09/06/22 Social History Home: Multilevel Current Living Status: Spouse Entry Into Home: Stairs With Railing PT Steps Into Home: 5 PT Steps Inside Home: 15 (Pt does not have to use) Pt lives at home with her in a multilevel home with 5 steps to enter/exit with B HR. Pts room and bathroom are on the 1st floor; no need to go upstairs. Walk-in shower with SC and GBs. Standard toilet, but are putting in tall toilet. Prior Prior Level of Function SCALE: Activities may be completed with or without assistive devices. 0-Mkndmrkaop-ikcrmyg completes the activity by him/herself with no assistance from a helper. 5-Set-up or Clean-up Assistance-helper sets up or cleans up; patient completes activity. [place] assists only prior to or following the activity. 4-Supervision or Touching Assistance-helper provides verbal cues and/or touchi ng/steadying and/or contact guard assistance as patient completes activity. Assistance may be provided throughout the activity or intermittently. 3-Partial/Moderate Assistance-helper does LESS THAN HALF the effort. [place] lifts, holds or supports trunk or limbs, but provides less than half the effort. 2-Substantial/Maximal Assistance-helper does MORE THAN HALF the effort. [place] lifts or holds trunk or limbs and provides more than half the effort. 6-Lyjhugzgb-eoopxo does ALL the effort. Patient does none of the effort to complete the activity. Or, the assistance of 2 or more helpers is required for the patient to complete the activity. If activity was not attempted, code reason: 7-Patient Refused. 9-Not Applicable-not attempted and the patient did not perform the activity before the current illness, exacerbation or injury. 10-Not Attempted due to Environmental Limitations-(lack of equipment, weather restraints, etc.). 88-Not Attempted due to Medical Conditions or Safety Concerns. Bed Mobility: 6 Transfers (B,C,W/C): 6 Gait: 4 Stairs: 4 Wheelchair Mobility: 88 Indoor Mobility (Ambulation): Independent Stairs: Independent At [facility], pt was SBA for walking and stairs with no AD. Pt does report recently purchasing a 4WW, but has not used it yet. Pt reports being unsteady on her feet and falling, therefore requiring SBA for improved safety at [facility]. PT Evaluation-Current Subjective Pt reports she is doing well today and is agreeable to PT eval. Pt reported LBP at 6/10 Pain Numeric Pain Scale: 6 Location: Lower Location Body Site: Back Section J - Health Conditions 1. Rarely or not at all 2. Occasionally 3. Frequently 4. Almost constantly 8. Unable to answer Pain Effect on Sleep: 4 Pain Interference with Therapy: 4 Pain Interference w/Day-to-Day: 4 Pt/Family Goals Safely return home with spouse Objective Patient Orientation: Person, Place, Time, Situation ROM/Strength ROM Upper Extremities WFL ROM Lower Extremities WFL Strength Upper Extremities WFL Strength Lower Extremities B LE MMT - 3+/5 grossly Integumentary/Posture Bowel Incontinence: No Bladder Incontinence: No Sensory Vision: Wears Glasses Hearing: Functional Hand Dominance: Right Sensation Right Upper Extremit: Intact Sensation Left Upper Extremity: Intact Sensation Right Lower Extremit: Intact Sensation Left Lower Extremity: Intact Transfers Roll Left & Right (QC): 4 (SBA) Sit to Lying (QC): 4 (SBA) Lying to Sitting/Side of Bed(Q: 4 (SBA) Sit to Stand (QC): 4 (CGA ) Chair/Wry-gw-Xmtpd Xfer(QC): 4 (CGA) Toilet Transfer (QC): 4 (CGA ) Car Transfer (QC): 3 (Min A) Gait Does the Patient Walk?: Yes Mode of Locomotion: Walk Anticipated Mode of Locomotion: Walk Walk 10 feet (QC): 3 (Min A for balance ) Walk 50 ft with 2 Turns(QC): 3 (Min A for balance ) Walk 150 ft (QC): 3 (Min A for balance ) Walking 10ft/uneven surface-QC: 3 (Min A for balance ) Distance: 150ft Gait Assistive Device: FWW Wheelchair Training Does the Pt Use a Wheelchair?: No Wheel 50 ft with 2 turns (QC): 9 Wheel 150 ft (QC): 9 Type of Wheelchair: N/A Stairs #of Steps: 12 1 Step (curb) (QC): 3 (Min A for balance ) 4 Steps (QC): 3 (Min A for balance ) 12 Steps (QC): 3 (Min A for balance ) Walking Assistive Device: Walker Balance Sitting Static: Good Sitting Dynamic: Good Standing Static: Fair Standing Dynamic: Fair Picking up an Object (QC): 4 (CGA ) Special Test Comments [facility] standing balance scale: 2+/5; goal: 4/5 Assessment/Needs Pt tolerated PT eval well and would benefit from skilled PT to improve strength, functional mobility, and balance, and safely return home with spouse. Rehab Potential: Good Post Rehab Potential-Barriers: balance/safety PT Court Bailiff Or Sheriff Goals Senior Living Goals PT Court Bailiff Or Sheriff Goals Time Frame: Sep 16, 2022 Roll Left to Right (QC): 6 (Pt will be Mod I with bed mobility ) Sit to Lying (QC): 6 (Pt will be Mod I with bed mobility ) Lying-Sitting on Side/Bed(QC): 6 (Pt will be Mod I with bed mobility ) Sit to Stand (QC): 6 (Pt will be Mod I with functional transfers ) Chair/Ury-ik-Kolsw Xfer(QC): 6 (Pt will be Mod I with functional transfers ) Toilet/Commode Transfer (QC): 6 (Pt will be Mod I with functional transfers ) Car Transfer (QC): 6 (Pt will be Mod I with functional transfers ) Walk 10 feet (QC): 4 (Pt will be SBA for walking with the FWW/4WW, as well as stairs, to be at PLOF. ) Walk 10ft-Uneven Surface(QC): 4 (Pt will be SBA for walking with the FWW/4WW, as well as stairs, to be at PLOF. ) Walk 50ft with 2 Turns (QC): 4 (Pt will be SBA for walking with the FWW/4WW, as well as stairs, to be at PLOF. ) Walk 150 ft (QC): 4 (Pt will be SBA for walking with the FWW/4WW, as well as stairs, to be at PLOF. ) Does the Pt use WC or Scooter?: No Wheel 50 feet with 2 turns (QC: 9 Type: N/A Wheel 150 feet: 9 Type: N/A 1 Step (curb) (QC): 4 (Pt will be SBA for walking with the FWW/4WW, as well as stairs, to be at PLOF. ) 4 Steps (QC): 4 (Pt will be SBA for walking with the FWW/4WW, as well as stairs, to be at PLOF. ) 12 Steps (QC): 4 (Pt will be SBA for walking with the FWW/4WW, as well as stairs, to be at PLOF. ) Picking up an Object (QC): 6 (Pt will be Mod I with the vision therapist to fruit or nut picker objects. ) PT Plan Problem List Problem List: Activity Tolerance, Functional Strength, Safety, Balance, Gait, Transfer, Bed Mobility Treatment/Plan Treatment Plan: Continue Plan of Care Treatment Plan: Bed Mobility, Concurrent Therapy, Education, Functional Activity Marcelino, Functional Strength, Group Therapy, Gait, Safety, Therapeutic Exercise, Transfers Treatment Duration: Sep 16, 2022 Frequency: At least 5 of 7 days/Wk (IRF) Estimated Hrs Per Day: 1.5 hours per day Patient and/or Family Agrees t: Yes Safety Risks/Education Patient Education: Gait Training, Transfer Techniques, Steps, Safety Issues Teaching Recipient: Patient, Family Teaching Methods: Demonstration, Discussion Response to Teaching: Verbalize Understanding, Return Demonstration, Reinforcement Needed Discharge Recommendations Therapy Discharge Recommendati: Home & Family Equpiment Recommendations-D/C: None Discharge Status/Home Program Cont POC Barriers to Progress balance/safety Target Placement home with spouse Time Time In: 1300 Time Out: 1330 DATE: September 06, 2022 Total Billed Treatment Time: 30 Total Billed Treatment 30 min DIANA HENRY PT September 06, 2022 13:09
--- NOTE | 2022-09-06 15:38 | Physical Therapy Daily Note ---
PT Daily Note-Current Subjective Pt reports lunch was good and is agreeable to PT tx. Pain Numeric Pain Scale: 6 Location: Lower Location Body Site: Back Section J - Health Conditions 1. Rarely or not at all 2. Occasionally 3. Frequently 4. Almost constantly 8. Unable to answer Pain Effect on Sleep: 4 Pain Interference with Therapy: 4 Pain Interference w/Day-to-Day: 4 Transfers SCALE: Activities may be completed with or without assistive devices. 8-Ewzygnpxtx-ugqshgs completes the activity by him/herself with no assistance from a helper. 5-Set-up or Clean-up Assistance-helper sets up or cleans up; patient completes activity. [place] assists only prior to or following the activity. 4-Supervision or Touching Assistance-helper provides verbal cues and/or touching/steadying and/or contact guard assistance as patient completes activity. Assistance may be provided throughout the activity or intermittently. 3-Partial/Moderate Assistance-helper does LESS THAN HALF the effort. [place] lifts, holds or supports trunk or limbs, but provides less than half the effort. 2-Substantial/Maximal Assistance-helper does MORE THAN HALF the effort. [place] lifts or holds trunk or limbs and provides more than half the effort. 4-Fhzrjtwxq-jteylt does ALL the effort. Patient does none of the effort to complete the activity. Or, the assistance of 2 or more helpers is required for the patient to complete the activity. If activity was not attempted, code reason: 7-Patient Refused. 9-Not Applicable-not attempted and the patient did not perform the activity before the current illness, exacerbation or injury. 10-Not Attempted due to Environmental Limitations-(lack of equipment, weather restraints, etc.). 88-Not Attempted due to Medical Conditions or Safety Concerns. Sit to Stand (QC): 4 (CGA ) Chair/Kkb-xc-Iudxw Xfer(QC): 4 (CGA ) Weight Bearing Right Lower Extremity: Right Full Weight Bearing Left Lower Extremity: Left Full Weight Bearing Gait Training Walk 10 feet (QC): 3 (Min A for safety ) Walk 50 ft with 2 Turns(QC): 3 (Min A for safety ) Walk 150 ft (QC): 3 (Min A for safety ) Gait Persons Needed: 1 Gait Assistive Device: FWW Wheelchair Training Does the Pt Use a Wheelchair?: No Treatments Pt completed functional transfers with CGA. Pt ambulated 150ft and 100ft with the FWW and Min A-CGA for safety. Pt completed 15 min on the nu-step on level 15. Pt completed seated B LE Ther Ex x 15 reps each with the red Tband. Pt left in bed with call light in reach, family present, and all needs met. Assessment Current Status: Good Progress Pt tolerated well PT Auto [employer] Sales Rep Goals Fpc Goals PT Auto Finance Sales Rep Goals Time Frame: Sep 16, 2022 Roll Left & Right (QC): 6 (Pt will be Mod I with bed mobility ) Sit to Lying (QC): 6 (Pt will be Mod I with bed mobility ) Lying-Sitting on Side/Bed(QC): 6 (Pt will be Mod I with bed mobility ) Sit to Stand (QC): 6 (Pt will be Mod I with functional transfers ) Chair/Bfj-ps-Nciur Xfer(QC): 6 (Pt will be Mod I with functional transfers ) Toilet Transfer (QC): 6 (Pt will be Mod I with functional transfers ) Car Transfer (QC): 6 (Pt will be Mod I with functional transfers ) Does the Patient Walk: Yes Walk 10 feet (QC): 4 (Pt will be SBA for walking with the FWW/4WW, as well as stairs, to be at PLOF. ) Walk 50ft with 2 Turns (QC): 4 (Pt will be SBA for walking with the FWW/4WW, as well as stairs, to be at PLOF. ) Walk 150 ft (QC): 4 (Pt will be SBA for walking with the FWW/4WW, as well as stairs, to be at PLOF. ) Walking 10ft on Uneven Surface: 4 (Pt will be SBA for walking with the FWW/4WW, as well as stairs, to be at PLOF. ) 1 Step (curb) (QC): 4 (Pt will be SBA for walking with the FWW/4WW, as well as stairs, to be at PLOF. ) 4 Steps (QC): 4 (Pt will be SBA for walking with the FWW/4WW, as well as stairs, to be at PLOF. ) 12 Steps (QC): 4 (Pt will be SBA for walking with the FWW/4WW, as well as stairs, to be at PLOF. ) Picking up an Object (QC): 6 (Pt will be Mod I with the dough mixer operator to pickling operator objects. ) Does the Pt use WC or Scooter?: No Wheel 50 feet with 2 turns (QC: 9 Type: N/A Wheel 150 feet: 9 Type: N/A PT Plan Problem List Problem List: Activity Tolerance, Functional Strength, Safety, Balance, Gait, Transfer, Bed Mobility Treatment/Plan Treatment Plan: Continue Plan of Care Treatment Plan: Bed Mobility, Concurrent Therapy, Education, Functional Activity Marcelino, Functional Strength, Group Therapy, Gait, Safety, Therapeutic Exercise, Transfers Treatment Duration: Sep 16, 2022 Frequency: At least 5 of 7 days/Wk (IRF) Estimated Hrs Per Day: 1.5 hours per day Patient and/or Family Agrees t: Yes Safety Risks/Education Patient Education: Gait Training, Transfer Techniques Teaching Recipient: Patient Teaching Methods: Demonstration, Discussion Response to Teaching: Verbalize Understanding, Return Demonstration, Reinforcement Needed Discharge Recommendations Therapy Discharge Recommendati: Home & Family Equpiment Recommendations-D/C: None Discharge Status/Home Program Cont per POC Barriers to Progress balance/safety Target Placement home with spouse Time Time In: 1400 Time Out: 1500 DATE: September 06, 2022 Total Billed Treatment Time: 60 Total Billed Treatment 60 min 1 visit GT x 1 EX x 1 FA x 2 DIANA JORDAN PT September 06, 2022 15:38
[2022-09-06 20:04] VITALS: BP 97/56
[2022-09-06] MEDS: CLORAZEPATE 7.5 MG (TRANXENE) TAB PO SCH (21:54)
[2022-09-06] MEDS: SENNA W/DOCUSATE (SENOKOT S) TABLET PO SCH (21:54)
[2022-09-06] MEDS: polyethylene glycoL POWDER 17 GM (MIRALAX) PACK PO SCH (21:54)
[2022-09-06] MEDS: BISACODYL 5 MG (DULCOLAX) TABLET PO SCH (21:55)
[2022-09-06] MEDS: DOCUSATE SODIUM 100 MG (COLACE) CAP PO SCH (21:56)
[2022-09-06] MEDS: IMIPRAMINE 25 MG (TOFRANIL) TAB PO SCH (21:56)
[2022-09-06] MEDS: toPIRamate 100 MG (TOPAMAX) TAB PO SCH (21:56)
[2022-09-07] MEDS: MULTIVIT W/MINERALS TAB (THERAGRAN M) PO SCH (06:00)
[2022-09-07 06:02] LABS: BASOPHILS % (AUTO) 0 % (0-10); EOSINOPHILS # (AUTO) 0.4 10^3/uL (0.0-0.3); EOSINOPHILS % (AUTO) 3 % (0-10); HEMATOCRIT 32 % (35-52); HEMOGLOBIN 10.8 g/dL (11.5-16.0); LYMPHOCYTES # (AUTO) 1.5 10^3/uL (1.0-4.0); LYMPHOCYTES % (AUTO) 12 % (12-44); MEAN CORPUSCULAR HEMOGLOBIN 29 pg (25-34); MEAN CORPUSCULAR HGB CONC 34 g/dL (32-36); MEAN CORPUSCULAR VOLUME 87 fL (80-99); MONOCYTES # (AUTO) 0.6 10^3/uL (0.0-1.0); MONOCYTES % (AUTO) 5 % (0-12); NEUTROPHILS # (AUTO) 9.3 10^3/uL (1.8-7.8); NEUTROPHILS % (AUTO) 79 % (42-75); PLATELET COUNT 375 10^3/uL (130-400); WHITE BLOOD COUNT 11.8 10^3/uL (4.3-11.0)
--- NOTE | 2022-09-07 06:04 | PM&R Progress Note ---
Subjective HPI/CC On Admission Date Seen by Provider: September 07, 2022 Time Seen by Provider: 12:00 Subjective/Events-last exam 09/07/2022: Patient doing pretty well Slow recovery Pain is an issue Working on how to help her with her fibromyalgia flare Reports urinary frequency taking her own Pyridium Refuses in and out cath Recurrent UTIs in the past we will monitor closely Potassium looks good Was able to tolerate the potassium formulation Review of Systems General: Fatigue, Malaise Objective Exam Vital Signs Vital Signs Date Time Temp Pulse Resp B/P (MAP) Pulse Ox O2 Delivery O2 Flow Rate FiO2 09/07/22 18:58 36.2 95 18 100/62 (75) 92 Room Air Capillary Refill : General Appearance: No Apparent Distress, WD/WN, Chronically ill, Thin HEENT: PERRL/EOMI, Normal ENT Inspection, Pharynx Normal Neck: Full Range of Motion, Normal Inspection, Non Tender, Supple, Carotid Bruit Respiratory: Chest Non Tender, Lungs Clear, Normal Breath Sounds, No Accessory Muscle Use, No Respiratory Distress Cardiovascular: Regular Rate, Rhythm, No Edema, No Gallop, No JVD, No Murmur, Normal Peripheral Pulses Gastrointestinal: Normal Bowel Sounds, No Organomegaly, No Pulsatile Mass, Non Tender, Soft Back: Normal Inspection, No CVA Tenderness, No Vertebral Tenderness Extremity: Normal Capillary Refill, Normal Inspection, Normal Range of Motion, Non Tender, No Calf Tenderness, No Pedal Edema Neurologic/Psychiatric: Alert, Oriented x3, microsoft dynamics ax developer II-XII Norm as Tested, Abnormal Gait, Depressed Affect, Motor Weakness (Generalized) Skin: Normal Color, Warm/Dry Lymphatic: No Adenopathy Results/Procedures Lab Laboratory Tests 09/07/22 05:47 Patient resulted labs reviewed. FIM Transfers Therapy Code Descriptions/Definitions Functional [place] Measure: 0=Not Assessed/NA 4=Minimal Assistance 1=Total Assistance 5=Supervision or Setup 2=Maximal Assistance 6=Modified [place] 3=Moderate Assistance 7=Complete IndependenceSCALE: Activities may be completed with or without assistive devices. 2-Ejfyiiswnz-eglcasc completes the activity by him/herself with no assistance from a helper. 5-Set-up or Clean-up Assistance-helper sets up or cleans up; patient completes activity. [place] assists only prior to or following the activity. 4-Supervision or Touching Assistance-helper provides verbal cues and/or fatoumata surjit/steadying and/or contact guard assistance as patient completes activity. Assistance may be provided throughout the activity or intermittently. 3-Partial/Moderate Assistance-helper does LESS THAN HALF the effort. [place] lifts, holds or supports trunk or limbs, but provides less than half the effort. 2-Substantial/Maximal Assistance-helper does MORE THAN HALF the effort. [place] lifts or holds trunk or limbs and provides more than half the effort. 9-Vovaokuml-gzvpfg does ALL the effort. Patient does none of the effort to complete the activity. Or, the assistance of 2 or more helpers is required for the patient to complete the activity. If activity was not attempted, code reason: 7-Patient Refused. 9-Not Applicable-not attempted and the patient did not perform the activity b efore the current illness, exacerbation or injury. 10-Not Attempted due to Environmental Limitations-(lack of equipment, weather restraints, etc.). 88-Not Attempted due to Medical Conditions or Safety Concerns. Roll Left to Right (QC): 4 (SBA) Sit to Lying (QC): 4 (SBA) Sit to Stand (QC): 4 (CGA ) Chair/Phj-mj-Izavf Xfer(QC): 4 (CGA ) Car Transfer (QC): 3 (Min A) Gait Training Does the Patient Walk?: Yes Walk 10 feet (QC): 3 (Min A for safety ) Walk 50 ft with 2 Turns(QC): 3 (Min A for safety ) Walk 150 ft (QC): 3 (Min A for safety ) Walking 10ft/uneven surface-QC: 3 (Min A for balance ) Gait Persons Needed: 1 Gait Assistive Device: FWW Wheelchair Training Does the Pt Use a Wheelchair?: No Wheel 50 ft with 2 turns (QC): 9 Wheel 150 ft (QC): 9 Type of Wheelchair: N/A Stair Training #of Steps: 12 1 Step (curb) (QC): 3 (Min A for balance ) 4 Steps (QC): 3 (Min A for balance ) 12 Steps (QC): 3 (Min A for balance ) Balance Picking up an Object (QC): 4 (CGA ) ADL-Treatment Eating (QC): 6 (Per pt and family report.) Oral Hygiene (QC): 4 (CGA standing at sink) Shower/Bathe Self (QC): 4 (CGA in stand while washing/drying buttocks. Pt able to wash/dry all parts.) Upper Body Dressing (QC): 4 (SBA) Lower Body Dressing (QC): 4 (CGA) On/Off Footwear (QC): 4 (SBA) Toileting Hygiene (QC): 4 (CGA in stand.) Assessment/Plan Assessment and Plan Assess & Plan/Chief Complaint Assessment: Encephalopathy Severe hypokalemia Severe fibromyalgia with severe debility Depression Hypercholesterolemia Plan: Meds Aggressive PT and OT Monitor confusion Replace potassium 09/07/2022: Supportive nursing home dosing of Pyridium (1) Fibromyalgia Status: Acute (2) Hypokalemia (3) Encephalopathy CA GOETZ DO September 07, 2022 06:04
--- NOTE | 2022-09-07 06:06 | Individualized Plan of Care ---
Individualized Plan of Care Rehab Nursing IPOC Order Admission Date September 06, 2022 at 10:03 Current Orders Orders Admission Arrival Bed Request (09/06/22 10:10) Admission Order(Inpt,Obs,Sdc) (09/06/22 10:47) Tee Ambriz (09/06/22 10:47) Sequential Compression Device (09/06/22 10:47) Knitter Helper-Inpt Rehab Con (09/06/22 10:47) Rehab Nursing Orders-Ipoc (09/06/22 10:47) Physical Therapy Rehab Orders (09/06/22 10:47) Occupational Therapy Rehab Ord (09/06/22 10:47) Speech Therapy Rehab Orders (09/06/22 10:47) Cbc With Automated Diff (09/07/22 06:00) Comprehensive Metabolic Panel (09/07/22 06:00) Precautions (Aru) (09/06/22 10:47) Weekly Weight WEEK (09/06/22 10:47) Rehab-Intensity Of Therapy (09/06/22 10:47) Initiate Admission Nursing Pro .admission (09/06/22 10:47) Alprazolam Tablet (Xanax Tablet) (09/06/22 11:00) Calcium Carbonate Chew Tablet (Antacid C (09/06/22 11:00) Diphenhydramine Tablet (Benadryl Tablet) (09/06/22 11:00) Docusate Sodium Capsule (Colace Capsule) (09/06/22 21:00) Docusate Sodium Capsule (Colace Capsule) (09/06/22 11:00) Bisacodyl Suppository (Dulcolax Supposit (09/06/22 11:00) Lactulose Oral Solution (Enulose Oral So (09/06/22 11:00) Na Phos/Na Biphos Enema (Fleet Enema Bill (09/06/22 11:00) Guaifenesin/Codeine Syrup (Robitussin Ac (09/06/22 11:00) Loperamide Tablet (Imodium Tablet) (09/06/22 11:00) Melatonin Tablet (Melatonin Tablet) (09/06/22 11:00) Polyethylene Glycol Powder Pkt (Miralax (09/06/22 21:00) Ondansetron Oral Dissolve Tab (Zofran (09/06/22 11:00) Senna S Tablet (Senokot S Tablet) (09/06/22 21:00) Acetaminophen Tablet/Caplet (Tylenol T (09/06/22 11:00) Catheter(Urinary) Discontinue (09/06/22 10:47) Iv Convert To Heplock (Order) (09/06/22 10:47) Initiate Admission Nursing Pro .admission (09/06/22 10:47) Bisacodyl Tablet (Dulcolax Tablet) (09/06/22 21:00) Clorazepate Tablet (Tranxene Tablet) (09/06/22 11:00) Clorazepate Tablet (Tranxene Tablet) (09/06/22 21:00) Famotidine Tablet (Pepcid Tablet) (09/06/22 11:00) Fentanyl Patch (Duragesic Patch) (09/06/22 11:00) Hydrocodone/Apap 10/325 Tablet (Lortab 1 (09/06/22 11:00) Imipramine Tablet (Tofranil Tablet) (09/06/22 21:00) Lorazepam Tablet (Ativan Tablet) (09/06/22 11:00) Ondansetron Oral Dissolve Tab (Zofran (09/06/22 11:00) Sertraline Tablet (Zoloft Tablet) (09/07/22 09:00) (Nf) Aspirin/Acetaminophen/Caffeine (Exc (09/06/22 11:00) Bupropion Sr 12 Hr Tablet (Wellbutrin Sr (09/07/22 09:00) Cholecalciferol Capsule/Tablet (Vitamin (09/07/22 09:00) Estradiol Tablet (Estrace Tablet) (09/07/22 09:00) Fluoxetine Capsule (Prozac Capsule) (09/07/22 09:00) (Nf) Linaclotide (Linzess) (09/07/22 09:00) Therapeutic Multivitamin Tab (Vitamins, (09/07/22 07:00) Pantoprazole Tablet (Protonix Tablet) (09/07/22 09:00) Topiramate Tablet (Topamax Tablet) (09/06/22 21:00) (Nf) Vit C/E/Zn/Coppr/Lutein/Zeaxan (Pre (09/07/22 09:00) Ensure Plus Vanilla (09/06/22 11:20) Code/Resuscitation (09/06/22 11:52) General/Regular (09/06/22 Lunch) Enoxaparin Injection (Lovenox Injection) (09/07/22 10:00) Fentanyl Patch (Duragesic Patch) (09/07/22 13:00) Potassium Bicarbonate/Cit Ac (Effer-K 20 (09/07/22 08:00) Potassium Bicarbonate/Cit Ac (Effer-K 20 (09/07/22 09:00) Patient May Use Own Med,Single (Patient (09/07/22 09:15) (Nf) Linaclotide (Linzess) (09/07/22 10:00) Patient Visit (09/06/22 ) Pt Eval Moderate Complexity (09/06/22 ) Patient Visit (09/06/22 ) Gait Training, Ea 15 Min (09/06/22 ) Exercise Therap, Ea 15 Min (09/06/22 ) Functional Activities, Ea 15 (09/06/22 ) Urinalysis (09/07/22 11:31) Straight Cath (Urinary) (09/07/22 11:31) Patient Visit (09/07/22 ) Functional Activities, Ea 15 (09/07/22 ) Gait Training, Ea 15 Min (09/07/22 ) Exercise Therap, Ea 15 Min (09/07/22 ) Patient May Use Own Med,Single (Patient (09/07/22 14:30) Patient Visit (09/07/22 ) Exercise Therap, Ea 15 Min (09/07/22 ) Functional Activities, Ea 15 (09/07/22 ) Non-Formulary Medication (Non-Formulary (09/07/22 21:00) Rehab Nursing Orders: Ongoing Assess. of Cognitive Status, Ongoing Assess. of Function Status, Bladder Management, Bladder Scan, Bladder Training, Bowel Management, Bowel Training, Disease Management & Educaiton, DVT Prophylaxis, Fall Prevention, Fluid/Electrolyte/Nutrition Mgmt, Infection Prevention, Medication Management & Education, Management of Risks & Complications, Management of Skin Intergrity, Nutrition Management, Pain Management, Patient/Family Support, Safety Management Intensity of Therapy to be met Patient to be seen: Min.3h per day/5 of 7d PT IPOC Problem List: Activity Tolerance, Functional Strength, Safety, Balance, Gait, Transfer, Bed Mobility Treatment Plan: Continue Plan of Care Bed Mobility, Concurrent Therapy, Education, Functional Activity Marcelino, Functional Strength, Group Therapy, Gait, Safety, Therapeutic Exercise, Transfers Treatment Duration: Sep 16, 2022 Frequency: At least 5 of 7 days/Wk (IRF) Estimated Hrs Per Day: 1.5 hours per day OT IPOC Problems: Decreased Activ Tolerance, Decreased UE Strength, Impaired Funct Balance, Impaired I ADL's, Impaired Self-Care Skills OT Treatment, Training and Edu: Yes Plan of Care: ADL Retraining, Functional Mobility, Group Exercise/Act as Ind, UE Funct Exercise/Act Treatment Duration: Sep 23, 2022 Frequency: At least 5 of 7 days/Wk (IRF) Estimated Hrs Per Day: 1.[address] IPOC Speech Therapy Treatment Plan: Discontinue ST Treatment Duration: September 07, 2022 Frequency: Modified Program (IRF) Estimated Hrs Per Day: Other Knitter Helper/Case Mgmt Knitter Helper/Case Managemen: Discharge Planning Dietitian/Condominium Property Manager Dietitian/Condominium Property Manager to monitor nutritional status and make changes and/or recommendations as needed and work with speech pathology on dietary upgrades as the occur. Physician IPOC Medical Issues being managed closely and that require the 24 hour availability of a physician: Patient with recent severe weakness due to hypokalemia and encephalopathy will require close monitoring for any decompensation signs Medical Issues: Bowel/Bladder Function, DVT Prophylaxis, Falls Precautions, Fluid/Electrolyte/Nutrition Balance, Infection Protection, Pain Management Brief Synthesis of Preadmission Screen, Post-Admission Evaluation, and Therapy Evaluations: PT and OT will focus on regaining function with use of assistive devices in order to regain ambulation and stamina and independent ADLs Medical Prognosis: 7 days Anticipated Length of Stay: CA Vargas DO September 07, 2022 06:06
[2022-09-07 06:11] LABS: POTASSIUM 3.7 MMOL/L (3.6-5.0)
[2022-09-07 06:13] LABS: CALCIUM 8.6 MG/DL (8.5-10.1)
[2022-09-07 06:14] LABS: TOTAL PROTEIN 5.7 GM/DL (6.4-8.2)
[2022-09-07 06:16] LABS: BILIRUBIN,TOTAL 0.2 MG/DL (0.1-1.0)
[2022-09-07 06:18] LABS: CREATININE SERUM 0.64 MG/DL (0.60-1.30)
[2022-09-07 07:55] VITALS: BP 103/60
[2022-09-07] MEDS ORDERED: POTASSIUM BICARB 20 MEQ (EFFER-K) TABLET PO SCH (08:00)
[2022-09-07] MEDS: VITAMIN D3 25 MCG (1,000 UNITS) TABLET PO SCH (08:26)
[2022-09-07] MEDS: DOCUSATE SODIUM 100 MG (COLACE) CAP PO SCH ×2 (08:26→22:19)
[2022-09-07] MEDS: BISACODYL 5 MG (DULCOLAX) TABLET PO SCH ×2 (08:27→22:20)
[2022-09-07] MEDS: SENNA W/DOCUSATE (SENOKOT S) TABLET PO SCH ×2 (08:27→22:20)
[2022-09-07] MEDS: ESTRADIOL 1 MG TAB (ESTRACE) PO SCH (08:27)
[2022-09-07] MEDS: toPIRamate 100 MG (TOPAMAX) TAB PO SCH ×2 (08:28→22:16)
[2022-09-07] MEDS: FLUoxetine HCL 20 MG (PROzac) CAP PO SCH (08:28)
[2022-09-07] MEDS: SERTRALINE 100 MG (ZOLOFT) TAB PO SCH (08:28)
[2022-09-07] MEDS: POTASSIUM BICARB 20 MEQ (EFFER-K) TABLET PO SCH (08:29)
[2022-09-07] MEDS ORDERED: NON-FORMULARY MEDICATION 1 EA EA (Vit C/E/Zn/Coppr/Lutein/Zeaxan (Preservision Areds 2 Sof PO SCH (09:00)
[2022-09-07] MEDS ORDERED: NON-FORMULARY MEDICATION 1 EA EA (Linaclotide (Linzess) 72 MCG) PO SCH (09:00)
[2022-09-07] MEDS: polyethylene glycoL POWDER 17 GM (MIRALAX) PACK PO SCH ×2 (09:10→22:20)
[2022-09-07] MEDS: buPROPion SR 150 MG (WELLBUTRIN SR) TAB PO SCH (09:10)
[2022-09-07] MEDS: IMIPRAMINE 25 MG (TOFRANIL) TAB PO SCH ×2 (09:10→22:16)
[2022-09-07] MEDS ORDERED: PATIENT MAY USE OWN MED,SINGLE MED PO SCH ×2 (09:15→14:30)
--- NOTE | 2022-09-07 11:04 | Occupational Ther Daily Note ---
OT Current Status-Daily Note Subjective Pt in bed, states it is a bad fibromyalgia day, 10/10 pain all over her body. Pt agreeable to OT tx. ADL-Treatment Therapy Code Descriptions/Definitions Functional [place] Measure: 0=Not Assessed/NA 4=Minimal Assistance 1=Total Assistance 5=Supervision or Setup 2=Maximal Assistance 6=Modified [place] 3=Moderate Assistance 7=Complete IndependenceSCALE: Activities may be completed with or without assistive devices. 2-Cnznkgzefz-vuuqlqk completes the activity by him/herself with no assistance from a helper. 5-Set-up or Clean-up Assistance-helper sets up or cleans up; patient completes activity. [place] assists only prior to or following the activity. 4-Supervision or Touching Assistance-helper provides verbal cues and/or touching/steadying and/or contact guard assistance as patient completes activity. Assistance may be provided throughout the activity or intermittently. 3-Partial/Moderate Assistance-helper does LESS THAN HALF the effort. [place] lifts, holds or supports trunk or limbs, but provides less than half the effort. 2-Substantial/Maximal Assistance-helper does MORE THAN HALF the effort. [place] lifts or holds trunk or limbs and provides more than half the effort. 4-Jkdjvycwv-vuonla does ALL the effort. Patient does none of the effort to complete the activity. Or, the assistance of 2 or more helpers is required for the patient to complete the activity. If activity was not attempted, code reason: 7-Patient Refused. 9-Not Applicable-not attempted and the patient did not perform the activity before the current illness, exacerbation or injury. 10-Not Attempted due to Environmental Limitations-(lack of equipment, weather restraints, etc.). 88-Not Attempted due to Medical Conditions or Safety Concerns. On/Off Footwear: 3 Other Treatment Pt in bed, transferred supine to sit EOB, min A LLE due to pain. Pt donned footwear, min A with RLE due to pain. Pt used FWW to perform functional mobility to therapy gym, [facility]. OT tx focused on increasing BUE strength, fine motor strength, and activity tolerance. Pt completed UE reaching task, placing/removing x100 pegs from foam pegboard, alternating hands. Pt states fatigue with task, OT encouraged pt to take rest breaks as needed. Pt then removed beads from moderate resistance theraputty. Pt required VC to locate last 3 beads. Pt returned to her room, CGA, transferring to EOB. Sit to supine, SBA. Post tx, pt in bed, call light in reach and all needs met, family present. Education OT Patient Education: Correct positioning, Energy conservation, Modified ADL techniques, Progress toward Goal/Update tx plan, Purpose of tx/functional activities, Rehab process Teaching Recipient: Patient Teaching Methods: Discussion Response to Teaching: Verbalize Understanding OT Retirement Goals Lawn Sprinkler Installer Goals Time Frame: Sep 23, 2022 Acute change in mental status: 1 Inattention: 0 Disorganized thinkin Altered level of consciousness: 0 Eating (QC): 6 Oral Hygiene (QC): 6 Toileting Hygiene (QC): 6 Shower/Bathe Self (QC): 4 (Supervision) Upper Body Dressing (QC): 5 Lower Body Dressing (QC): 5 On/Off Footwear (QC): 5 Additional Goals: 1-Demonstrate ADL Tasks, 2-Verbalize Understanding, 3-ImproveStrength/Marcelino 1=Demonstrate adherence to instructed precautions during ADL tasks. 2=Patient will verbalize/demonstrate understanding of assistive devices/modifications for ADL. 3=Patient will improve strength/tolerance for activity to enable patient to perform ADL's. OT Education/Plan Problem List/Assessment Assessment: Decreased Activ Tolerance, Decreased UE Strength, Impaired Funct Balance, Impaired I ADL's, Impaired Self-Care Skills Discharge Recommendations Plan/Recommendations: Continue POC Treatment Plan/Plan of Care Patient would benefit from OT for education, treatment and training to promote independence in ADL's, mobility, safety and/or upper extremity function for ADL's. Plan of Care: ADL Retraining, Functional Mobility, Group Exercise/Act as Ind, UE Funct Exercise/Act Treatment Duration: Sep 23, 2022 Frequency: At least 5 of 7 days/Wk (IRF) Estimated Hrs Per Day: 1.5 hours per day Agreement: Yes Rehab Potential: Good Time Start Time: 10:20 Stop Time: 11:20 DATE: September 07, 2022 Total Time Billed (hr/min): 90 Billed Treatment Time 1, FA 4 MANI CURRIE OT September 07, 2022 11:04
[2022-09-07] MEDS: PANTOPRAZOLE 40 MG (PROTONIX) TAB PO SCH (11:54)
[2022-09-07] MEDS: ENOXAPARIN 40 MG/0.4 ML (LOVENOX) SYR SC SCH (11:55)
--- NOTE | 2022-09-07 12:50 | Physical Therapy Daily Note ---
PT Daily Note-Current Subjective Pt reports she is having a fibromyalgia flare up today, but is agreeable to PT. Pt reported LBP at 8/10. Pain Numeric Pain Scale: 8 Location: Lower Location Body Site: Back Section J - Health Conditions 1. Rarely or not at all 2. Occasionally 3. Frequently 4. Almost constantly 8. Unable to answer Pain Effect on Sleep: 4 Pain Interference with Therapy: 4 Pain Interference w/Day-to-Day: 4 Transfers SCALE: Activities may be completed with or without assistive devices. 0-Dtnlxoahkc-zctyree completes the activity by him/herself with no assistance from a helper. 5-Set-up or Clean-up Assistance-helper sets up or cleans up; patient completes activity. [place] assists only prior to or following the activity. 4-Supervision or Touching Assistance-helper provides verbal cues and/or touching/steadying and/or contact guard assistance as patient completes activity. Assistance may be provided throughout the activity or intermittently. 3-Partial/Moderate Assistance-helper does LESS THAN HALF the effort. [place] lifts, holds or supports trunk or limbs, but provides less than half the effort. 2-Substantial/Maximal Assistance-helper does MORE THAN HALF the effort. [place] lifts or holds trunk or limbs and provides more than half the effort. 3-Ofecakcot-rtxkyu does ALL the effort. Patient does none of the effort to complete the activity. Or, the assistance of 2 or more helpers is required for the patient to complete the activity. If activity was not attempted, code reason: 7-Patient Refused. 9-Not Applicable-not attempted and the patient did not perform the activity before the current illness, exacerbation or injury. 10-Not Attempted due to Environmental Limitations-(lack of equipment, weather restraints, etc.). 88-Not Attempted due to Medical Conditions or Safety Concerns. Roll Left & Right (QC): 4 (SBA) Sit to Lying (QC): 4 (SBA ) Lying to Sitting/Side of Bed(Q: 4 (SBA ) Sit to Stand (QC): 4 (SBA) Weight Bearing Right Lower Extremity: Right Full Weight Bearing Left Lower Extremity: Left Full Weight Bearing Gait Training Does the Patient Walk?: Yes Walk 10 feet (QC): 4 (CGA) Walk 50 ft with 2 Turns(QC): 4 (CGA) Walk 150 ft (QC): 4 (CGA ) Gait Persons Needed: 1 Gait Assistive Device: FWW Wheelchair Training Does the Pt Use a Wheelchair?: No Wheel 50 ft with 2 turns (QC): 9 Wheel 150 ft (QC): 9 Type of Wheelchair: N/A Treatments Pt completed bed mobility tasks with SBA. Pt completed sit to stand transfers with SBA. Pt ambulated 150ft x 2 with the FWW and CGA. Pt completed seated B LE Ther Ex x 15 reps each with the RTB. Pt completed sit to stand x 10 reps (with 2 rest breaks) with Min v/c for correct hand placement. Pt demo good carry over and safety awareness. Pt left in room with family present. Assessment Current Status: Good Progress Pt tolerated PT well with good effort PT Retirement Goals Planner/Scheduler Goals PT Planner/Scheduler Goals Time Frame: Sep 16, 2022 Roll Left & Right (QC): 6 (Pt will be Mod I with bed mobility ) Sit to Lying (QC): 6 (Pt will be Mod I with bed mobility ) Lying-Sitting on Side/Bed(QC): 6 (Pt will be Mod I with bed mobility ) Sit to Stand (QC): 6 (Pt will be Mod I with functional transfers ) Chair/Nkt-eg-Bcygn Xfer(QC): 6 (Pt will be Mod I with functional transfers ) Toilet Transfer (QC): 6 (Pt will be Mod I with functional transfers ) Car Transfer (QC): 6 (Pt will be Mod I with functional transfers ) Does the Patient Walk: Yes Walk 10 feet (QC): 4 (Pt will be SBA for walking with the FWW/4WW, as well as stairs, to be at PLOF. ) Walk 50ft with 2 Turns (QC): 4 (Pt will be SBA for walking with the FWW/4WW, as well as stairs, to be at PLOF. ) Walk 150 ft (QC): 4 (Pt will be SBA for walking with the FWW/4WW, as well as stairs, to be at PLOF. ) Walking 10ft on Uneven Surface: 4 (Pt will be SBA for walking with the FWW/4WW, as well as stairs, to be at PLOF. ) 1 Step (curb) (QC): 4 (Pt will be SBA for walking with the FWW/4WW, as well as stairs, to be at PLOF. ) 4 Steps (QC): 4 (Pt will be SBA for walking with the FWW/4WW, as well as stairs, to be at PLOF. ) 12 Steps (QC): 4 (Pt will be SBA for walking with the FWW/4WW, as well as stairs, to be at PLOF. ) Picking up an Object (QC): 6 (Pt will be Mod I with the ovens supervisor to pickle maker objects. ) Does the Pt use WC or Scooter?: No Wheel 50 feet with 2 turns (QC: 9 Type: N/A Wheel 150 feet: 9 Type: N/A PT Plan Problem List Problem List: Activity Tolerance, Functional Strength, Safety, Balance, Gait, Transfer, Bed Mobility Treatment/Plan Treatment Plan: Continue Plan of Care Treatment Plan: Bed Mobility, Concurrent Therapy, Education, Functional Activity Marcelino, Functional Strength, Group Therapy, Gait, Safety, Therapeutic Exercise, Transfers Treatment Duration: Sep 16, 2022 Frequency: At least 5 of 7 days/Wk (IRF) Estimated Hrs Per Day: 1.5 hours per day Patient and/or Family Agrees t: Yes Safety Risks/Education Patient Education: Gait Training, Transfer Techniques, Safety Issues Teaching Recipient: Patient Teaching Methods: Demonstration, Discussion Response to Teaching: Verbalize Understanding, Return Demonstration, Reinforcement Needed Discharge Recommendations Therapy Discharge Recommendati: Home & Family Discharge Status/Home Program cont per POC Barriers to Progress balance, endurance Target Placement home with family Time Time In: 800 Time Out: 900 DATE: September 07, 2022 Total Billed Treatment Time: 60 Total Billed Treatment 60 min 1 visit FA x 2 GT x 1 EX x 1 DIANA JORDAN PT September 07, 2022 12:50
--- NOTE | 2022-09-07 13:35 | Occupational Ther Daily Note ---
OT Current Status-Daily Note Subjective Pt alert, lying in bed. Family present in room. Pt agrees to therapy. Pt c/o 9/10 pain, nrsg brought pain meds. Mental Status/Objective Patient Orientation: Person, Place, Time, Situation Attachments: IV ADL-Treatment Therapy Code Descriptions/Definitions Functional [place] Measure: 0=Not Assessed/NA 4=Minimal Assistance 1=Total Assistance 5=Supervision or Setup 2=Maximal Assistance 6=Modified [place] 3=Moderate Assistance 7=Complete IndependenceSCALE: Activities may be completed with or without assistive devices. 1-Ovzflayvvj-skrgzzi completes the activity by him/herself with no assistance from a helper. 5-Set-up or Clean-up Assistance-helper sets up or cleans up; patient completes activity. [place] assists only prior to or following the activity. 4-Supervision or Touching Assistance-helper provides verbal cues and/or touching/steadying and/or contact guard assistance as patient completes activity. Assistance may be provided throughout the activity or intermittently. 3-Partial/Moderate Assistance-helper does LESS THAN HALF the effort. [place] lifts, holds or supports trunk or limbs, but provides less than half the effort. 2-Substantial/Maximal Assistance-helper does MORE THAN HALF the effort. [place] lifts or holds trunk or limbs and provides more than half the effort. 8-Bgonzscfo-jmkxur does ALL the effort. Patient does none of the effort to complete the activity. Or, the assistance of 2 or more helpers is required for the patient to complete the activity. If activity was not attempted, code reason: 7-Patient Refused. 9-Not Applicable-not attempted and the patient did not perform the activity before the current illness, exacerbation or injury. 10-Not Attempted due to Environmental Limitations-(lack of equipment, weather restraints, etc.). 88-Not Attempted due to Medical Conditions or Safety Concerns. Other Treatment Massage and stretch to B UE/shldrs to decrease pain and increase over all mobility. Heat placed at lower back to assist with pain management. Pt demonstrating tightness in B UE/shldrs prior to intervention. Pt continues to have tightness though pt does verbalize intervention eased pain and increased comfort. After therapy, pt lying in bed with call light/phone in reach. All needs met in room. 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 2=Patient will verbalize/demonstrate understanding of assistive devices/modifications for ADL. 3=Patient will improve strength/tolerance for activity to enable patient to perform ADL's. OT Education/Plan Problem List/Assessment Assessment: Decreased Activ Tolerance, Decreased UE Strength Discharge Recommendations Plan/Recommendations: Continue POC Treatment Plan/Plan of Care Patient would benefit from OT for education, treatment and training to promote independence in ADL's, mobility, safety and/or upper extremity function for ADL's. Plan of Care: ADL Retraining, Functional Mobility, Group Exercise/Act as Ind, UE Funct Exercise/Act Treatment Duration: Sep 23, 2022 Frequency: At least 5 of 7 days/Wk (IRF) Estimated Hrs Per Day: 1.5 hours per day Agreement: Yes Rehab Potential: Good Time Start Time: 13:00 Stop Time: 13:30 DATE: September 07, 2022 Total Time Billed (hr/min): 30 Billed Treatment Time 1 visit-FA 2 (30 min) KATIE WHITLEY September 07, 2022 13:35
[2022-09-07] MEDS: fentaNYL PATCH 100 MCG (DURAGESIC) TD SCH (13:45)
--- NOTE | 2022-09-07 15:11 | Physical Therapy Daily Note ---
PT Daily Note-Current Subjective pt laying in bed upon arrival and willing for therapy. pt stated it was a bed day for her Fibromyalgia. pt was left in bed with call light and all needs met after therapy session. . Pain Section J - Health Conditions 1. Rarely or not at all 2. Occasionally 3. Frequently 4. Almost constantly 8. Unable to answer Pain Effect on Sleep: 4 Pain Interference with Therapy: 4 Pain Interference w/Day-to-Day: 4 Transfers SCALE: Activities may be completed with or without assistive devices. 1-Vithlewokr-clyntod completes the activity by him/herself with no assistance from a helper. 5-Set-up or Clean-up Assistance-helper sets up or cleans up; patient completes activity. [place] assists only prior to or following the activity. 4-Supervision or Touching Assistance-helper provides verbal cues and/or touching/steadying and/or contact guard assistance as patient completes activity. Assistance may be provided throughout the activity or intermittently. 3-Partial/Moderate Assistance-helper does LESS THAN HALF the effort. [place] lifts, holds or supports trunk or limbs, but provides less than half the effort. 2-Substantial/Maximal Assistance-helper does MORE THAN HALF the effort. [place] lifts or holds trunk or limbs and provides more than half the effort. 9-Mjdqvropm-vxghkq does ALL the effort. Patient does none of the effort to complete the activity. Or, the assistance of 2 or more helpers is required for the patient to complete the activity. If activity was not attempted, code reason: 7-Patient Refused. 9-Not Applicable-not attempted and the patient did not perform the activity be fore the current illness, exacerbation or injury. 10-Not Attempted due to Environmental Limitations-(lack of equipment, weather restraints, etc.). 88-Not Attempted due to Medical Conditions or Safety Concerns. Weight Bearing Right Lower Extremity: Right Full Weight Bearing Left Lower Extremity: Left Full Weight Bearing Exercises Supine Ex: Glut sets, Short Arc Quads Seated Therapy Exercises: Ankle pumps, Sit to stand Treatments Pt preformed supine ther-ex in all planes of motion available for 2 sets of 10. pt preformed bed mobility, sit to stand, ambulation to toilet and toilet transfer, ambulation to bed and mobility with CGA. pt did requiring steading when don and doffing her pants and brief for slight lob. PT Care Home Goals Care Home Goals PT Care Home Goals Time Frame: Sep 16, 2022 Roll Left & Right (QC): 6 (Pt will be Mod I with bed mobility ) Sit to Lying (QC): 6 (Pt will be Mod I with bed mobility ) Lying-Sitting on Side/Bed(QC): 6 (Pt will be Mod I with bed mobility ) Sit to Stand (QC): 6 (Pt will be Mod I with functional transfers ) Chair/Vjj-iu-Zwyph Xfer(QC): 6 (Pt will be Mod I with functional transfers ) Toilet Transfer (QC): 6 (Pt will be Mod I with functional transfers ) Car Transfer (QC): 6 (Pt will be Mod I with functional transfers ) Does the Patient Walk: Yes Walk 10 feet (QC): 4 (Pt will be SBA for walking with the FWW/4WW, as well as stairs, to be at PLOF. ) Walk 50ft with 2 Turns (QC): 4 (Pt will be SBA for walking with the FWW/4WW, as well as stairs, to be at PLOF. ) Walk 150 ft (QC): 4 (Pt will be SBA for walking with the FWW/4WW, as well as stairs, to be at PLOF. ) Walking 10ft on Uneven Surface: 4 (Pt will be SBA for walking with the FWW/4WW, as well as stairs, to be at PLOF. ) 1 Step (curb) (QC): 4 (Pt will be SBA for walking with the FWW/4WW, as well as stairs, to be at PLOF. ) 4 Steps (QC): 4 (Pt will be SBA for walking with the FWW/4WW, as well as stairs, to be at PLOF. ) 12 Steps (QC): 4 (Pt will be SBA for walking with the FWW/4WW, as well as stairs, to be at PLOF. ) Picking up an Object (QC): 6 (Pt will be Mod I with the sustainable landscape architect to draft roller picker objects. ) Does the Pt use WC or Scooter?: No Wheel 50 feet with 2 turns (QC: 9 Type: N/A Wheel 150 feet: 9 Type: N/A PT Plan Treatment/Plan Treatment Plan: Continue Plan of Care Treatment Plan: Bed Mobility, Concurrent Therapy, Education, Functional A ctivity Marcelino, Functional Strength, Group Therapy, Gait, Safety, Therapeutic Exercise, Transfers Treatment Duration: Sep 16, 2022 Frequency: At least 5 of 7 days/Wk (IRF) Estimated Hrs Per Day: 1.5 hours per day Patient and/or Family Agrees t: Yes Time Time In: 1400 Time Out: 1430 DATE: September 07, 2022 Total Billed Treatment Time: 30 Total Billed Treatment 1 ex fa Chata Claudio TRAUMA PROGRAM MANAGER September 07, 2022 15:11
[2022-09-07] MEDS: ONDANSETRON 4 MG (ZOFRAN) ORAL DISSOLVE TAB PO PRN (17:45)
[2022-09-07 18:58] VITALS: BP 100/62
[2022-09-07 20:58] VITALS: BP 100/62
[2022-09-07] MEDS: CLORAZEPATE 7.5 MG (TRANXENE) TAB PO SCH (22:15)
[2022-09-07] MEDS: [UNRECOGNIZED DRUG - REMARK] PO SCH (22:17)
--- NOTE | 2022-09-08 05:23 | PM&R Progress Note ---
Subjective HPI/CC On Admission Date Seen by Provider: Sep 08, 2022 Time Seen by Provider: 12:00 Subjective/Events-last exam 09/08/2022: Patient doing a lot better Urinary symptoms continue Still refusing in and out cath so we will need to perform a clean-catch but nursing staff will clean periarea carefully to avoid contamination We will stop Pyridium due to skewing the urine results Family is very pleased about her progress 09/07/2022: Patient doing pretty well Slow recovery Pain is an issue Working on how to help her with her fibromyalgia flare Reports urinary frequency taking her own Pyridium Refuses in and out cath Recurrent UTIs in the past we will monitor closely Potassium looks good Was able to tolerate the potassium formulation Review of Systems General: Fatigue, Malaise Genitourinary: Dysuria, Frequency, Retention Objective Exam Vital Signs Vital Signs Date Time Temp Pulse Resp B/P (MAP) Pulse Ox O2 Delivery O2 Flow Rate FiO2 09/08/22 21:15 93 Room Air 09/08/22 20:50 36.0 89 16 96/60 (72) Capillary Refill : General Appearance: No Apparent Distress, WD/WN, Chronically ill, Thin HEENT: PERRL/EOMI, Normal ENT Inspection, Pharynx Normal Neck: Full Range of Motion, Normal Inspection, Non Tender, Supple, Carotid Bruit Respiratory: Chest Non Tender, Lungs Clear, Normal Breath Sounds, No Accessory Muscle Use, No Respiratory Distress Cardiovascular: Regular Rate, Rhythm, No Edema, No Gallop, No JVD, No Murmur, Normal Peripheral Pulses Gastrointestinal: Normal Bowel Sounds, No Organomegaly, No Pulsatile Mass, Non Tender, Soft Back: Normal Inspection, No CVA Tenderness, No Vertebral Tenderness Extremity: Normal Capillary Refill, Normal Inspection, Normal Range of Motion, Non Tender, No Calf Tenderness, No Pedal Edema Neurologic/Psychiatric: Alert, Oriented x3, aircraft skin burnisher II-XII Norm as Tested, Abnormal Gait, Depressed Affect, Motor Weakness (Generalized) Skin: Normal Color, Warm/Dry Lymphatic: No Adenopathy Results/Procedures Lab Patient resulted labs reviewed. FIM Transfers Therapy Code Descriptions/Definitions Functional [place] Measure: 0=Not Assessed/NA 4=Minimal Assistance 1=Total Assistance 5=Supervision or Setup 2=Maximal Assistance 6=Modified [place] 3=Moderate Assistance 7=Complete IndependenceSCALE: Activities may be completed with or without assistive devices. 9-Ziqpkwbnav-xbvjvar completes the activity by him/herself with no assistance from a helper. 5-Set-up or Clean-up Assistance-helper sets up or cleans up; patient completes activity. [place] assists only prior to or following the activity. 4-Supervision or Touching Assistance-helper provides verbal cues and/or touching/steadying and/or contact guard assistance as patient completes activity. Assistance may be provided throughout the activity or intermittently. 3-Partial/Moderate Assistance-helper does LESS THAN HALF the effort. [place] lifts, holds or supports trunk or limbs, but provides less than half the effort. 2-Substantial/Maximal Assistance-helper does MORE THAN HALF the effort. [place] lifts or holds trunk or limbs and provides more than half the effort. 2-Esryuaggl-szrkid does ALL the effort. Patient does none of the effort to complete the activity. Or, the assistance of 2 or more helpers is required for the patient to complete the activity. If activity was not attempted, code reason: 7-Patient Refused. 9-Not Applicable-not attempted and the patient did not perform the activity before the current illness, exacerbation or injury. 10-Not Attempted due to Environmental Limitations-(lack of equipment, weather restraints, etc.). 88-Not Attempted due to Medical Conditions or Safety Concerns. Roll Left to Right (QC): 4 (SBA) Sit to Lying (QC): 4 (SBA ) Sit to Stand (QC): 4 (SBA) Chair/Olt-mf-Pjdem Xfer(QC): 4 (CGA ) Car Transfer (QC): 3 (Min A) Gait Training Does the Patient Walk?: Yes Walk 10 feet (QC): 4 (CGA) Walk 50 ft with 2 Turns(QC): 4 (CGA) Walk 150 ft (QC): 4 (CGA ) Walking 10ft/uneven surface-QC: 3 (Min A for balance ) Gait Persons Needed: 1 Gait Assistive Device: FWW Wheelchair Training Does the Pt Use a Wheelchair?: No Wheel 50 ft with 2 turns (QC): 9 Wheel 150 ft (QC): 9 Type of Wheelchair: N/A Stair Training #of Steps: 12 1 Step (curb) (QC): 3 (Min A for balance ) 4 Steps (QC): 3 (Min A for balance ) 12 Steps (QC): 3 (Min A for balance ) Balance Picking up an Object (QC): 4 (CGA ) ADL-Treatment Eating (QC): 6 (Per pt and family report.) Oral Hygiene (QC): 4 (CGA standing at sink) Shower/Bathe Self (QC): 4 (CGA in stand while washing/drying buttocks. Pt able to wash/dry all parts.) Upper Body Dressing (QC): 4 (SBA) Lower Body Dressing (QC): 4 (CGA) On/Off Footwear (QC): 3 Toileting Hygiene (QC): 4 (CGA in stand.) Assessment/Plan Assessment and Plan Assess & Plan/Chief Complaint Assessment: Encephalopathy Severe hypokalemia Severe fibromyalgia with severe debility Depression Hypercholesterolemia Urinary symptoms obtain UA after stopping Pyridium on 09-30 Plan: Meds Aggressive PT and OT Monitor confusion Replace potassium 09/07/2022: Supportive group home dosing of Pyridium 09/08/2022: Check UA tomorrow morning Continue aggressive therapy (1) Fibromyalgia Status: Acute (2) Hypokalemia (3) Encephalopathy CA GOETZ DO Sep 08, 2022 05:23
[2022-09-08] MEDS: [UNRECOGNIZED DRUG - REMARK] PO SCH ×2 (06:41→12:14)
[2022-09-08] MEDS: MULTIVIT W/MINERALS TAB (THERAGRAN M) PO SCH (06:47)
[2022-09-08 07:53] VITALS: BP 107/63
[2022-09-08] MEDS: IMIPRAMINE 25 MG (TOFRANIL) TAB PO SCH ×2 (08:32→21:11)
[2022-09-08] MEDS: DOCUSATE SODIUM 100 MG (COLACE) CAP PO SCH ×2 (08:32→21:19)
[2022-09-08] MEDS: buPROPion SR 150 MG (WELLBUTRIN SR) TAB PO SCH (08:32)
[2022-09-08] MEDS: PANTOPRAZOLE 40 MG (PROTONIX) TAB PO SCH (08:33)
[2022-09-08] MEDS: SENNA W/DOCUSATE (SENOKOT S) TABLET PO SCH ×2 (08:33→21:10)
[2022-09-08] MEDS: toPIRamate 100 MG (TOPAMAX) TAB PO SCH ×2 (08:33→21:12)
[2022-09-08] MEDS: ESTRADIOL 1 MG TAB (ESTRACE) PO SCH (08:33)
[2022-09-08] MEDS: SERTRALINE 100 MG (ZOLOFT) TAB PO SCH (08:33)
[2022-09-08] MEDS: FLUoxetine HCL 20 MG (PROzac) CAP PO SCH (08:33)
[2022-09-08] MEDS: VITAMIN D3 25 MCG (1,000 UNITS) TABLET PO SCH (08:33)
[2022-09-08] MEDS: POTASSIUM BICARB 20 MEQ (EFFER-K) TABLET PO SCH (09:30)
[2022-09-08] MEDS: polyethylene glycoL POWDER 17 GM (MIRALAX) PACK PO SCH ×2 (09:37→21:10)
[2022-09-08] MEDS: BISACODYL 5 MG (DULCOLAX) TABLET PO SCH ×2 (09:37→21:10)
--- NOTE | 2022-09-08 10:15 | Occupational Ther Daily Note ---
OT Current Status-Daily Note Subjective Pt in bed, states she is having a really bad fibromyalgia day, worse than yesterday. Pt agreeable to OT Tx. ADL-Treatment Therapy Code Descriptions/Definitions Functional [place] Measure: 0=Not Assessed/NA 4=Minimal Assistance 1=Total Assistance 5=Supervision or Setup 2=Maximal Assistance 6=Modified [place] 3=Moderate Assistance 7=Complete IndependenceSCALE: Activities may be completed with or without assistive devices. 5-Ceszfluuam-dddawtj completes the activity by him/herself with no assistance from a helper. 5-Set-up or Clean-up Assistance-helper sets up or cleans up; patient completes activity. [place] assists only prior to or following the activity. 4-Supervision or Touching Assistance-helper provides verbal cues and/or touching/steadying and/or contact guard assistance as patient completes activity. Assistance may be provided throughout the activity or intermittently. 3-Partial/Moderate Assistance-helper does LESS THAN HALF the effort. [place] lifts, holds or supports trunk or limbs, but provides less than half the effort. 2-Substantial/Maximal Assistance-helper does MORE THAN HALF the effort. [place] lifts or holds trunk or limbs and provides more than half the effort. 3-Vddbfhqzq-brzpfq does ALL the effort. Patient does none of the effort to complete the activity. Or, the assistance of 2 or more helpers is required for the patient to complete the activity. If activity was not attempted, code reason: 7-Patient Refused. 9-Not Applicable-not attempted and the patient did not perform the activity before the current illness, exacerbation or injury. 10-Not Attempted due to Environmental Limitations-(lack of equipment, weather restraints, etc.). 88-Not Attempted due to Medical Conditions or Safety Concerns. On/Off Footwear: 3 (Min A due to pain.) Other Treatment Pt in bed, took medications provided by [facility] with increased time. Pt transferred supine to sit EOB, CGA. Pt donned slip on shoes, min A required due to pain. Pt stood from EOB, VCs required for hand placement, CGA. Pt performed functional mobility to therapy gym, CGA using FWW. In order to increase BUE strength and activity tolerance, pt completed UE reaching task, placing/removing 1" pegs from foam pegboard, alternating BUEs. Pt states fatigue with task, and feels like she is getting a work out. Pt returned to her room using FWW, CGA, transferring to EOB and supine, SBA. Post tx, pt in bed, call light in reach and all needs met. Education OT Patient Education: Correct positioning, Energy conservation, Modified ADL techniques, Progress toward Goal/Update tx plan, Purpose of tx/functional activities, Rehab process Teaching Recipient: Patient Teaching Methods: Discussion Response to Teaching: Verbalize Understanding OT Wearing Apparel Assembler Goals Halfway Goals Time Frame: Sep 23, 2022 Acute change in mental status: 1 Inattention: 0 Disorganized thinkin Altered level of consciousness: 0 Eating (QC): 6 Oral Hygiene (QC): 6 Toileting Hygiene (QC): 6 Shower/Bathe Self (QC): 4 (Supervision) Upper Body Dressing (QC): 5 Lower Body Dressing (QC): 5 On/Off Footwear (QC): 5 Additional Goals: 1-Demonstrate ADL Tasks, 2-Verbalize Understanding, 3- ImproveStrength/Marcelino 1=Demonstrate adherence to instructed precautions during ADL tasks. 2=Patient will verbalize/demonstrate understanding of assistive dev ices/modifications for ADL. 3=Patient will improve strength/tolerance for activity to enable patient to perform ADL's. OT Education/Plan Problem List/Assessment Assessment: Decreased Activ Tolerance, Decreased UE Strength, Impaired Funct Balance, Impaired I ADL's, Impaired Self-Care Skills Discharge Recommendations Plan/Recommendations: Continue POC Treatment Plan/Plan of Care Patient would benefit from OT for education, treatment and training to promote independence in ADL's, mobility, safety and/or upper extremity function for ADL 's. Plan of Care: ADL Retraining, Functional Mobility, Group Exercise/Act as Ind, UE Funct Exercise/Act Treatment Duration: Sep 23, 2022 Frequency: At least 5 of 7 days/Wk (IRF) Estimated Hrs Per Day: 1.5 hours per day Agreement: Yes Rehab Potential: Good Time Start Time: 09:30 Stop Time: 10:30 DATE: Sep 08, 2022 Total Time Billed (hr/min): 60 Billed Treatment Time 1, ADL 2 (30'), FA 2 (30') MANI CURRIE OT Sep 08, 2022 10:15
[2022-09-08] MEDS: ENOXAPARIN 40 MG/0.4 ML (LOVENOX) SYR SC SCH (10:30)
[2022-09-08] MEDS ORDERED: CATHETER FLUSH 10 ML SYR IVP PRN (11:00)
--- NOTE | 2022-09-08 11:15 | Physical Therapy Daily Note ---
PT Daily Note-Current Subjective Pt reports that she is very painful today, but is agreeable to PT. Pt reported LBP at 9/10. Pain Numeric Pain Scale: 9 Location: Lower Location Body Site: Back Section J - Health Conditions 1. Rarely or not at all 2. Occasionally 3. Frequently 4. Almost constantly 8. Unable to answer Pain Effect on Sleep: 4 Pain Interference with Therapy: 4 Pain Interference w/Day-to-Day: 4 Transfers SCALE: Activities may be completed with or without assistive devices. 1-Gjkrovqhpi-ylyzazs completes the activity by him/herself with no assistance from a helper. 5-Set-up or Clean-up Assistance-helper sets up or cleans up; patient completes activity. [place] assists only prior to or following the activity. 4-Supervision or Touching Assistance-helper provides verbal cues and/or touching/steadying and/or contact guard assistance as patient completes activity. Assistance may be provided throughout the activity or intermittently. 3-Partial/Moderate Assistance-helper does LESS THAN HALF the effort. [place] lifts, holds or supports trunk or limbs, but provides less than half the effort. 2-Substantial/Maximal Assistance-helper does MORE THAN HALF the effort. [place] lifts or holds trunk or limbs and provides more than half the effort. 4-Lwbdqoado-cehzgb does ALL the effort. Patient does none of the effort to complete the activity. Or, the assistance of 2 or more helpers is required for the patient to complete the activity. If activity was not attempted, code reason: 7-Patient Refused. 9-Not Applicable-not attempted and the patient did not perform the activity before the current illness, exacerbation or injury. 10-Not Attempted due to Environmental Limitations-(lack of equipment, weather restraints, etc.). 88-Not Attempted due to Medical Conditions or Safety Concerns. Roll Left & Right (QC): 4 Sit to Lying (QC): 4 Lying to Sitting/Side of Bed(Q: 4 Sit to Stand (QC): 4 Chair/Ztq-hi-Apuis Xfer(QC): 4 Weight Bearing Right Lower Extremity: Right Full Weight Bearing Left Lower Extremity: Left Full Weight Bearing Gait Training Does the Patient Walk?: Yes Walk 10 feet (QC): 4 Walk 50 ft with 2 Turns(QC): 4 Walk 150 ft (QC): 4 Gait Persons Needed: 1 Gait Assistive Device: FWW Wheelchair Training Does the Pt Use a Wheelchair?: No Type of Wheelchair: N/A Treatments Pt completed bed mobility with SBA. Pt completed functional transfers with SBA and Min v/c for safety and correct hand placement. Pt ambulated 110ft x 2 with the FWW and CGA. Pt completed seated B LE Ther Ex x 20 reps each with the RTB. Pt completed 12 min on the nu-step on level 1. Pt left in room with family present after tx session. PT Director Of Volunteer Services Goals Director Of Volunteer Services Goals PT Correction Goals Time Frame: Sep 16, 2022 Roll Left & Right (QC): 6 (Pt will be Mod I with bed mobility ) Sit to Lying (QC): 6 (Pt will be Mod I with bed mobility ) Lying-Sitting on Side/Bed(QC): 6 (Pt will be Mod I with bed mobility ) Sit to Stand (QC): 6 (Pt will be Mod I with functional transfers ) Chair/Xlm-ph-Ghdsm Xfer(QC): 6 (Pt will be Mod I with functional transfers ) Toilet Transfer (QC): 6 (Pt will be Mod I with functional transfers ) Car Transfer (QC): 6 (Pt will be Mod I with functional transfers ) Does the Patient Walk: Yes Walk 10 feet (QC): 4 (Pt will be SBA for walking with the FWW/4WW, as well as stairs, to be at PLOF. ) Walk 50ft with 2 Turns (QC): 4 (Pt will be SBA for walking with the FWW/4WW, as well as stairs, to be at PLOF. ) Walk 150 ft (QC): 4 (Pt will be SBA for walking with the FWW/4WW, as well as stairs, to be at PLOF. ) Walking 10ft on Uneven Surface: 4 (Pt will be SBA for walking with the FWW/4WW, as well as stairs, to be at PLOF. ) 1 Step (curb) (QC): 4 (Pt will be SBA for walking with the FWW/4WW, as well as stairs, to be at PLOF. ) 4 Steps (QC): 4 (Pt will be SBA for walking with the FWW/4WW, as well as stairs, to be at PLOF. ) 12 Steps (QC): 4 (Pt will be SBA for walking with the FWW/4WW, as well as stairs, to be at PLOF. ) Picking up an Object (QC): 6 (Pt will be Mod I with the wrapper layer and examiner soft work to corn picker objects. ) Does the Pt use WC or Scooter?: No Wheel 50 feet with 2 turns (QC: 9 Type: N/A Wheel 150 feet: 9 Type: N/A PT Plan Problem List Problem List: Activity Tolerance, Functional Strength, Safety, Balance, Gait, Transfer, Bed Mobility Treatment/Plan Treatment Plan: Continue Plan of Care Treatment Plan: Bed Mobility, Concurrent Therapy, Education, Functional Activity Marcelino, Functional Strength, Group Therapy, Gait, Safety, Therapeutic Exercise, Transfers Treatment Duration: Sep 16, 2022 Frequency: At least 5 of 7 days/Wk (IRF) Estimated Hrs Per Day: 1.5 hours per day Patient and/or Family Agrees t: Yes Safety Risks/Education Patient Education: Gait Training, Transfer Techniques, Safety Issues Teaching Recipient: Patient Teaching Methods: Demonstration, Discussion Response to Teaching: Verbalize Understanding, Return Demonstration, Reinforcement Needed Discharge Recommendations Therapy Discharge Recommendati: Home & Family Discharge Status/Home Program cont per POC Barriers to Progress balance/safety, pain Target Placement home with family Time Time In: 800 Time Out: 900 DATE: Sep 08, 2022 Total Billed Treatment Time: 60 Total Billed Treatment 60 min 1 visit GT x 1 EX x 1 FA x 2 DIANA JORDAN PT Sep 08, 2022 11:15
[2022-09-08] MEDS: CATHETER FLUSH 10 ML SYR IVP SCH ×2 (14:05→21:16)
--- NOTE | 2022-09-08 14:38 | Therapy Group Daily Note ---
Therapy Daily Group Note Patient Education Topic Home Safety Exercises UE Exercise Session Ratio (pt:therapist): 4:1 Goal of Session: Education on ARU Expectations, Home Safety Strategies, Use of Adaptive Equipment Goal Met for this Session: Yes Pt Benefit of Group: Contributions to Others, F/U Use of Strategies @Home, Increased Functional Safety, Increased Functional Strength, Improved Cognition, Recognition of Peers, Socialization Other/Notes Pt ambulated using FWW to therapy gym for OT group. Group consisted of introductions (name/place living), socialization, B UE strengthening, education on home safety and activity to assess pt's understanding of educational topic. Pt introduced self appropriately and actively listened to peers. Pt able to complete B UE movements without difficulty. Pt was able to verbalized understanding of home safety topic and answer questions correctly. After therapy, pt lying in bed with call light/phone. All needs met in room. Start Time: 13:00 Stop Time: 14:00 Total Billed Treatment Time: 60 Total Billed Treatment 1-[facility] KATIE WHITLEY Sep 08, 2022 14:38
[2022-09-08 20:50] VITALS: BP 96/60
[2022-09-08] MEDS: CLORAZEPATE 7.5 MG (TRANXENE) TAB PO SCH (21:11)
[2022-09-09] MEDS: CATHETER FLUSH 10 ML SYR IVP SCH ×3 (06:24→21:01)
[2022-09-09] MEDS: MULTIVIT W/MINERALS TAB (THERAGRAN M) PO SCH (06:24)
[2022-09-09 07:38] VITALS: BP 105/67
[2022-09-09] MEDS: FLUoxetine HCL 20 MG (PROzac) CAP PO SCH (08:15)
[2022-09-09] MEDS: DOCUSATE SODIUM 100 MG (COLACE) CAP PO SCH ×2 (08:15→21:00)
[2022-09-09] MEDS: ESTRADIOL 1 MG TAB (ESTRACE) PO SCH (08:15)
[2022-09-09] MEDS: toPIRamate 100 MG (TOPAMAX) TAB PO SCH ×2 (08:16→21:00)
[2022-09-09] MEDS: PANTOPRAZOLE 40 MG (PROTONIX) TAB PO SCH (08:16)
[2022-09-09] MEDS: SERTRALINE 100 MG (ZOLOFT) TAB PO SCH (08:16)
[2022-09-09] MEDS: VITAMIN D3 25 MCG (1,000 UNITS) TABLET PO SCH (08:16)
[2022-09-09] MEDS: buPROPion SR 150 MG (WELLBUTRIN SR) TAB PO SCH (08:16)
[2022-09-09] MEDS: IMIPRAMINE 25 MG (TOFRANIL) TAB PO SCH ×2 (08:16→21:00)
[2022-09-09] MEDS: SENNA W/DOCUSATE (SENOKOT S) TABLET PO SCH ×2 (08:17→21:28)
[2022-09-09] MEDS: BISACODYL 5 MG (DULCOLAX) TABLET PO SCH ×2 (08:17→21:27)
[2022-09-09] MEDS: POTASSIUM BICARB 20 MEQ (EFFER-K) TABLET PO SCH (08:17)
[2022-09-09] MEDS: polyethylene glycoL POWDER 17 GM (MIRALAX) PACK PO SCH ×2 (08:17→21:28)
--- NOTE | 2022-09-09 08:41 | PM&R Progress Note ---
Subjective HPI/CC On Admission Date Seen by Provider: Sep 09, 2022 Time Seen by Provider: 12:00 Subjective/Events-last exam 09/09/2022: Doing well UTI dx so adding broad spectrum abx since she has a high suspicion for ESBL No other issues No pain changes 09/08/2022: Patient doing a lot better Urinary symptoms continue Still refusing in and out cath so we will need to perform a clean-catch but nursing staff will clean periarea carefully to avoid contamination We will stop Pyridium due to skewing the urine results Family is very pleased about her progress 09/07/2022: Patient doing pretty well Slow recovery Pain is an issue Working on how to help her with her fibromyalgia flare Reports urinary frequency taking her own Pyridium Refuses in and out cath Recurrent UTIs in the past we will monitor closely Potassium looks good Was able to tolerate the potassium formulation Review of Systems General: Fatigue, Malaise Genitourinary: Dysuria Objective Exam Vital Signs Vital Signs Date Time Temp Pulse Resp B/P (MAP) Pulse Ox O2 Delivery O2 Flow Rate FiO2 09/09/22 21:00 95 Room Air 09/09/22 19:21 36.5 83 16 100/64 (76) Capillary Refill : General Appearance: No Apparent Distress, WD/WN, Chronically ill, Thin HEENT: PERRL/EOMI, Normal ENT Inspection, Pharynx Normal Neck: Full Range of Motion, Normal Inspection, Non Tender, Supple, Carotid Bruit Respiratory: Chest Non Tender, Lungs Clear, Normal Breath Sounds, No Accessory Muscle Use, No Respiratory Distress Cardiovascular: Regular Rate, Rhythm, No Edema, No Gallop, No JVD, No Murmur, Normal Peripheral Pulses Gastrointestinal: Normal Bowel Sounds, No Organomegaly, No Pulsatile Mass, Non Tender, Soft Back: Normal Inspection, No CVA Tenderness, No Vertebral Tenderness Extremity: Normal Capillary Refill, Normal Inspection, Normal Range of Motion, Non Tender, No Calf Tenderness, No Pedal Edema Neurologic/Psychiatric: Alert, Oriented x3, mud mixer II-XII Norm as Tested, Abnormal Gait, Depressed Affect, Motor Weakness (Generalized) Skin: Normal Color, Warm/Dry Lymphatic: No Adenopathy Results/Procedures Lab Laboratory Tests 09/09/22 12:28 Patient resulted labs reviewed. FIM Transfers Therapy Code Descriptions/Definitions Functional [place] Measure: 0=Not Assessed/NA 4=Minimal Assistance 1=Total Assistance 5=Supervision or Setup 2=Maximal Assistance 6=Modified [place] 3=Moderate Assistance 7=Complete IndependenceSCALE: Activities may be completed with or without assistive devices. 4-Pntrglmfhq-xsvfazh completes the activity by him/herself with no assistance from a helper. 5-Set-up or Clean-up Assistance-helper sets up or cleans up; patient completes activity. [place] assists only prior to or following the activity. 4-Supervision or Touching Assistance-helper provides verbal cues and/or fatoumata surjit/steadying and/or contact guard assistance as patient completes activity. Assistance may be provided throughout the activity or intermittently. 3-Partial/Moderate Assistance-helper does LESS THAN HALF the effort. [place] lifts, holds or supports trunk or limbs, but provides less than half the effort. 2-Substantial/Maximal Assistance-helper does MORE THAN HALF the effort. [place] lifts or holds trunk or limbs and provides more than half the effort. 3-Wfontqxxh-igapdn does ALL the effort. Patient does none of the effort to complete the activity. Or, the assistance of 2 or more helpers is required for the patient to complete the activity. If activity was not attempted, code reason: 7-Patient Refused. 9-Not Applicable-not attempted and the patient did not perform the activity b efore the current illness, exacerbation or injury. 10-Not Attempted due to Environmental Limitations-(lack of equipment, weather restraints, etc.). 88-Not Attempted due to Medical Conditions or Safety Concerns. Roll Left to Right (QC): 4 Sit to Lying (QC): 4 Sit to Stand (QC): 4 Chair/Zrs-fa-Nsksq Xfer(QC): 4 Car Transfer (QC): 3 (Min A) Gait Training Does the Patient Walk?: Yes Walk 10 feet (QC): 4 Walk 50 ft with 2 Turns(QC): 4 Walk 150 ft (QC): 4 Walking 10ft/uneven surface-QC: 3 (Min A for balance ) Gait Persons Needed: 1 Gait Assistive Device: FWW Wheelchair Training Does the Pt Use a Wheelchair?: No Wheel 50 ft with 2 turns (QC): 9 Wheel 150 ft (QC): 9 Type of Wheelchair: N/A Stair Training #of Steps: 12 1 Step (curb) (QC): 3 (Min A for balance ) 4 Steps (QC): 3 (Min A for balance ) 12 Steps (QC): 3 (Min A for balance ) Balance Picking up an Object (QC): 4 (CGA ) ADL-Treatment Eating (QC): 6 (Per pt and family report.) Oral Hygiene (QC): 4 (CGA standing at sink) Shower/Bathe Self (QC): 4 (CGA in stand while washing/drying buttocks. Pt able to wash/dry all parts.) Upper Body Dressing (QC): 4 (SBA) Lower Body Dressing (QC): 4 (CGA) On/Off Footwear (QC): 3 (Min A due to pain.) Toileting Hygiene (QC): 4 (CGA in stand.) Assessment/Plan Assessment and Plan Assess & Plan/Chief Complaint Assessment: Encephalopathy Severe hypokalemia Severe fibromyalgia with severe debility Depression Hypercholesterolemia UTI suspicious for ESBL due to chronic UTI's placed on Meropenem empirically Plan: Meds Aggressive PT and OT Monitor confusion Replace potassium 09/07/2022: Supportive correction dosing of Pyridium 09/08/2022: Check UA tomorrow morning Continue aggressive therapy 09/09/2022: Meropenem Await UCx (1) Fibromyalgia Status: Acute (2) Hypokalemia (3) Encephalopathy CA GOETZ DO Sep 09, 2022 08:41
[2022-09-09] MEDS: ENOXAPARIN 40 MG/0.4 ML (LOVENOX) SYR SC SCH (09:30)
[2022-09-09] MEDS: ONDANSETRON 4 MG (ZOFRAN) ORAL DISSOLVE TAB PO PRN (09:30)
--- NOTE | 2022-09-09 09:41 | Occupational Ther Daily Note ---
OT Current Status-Daily Note Subjective Pt in bed, c/o nausea, RN notified. Pt had difficulty participating in tx session on this date due to nausea and fibromyalgia flare. OT provided frequent rest breaks, along wit therapeutic listening and communication. After nausea subsided, pt indicates fibromyalgia flare is worse today than yesterday, request ing to complete OT tx at bed level for comfort. Mental Status/Objective Patient Orientation: Person, Place, Time, Situation ADL-Treatment Therapy Code Descriptions/Definitions Functional [place] Measure: 0=Not Assessed/NA 4=Minimal Assistance 1=Total Assistance 5=Supervision or Setup 2=Maximal Assistance 6=Modified [place] 3=Moderate Assistance 7=Complete IndependenceSCALE: Activities may be completed with or without assistive devices. 9-Xsylhruxcx-zndlmxz completes the activity by him/herself with no assistance from a helper. 5-Set-up or Clean-up Assistance-helper sets up or cleans up; patient completes activity. [place] assists only prior to or following the activity. 4-Supervision or Touching Assistance-helper provides verbal cues and/or touching/steadying and/or contact guard assistance as patient completes activity. Assistance may be provided throughout the activity or intermittently. 3-Partial/Moderate Assistance-helper does LESS THAN HALF the effort. [place] lifts, holds or supports trunk or limbs, but provides less than half the effort. 2-Substantial/Maximal Assistance-helper does MORE THAN HALF the effort. [place] lifts or holds trunk or limbs and provides more than half the effort. 2-Zvtkdtwsh-qmiyay does ALL the effort. Patient does none of the effort to complete the activity. Or, the assistance of 2 or more helpers is required for the patient to complete the activity. If activity was not attempted, code reason: 7-Patient Refused. 9-Not Applicable-not attempted and the patient did not perform the activity before the current illness, exacerbation or injury. 10-Not Attempted due to Environmental Limitations-(lack of equipment, weather restraints, etc.). 88-Not Attempted due to Medical Conditions or Safety Concerns. Oral Hygiene (QC): 4 (CGA standing at sink.) Toileting Hygiene (QC): 4 (CGA) Toilet Transfer (QC): 4 (CGA) Other Treatment pt in bed, c/o nausea. RN notified and brought nausea medications when RN was available. Pt states she is unable to participate in therapy until nausea is under control. OT provided therapeutic listening and communication with pt while waiting on nausea medication. Pt transferred supine to EOB, SBA, then CGA sit to stand from EOB. Min A transfer into bathroom, CGA to sit on toilet. Pt states she feels slightly more unsteady this date. Pt completed toileting, CGA, then stood at sink for grooming tasks, CGA. Pt returned to EOB, min A using FWW. Pt able to sit EOB unsupported x3 mins, then states fibromyalgia flare is worse than yesterday. Pt transferred supine, SBA. OT Tx focused on increasing activity tolerance, fine motor strength, and coordination. Pt removed beads from moderate resistance (red) theraputty. Pt able to locate all beads without cues. Post tx, pt in bed, call light in reach and all needs met. Education OT Patient Education: Correct positioning, Energy conservation, Modified ADL techniques, Progress toward Goal/Update tx plan, Purpose of tx/functional activities, Rehab process Teaching Recipient: Patient Teaching Methods: Discussion Response to Teaching: Verbalize Understanding OT Fuel Cell Systems Engineer Goals Skilled Nursing Goals Time Frame: Sep 23, 2022 Acute change in mental status: 1 Inattention: 0 Disorganized thinkin Altered level of consciousness: 0 Eating (QC): 6 Oral Hygiene (QC): 6 Toileting Hygiene (QC): 6 Shower/Bathe Self (QC): 4 (Supervision) Upper Body Dressing (QC): 5 Lower Body Dressing (QC): 5 On/Off Footwear (QC): 5 Additional Goals: 1-Demonstrate ADL Tasks, 2-Verbalize Understanding, 3- ImproveStrength/[place] 1=Demonstrate adherence to instructed precautions during ADL tasks. 2=Patient will verbalize/demonstrate understanding of assistive devices/modifications for ADL. 3=Patient will improve strength/tolerance for activity to enable patient to perform ADL's. OT Education/Plan Problem List/Assessment Assessment: Decreased Activ Tolerance, Decreased UE Strength, Impaired Funct Balance, Impaired I ADL's, Impaired Self-Care Skills Discharge Recommendations Plan/Recommendations: Continue POC Treatment Plan/Plan of Care Patient would benefit from OT for education, treatment and training to promote independence in ADL's, mobility, safety and/or upper extremity function for ADL's. Plan of Care: ADL Retraining, Functional Mobility, Group Exercise/Act as Ind, UE Funct Exercise/Act Treatment Duration: Sep 23, 2022 Frequency: At least 5 of 7 days/Wk (IRF) Estimated Hrs Per Day: 1.5 hours per day Agreement: Yes Rehab Potential: Good Time Start Time: 08:50 Stop Time: 10:20 DATE: Sep 09, 2022 Total Time Billed (hr/min): 90 Billed Treatment Time 1, ADL 2 (30'), FA 4 (60') MANI CURRIE OT Sep 09, 2022 09:41
[2022-09-09 10:28] LABS: BILIRUBIN,URINE NEGATIVE (NEGATIVE); CLARITY,URINE CLOUDY; COLOR,URINE ORANGE; GLUCOSE, URINE (UA) TRACE (NEGATIVE); KETONES,URINE NEGATIVE (NEGATIVE); LEUKOCYTE ESTERASE ,URINE 3+ (NEGATIVE); NITRITE,URINE POSITIVE (NEGATIVE); PH,URINE 5.5 (5-9); PROTEIN,URINE TRACE (NEGATIVE)
[2022-09-09 10:39] LABS: BACTERIA,URINE LARGE /HPF; WBC,URINE >100 /HPF
--- NOTE | 2022-09-09 11:13 | Physical Therapy Daily Note ---
PT Daily Note-Current Subjective Pt reports she is feeling very nauseas today and that her fibromyalgia flare has gotten worse. Pt reports generalized pain at 8-9/10. Pt is agreeable to PT, with what she can do. Pain Numeric Pain Scale: 9 Location Body Site: Generalized Section J - Health Conditions 1. Rarely or not at all 2. Occasionally 3. Frequently 4. Almost constantly 8. Unable to answer Pain Effect on Sleep: 4 Pain Interference with Therapy: 4 Pain Interference w/Day-to-Day: 4 Transfers SCALE: Activities may be completed with or without assistive devices. 0-Ektuhagwmh-ysdhuvu completes the activity by him/herself with no assistance from a helper. 5-Set-up or Clean-up Assistance-helper sets up or cleans up; patient completes activity. [place] assists only prior to or following the activity. 4-Supervision or Touching Assistance-helper provides verbal cues and/or touching/steadying and/or contact guard assistance as patient completes activity. Assistance may be provided throughout the activity or intermittently. 3-Partial/Moderate Assistance-helper does LESS THAN HALF the effort. [place] lifts, holds or supports trunk or limbs, but provides less than half the effort. 2-Substantial/Maximal Assistance-helper does MORE THAN HALF the effort. [place] lifts or holds trunk or limbs and provides more than half the effort. 4-Jfjnvfwkw-xvdyqa does ALL the effort. Patient does none of the effort to complete the activity. Or, the assistance of 2 or more helpers is required for the patient to complete the activity. If activity was not attempted, code reason: 7-Patient Refused. 9-Not Applicable-not attempted and the patient did not perform the activity before the current illness, exacerbation or injury. 10-Not Attempted due to Environmental Limitations-(lack of equipment, weather restraints, etc.). 88-Not Attempted due to Medical Conditions or Safety Concerns. Weight Bearing Right Lower Extremity: Right Full Weight Bearing Left Lower Extremity: Left Full Weight Bearing Gait Training Does the Patient Walk?: Yes Walk 10 feet (QC): 4 Gait Assistive Device: FWW Treatments Pt completed supine and seated B LE Ther Ex x 15-20 reps each. Pt required extra time with all activities and rest breaks after each exercise. Pt completed supine <> sit with SBA. Pt completed sit to stand transfers with Min A and Min v/c for correct hand placement. Pt ambulated 20ft with the FWW and CGA/Min A. Pt sat EOB unsupported for ~10 min doing exercise. Pt refused to ambulate a second time, and requested to lay back down. Daughter in room upon completion of PT. Assessment Current Status: Fair Progress Pt tolerated PT fairly on this date, but forth good effort. Pt required extended time and rest breaks with all activity and during entire treatment session. PT Perfusionist Goals Residential Goals PT Perfusionist Goals Time Frame: Sep 16, 2022 Roll Left & Right (QC): 6 (Pt will be Mod I with bed mobility ) Sit to Lying (QC): 6 (Pt will be Mod I with bed mobility ) Lying-Sitting on Side/Bed(QC): 6 (Pt will be Mod I with bed mobility ) Sit to Stand (QC): 6 (Pt will be Mod I with functional transfers ) Chair/Wtt-ng-Thpvu Xfer(QC): 6 (Pt will be Mod I with functional transfers ) Toilet Transfer (QC): 6 (Pt will be Mod I with functional transfers ) Car Transfer (QC): 6 (Pt will be Mod I with functional transfers ) Does the Patient Walk: Yes Walk 10 feet (QC): 4 (Pt will be SBA for walking with the FWW/4WW, as well as stairs, to be at PLOF. ) Walk 50ft with 2 Turns (QC): 4 (Pt will be SBA for walking with the FWW/4WW, as well as stairs, to be at PLOF. ) Walk 150 ft (QC): 4 (Pt will be SBA for walking with the FWW/4WW, as well as stairs, to be at PLOF. ) Walking 10ft on Uneven Surface: 4 (Pt will be SBA for walking with the FWW/4WW, as well as stairs, to be at PLOF. ) 1 Step (curb) (QC): 4 (Pt will be SBA for walking with the FWW/4WW, as well as stairs, to be at PLOF. ) 4 Steps (QC): 4 (Pt will be SBA for walking with the FWW/4WW, as well as stairs, to be at PLOF. ) 12 Steps (QC): 4 (Pt will be SBA for walking with the FWW/4WW, as well as stairs, to be at PLOF. ) Picking up an Object (QC): 6 (Pt will be Mod I with the merchandise executive to fruit picker objects. ) Does the Pt use WC or Scooter?: No Wheel 50 feet with 2 turns (QC: 9 Type: N/A Wheel 150 feet: 9 Type: N/A PT Plan Problem List Problem List: Activity Tolerance, Functional Strength, Safety, Balance, Gait, Transfer, Bed Mobility Treatment/Plan Treatment Plan: Continue Plan of Care Treatment Plan: Bed Mobility, Concurrent Therapy, Education, Functional Activity [place], Functional Strength, Group Therapy, Gait, Safety, Therapeutic Exercise, Transfers Treatment Duration: Sep 16, 2022 Frequency: At least 5 of 7 days/Wk (IRF) Estimated Hrs Per Day: 1.5 hours per day Patient and/or Family Agrees t: Yes Safety Risks/Education Patient Education: Gait Training, Transfer Techniques, Safety Issues Teaching Recipient: Patient Teaching Methods: Demonstration, Discussion Response to Teaching: Verbalize Understanding, Return Demonstration, Reinforcement Needed Discharge Recommendations Therapy Discharge Recommendati: Home & Family Discharge Status/Home Program Cont per POC, as tolerated by the pt Barriers to Progress pain Target Placement home with family Time Time In: 1055 Time Out: 1155 DATE: Sep 09, 2022 Total Billed Treatment Time: 60 Total Billed Treatment 60 Min 1 visit FA x 1 GT x 1 FA x 2 DIANA JORDAN PT Sep 09, 2022 11:13
[2022-09-09 12:36] LABS: BASOPHILS % (AUTO) 0 % (0-10); EOSINOPHILS # (AUTO) 0.3 10^3/uL (0.0-0.3); EOSINOPHILS % (AUTO) 4 % (0-10); HEMATOCRIT 32 % (35-52); HEMOGLOBIN 10.4 g/dL (11.5-16.0); LYMPHOCYTES # (AUTO) 1.6 10^3/uL (1.0-4.0); LYMPHOCYTES % (AUTO) 17 % (12-44); MEAN CORPUSCULAR HEMOGLOBIN 29 pg (25-34); MEAN CORPUSCULAR HGB CONC 33 g/dL (32-36); MEAN CORPUSCULAR VOLUME 88 fL (80-99); MONOCYTES # (AUTO) 0.4 10^3/uL (0.0-1.0); MONOCYTES % (AUTO) 5 % (0-12); NEUTROPHILS # (AUTO) 6.9 10^3/uL (1.8-7.8); NEUTROPHILS % (AUTO) 74 % (42-75); PLATELET COUNT 387 10^3/uL (130-400); WHITE BLOOD COUNT 9.3 10^3/uL (4.3-11.0)
[2022-09-09 12:59] LABS: ALBUMIN 3.1 GM/DL (3.2-4.5); BILIRUBIN,TOTAL 0.3 MG/DL (0.1-1.0); CALCIUM 8.7 MG/DL (8.5-10.1); CREATININE SERUM 1.12 MG/DL (0.60-1.30); POTASSIUM 3.5 MMOL/L (3.6-5.0); TOTAL PROTEIN 5.7 GM/DL (6.4-8.2)
[2022-09-09] MEDS: MEROPENEM 1,000 MG in NS (IVPB) 100 ML IV SCH ×2 (13:17→20:57)
[2022-09-09] MEDS: fentaNYL PATCH 100 MCG (DURAGESIC) TD SCH (13:32)
--- NOTE | 2022-09-09 16:11 | Physical Therapy Daily Note ---
PT Daily Note-Current Subjective Pt reports she is doing well and is agreeable to treatment. Did not rate pain. Pain Section J - Health Conditions 1. Rarely or not at all 2. Occasionally 3. Frequently 4. Almost constantly 8. Unable to answer Pain Effect on Sleep: 4 Pain Interference with Therapy: 4 Pain Interference w/Day-to-Day: 4 Mental Status Attachments: IV Transfers SCALE: Activities may be completed with or without assistive devices. 2-Xjawrckfyk-ornanti completes the activity by him/herself with no assistance from a helper. 5-Set-up or Clean-up Assistance-helper sets up or cleans up; patient completes activity. [place] assists only prior to or following the activity. 4-Supervision or Touching Assistance-helper provides verbal cues and/or touching/steadying and/or contact guard assistance as patient completes act ivity. Assistance may be provided throughout the activity or intermittently. 3-Partial/Moderate Assistance-helper does LESS THAN HALF the effort. [place] lifts, holds or supports trunk or limbs, but provides less than half the effort. 2-Substantial/Maximal Assistance-helper does MORE THAN HALF the effort. [place] lifts or holds trunk or limbs and provides more than half the effort. 7-Erilmkegp-hnuutr does ALL the effort. Patient does none of the effort to complete the activity. Or, the assistance of 2 or more helpers is required for the patient to complete the activity. If activity was not attempted, code reason: 7-Patient Refused. 9-Not Applicable-not attempted and the patient did not perform the activity before the current illness, exacerbation or injury. 10-Not Attempted due to Environmental Limitations-(lack of equipment, weather restraints, etc.). 88-Not Attempted due to Medical Conditions or Safety Concerns. Sit to Lying (QC): 4 Lying to Sitting/Side of Bed(Q: 4 Sit to Stand (QC): 4 Toilet Transfer (QC): 4 Weight Bearing Right Lower Extremity: Right Full Weight Bearing Left Lower Extremity: Left Full Weight Bearing Gait Training Does the Patient Walk?: Yes Walk 10 feet (QC): 4 Gait Assistive Device: FWW Treatments Pt completed supine <> sit with SBA. Pt completed functional transfers, including toilet transfer, with SBA/CGA. Pt ambulated 15ft x 2 with the FWW and CGA. Pt completed supine B LE Ther Ex x 15 reps each. Assessment Current Status: Fair Progress Pt tolerated PT fairly, secondary to increased pain and fibromyalgia flare up. Pt required increased time and rest breaks on the date. PT Prison Goals Sap Hana Architect Goals PT Prison Goals Time Frame: Sep 16, 2022 Roll Left & Right (QC): 6 (Pt will be Mod I with bed mobility ) Sit to Lying (QC): 6 (Pt will be Mod I with bed mobility ) Lying-Sitting on Side/Bed(QC): 6 (Pt will be Mod I with bed mobility ) Sit to Stand (QC): 6 (Pt will be Mod I with functional transfers ) Chair/Vmj-ut-Zlzzi Xfer(QC): 6 (Pt will be Mod I with functional transfers ) Toilet Transfer (QC): 6 (Pt will be Mod I with functional transfers ) Car Transfer (QC): 6 (Pt will be Mod I with functional transfers ) Does the Patient Walk: Yes Walk 10 feet (QC): 4 (Pt will be SBA for walking with the FWW/4WW, as well as stairs, to be at PLOF. ) Walk 50ft with 2 Turns (QC): 4 (Pt will be SBA for walking with the FWW/4WW, as well as stairs, to be at PLOF. ) Walk 150 ft (QC): 4 (Pt will be SBA for walking with the FWW/4WW, as well as stairs, to be at PLOF. ) Walking 10ft on Uneven Surface: 4 (Pt will be SBA for walking with the FWW/4WW, as well as stairs, to be at PLOF. ) 1 Step (curb) (QC): 4 (Pt will be SBA for walking with the FWW/4WW, as well as stairs, to be at PLOF. ) 4 Steps (QC): 4 (Pt will be SBA for walking with the FWW/4WW, as well as stairs, to be at PLOF. ) 12 Steps (QC): 4 (Pt will be SBA for walking with the FWW/4WW, as well as stairs, to be at PLOF. ) Picking up an Object (QC): 6 (Pt will be Mod I with the process expert to lease picker objects. ) Does the Pt use WC or Scooter?: No Wheel 50 feet with 2 turns (QC: 9 Type: N/A Wheel 150 feet: 9 Type: N/A PT Plan Problem List Problem List: Activity Tolerance, Functional Strength, Safety, Balance, Gait, Transfer, Bed Mobility Treatment/Plan Treatment Plan: Continue Plan of Care Treatment Plan: Bed Mobility, Concurrent Therapy, Education, Functional Activity [place], Functional Strength, Group Therapy, Gait, Safety, Therapeutic Exercise, Transfers Treatment Duration: Sep 16, 2022 Frequency: At least 5 of 7 days/Wk (IRF) Estimated Hrs Per Day: 1.5 hours per day Patient and/or Family Agrees t: Yes Safety Risks/Education Patient Education: Gait Training, Transfer Techniques, Safety Issues Teaching Recipient: Patient Teaching Methods: Demonstration, Discussion Response to Teaching: Verbalize Understanding, Return Demonstration, Reinforcement Needed Discharge Recommendations Therapy Discharge Recommendati: Home & Family Equpiment Recommendations-D/C: Shower Chair Discharge Status/Home Program Cont per POC Barriers to Progress balance issues; pain Target Placement home with family Time Time In: 1330 Time Out: 1400 DATE: Sep 09, 2022 Total Billed Treatment Time: 30 Total Billed Treatment 30 min 1 visit FA x 1 EX x 1 DIANA JORDAN PT Sep 09, 2022 16:11
[2022-09-09 19:21] VITALS: BP 100/64
[2022-09-09] MEDS: CLORAZEPATE 7.5 MG (TRANXENE) TAB PO SCH (21:00)
[2022-09-10] MEDS: MEROPENEM 1,000 MG in NS (IVPB) 100 ML IV SCH ×2 (05:01→17:06)
--- NOTE | 2022-09-10 06:31 | PM&R Progress Note ---
Subjective HPI/CC On Admission Date Seen by Provider: Sep 10, 2022 Time Seen by Provider: 12:00 Subjective/Events-last exam 09/10/2022: Patient doing much better Awaiting urine culture Meropenem due to suspicion for ESBL Home Pyridium will be restarted 09/09/2022: Doing well UTI dx so adding broad spectrum abx since she has a high suspicion for ESBL No other issues No pain changes 09/08/2022: Patient doing a lot better Urinary symptoms continue Still refusing in and out cath so we will need to perform a clean-catch but nursing staff will clean periarea carefully to avoid contamination We will stop Pyridium due to skewing the urine results Family is very pleased about her progress 09/07/2022: Patient doing pretty well Slow recovery Pain is an issue Working on how to help her with her fibromyalgia flare Reports urinary frequency taking her own Pyridium Refuses in and out cath Recurrent UTIs in the past we will monitor closely Potassium looks good Was able to tolerate the potassium formulation Review of Systems General: Fatigue, Malaise Objective Exam Vital Signs Vital Signs Date Time Temp Pulse Resp B/P (MAP) Pulse Ox O2 Delivery O2 Flow Rate FiO2 09/10/22 08:44 Room Air 09/10/22 07:06 36.2 80 20 96/57 (70) 93 Capillary Refill : General Appearance: No Apparent Distress, WD/WN, Chronically ill, Thin HEENT: PERRL/EOMI, Normal ENT Inspection, Pharynx Normal Neck: Full Range of Motion, Normal Inspection, Non Tender, Supple, Carotid Bruit Respiratory: Chest Non Tender, Lungs Clear, Normal Breath Sounds, No Accessory Muscle Use, No Respiratory Distress Cardiovascular: Regular Rate, Rhythm, No Edema, No Gallop, No JVD, No Murmur, Normal Peripheral Pulses Gastrointestinal: Normal Bowel Sounds, No Organomegaly, No Pulsatile Mass, Non Tender, Soft Back: Normal Inspection, No CVA Tenderness, No Vertebral Tenderness Extremity: Normal Capillary Refill, Normal Inspection, Normal Range of Motion, Non Tender, No Calf Tenderness, No Pedal Edema Neurologic/Psychiatric: Alert, Oriented x3, 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 FIM Transfers Therapy Code Descriptions/Definitions Functional [place] Measure: 0=Not Assessed/NA 4=Minimal Assistance 1=Total Assistance 5=Supervision or Setup 2=Maximal Assistance 6=Modified [place] 3=Moderate Assistance 7=Complete IndependenceSCALE: Activities may be completed with or without assistive devices. 4-[place]-wslnool completes the activity by him/herself with no assistance from a helper. 5-Set-up or Clean-up Assistance-helper sets up or cleans up; patient completes activity. [place] assists only prior to or following the activity. 4-Supervision or Touching Assistance-helper provides verbal cues and/or touching/steadying and/or contact guard assistance as patient completes activity. Assistance may be provided throughout the activity or intermittently. 3-Partial/Moderate Assistance-helper does LESS THAN HALF the effort. [place] lifts, holds or supports trunk or limbs, but provides less than half the effort. 2-Substantial/Maximal Assistance-helper does MORE THAN HALF the effort. [place] lifts or holds trunk or limbs and provides more than half the effort. 5-Bjvzwcaiz-klaykp does ALL the effort. Patient does none of the effort to complete the activity. Or, the assistance of 2 or more helpers is required for the patient to complete the activity. If activity was not attempted, code reason: 7-Patient Refused. 9-Not Applicable-not attempted and the patient did not perform the activity before the current illness, exacerbation or injury. 10-Not Attempted due to Environmental Limitations-(lack of equipment, weather restraints, etc.). 88-Not Attempted due to Medical Conditions or Safety Concerns. Roll Left to Right (QC): 4 Sit to Lying (QC): 4 Sit to Stand (QC): 4 Chair/Cym-al-Kpvki Xfer(QC): 4 Car Transfer (QC): 3 (Min A) Gait Training Does the Patient Walk?: Yes Walk 10 feet (QC): 4 Walk 50 ft with 2 Turns(QC): 4 Walk 150 ft (QC): 4 Walking 10ft/uneven surface-QC: 3 (Min A for balance ) Gait Persons Needed: 1 Gait Assistive Device: FWW Wheelchair Training Does the Pt Use a Wheelchair?: No Wheel 50 ft with 2 turns (QC): 9 Wheel 150 ft (QC): 9 Type of Wheelchair: N/A Stair Training #of Steps: 12 1 Step (curb) (QC): 3 (Min A for balance ) 4 Steps (QC): 3 (Min A for balance ) 12 Steps (QC): 3 (Min A for balance ) Balance Picking up an Object (QC): 4 (CGA ) ADL-Treatment Eating (QC): 6 (Per pt and family report.) Oral Hygiene (QC): 4 (CGA standing at sink.) Shower/Bathe Self (QC): 4 (CGA in stand while washing/drying buttocks. Pt able to wash/dry all parts.) Upper Body Dressing (QC): 4 (SBA) Lower Body Dressing (QC): 4 (CGA) On/Off Footwear (QC): 3 (Min A due to pain.) Toileting Hygiene (QC): 4 (CGA) Toilet Transfer (QC): 4 (CGA) Assessment/Plan Assessment and Plan Assess & Plan/Chief Complaint Assessment: Encephalopathy Severe hypokalemia Severe fibromyalgia with severe debility Depression Hypercholesterolemia UTI suspicious for ESBL due to chronic UTI's placed on Meropenem empirically Plan: Meds Aggressive PT and OT Monitor confusion Replace potassium 09/07/2022: Supportive assisted dosing of Pyridium 09/08/2022: Check UA tomorrow morning Continue aggressive therapy 09/09/2022: Meropenem Await UCx 09/10/2022: Continue meropenem Supportive care (1) Fibromyalgia Status: Acute (2) Hypokalemia (3) Encephalopathy CA GOETZ 3, 2023 06:31
[2022-09-10] MEDS: MULTIVIT W/MINERALS TAB (THERAGRAN M) PO SCH (06:43)
[2022-09-10] MEDS: CATHETER FLUSH 10 ML SYR IVP SCH ×3 (06:43→21:21)
[2022-09-10 07:06] VITALS: BP 96/57
[2022-09-10] MEDS ORDERED: FAMOTIDINE 20 MG (PEPCID) TABLET PO PRN (07:45)
[2022-09-10] MEDS: PANTOPRAZOLE 40 MG (PROTONIX) TAB PO SCH (08:33)
[2022-09-10] MEDS: buPROPion SR 150 MG (WELLBUTRIN SR) TAB PO SCH (08:33)
[2022-09-10] MEDS: IMIPRAMINE 25 MG (TOFRANIL) TAB PO SCH ×2 (08:33→21:21)
[2022-09-10] MEDS: ESTRADIOL 1 MG TAB (ESTRACE) PO SCH (08:33)
[2022-09-10] MEDS: SERTRALINE 100 MG (ZOLOFT) TAB PO SCH (08:34)
[2022-09-10] MEDS: VITAMIN D3 25 MCG (1,000 UNITS) TABLET PO SCH (08:34)
[2022-09-10] MEDS: FLUoxetine HCL 20 MG (PROzac) CAP PO SCH (08:34)
[2022-09-10] MEDS: SENNA W/DOCUSATE (SENOKOT S) TABLET PO SCH ×2 (08:34→21:27)
[2022-09-10] MEDS: toPIRamate 100 MG (TOPAMAX) TAB PO SCH ×2 (08:34→21:21)
[2022-09-10] MEDS: DOCUSATE SODIUM 100 MG (COLACE) CAP PO SCH ×2 (08:34→21:21)
[2022-09-10] MEDS: POTASSIUM BICARB 20 MEQ (EFFER-K) TABLET PO SCH ×2 (08:35→21:20)
[2022-09-10] MEDS: BISACODYL 5 MG (DULCOLAX) TABLET PO SCH ×2 (08:40→21:21)
[2022-09-10] MEDS: polyethylene glycoL POWDER 17 GM (MIRALAX) PACK PO SCH ×2 (08:40→21:27)
[2022-09-10] MEDS: ENOXAPARIN INJECTION 30 MG/0.3 ML SYR SC SCH (11:57)
[2022-09-10] MEDS: [UNRECOGNIZED DRUG - REMARK] PO SCH ×2 (12:30→21:22)
[2022-09-10 19:31] VITALS: BP 92/59
[2022-09-10] MEDS: CLORAZEPATE 7.5 MG (TRANXENE) TAB PO SCH (21:21)
[2022-09-11] MEDS: MEROPENEM 1,000 MG in NS (IVPB) 100 ML IV SCH ×2 (05:52→16:39)
--- NOTE | 2022-09-11 06:16 | PM&R Progress Note ---
Subjective HPI/CC On Admission Date Seen by Provider: Sep 11, 2022 Time Seen by Provider: 12:00 Subjective/Events-last exam 09/11/2022: No major issues Awaiting Ucx Meropenem maintained No falls Ambulating well 09/10/2022: Patient doing much better Awaiting urine culture Meropenem due to suspicion for ESBL Home Pyridium will be restarted 09/09/2022: Doing well UTI dx so adding broad spectrum abx since she has a high suspicion for ESBL No other issues No pain changes 09/08/2022: Patient doing a lot better Urinary symptoms continue Still refusing in and out cath so we will need to perform a clean-catch but nursing staff will clean periarea carefully to avoid contamination We will stop Pyridium due to skewing the urine results Family is very pleased about her progress 09/07/2022: Patient doing pretty well Slow recovery Pain is an issue Working on how to help her with her fibromyalgia flare Reports urinary frequency taking her own Pyridium Refuses in and out cath Recurrent UTIs in the past we will monitor closely Potassium looks good Was able to tolerate the potassium formulation Review of Systems General: Fatigue, Malaise Objective Exam Vital Signs Vital Signs Date Time Temp Pulse Resp B/P (MAP) Pulse Ox O2 Delivery O2 Flow Rate FiO2 09/11/22 09:00 Room Air 09/11/22 08:00 36.6 89 16 95/59 (71) 94 Capillary Refill : General Appearance: No Apparent Distress, WD/WN, Chronically ill, Thin HEENT: PERRL/EOMI, Normal ENT Inspection, Pharynx Normal Neck: Full Range of Motion, Normal Inspection, Non Tender, Supple, Carotid Bruit Respiratory: Chest Non Tender, Lungs Clear, Normal Breath Sounds, No Accessory Muscle Use, No Respiratory Distress Cardiovascular: Regular Rate, Rhythm, No Edema, No Gallop, No JVD, No Murmur, Normal Peripheral Pulses Gastrointestinal: Normal Bowel Sounds, No Organomegaly, No Pulsatile Mass, Non Tender, Soft Back: Normal Inspection, No CVA Tenderness, No Vertebral Tenderness Extremity: Normal Capillary Refill, Normal Inspection, Normal Range of Motion, Non Tender, No Calf Tenderness, No Pedal Edema Neurologic/Psychiatric: Alert, Oriented x3, 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 FIM Transfers Therapy Code Descriptions/Definitions Functional [place] Measure: 0=Not Assessed/NA 4=Minimal Assistance 1=Total Assistance 5=Supervision or Setup 2=Maximal Assistance 6=Modified [place] 3=Moderate Assistance 7=Complete IndependenceSCALE: Activities may be completed with or without assistive devices. 7-Hbcevgdwaf-xheujyu completes the activity by him/herself with no assistance from a helper. 5-Set-up or Clean-up Assistance-helper sets up or cleans up; patient completes activity. [place] assists only prior to or following the activity. 4-Supervision or Touching Assistance-helper provides verbal cues and/or touching/steadying and/or contact guard assistance as patient completes activity. Assistance may be provided throughout the activity or intermittently. 3-Partial/Moderate Assistance-helper does LESS THAN HALF the effort. [place] lifts, holds or supports trunk or limbs, but provides less than half the effort. 2-Substantial/Maximal Assistance-helper does MORE THAN HALF the effort. [place] lifts or holds trunk or limbs and provides more than half the effort. 5-Ohokafyqw-wzvmfd does ALL the effort. Patient does none of the effort to complete the activity. Or, the assistance of 2 or more helpers is required for the patient to complete the activity. If activity was not attempted, code reason: 7-Patient Refused. 9-Not Applicable-not attempted and the patient did not perform the activity before the current illness, exacerbation or injury. 10-Not Attempted due to Environmental Limitations-(lack of equipment, weather restraints, etc.). 88-Not Attempted due to Medical Conditions or Safety Concerns. Roll Left to Right (QC): 4 Sit to Lying (QC): 4 Sit to Stand (QC): 4 Chair/Ycn-ee-Wqriz Xfer(QC): 4 Car Transfer (QC): 3 (Min A) Gait Training Does the Patient Walk?: Yes Walk 10 feet (QC): 4 Walk 50 ft with 2 Turns(QC): 4 Walk 150 ft (QC): 4 Walking 10ft/uneven surface-QC: 3 (Min A for balance ) Gait Persons Needed: 1 Gait Assistive Device: FWW Wheelchair Training Does the Pt Use a Wheelchair?: No Wheel 50 ft with 2 turns (QC): 9 Wheel 150 ft (QC): 9 Type of Wheelchair: N/A Stair Training #of Steps: 12 1 Step (curb) (QC): 3 (Min A for balance ) 4 Steps (QC): 3 (Min A for balance ) 12 Steps (QC): 3 (Min A for balance ) Balance Picking up an Object (QC): 4 (CGA ) ADL-Treatment Eating (QC): 6 (Per pt and family report.) Oral Hygiene (QC): 4 (CGA standing at sink.) Shower/Bathe Self (QC): 4 (CGA in stand while washing/drying buttocks. Pt able to wash/dry all parts.) Upper Body Dressing (QC): 4 (SBA) Lower Body Dressing (QC): 4 (CGA) On/Off Footwear (QC): 3 (Min A due to pain.) Toileting Hygiene (QC): 4 (CGA) Toilet Transfer (QC): 4 (CGA) Assessment/Plan Assessment and Plan Assess & Plan/Chief Complaint Assessment: Encephalopathy Severe hypokalemia Severe fibromyalgia with severe debility Depression Hypercholesterolemia UTI suspicious for ESBL due to chronic UTI's placed on Meropenem empirically Plan: Meds Aggressive PT and OT Monitor confusion Replace potassium 09/07/2022: Supportive group home dosing of Pyridium 09/08/2022: Check UA tomorrow morning Continue aggressive therapy 09/09/2022: Meropenem Await UCx 09/10/2022: Continue meropenem Supportive care 09/11/2022: Await UCx (1) Fibromyalgia Status: Acute (2) Hypokalemia (3) Encephalopathy CA GOETZ DO Sep 11, 2022 06:16
[2022-09-11] MEDS: CATHETER FLUSH 10 ML SYR IVP SCH ×3 (06:24→21:54)
[2022-09-11] MEDS: MULTIVIT W/MINERALS TAB (THERAGRAN M) PO SCH (06:24)
[2022-09-11 08:00] VITALS: BP 95/59
[2022-09-11] MEDS: PANTOPRAZOLE 40 MG (PROTONIX) TAB PO SCH (08:41)
[2022-09-11] MEDS: IMIPRAMINE 25 MG (TOFRANIL) TAB PO SCH ×2 (08:41→21:53)
[2022-09-11] MEDS: DOCUSATE SODIUM 100 MG (COLACE) CAP PO SCH ×2 (08:41→21:53)
[2022-09-11] MEDS: SERTRALINE 100 MG (ZOLOFT) TAB PO SCH (08:41)
[2022-09-11] MEDS: FLUoxetine HCL 20 MG (PROzac) CAP PO SCH (08:41)
[2022-09-11] MEDS: VITAMIN D3 25 MCG (1,000 UNITS) TABLET PO SCH (08:41)
[2022-09-11] MEDS: buPROPion SR 150 MG (WELLBUTRIN SR) TAB PO SCH (08:41)
[2022-09-11] MEDS: toPIRamate 100 MG (TOPAMAX) TAB PO SCH ×2 (08:41→21:53)
[2022-09-11] MEDS: ESTRADIOL 1 MG TAB (ESTRACE) PO SCH (08:42)
[2022-09-11] MEDS: [UNRECOGNIZED DRUG - REMARK] PO SCH ×3 (08:45→21:54)
[2022-09-11] MEDS: polyethylene glycoL POWDER 17 GM (MIRALAX) PACK PO SCH ×2 (08:45→21:54)
[2022-09-11] MEDS: POTASSIUM BICARB 20 MEQ (EFFER-K) TABLET PO SCH ×2 (08:46→21:53)
[2022-09-11] MEDS: BISACODYL 5 MG (DULCOLAX) TABLET PO SCH ×2 (08:47→21:53)
[2022-09-11] MEDS: SENNA W/DOCUSATE (SENOKOT S) TABLET PO SCH ×2 (08:47→21:55)
[2022-09-11] MEDS: ENOXAPARIN INJECTION 30 MG/0.3 ML SYR SC SCH (11:45)
[2022-09-11] MEDS: ONDANSETRON 4 MG (ZOFRAN) ORAL DISSOLVE TAB PO PRN (12:59)
[2022-09-11] MEDS: fentaNYL PATCH 100 MCG (DURAGESIC) TD SCH (15:29)
[2022-09-11 20:15] VITALS: BP 90/57
[2022-09-11] MEDS: CLORAZEPATE 7.5 MG (TRANXENE) TAB PO SCH (21:53)
[2022-09-12] MEDS: MEROPENEM 1,000 MG in NS (IVPB) 100 ML IV SCH (06:04)
[2022-09-12] MEDS: CATHETER FLUSH 10 ML SYR IVP SCH (06:31)
[2022-09-12] MEDS: MULTIVIT W/MINERALS TAB (THERAGRAN M) PO SCH (06:31)
--- NOTE | 2022-09-12 06:32 | PM&R Progress Note ---
Subjective HPI/CC On Admission Date Seen by Provider: Sep 12, 2022 Time Seen by Provider: 09:00 Subjective/Events-last exam 09/12/2022: Patient doing well Urine culture reviewed stop meropenem and started Omnicef Discharge plan for tomorrow 09/11/2022: No major issues Awaiting Ucx Meropenem maintained No falls Ambulating well 09/10/2022: Patient doing much better Awaiting urine culture Meropenem due to suspicion for ESBL Home Pyridium will be restarted 09/09/2022: Doing well UTI dx so adding broad spectrum abx since she has a high suspicion for ESBL No other issues No pain changes 09/08/2022: Patient doing a lot better Urinary symptoms continue Still refusing in and out cath so we will need to perform a clean-catch but nursing staff will clean periarea carefully to avoid contamination We will stop Pyridium due to skewing the urine results Family is very pleased about her progress 09/07/2022: Patient doing pretty well Slow recovery Pain is an issue Working on how to help her with her fibromyalgia flare Reports urinary frequency taking her own Pyridium Refuses in and out cath Recurrent UTIs in the past we will monitor closely Potassium looks good Was able to tolerate the potassium formulation Review of Systems General: Fatigue, Malaise Objective Exam Vital Signs Vital Signs Date Time Temp Pulse Resp B/P (MAP) Pulse Ox O2 Delivery O2 Flow Rate FiO2 09/12/22 09:00 Room Air 09/12/22 07:28 36.0 84 14 95/62 (73) 92 Capillary Refill : General Appearance: No Apparent Distress, WD/WN, Chronically ill, Thin HEENT: PERRL/EOMI, Normal ENT Inspection, Pharynx Normal Neck: Full Range of Motion, Normal Inspection, Non Tender, Supple, Carotid Bruit Respiratory: Chest Non Tender, Lungs Clear, Normal Breath Sounds, No Accessory Muscle Use, No Respiratory Distress Cardiovascular: Regular Rate, Rhythm, No Edema, No Gallop, No JVD, No Murmur, Normal Peripheral Pulses Gastrointestinal: Normal Bowel Sounds, No Organomegaly, No Pulsatile Mass, Non Tender, Soft Back: Normal Inspection, No CVA Tenderness, No Vertebral Tenderness Extremity: Normal Capillary Refill, Normal Inspection, Normal Range of Motion, Non Tender, No Calf Tenderness, No Pedal Edema Neurologic/Psychiatric: Alert, Oriented x3, 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 FIM Transfers Therapy Code Descriptions/Definitions Functional [place] Measure: 0=Not Assessed/NA 4=Minimal Assistance 1=Total Assistance 5=Supervision or Setup 2=Maximal Assistance 6=Modified [place] 3=Moderate Assistance 7=Complete IndependenceSCALE: Activities may be completed with or without assistive devices. 1-Vopdsppbez-ajucapv completes the activity by him/herself with no assistance from a helper. 5-Set-up or Clean-up Assistance-helper sets up or cleans up; patient completes activity. [place] assists only prior to or following the activity. 4-Supervision or Touching Assistance-helper provides verbal cues and/or touching/steadying and/or contact guard assistance as patient completes activity. Assistance may be provided throughout the activity or intermittently. 3-Partial/Moderate Assistance-helper does LESS THAN HALF the effort. [place] lifts, holds or supports trunk or limbs, but provides less than half the effort. 2-Substantial/Maximal Assistance-helper does MORE THAN HALF the effort. [place] lifts or holds trunk or limbs and provides more than half the effort. 1-Kjjrikdml-zwidna does ALL the effort. Patient does none of the effort to complete the activity. Or, the assistance of 2 or more helpers is required for the patient to complete the activity. If activity was not attempted, code reason: 7-Patient Refused. 9-Not Applicable-not attempted and the patient did not perform the activity before the current illness, exacerbation or injury. 10-Not Attempted due to Environmental Limitations-(lack of equipment, weather restraints, etc.). 88-Not Attempted due to Medical Conditions or Safety Concerns. Roll Left to Right (QC): 4 Sit to Lying (QC): 4 Sit to Stand (QC): 4 Chair/Mnr-el-Qbcoc Xfer(QC): 4 Car Transfer (QC): 3 (Min A) Gait Training Does the Patient Walk?: Yes Walk 10 feet (QC): 4 Walk 50 ft with 2 Turns(QC): 4 Walk 150 ft (QC): 4 Walking 10ft/uneven surface-QC: 3 (Min A for balance ) Gait Persons Needed: 1 Gait Assistive Device: FWW Wheelchair Training Does the Pt Use a Wheelchair?: No Wheel 50 ft with 2 turns (QC): 9 Wheel 150 ft (QC): 9 Type of Wheelchair: N/A Stair Training #of Steps: 12 1 Step (curb) (QC): 3 (Min A for balance ) 4 Steps (QC): 3 (Min A for balance ) 12 Steps (QC): 3 (Min A for balance ) Balance Picking up an Object (QC): 4 (CGA ) ADL-Treatment Eating (QC): 6 (Per pt and family report.) Oral Hygiene (QC): 4 (CGA standing at sink.) Shower/Bathe Self (QC): 4 (CGA in stand while washing/drying buttocks. Pt able to wash/dry all parts.) Upper Body Dressing (QC): 4 (SBA) Lower Body Dressing (QC): 4 (CGA) On/Off Footwear (QC): 3 (Min A due to pain.) Toileting Hygiene (QC): 4 (CGA) Toilet Transfer (QC): 4 (CGA) Assessment/Plan Assessment and Plan Assess & Plan/Chief Complaint Assessment: Encephalopathy Severe hypokalemia Severe fibromyalgia with severe debility Depression Hypercholesterolemia UTI suspicious for ESBL due to chronic UTI's placed on Meropenem empirically then urine culture revealed pansensitive so changed to Omnicef Plan: Meds Aggressive PT and OT Monitor confusion Replace potassium 09/07/2022: Supportive shelter dosing of Pyridium 09/08/2022: Check UA tomorrow morning Continue aggressive therapy 09/09/2022: Meropenem Await UCx 09/10/2022: Continue meropenem Supportive care 09/11/2022: Await UCx 09/12/2022: DC meropenem Start Omnicef (1) Fibromyalgia Status: Acute (2) Hypokalemia (3) Encephalopathy CA GOETZ DO Sep 12, 2022 06:32
[2022-09-12 06:50] LABS: BASOPHILS % (AUTO) 0 % (0-10); EOSINOPHILS # (AUTO) 0.6 10^3/uL (0.0-0.3); EOSINOPHILS % (AUTO) 12 % (0-10); HEMATOCRIT 31 % (35-52); HEMOGLOBIN 9.8 g/dL (11.5-16.0); LYMPHOCYTES % (AUTO) 39 % (12-44); MEAN CORPUSCULAR HEMOGLOBIN 29 pg (25-34); MEAN CORPUSCULAR HGB CONC 32 g/dL (32-36); MEAN CORPUSCULAR VOLUME 90 fL (80-99); MEAN PLATELET VOLUME 8.7 fL (9.0-12.2); MONOCYTES # (AUTO) 0.4 10^3/uL (0.0-1.0); MONOCYTES % (AUTO) 9 % (0-12); NEUTROPHILS % (AUTO) 39 % (42-75); PLATELET COUNT 355 10^3/uL (130-400)
[2022-09-12 07:00] LABS: ALBUMIN 2.6 GM/DL (3.2-4.5); POTASSIUM 3.8 MMOL/L (3.6-5.0)
[2022-09-12 07:01] LABS: CALCIUM 8.4 MG/DL (8.5-10.1)
[2022-09-12 07:02] LABS: TOTAL PROTEIN 5.1 GM/DL (6.4-8.2)
[2022-09-12 07:04] LABS: BILIRUBIN,TOTAL 0.2 MG/DL (0.1-1.0)
[2022-09-12 07:06] LABS: CREATININE SERUM 0.81 MG/DL (0.60-1.30)
[2022-09-12 07:28] VITALS: BP 95/62
[2022-09-12] MEDS: CEFDINIR 300 MG (OMNICEF) CAP PO SCH ×2 (08:08→21:03)
[2022-09-12] MEDS: PANTOPRAZOLE 40 MG (PROTONIX) TAB PO SCH (08:08)
[2022-09-12] MEDS: VITAMIN D3 25 MCG (1,000 UNITS) TABLET PO SCH (08:08)
[2022-09-12] MEDS: IMIPRAMINE 25 MG (TOFRANIL) TAB PO SCH ×2 (08:08→21:05)
[2022-09-12] MEDS: buPROPion SR 150 MG (WELLBUTRIN SR) TAB PO SCH (08:08)
[2022-09-12] MEDS: toPIRamate 100 MG (TOPAMAX) TAB PO SCH ×2 (08:08→21:05)
[2022-09-12] MEDS: POTASSIUM BICARB 20 MEQ (EFFER-K) TABLET PO SCH ×2 (08:09→21:01)
[2022-09-12] MEDS: DOCUSATE SODIUM 100 MG (COLACE) CAP PO SCH ×2 (08:09→20:59)
[2022-09-12] MEDS: ESTRADIOL 1 MG TAB (ESTRACE) PO SCH (08:09)
[2022-09-12] MEDS: FLUoxetine HCL 20 MG (PROzac) CAP PO SCH (08:09)
[2022-09-12] MEDS: SERTRALINE 100 MG (ZOLOFT) TAB PO SCH (08:09)
[2022-09-12] MEDS: SENNA W/DOCUSATE (SENOKOT S) TABLET PO SCH ×3 (08:09→21:13)
[2022-09-12] MEDS: [UNRECOGNIZED DRUG - REMARK] PO SCH ×3 (08:12→21:06)
[2022-09-12] MEDS: BISACODYL 5 MG (DULCOLAX) TABLET PO SCH ×2 (08:13→21:02)
[2022-09-12] MEDS: polyethylene glycoL POWDER 17 GM (MIRALAX) PACK PO SCH ×2 (08:16→21:07)
--- NOTE | 2022-09-12 09:14 | Occupational Ther Daily Note ---
OT Current Status-Daily Note Subjective Pt agreeable to OT tx. Mental Status/Objective Patient Orientation: Normal For Age ADL-Treatment Therapy Code Descriptions/Definitions Functional [place] Measure: 0=Not Assessed/NA 4=Minimal Assistance 1=Total Assistance 5=Supervision or Setup 2=Maximal Assistance 6=Modified [place] 3=Moderate Assistance 7=Complete IndependenceSCALE: Activities may be completed with or without assistive devices. 6-Pthvkrudvf-nyherau completes the activity by him/herself with no assistance from a helper. 5-Set-up or Clean-up Assistance-helper sets up or cleans up; patient completes activity. [place] assists only prior to or following the activity. 4-Supervision or Touching Assistance-helper provides verbal cues and/or touching/steadying and/or contact guard assistance as patient completes activity . Assistance may be provided throughout the activity or intermittently. 3-Partial/Moderate Assistance-helper does LESS THAN HALF the effort. [place] lifts, holds or supports trunk or limbs, but provides less than half the effort. 2-Substantial/Maximal Assistance-helper does MORE THAN HALF the effort. [place] lifts or holds trunk or limbs and provides more than half the effort. 0-Owrrergex-bjirvk does ALL the effort. Patient does none of the effort to complete the activity. Or, the assistance of 2 or more helpers is required for the patient to complete the activity. If activity was not attempted, code reason: 7-Patient Refused. 9-Not Applicable-not attempted and the patient did not perform the activity before the current illness, exacerbation or injury. 10-Not Attempted due to Environmental Limitations-(lack of equipment, weather restraints, etc.). 88-Not Attempted due to Medical Conditions or Safety Concerns. Eating (QC): 6 Oral Hygiene (QC): 6 (seated) Shower/Bathe Self (QC): 4 (Supervision) Upper Body Dressing (QC): 5 Lower Body Dressing (QC): 4 (Supervision) On/Off Footwear: 5 Toileting Hygiene (QC): 6 Toilet Transfer (QC): 4 (CGA to sit on toilet.) Other Treatment [id number] Pt took medications provided by RN. Pt transferred supine to sit EOB, IND. Pt used FWW to transfer into bathroom and onto toilet, CGA. Pt completed toileting IND using GBs as needed. Pt sat at sink to complete grooming tasks and sponge bath as outlined above. Pt used FWW to return to EOB, CGA. [id number]: OT/PT cotreat due to skill of 2 clinicians required which a occupational therapist rehab manager could not perform in order to coordinate UE/LEs, decrease fall risk, and for family education on pt's current level of function. OT focused on UE placement, ADLs, and cues for sequencing and safety, PT focused on LE placement, mobility/transfers, and gross overall movement. Pt's and daughter educated on pt's assistance level required with ADLs and functional mobility. Education provided on how to properly don/doff gait belt to assist with balance as needed. Family verbalize understanding and states no concerns with pt returning home tomorrow. Post tx, pt with PT, all needs met. Education OT Patient Education: Correct positioning, Energy conservation, Modified ADL techniques, Progress toward Goal/Update tx plan, Purpose of tx/functional activities, Rehab process Teaching Recipient: Patient Teaching Methods: Discussion Response to Teaching: Verbalize Understanding BIMS CAM BIMS Expression of Ideas and Wants: Without Difficulty Understanding Verbal Content: Understands Brief Interview/Mental Status: Yes IRF [place] BIMS: IRF [place] BIMS Response (Comments) Value Repitition of Three Words Three 3 Recalls Socks Yes, No Cue Required 2 Recalls Blue Yes, No Cue Required 2 Recalls Bed Yes, After Cueing 1 Year Correct 3 Month Accurate Within 5 Days 2 Day Correct 1 Total 14 Should Staff Asses. Mental St.: No ( ) CAM Mental Status Change/Baseline: 0 Inattention: 0 Disorganized thinkin Altered level of consciousness: 0 OT Hoop Driving Machine Operator Goals Intermediate Goals Time Frame: Sep 23, 2022 Acute change in mental status: 1 Inattention: 0 Disorganized thinkin Altered level of consciousness: 0 Eating (QC): 6 (met) Oral Hygiene (QC): 6 (met) Toileting Hygiene (QC): 6 (met) Shower/Bathe Self (QC): 4 (Supervision, met) Upper Body Dressing (QC): 5 (met) Lower Body Dressing (QC): 5 (not met) On/Off Footwear (QC): 5 (met) Additional Goals: 1-Demonstrate ADL Tasks, 2-Verbalize Understanding, 3- ImproveStrength/[place] 1=Demonstrate adherence to instructed precautions during ADL tasks. 2=Patient will verbalize/demonstrate understanding of assistive devices/modifications for ADL. 3=Patient will improve strength/tolerance for activity to enable patient to perform ADL's. OT Education/Plan Problem List/Assessment Assessment: Decreased Activ Tolerance, Decreased UE Strength, Impaired I ADL's, Impaired Self-Care Skills Discharge Recommendations Plan/Recommendations: Continue POC Treatment Plan/Plan of Care Patient would benefit from OT for education, treatment and training to promote independence in ADL's, mobility, safety and/or upper extremity function for ADL's. Plan of Care: ADL Retraining, Functional Mobility, Group Exercise/Act as Ind, UE Funct Exercise/Act Treatment Duration: Sep 23, 2022 Frequency: At least 5 of 7 days/Wk (IRF) Estimated Hrs Per Day: 1.5 hours per day Agreement: Yes Rehab Potential: Good Time Start Time: 08:00 Stop Time: 09:30 DATE: Sep 12, 2022 Total Time Billed (hr/min): 90 Billed Treatment Time [id number] OT tx, [id number] Cotreat with PT for family training 1, ADL 6 MANI CURRIE OT Sep 12, 2022 09:14
[2022-09-12] MEDS: ENOXAPARIN INJECTION 30 MG/0.3 ML SYR SC SCH (10:16)
--- NOTE | 2022-09-12 14:03 | Physical Therapy Daily Note ---
PT Daily Note-Current Subjective Pt agreeable to PT. Rates pain at 6/10 Pain Numeric Pain Scale: 6 Location Body Site: Generalized Section J - Health Conditions 1. Rarely or not at all 2. Occasionally 3. Frequently 4. Almost constantly 8. Unable to answer Pain Effect on Sleep: 4 Pain Interference with Therapy: 4 Pain Interference w/Day-to-Day: 4 Transfers SCALE: Activities may be completed with or without assistive devices. 0-Kgxnnkehxf-rurxjdw completes the activity by him/herself with no assistance from a helper. 5-Set-up or Clean-up Assistance-helper sets up or cleans up; patient completes activity. [place]ixson assists only prior to or following the activity. 4-Supervision or Touching Assistance-helper provides verbal cues and/or touching/steadying and/or contact guard assistance as patient completes ac tivity. Assistance may be provided throughout the activity or intermittently. 3-Partial/Moderate Assistance-helper does LESS THAN HALF the effort. Hixson lifts, holds or supports trunk or limbs, but provides less than half the effort. 2-Substantial/Maximal Assistance-helper does MORE THAN HALF the effort. Hixson lifts or holds trunk or limbs and provides more than half the effort. 5-Ynwgurlbi-kkpwtz does ALL the effort. Patient does none of the effort to complete the activity. Or, the assistance of 2 or more helpers is required for the patient to complete the activity. If activity was not attempted, code reason: 7-Patient Refused. 9-Not Applicable-not attempted and the patient did not perform the activity before the current illness, exacerbation or injury. 10-Not Attempted due to Environmental Limitations-(lack of equipment, weather restraints, etc.). 88-Not Attempted due to Medical Conditions or Safety Concerns. Roll Left & Right (QC): 6 Sit to Lying (QC): 6 Lying to Sitting/Side of Bed(Q: 6 Sit to Stand (QC): 6 Chair/Usj-rv-Smchb Xfer(QC): 6 Toilet Transfer (QC): 6 Car Transfer (QC): 6 Weight Bearing Right Lower Extremity: Right Full Weight Bearing Left Lower Extremity: Left Full Weight Bearing Gait Training Does the Patient Walk?: Yes Walk 10 feet (QC): 4 (SBA) Walk 50 ft with 2 Turns(QC): 4 (SBA) Walk 150 ft (QC): 4 (SBA) Walking 10ft/uneven surface-QC: 4 (SBA) Gait Persons Needed: 1 Gait Assistive Device: FWW Wheelchair Training Does the Pt Use a Wheelchair?: No Wheel 50 ft with 2 turns (QC): 9 Wheel 150 ft (QC): 9 Type of Wheelchair: N/A Stair Training #of Steps: 12 1 Step (curb) (QC): 4 (SBA) 4 Steps (QC): 4 (SBA) 12 Steps (QC): 4 (SBA) Balance Picking up an Object (QC): 6 Special Test Comments standing balance test - 4/5 (goal met) Treatments [id number]: PT/OT co-tx due to skill of 2 clinicians required which a rehab director occupational therapist could not perform in order to coordinate UE/LEs, decrease fall risk, and for family education on pt's current level of function. PT focused on LE placement, mobility/transfers, and gross overall movement. OT focused on UE placement, ADLs, and cues for sequencing and safety. Pt's and daughter educated on pt's assistance level required with ADLs and functional mobility. Education provided on how to properly don/doff gait belt to assist with balance as needed. Family verbalize understanding and states no concerns with pt returning home tomorrow. QCs completed on this date. Pt is Mod I with bed mobility and functional transfers, and pt is SBA for ambulation with the FWW and 12 steps. Pt left with family in room upon completion of treatment. Assessment Current Status: Good Progress Pt tolerated PT well and has progressed well. Pt has met all set goals and will be d/c home with family tomorrow (09/13/2022). PT Snf Goals Snf Goals PT Snf Goals Time Frame: Sep 16, 2022 Roll Left & Right (QC): 6 (Pt will be Mod I with bed mobility ) Sit to Lying (QC): 6 (Pt will be Mod I with bed mobility ) Lying-Sitting on Side/Bed(QC): 6 (Pt will be Mod I with bed mobility ) Sit to Stand (QC): 6 (Pt will be Mod I with functional transfers ) Chair/Ekn-gr-Bpzuy Xfer(QC): 6 (Pt will be Mod I with functional transfers ) Toilet Transfer (QC): 6 (Pt will be Mod I with functional transfers ) Car Transfer (QC): 6 (Pt will be Mod I with functional transfers ) Does the Patient Walk: Yes Walk 10 feet (QC): 4 (Pt will be SBA for walking with the FWW/4WW, as well as stairs, to be at PLOF. ) Walk 50ft with 2 Turns (QC): 4 (Pt will be SBA for walking with the FWW/4WW, as well as stairs, to be at PLOF. ) Walk 150 ft (QC): 4 (Pt will be SBA for walking with the FWW/4WW, as well as stairs, to be at PLOF. ) Walking 10ft on Uneven Surface: 4 (Pt will be SBA for walking with the FWW/4WW, as well as stairs, to be at PLOF. ) 1 Step (curb) (QC): 4 (Pt will be SBA for walking with the FWW/4WW, as well as stairs, to be at PLOF. ) 4 Steps (QC): 4 (Pt will be SBA for walking with the FWW/4WW, as well as stairs, to be at PLOF. ) 12 Steps (QC): 4 (Pt will be SBA for walking with the FWW/4WW, as well as stairs, to be at PLOF. ) Picking up an Object (QC): 6 (Pt will be Mod I with the live hanger to apple picker objects. ) Does the Pt use WC or Scooter?: No Wheel 50 feet with 2 turns (QC: 9 Type: N/A Wheel 150 feet: 9 Type: N/A PT Plan Problem List Problem List: Activity Tolerance, Functional Strength, Safety, Balance, Gait, Transfer, Bed Mobility Treatment/Plan Treatment Plan: Continue Plan of Care Treatment Plan: Bed Mobility, Concurrent Therapy, Education, Functional Activity Marcelino, Functional Strength, Group Therapy, Gait, Safety, Therapeutic Exercise, Transfers Treatment Duration: Sep 16, 2022 Frequency: At least 5 of 7 days/Wk (IRF) Estimated Hrs Per Day: 1.5 hours per day Patient and/or Family Agrees t: Yes Safety Risks/Education Patient Education: Gait Training, Transfer Techniques, Steps, Safety Issues Teaching Recipient: Patient, Family Teaching Methods: Demonstration, Discussion Response to Teaching: Verbalize Understanding, Return Demonstration Discharge Recommendations Therapy Discharge Recommendati: Home & Family Equpiment Recommendations-D/C: Front Wheeled Walker Discharge Status/Home Program d/c tomorrow home with family (09/13/2022) Target Placement home with family Time Time In: 900 Time Out: 1000 DATE: Sep 12, 2022 Total Billed Treatment Time: 60 Total Billed Treatment 60 min (30 min co-tx from [id number]) (30 min Ind tx from [id number]) 1 visit FA x 2 GT x 2 DIANA JORDAN PT Sep 12, 2022 14:03
--- NOTE | 2022-09-12 14:13 | Physical Therapy Daily Note ---
PT Daily Note-Current Subjective Pt is agreeable to PT Pain Section J - Health Conditions 1. Rarely or not at all 2. Occasionally 3. Frequently 4. Almost constantly 8. Unable to answer Pain Effect on Sleep: 4 Pain Interference with Therapy: 4 Pain Interference w/Day-to-Day: 4 Transfers SCALE: Activities may be completed with or without assistive devices. 8-Pgkfeqiyrz-rifzuox completes the activity by him/herself with no assistance from a helper. 5-Set-up or Clean-up Assistance-helper sets up or cleans up; patient completes activity. Nelson assists only prior to or following the activity. 4-Supervision or Touching Assistance-helper provides verbal cues and/or touching/steadying and/or contact guard assistance as patient completes activity. Assistance may be provided throughout the activity or intermittently. 3-Partial/Moderate Assistance-helper does LESS THAN HALF the effort. Nelson lifts, holds or supports trunk or limbs, but provides less than half the effort. 2-Substantial/Maximal Assistance-helper does MORE THAN HALF the effort. Nelson lifts or holds trunk or limbs and provides more than half the effort. 6-Zwsshluwx-mnnbkz does ALL the effort. Patient does none of the effort to complete the activity. Or, the assistance of 2 or more helpers is required for the patient to complete the activity. If activity was not attempted, code reason: 7-Patient Refused. 9-Not Applicable-not attempted and the patient did not perform the activity before the current illness, exacerbation or injury. 10-Not Attempted due to Environmental Limitations-(lack of equipment, weather restraints, etc.). 88-Not Attempted due to Medical Conditions or Safety Concerns. Sit to Lying (QC): 6 Lying to Sitting/Side of Bed(Q: 6 Sit to Stand (QC): 6 Weight Bearing Right Lower Extremity: Right Full Weight Bearing Left Lower Extremity: Left Full Weight Bearing Gait Training Does the Patient Walk?: Yes Walk 10 feet (QC): 4 Walk 50 ft with 2 Turns(QC): 4 Walk 150 ft (QC): 4 Gait Assistive Device: FWW Wheelchair Training Does the Pt Use a Wheelchair?: No Treatments Pt ambulated 150ft and 75ft with the FWW and SBA. Pt completed seated B LE Ther Ex x 20 reps each with the red Tband. Assessment Current Status: Good Progress Pt tolerated PT well PT Analysis Mgr Goals Analysis Mgr Goals PT Longterm Goals Time Frame: Sep 16, 2022 Roll Left & Right (QC): 6 (Pt will be Mod I with bed mobility ) Sit to Lying (QC): 6 (Pt will be Mod I with bed mobility ) Lying-Sitting on Side/Bed(QC): 6 (Pt will be Mod I with bed mobility ) Sit to Stand (QC): 6 (Pt will be Mod I with functional transfers ) Chair/Ard-pn-Tagys Xfer(QC): 6 (Pt will be Mod I with functional transfers ) Toilet Transfer (QC): 6 (Pt will be Mod I with functional transfers ) Car Transfer (QC): 6 (Pt will be Mod I with functional transfers ) Does the Patient Walk: Yes Walk 10 feet (QC): 4 (Pt will be SBA for walking with the FWW/4WW, as well as stairs, to be at PLOF. ) Walk 50ft with 2 Turns (QC): 4 (Pt will be SBA for walking with the FWW/4WW, as well as stairs, to be at PLOF. ) Walk 150 ft (QC): 4 (Pt will be SBA for walking with the FWW/4WW, as well as stairs, to be at PLOF. ) Walking 10ft on Uneven Surface: 4 (Pt will be SBA for walking with the FWW/4WW, as well as stairs, to be at PLOF. ) 1 Step (curb) (QC): 4 (Pt will be SBA for walking with the FWW/4WW, as well as stairs, to be at PLOF. ) 4 Steps (QC): 4 (Pt will be SBA for walking with the FWW/4WW, as well as stairs, to be at PLOF. ) 12 Steps (QC): 4 (Pt will be SBA for walking with the FWW/4WW, as well as stairs, to be at PLOF. ) Picking up an Object (QC): 6 (Pt will be Mod I with the technical service rep to sampler pickup objects. ) Does the Pt use WC or Scooter?: No Wheel 50 feet with 2 turns (QC: 9 Type: N/A Wheel 150 feet: 9 Type: N/A PT Plan Problem List Problem List: Activity Tolerance, Functional Strength, Safety, Balance, Gait, Transfer, Bed Mobility Treatment/Plan Treatment Plan: Continue Plan of Care Treatment Plan: Bed Mobility, Concurrent Therapy, Education, Functional Activi ty Marcelino, Functional Strength, Group Therapy, Gait, Safety, Therapeutic Exercise, Transfers Treatment Duration: Sep 16, 2022 Frequency: At least 5 of 7 days/Wk (IRF) Estimated Hrs Per Day: 1.5 hours per day Patient and/or Family Agrees t: Yes Safety Risks/Education Patient Education: Gait Training, Transfer Techniques Teaching Recipient: Patient, Family Teaching Methods: Demonstration, Discussion Response to Teaching: Verbalize Understanding, Return Demonstration Discharge Recommendations Therapy Discharge Recommendati: Home & Family Equpiment Recommendations-D/C: Front Wheeled Walker Discharge Status/Home Program d/c home with family tomorrow (09/13/2022) Target Placement home with family Time Time In: 1315 Time Out: 1345 DATE: Sep 12, 2022 Total Billed Treatment Time: 30 Total Billed Treatment 30 min 1 visit GT x 1 EX x 1 DIANA JORDAN PT Sep 12, 2022 14:13
[2022-09-12 20:50] VITALS: BP 111/65
[2022-09-12] MEDS: CLORAZEPATE 7.5 MG (TRANXENE) TAB PO SCH (21:05)
[2022-09-13] MEDS ORDERED: POTA20TA28 PO (05:43)
[2022-09-13] MEDS ORDERED: CEFD300C3 PO (05:43)
--- NOTE | 2022-09-13 05:44 | D/C HH Face to Face Order ---
D/C Face to Face Orders Reconcile Patient Problems Problems Reviewed?: Yes Instructions for Patient Via [facility], Patient Instructions/FollowUp: PCP 1 week Physician to follow Patient: [facility] Discharge Diet for Home: No Restrictions Patient Problems: Debility Patient Data-Allergies,Ht & Wt Patient Allergies: Coded Allergies: prochlorperazine (Verified Allergy, Mild, TREMORS, 04/18/18) Height (Feet): 5 Height (Inches): 5.00 Weight (Pounds): 109 Weight (Ounces): 0.0 Home Health Need/Face to Face Date of Face to Face: Sep 13, 2022 Clinical Findings: Generalized weakness and fatigue I have seen Pt wkdi-gr-yapv: Yes Discharged To: Home Diagnosis/Conditions: Debility Patient is Homebound due to: Jake fall risk due to instabilty, Muscle weakness Homebound Status Due to the above stated illness, injury or surgical procedure (medical condition or diagnosis) and associated clinical findings, the patient is homebound because of his/her inability to leave home except with aid of a supportive device and/or person AND leaving the home requires a considerable and taxing effort or is medically contraindicated. Pt req the following assistanc: Walker Home Health Nursing Orders Home Health Services Order: Nursing Services, Airworthiness Safety Inspector-Evaluate & Treat, Physical Therapy-Evaluate & Treat Certify Stmt I certify that this patient is under my care and that I, a nurse practitioner or a physician; a hearing aid assistant working with me, had a face to face encounter that -milton ts the physician face to face encounter requirements with this patient as dated. CA GOETZ DO Sep 13, 2022 05:44
--- NOTE | 2022-09-13 05:44 | Discharge Summary ---
Diagnosis/Chief Complaint Date of Admission September 06, 2022 at 10:03 Date of Discharge Discharge Date: Sep 13, 2022 Discharge Diagnosis Assessment: Encephalopathy Severe hypokalemia Severe fibromyalgia with severe debility Depression Hypercholesterolemia UTI suspicious for ESBL due to chronic UTI's placed on Meropenem empirically then urine culture revealed pansensitive so changed to Omnicef Plan: Meds Aggressive PT and OT Monitor confusion Replace potassium 09/07/2022: Supportive residential dosing of Pyridium 09/08/2022: Check UA tomorrow morning Continue aggressive therapy 09/09/2022: Meropenem Await UCx 09/10/2022: Continue meropenem Supportive care 09/11/2022: Await UCx 09/12/2022: DC meropenem Start Omnicef (1) Fibromyalgia Status: Acute (2) Hypokalemia (3) Encephalopathy Discharge Summary Discharge Physical Examination Allergies: Coded Allergies: prochlorperazine (Verified Allergy, Mild, TREMORS, 04/18/18) Vitals & I&Os Vital Signs Date Time Temp Pulse Resp B/P (MAP) Pulse Ox O2 Delivery O2 Flow Rate FiO2 09/13/22 09:00 Room Air 09/13/22 08:00 36.6 82 16 108/62 (77) 95 General Appearance: Alert, Oriented X3, Cooperative Respiratory: Clear to Auscultation Cardiovascular: Regular Rate Psych/Mental Status: Mental Status NL Hospital Course Was the Problem List Reviewed?: Yes Hospital course: Patient had an uneventful hospital course after she was admitted for severe weakness and hypokalemia with acute flare of fibromyalgia. Patient was slow to recover but participated in all therapy and was able to regain ambulation but still prone to maintaining bedridden status. UTI diagnosed assumed it was ESBL so meropenem was maintained but pansensitive urine culture prompted change of antibiotics to oral Omnicef she will complete that as an outpatient. Overall she did very well she had no changes to her regular medications except for potassium and she will have close follow-up with her primary care provider and park worker who manages her pain control. Labs (last 24 hrs) Laboratory Tests 09/07/22 05:47: White Blood Count 11.8H, Red Blood Count 3.69L, Hemoglobin 10.8L, Hematocrit 32L , Mean Corpuscular Volume 87, Mean Corpuscular Hemoglobin 29, Mean Corpuscular Hemoglobin Concent 34, Red Cell Distribution Width 13.6, Platelet Count 375, Mean Platelet Volume 9.0, Immature Granulocyte % (Auto) 0, Neutrophils (%) (Auto ) 79H, Lymphocytes (%) (Auto) 12, Monocytes (%) (Auto) 5, Eosinophils (%) (Auto) 3, Basophils (%) (Auto) 0, Neutrophils # (Auto) 9.3H, Lymphocytes # (Auto) 1.5, Monocytes # (Auto) 0.6, Eosinophils # (Auto) 0.4H, Basophils # (Auto) 0.0, Immature Granulocyte # (Auto) 0.0, Sodium Level 139, Potassium Level 3.7, Chloride Level 111H, Carbon Dioxide Level 19L, Anion Gap 9, Blood Urea Nitrogen 6L, Creatinine 0.64, Estimat Glomerular Filtration Rate 100, BUN/Creatinine Ratio 9, Glucose Level 92, Calcium Level 8.6, Corrected Calcium 9.4, Total Bilirubin 0.2, Aspartate Amino Transf (AST/SGOT) 41H, Alanine Aminotransferase (ALT/SGPT) 29, Alkaline Phosphatase 103, Total Protein 5.7L, Albumin 3.0L 09/09/22 07:00: Urine Color ORANGE, Urine Clarity CLOUDY, Urine pH 5.5, Urine Specific [place] <=1.005, Urine Protein TRACEH, Urine Glucose (UA) TRACEH, Urine Ketones NEGATIVE, Urine Nitrite POSITIVEH, Urine Bilirubin NEGATIVE, Urine Urobilinogen 1.0, Urine Leukocyte Esterase 3+H, Urine RBC (Auto) 2+H, Urine RBC 5-10H, Urine WBC >100H, Urine Squamous Epithelial Cells 5-10, Urine Crystals NONE, Urine Bacteria LARGEH, Urine Casts NONE, Urine Mucus NEGATIVE, Urine Culture Indicated YES 09/09/22 12:28: White Blood Count 9.3, Red Blood Count 3.62L, Hemoglobin 10.4L, Hematocrit 32L, Mean Corpuscular Volume 88, Mean Corpuscular Hemoglobin 29, Mean Corpuscular Hemoglobin Concent 33, Red Cell Distribution Width 13.8, Platelet Count 387, Mean Platelet Volume 9.0, Immature Granulocyte % (Auto) 0, Neutrophils (%) (Auto) 74, Lymphocytes (%) (Auto) 17, Monocytes (%) (Auto) 5, Eosinophils (%) (Auto) 4, Basophils (%) (Auto) 0, Neutrophils # (Auto) 6.9, Lymphocytes # (Auto) 1.6, Monocytes # (Auto) 0.4, Eosinophils # (Auto) 0.3, Basophils # (Auto) 0.0, Immature Granulocyte # (Auto) 0.0, Sodium Level 139, Potassium Level 3.5L, Chloride Level 111H, Carbon Dioxide Level 19L, Anion Gap 9, Blood Urea Nitrogen 11, Creatinine 1.12, Estimat Glomerular Filtration Rate 56, BUN/Creatinine Ratio 10, Glucose Level 83, Calcium Level 8.7, Corrected Calcium 9.4, Total Bilirubin 0.3, Aspartate Amino Transf (AST/SGOT) 33, Alanine Aminotransferase (ALT/SGPT) 23, Alkaline Phosphatase 103, Total Protein 5.7L, Albumin 3.1L 09/12/22 06:35: White Blood Count 5.0, Red Blood Count 3.42L, Hemoglobin 9.8L, Hematocrit 31L, Mean Corpuscular Volume 90, Mean Corpuscular Hemoglobin 29, Mean Corpuscular Hemoglobin Concent 32, Red Cell Distribution Width 13.8, Platelet Count 355, Mean Platelet Volume 8.7L, Immature Granulocyte % (Auto) 1, Neutrophils (%) (Auto) 39L, Lymphocytes (%) (Auto) 39, Monocytes (%) (Auto) 9, Eosinophils (%) (Auto) 12H, Basophils (%) (Auto) 0, Neutrophils # (Auto) 2.0, Lymphocytes # (Auto) 2.0, Monocytes # (Auto) 0.4, Eosinophils # (Auto) 0.6H, Basophils # (Auto) 0.0, Immature Granulocyte # (Auto) 0.0, Sodium Level 141, Potassium Level 3.8, Chloride Level 110H, Carbon Dioxide Level 24, Anion Gap 7, Blood Urea Nitrogen 10, Creatinine 0.81, Estimat Glomerular Filtration Rate 82, BUN/Creatinine Ratio 12, Glucose Level 83, Calcium Level 8.4L, Corrected Calcium 9.5, Total Bilirubin 0.2, Aspartate Amino Transf (AST/SGOT) 28, Alanine Aminotransferase (ALT/SGPT) 22, Alkaline Phosphatase 92, Total Protein 5.1L, Al bumin 2.6L Microbiology 09/09/22 Urine Culture - Final, Complete Escherichia coli Pending Labs Microbiology Date/Time Source Procedure Growth Status 09/09/22 07:00 Urine Clean Catch Urine Culture - Final Escherichia coli Complete Laboratory Tests 09/07/22 05:47: White Blood Count 11.8, Red Blood Count 3.69, Hemoglobin 10.8, Hematocrit 32, Mean Corpuscular Volume 87, Mean Corpuscular Hemoglobin 29, Mean Corpuscular Hemoglobin Concent 34, Red Cell Distribution Width 13.6, Platelet Count 375, Mean Platelet Volume 9.0, Immature Granulocyte % (Auto) 0, Neutrophils (%) (Auto) 79, Lymphocytes (%) (Auto) 12, Monocytes (%) (Auto) 5, Eosinophils (%) (Auto) 3, Basophils (%) (Auto) 0, Neutrophils # (Auto) 9.3, Lymphocytes # (Auto) 1.5, Monocytes # (Auto) 0.6, Eosinophils # (Auto) 0.4, Basophils # (Auto) 0.0, Immature Granulocyte # (Auto) 0.0, Sodium Level 139, Potassium Level 3.7, Chloride Level 111, Carbon Dioxide Level 19, Anion Gap 9, Blood Urea Nitrogen 6, Creatinine 0.64, Estimat Glomerular Filtration Rate 100, BUN/Creatinine Ratio 9, Glucose Level 92, Calcium Level 8.6, Corrected Calcium 9.4, Total Bilirubin 0.2, Aspartate Amino Transf (AST/SGOT) 41, Alanine Aminotransferase (ALT/SGPT) 29, Alkaline Phosphatase 103, Total Protein 5.7, Albumin 3.0 09/09/22 07:00: Urine Color ORANGE, Urine Clarity CLOUDY, Urine pH 5.5, Urine Specific [place] <=1.005, Urine Protein TRACE, Urine Glucose (UA) TRACE, Urine Ketones NEGATIVE, Urine Nitrite POSITIVE, Urine Bilirubin NEGATIVE, Urine Urobilinogen 1.0, Urine Leukocyte Esterase 3+, Urine RBC (Auto) 2+, Urine RBC 5-10, Urine WBC >100, Urine Squamous Epithelial Cells 5-10, Urine Crystals NONE, Urine Bacteria LARGE, Urine Casts NONE, Urine Mucus NEGATIVE, Urine Culture Indicated YES 09/09/22 12:28: White Blood Count 9.3, Red Blood Count 3.62, Hemoglobin 10.4, Hematocrit 32, Mean Corpuscular Volume 88, Mean Corpuscular Hemoglobin 29, Mean Corpuscular Hemoglobin Concent 33, Red Cell Distribution Width 13.8, Platelet Count 387, Mean Platelet Volume 9.0, Immature Granulocyte % (Auto) 0, Neutrophils (%) (Auto) 74, Lymphocytes (%) (Auto) 17, Monocytes (%) (Auto) 5, Eosinophils (%) (Auto) 4, Basophils (%) (Auto) 0, Neutrophils # (Auto) 6.9, Lymphocytes # (Auto) 1.6, Monocytes # (Auto) 0.4, Eosinophils # (Auto) 0.3, Basophils # (Auto) 0.0, Immature Granulocyte # (Auto) 0.0, Sodium Level 139, Potassium Level 3.5, Chloride Level 111, Carbon Dioxide Level 19, Anion Gap 9, Blood Urea Nitrogen 11, Creatinine 1.12, Estimat Glomerular Filtration Rate 56, BUN/Creatinine Ratio 10, Glucose Level 83, Calcium Level 8.7, Corrected Calcium 9.4, Total Bilirubin 0.3, Aspartate Amino Transf (AST/SGOT) 33, Alanine Aminotransferase (ALT/SGPT) 23, Alkaline Phosphatase 103, Total Protein 5.7, Albumin 3.1 09/12/22 06:35: White Blood Count 5.0, Red Blood Count 3.42, Hemoglobin 9.8, Hematocrit 31, Mean Corpuscular Volume 90, Mean Corpuscular Hemoglobin 29, Mean Corpuscular Hemoglobin Concent 32, Red Cell Distribution Width 13.8, Platelet Count 355, Mean Platelet Volume 8.7, Immature Granulocyte % (Auto) 1, Neutrophils (%) (Auto) 39, Lymphocytes (%) (Auto) 39, Monocytes (%) (Auto) 9, Eosinophils (%) (Auto) 12, Basophils (%) (Auto) 0, Neutrophils # (Auto) 2.0, Lymphocytes # (Auto) 2.0, Monocytes # (Auto) 0.4, Eosinophils # (Auto) 0.6, Basophils # (Auto) 0.0, Immature Granulocyte # (Auto) 0.0, Sodium Level 141, Potassium Level 3.8, Chloride Level 110, Carbon Dioxide Level 24, Anion Gap 7, Blood Urea Nitrogen 10, Creatinine 0.81, Estimat Glomerular Filtration Rate 82, BUN/Creatinine Ratio 12, Glucose Level 83, Calcium Level 8.4, Corrected Calcium 9.5, Total Bilirubin 0.2, Aspartate Amino Transf (AST/SGOT) 28, Alanine Aminotransferase (ALT/SGPT) 22, Alkaline Phosphatase 92, Total Protein 5.1, Albumin 2.6 Discharge Home Medications: Active Scripts Active Effer-K 20 Meq Tablet Eff (Potassium Bicarbonate/Cit AC) 20 Meq Tablet.eff 10 Meq PO BID Cefdinir 300 Mg Capsule 300 Mg PO BID Reported Vitamin D3 (Cholecalciferol (Vitamin D3)) 50 Mcg (2000 Unit) Capsule 50 Mcg PO DAILY Preservision Areds 2 Softgel (Vit C/E/Zn/Coppr/Lutein/Zeaxan) 250MG-90MG Capsule 2 Each PO DAILY One Tablet (Mv-Mn/Iron/FA/Herbal/Digestive) 27 Mg Iron-360 Mcg-125 Mg- 32 Mg Tablet 1 Each PO DAILY Excedrin Migraine Caplet (Aspirin/Acetaminophen/Caffeine) 250 Mg-250 Mg-65 Mg Tablet 2 Each PO Q6-8HR PRN Ativan (Lorazepam) 1 Mg Tablet 0.5-1 Mg PO Q6H PRN Estradiol Tablet (Estradiol) 0.5 Mg Tablet 0.5 Mg PO DAILY Sertraline HCl 100 Mg Tablet 100 Mg PO DAILY Topiramate 50 Mg Tablet 100 Mg PO BID TAKES 2 (50MG) TABS Hydrocodone-Acetamin 10-325 mg (Hydrocodone/Acetaminophen) 10 Mg-325 Mg Tablet 1 Ea PO QID PRN Fentanyl Patch 100 MCG (Fentanyl) 100 Mcg/Hour Patch.td72 100 Mcg TD Q48H Clorazepate Dipotassium 7.5 Mg Tablet 7.5 Mg PO HS PRN ONLY TAKES IF THE 15MG DOSE IS INEFFECTIVE Ondansetron Odt (Ondansetron) 4 Mg Tab.rapdis 4 Mg SL Q8H PRN Bupropion Xl (Bupropion HCl) 300 Mg Tab.er.24h 300 Mg PO DAILY Fluoxetine HCl 60 Mg Tablet 60 Mg PO DAILY Linzess (Linaclotide) 72 Mcg Capsule 72 Mcg PO DAILY Omeprazole 40 Mg Capsule.dr 40 Mg PO DAILY Dulcolax (Bisacodyl) 5 Mg Tablet.dr 10-15 Mg PO BID TAKES 2 TO 3 (5MG) TABS Pepcid (Famotidine) 20 Mg Tablet 20 Mg PO BID PRN Clorazepate Dipotassium 7.5 Mg Tablet 15 Mg PO HS TAKES 2 (7.5MG) TABS Imipramine HCl 25 Mg Tablet 25 Mg PO BID Instructions to patient/family Please see electronic discharge instructions given to patient. Diagnosis/Problems Diagnosis/Problems (1) Fibromyalgia Status: Acute (2) Hypokalemia (3) Encephalopathy CA GOETZ DO Sep 13, 2022 05:44
[2022-09-13] MEDS: MULTIVIT W/MINERALS TAB (THERAGRAN M) PO SCH (06:55)
[2022-09-13 08:00] VITALS: BP 108/62
[2022-09-13] MEDS: POTASSIUM BICARB 20 MEQ (EFFER-K) TABLET PO SCH (08:31)
[2022-09-13] MEDS: toPIRamate 100 MG (TOPAMAX) TAB PO SCH (08:31)
[2022-09-13] MEDS: VITAMIN D3 25 MCG (1,000 UNITS) TABLET PO SCH (08:31)
[2022-09-13] MEDS: BISACODYL 5 MG (DULCOLAX) TABLET PO SCH (08:31)
[2022-09-13] MEDS: CEFDINIR 300 MG (OMNICEF) CAP PO SCH (08:31)
[2022-09-13] MEDS: ESTRADIOL 1 MG TAB (ESTRACE) PO SCH (08:32)
[2022-09-13] MEDS: PANTOPRAZOLE 40 MG (PROTONIX) TAB PO SCH (08:32)
[2022-09-13] MEDS: FLUoxetine HCL 20 MG (PROzac) CAP PO SCH (08:32)
[2022-09-13] MEDS: SERTRALINE 100 MG (ZOLOFT) TAB PO SCH (08:32)
[2022-09-13] MEDS: IMIPRAMINE 25 MG (TOFRANIL) TAB PO SCH (08:32)
[2022-09-13] MEDS: buPROPion SR 150 MG (WELLBUTRIN SR) TAB PO SCH (08:32)
[2022-09-13] MEDS: [UNRECOGNIZED DRUG - REMARK] PO SCH (08:33)
[2022-09-13] MEDS: DOCUSATE SODIUM 100 MG (COLACE) CAP PO SCH (08:37)
[2022-09-13] MEDS: polyethylene glycoL POWDER 17 GM (MIRALAX) PACK PO SCH (08:37)
[2022-09-13] MEDS: SENNA W/DOCUSATE (SENOKOT S) TABLET PO SCH (08:37)
--- NOTE | 2022-09-13 13:14 | Therapy Team Discharge Summary ---
Therapy Discharge Summary Discharge Recommendations Date of Discharge Sep 13, 2022 at 09:15 Physical Therapy Roll Left to Right (QC): 6 Sit to Lying (QC): 6 Lying to Sitting/Side of Bed(Q: 6 Sit to Stand (QC): 6 Chair/Xfr-ol-Ymrxn Xfer(QC): 6 Toilet Transfer (QC): 4 Car Transfer (QC): 6 Does the Patient Walk: Yes Mode of Locomotion: Walk Anticipated Mode of Locomotion: Walk Walk 10 feet (QC): 4 Walk 50 ft with 2 Turns(QC): 4 Walk 150 ft (QC): 4 Walking 10ft on uneven surface: 4 (SBA) Distance: 150ft Gait Assistive Device: FWW Does the Pt Use a Wheelchair: No Wheel 50 ft with 2 turns (QC): 9 Wheel 150 ft (QC): 9 Type of Wheelchair: N/A #of Steps: 12 1 Step (curb) (QC): 4 (SBA) 4 Steps (QC): 4 (SBA) 12 Steps (QC): 4 (SBA) Walking Assistive Device: Walker Balance Sitting Static: Good Balance Sitting Dynamic: Good Balance-Standing Static: Fair Picking up an Object (QC): 6 Occupational Therapy Pt admitted to ARU with encephalopathy. At OF, pt required SBA with ADLS and mobility. Upon initial evaluation, pt was independent with eating, required SBA with UE dressing and footwear, and CGA oral care, showering, LE dressing, and toileting. OT tx focused on increasing BUE Strength and activity tolerance, family education, and increasing safety and independence with ADLS and functional mobility. Pt made progress towards goals, meeting all LTGs except LE dressing. Pt discharged home with family support, d/c from OT. Decreased Activ Tolerance, Decreased UE Strength, Impaired I ADL's, Impaired Self-Care Skills Eating (QC): 6 Oral Hygiene (QC): 6 (seated) Shower/Bathe Self (QC): 4 (Supervision) Upper Body Dressing (QC): 5 Lower Body Dressing (QC): 4 (Supervision) On/Off Footwear (QC): 5 Toileting Hygiene (QC): 6 PT Appraiser Art Goals [facility] Goals PT Appraiser Art Goals Time Frame: Sep 16, 2022 Roll Left to Right (QC): 6 (Pt will be Mod I with bed mobility ) Sit to Lying (QC): 6 (Pt will be Mod I with bed mobility ) Lying-Sitting on Side/Bed(QC): 6 (Pt will be Mod I with bed mobility ) Sit to Stand (QC): 6 (Pt will be Mod I with functional transfers ) Chair/Xlg-iz-Slfix Xfer(QC): 6 (Pt will be Mod I with functional transfers ) Toilet/Commode Transfer (QC): 6 (Pt will be Mod I with functional transfers ) Car Transfer (QC): 6 (Pt will be Mod I with functional transfers ) Does the Patient Walk: Yes Walk 10 feet (QC): 4 (Pt will be SBA for walking with the FWW/4WW, as well as stairs, to be at PLOF. ) Walk 10ft-Uneven Surface(QC): 4 (Pt will be SBA for walking with the FWW/4WW, as well as stairs, to be at PLOF. ) Walk 50ft with 2 Turns (QC): 4 (Pt will be SBA for walking with the FWW/4WW, as well as stairs, to be at PLOF. ) Walk 150 ft (QC): 4 (Pt will be SBA for walking with the FWW/4WW, as well as stairs, to be at PLOF. ) Does the Pt use WC or Scooter?: No Wheel 50 feet with 2 turns (QC: 9 Type: N/A Wheel 150 feet: 9 Type: N/A 1 Step (curb) (QC): 4 (Pt will be SBA for walking with the FWW/4WW, as well as stairs, to be at PLOF. ) 4 Steps (QC): 4 (Pt will be SBA for walking with the FWW/4WW, as well as stairs, to be at PLOF. ) 12 Steps (QC): 4 (Pt will be SBA for walking with the FWW/4WW, as well as stairs, to be at PLOF. ) Picking up an Object (QC): 6 (Pt will be Mod I with the field crops harvest machine operator to pickling solution maker objects. ) OT Appraiser Art Goals Appraiser Art Goals Time Frame: Sep 23, 2022 Acute change in mental status: 0 Inattention: 0 Disorganized thinkin Altered level of consciousness: 0 Eating (QC): 6 (met) Oral Hygiene (QC): 6 (met) Toileting Hygiene (QC): 6 (met) Shower/Bathe Self (QC): 4 (Supervision, met) Upper Body Dressing (QC): 5 (met) Lower Body Dressing (QC): 5 (not met) On/Off Footwear (QC): 5 (met) Additional Goals: 1-Demonstrate ADL Tasks, 2-Verbalize Understanding, 3- ImproveStrength/Marcelino 1=Demonstrate adherence to instructed precautions during ADL tasks. 2=Patient will verbalize/demonstrate understanding of assistive devices/modifications for ADL. 3=Patient will improve strength/tolerance for activity to enable patient to perform ADL's. MANI CURRIE OT Sep 13, 2022 13:14
--- NOTE | 2022-09-13 14:10 | Therapy Team Discharge Summary ---
Therapy Discharge Summary Discharge Recommendations Date of Discharge Sep 13, 2022 at 09:15 Therapy D/C Recommendations: Home w/ Family Support Physical Therapy Pt admitted to ARU with encephalopathy. At OF, pt required SBA with ADLS and mobility, for improved safety. Upon initial eval, pt was SBA/CGA/Min A for functional mobility, secondary to balance and safety issues. PT focused on B LE strength, ambulation, balance, safety, and endurance. Pt progressed well and met all garett goals. Pt discharged home with family support, d/c from PT. Roll Left to Right (QC): 6 Sit to Lying (QC): 6 Lying to Sitting/Side of Bed(Q: 6 Sit to Stand (QC): 6 Chair/Znf-nh-Akzbe Xfer(QC): 6 Toilet Transfer (QC): 4 Car Transfer (QC): 6 Does the Patient Walk: Yes Mode of Locomotion: Walk Anticipated Mode of Locomotion: Walk Walk 10 feet (QC): 4 Walk 50 ft with 2 Turns(QC): 4 Walk 150 ft (QC): 4 Walking 10ft on uneven surface: 4 (SBA) Distance: 150ft Gait Assistive Device: FWW Does the Pt Use a Wheelchair: No Wheel 50 ft with 2 turns (QC): 9 Wheel 150 ft (QC): 9 Type of Wheelchair: N/A #of Steps: 12 1 Step (curb) (QC): 4 (SBA) 4 Steps (QC): 4 (SBA) 12 Steps (QC): 4 (SBA) Walking Assistive Device: Walker Balance Sitting Static: Good Balance Sitting Dynamic: Good Balance-Standing Static: Fair Picking up an Object (QC): 6 Occupational Therapy Decreased Activ Tolerance, Decreased UE Strength, Impaired I ADL's, Impaired Self-Care Skills Eating (QC): 6 Oral Hygiene (QC): 6 (seated) Shower/Bathe Self (QC): 4 (Supervision) Upper Body Dressing (QC): 5 Lower Body Dressing (QC): 4 (Supervision) On/Off Footwear (QC): 5 Toileting Hygiene (QC): 6 PT Intermediate Goals Mental Health Coordinator Goals PT Intermediate Goals Time Frame: Sep 16, 2022 Roll Left to Right (QC): 6 (Pt will be Mod I with bed mobility ) Sit to Lying (QC): 6 (Pt will be Mod I with bed mobility ) Lying-Sitting on Side/Bed(QC): 6 (Pt will be Mod I with bed mobility ) Sit to Stand (QC): 6 (Pt will be Mod I with functional transfers ) Chair/Wdk-ew-Ywrdb Xfer(QC): 6 (Pt will be Mod I with functional transfers ) Toilet/Commode Transfer (QC): 6 (Pt will be Mod I with functional transfers ) Car Transfer (QC): 6 (Pt will be Mod I with functional transfers ) Does the Patient Walk: Yes Walk 10 feet (QC): 4 (Pt will be SBA for walking with the FWW/4WW, as well as stairs, to be at PLOF. ) Walk 10ft-Uneven Surface(QC): 4 (Pt will be SBA for walking with the FWW/4WW, as well as stairs, to be at PLOF. ) Walk 50ft with 2 Turns (QC): 4 (Pt will be SBA for walking with the FWW/4WW, as well as stairs, to be at PLOF. ) Walk 150 ft (QC): 4 (Pt will be SBA for walking with the FWW/4WW, as well as stairs, to be at PLOF. ) Does the Pt use WC or Scooter?: No Wheel 50 feet with 2 turns (QC: 9 Type: N/A Wheel 150 feet: 9 Type: N/A 1 Step (curb) (QC): 4 (Pt will be SBA for walking with the FWW/4WW, as well as stairs, to be at PLOF. ) 4 Steps (QC): 4 (Pt will be SBA for walking with the FWW/4WW, as well as stairs, to be at PLOF. ) 12 Steps (QC): 4 (Pt will be SBA for walking with the FWW/4WW, as well as stairs, to be at PLOF. ) Picking up an Object (QC): 6 (Pt will be Mod I with the package reinspector to machine operator hop picker objects. ) OT Mental Health Coordinator Goals Intermediate Goals Time Frame: Sep 23, 2022 Acute change in mental status: 0 Inattention: 0 Disorganized thinkin Altered level of consciousness: 0 Eating (QC): 6 (met) Oral Hygiene (QC): 6 (met) Toileting Hygiene (QC): 6 (met) Shower/Bathe Self (QC): 4 (Supervision, met) Upper Body Dressing (QC): 5 (met) Lower Body Dressing (QC): 5 (not met) On/Off Footwear (QC): 5 (met) Additional Goals: 1-Demonstrate ADL Tasks, 2-Verbalize Understanding, 3- ImproveStrength/Marcelino 1=Demonstrate adherence to instructed precautions during ADL tasks. 2=Patient will verbalize/demonstrate understanding of assistive devices/mod ifications for ADL. 3=Patient will improve strength/tolerance for activity to enable patient to perform ADL's. DIANA JORDAN PT Sep 13, 2022 14:10
== END 2022-09-13 09:15 | disposition home or self-care (01) | DRG 71 ==
PROVIDERS: ADMIT Internal Medicine; ATTEND Internal Medicine
DX: G93.40 Encephalopathy, unspecified (principal); N39.0 Urinary tract infection, site not specified; M79.7 Fibromyalgia; E87.6 Hypokalemia; R35.0 Frequency of micturition; E78.00 Pure hypercholesterolemia, unspecified; F32.A Depression, unspecified; Z91.09 Other allergy status, other than to drugs and biological substances; Z79.899 Other long term (current) drug therapy
CPT/HCPCS: 36415; 80053; 81000; 85025; 87077; 87088; 87186